=== PATIENT | male | born 1940 | race Caucasian/White ===

== ENCOUNTER 2016-10-10 09:13 | Inpatient (IN) | payer MEDICARE, OTHER ==
[~2016-10-10] VITALS: Ht 180.3 cm; Wt 60.0 kg
[~2016-10-10 09:13] MED LIST: ADV25050 INH; ALBU18HF IH; BIMA2.5D BOTH EYES; CHOL20003 PO; CRES10 PO; DIAZ-90 PO; DIGO250T16 PO; DILT120C79 PO; DORZ10DR6 BOTH EYES; TIOT18CA IH; WARF10TA PO; WARF5TAB72 PO
[2016-10-10] MEDS ORDERED: METHYLPREDNISOLONE 125 MG INJ IV STA (09:25)
[2016-10-10] MEDS ORDERED: IPRATROPIUM (NEB) 0.5 MG/2.5 ML AMP INH STA (09:25)
[2016-10-10] MEDS ORDERED: ALBUTEROL 0.5% (NEB) 2.5 MG/0.5 ML AMP INH STA ×2 (09:25→14:10)
--- NOTE | 2016-10-10 09:27 | ERA ---
ER Documentation Chief Complaint Date/Time DATE: 10/10/16 TIME: 09:27 Chief Complaint sob with fever HPI 76-year-old male with history of metastatic prostate CA to evolve, chronic hypoxia respiratory failure, COPD, aspiration pneumonia, atrial fibrillation and dyslipidemia ambulatory to the ED with his son complaining of a three-day history of increasing shortness of breath with cough productive of yellowish sputum and requiring supplemental oxygen which he he has at home and uses only when needed. Fevers up to 100.0. Denies other URI symptoms rhinorrhea or sore throat. No chest pain or palpitations. Yesterday he had a long biopsy of his hip which went well and he denies any pain, swelling or bleeding. No abdominal pain, nausea or vomiting. No leg pain or swelling. No headache, neck pain, visual changes, focal weakness or numbness. No ill contacts or recent travel. ROS All systems reviewed and are negative except as per history of present illness. Medications Home Meds Reported Medications Sennosides* (Senna Lax*) 8.6 Mg Tablet, 1 TAB PO QHS, TAB 10/10/16 Docusate Sodium (Col-Rite) 100 Mg Capsule, 100 MG PO DAILY, CAP 10/10/16 Apixaban* (Eliquis*) 5 Mg Tablet, 5 MG PO BID, TAB 10/10/16 Diltiazem Hcl* (Diltiazem XT) 240 Mg Capsule.er, 240 MG PO DAILY, #30 CAP 10/10/16 Amiodarone Hcl* (Amiodarone Hcl*) 200 Mg Tablet, 200 MG PO DAILY, #30 TAB 10/10/16 Atorvastatin Calcium* (Atorvastatin Calcium*) 20 Mg Tablet, 20 MG PO QHS, #30 TAB 10/10/16 Bimatoprost* (Lumigan*) 2.5 Ml Drops, 1 DROP BOTH EYES HS 12/19/13 Dorzolamide/Timolol* (Dorzolamide/Timolol*) 10 Ml Drops, 1 DROP BOTH EYES BID, EA 12/19/13 Tiotropium [place]* (Spiriva*) 18 Mcg Cap.w.dev, 1 INH IH DAILY, EA 12/19/13 Salmeterol Xinaf/Fluticasone* (Advair*) 1 Inh Inha, 2 PUFF INH BID, INH 12/19/13 Digoxin* (Digox*) 250 Mcg Tablet, 250 MCG PO DAILY 12/19/13 Discontinued Reported Medications Warfarin Sodium* (Coumadin*) 10 Mg Tablet, 10 MG PO SATURDAY, TAB 12/19/13 Albuterol Sulfate* (Ventolin HFA*) 18 Gm Hfa.aer.ad, 2 PUFF IH Q4H Y for WHEEZING AND RESP DISTRESS, EA 12/19/13 Rosuvastatin Calcium* (Crestor*) 10 Mg Tablet, 10 MG PO HS, TAB 12/19/13 Cholecalciferol (Vitamin D3) (VITAMIN D-3) 2,000 Unit Capsule, 2000 UNIT PO DAILY 12/19/13 Diazepam* (Valium*) 5 Mg Tablet, 5 MG PO Y for ANXIETY, TAB 12/19/13 Warfarin Sodium* (Coumadin*) 5 Mg Tablet, 5 MG PO ,,SAT,,SAT,SAT, TAB 12/19/13 Diltiazem Hcl (Diltiazem Er) 120 Mg Capsule.sa, 120 MG PO DAILY 12/19/13 Allergies Allergies: Coded Allergies: No Known Allergy (Unverified , 10/10/16) PMhx/Soc Reviewed in chart. As per HPI. History of Surgery: Yes (prostate surgery) Anesthesia Reaction: No Hx Neurological Disorder: No Hx Respiratory Disorders: Yes (COPD,PULMONARY DEBILITY) Hx Cardiac Disorders: Yes (ARTHEROSCLEROTIC HEART DISEASE, Afib) Hx Psychiatric Problems: No Hx Alcohol Use: No Hx Substance Use: No Hx Tobacco Use: No Smoking Status: Former smoker (40 pack year smoking history quit approximately 10 years ago) FmHx Mother: Hypertension, father: Stroke. No family history of coronary artery disease or cancer. Physical Exam Vitals Vital Signs Date Time Temp Pulse Resp B/P Pulse Ox O2 Delivery O2 Flow Rate FiO2 10/10/16 12:49 89 20 118/64 96 Nasal Cannula 2.0 10/10/16 09:57 3.0 10/10/16 09:57 87 18 97 Nasal Cannula 3.0 10/10/16 09:28 Nasal Cannula 4 10/10/16 09:25 Nasal Cannula 4.0 10/10/16 09:24 99.4 94 32 153/94 94 Physical Exam Const: Alert, chronically ill-appearing in moderate respiratory distress Head: Atraumatic Eyes: Normal Conjunctiva ENT: Normal External Ears, Nose and Mouth. Neck: Full range of motion no JVD. Nontender. Resp: Breath sounds markedly diminished bilaterally with expiratory wheezing and prolonged expiratory phase. Cardio: Regular rate and rhythm, no murmurs. 2/6 systolic murmur. Abd: Soft, non tender, non distended. Normal bowel sounds Skin: No petechiae or rashes Back: No midline or flank tenderness Ext: No cyanosis, or edema. No calf swelling or tenderness. Pulses 4+ in all extremities. Neur: Awake and alert. No focal deficit observed. Psych: Normal Mood and Affect Result Diagram: 10/10/16 0930 10/11/16 0749 Results 24 hrs Laboratory Tests Test 10/10/16 09:30 White Blood Count 11.710^3/ul Red Blood Count 4.9410^6/ul Hemoglobin 14.9g/dl Hematocrit 44.5% Mean Corpuscular Volume 90.1fl Mean Corpuscular Hemoglobin 30.2pg Mean Corpuscular Hemoglobin Concent 33.5g/dl Red Cell Distribution Width 13.4% Platelet Count 13046^3/UL Mean Platelet Volume 10.0fl Neutrophils % 78.5% Lymphocytes % 10.9% Monocytes % 10.0% Eosinophils % 0.1% Basophils % 0.2% Nucleated Red Blood Cells % 0.0/100WBC Neutrophils # 9.210^3/ul Lymphocytes # 1.310^3/ul Monocytes # 1.210^3/ul Eosinophils # 0.010^3/ul Basophils # 0.010^3/ul Nucleated Red Blood Cells # 0.010^3/ul Prothrombin Time 14.3Sec Prothrombin Time Ratio 1.1 INR International Normalized Ratio 1.11 Activated Partial Thromboplast Time 39.2Sec Sodium Level 138mmol/L Potassium Level 3.6mmol/L Chloride Level 98mmol/L Carbon Dioxide Level 25mmol/L Anion Gap 19 Blood Urea Nitrogen 15mg/dl Creatinine 0.96mg/dl Glucose Level 117mg/dl Calcium Level 8.6mg/dl Total Bilirubin 0.5mg/dl Direct Bilirubin 0.00mg/dl Indirect Bilirubin 0.5mg/dl Aspartate Amino Transf (AST/SGOT) 21IU/L Alanine Aminotransferase (ALT/SGPT) 22IU/L Alkaline Phosphatase 109IU/L Troponin I 0.021ng/ml Total Protein 7.5g/dl Albumin 4.3g/dl Globulin 3.20g/dl Albumin/Globulin Ratio 1.34 Digoxin Level 1.5ng/ml Current Medications Medications (Trade) Dose Ordered Sig/Pily Route PRN Reason Start Time Stop Time Status Last Admin Dose Admin Albuterol (Proventil 0.5% (Neb)) 15 mg ONCE STAT INH 10/10/16 09:25 10/10/16 09:27 DC 10/10/16 09:54 Ipratropium [place] (Atrovent 0.02% (Neb)) 1 mg ONCE STAT INH 10/10/16 09:25 10/10/16 09:27 DC 10/10/16 09:55 Methylprednisolone Sodium Succinate (Solu-Medrol) 125 mg ONCE STAT IV 10/10/16 09:25 10/10/16 09:27 DC 10/10/16 09:37 Albuterol (Proventil 0.5% (Neb)) 15 mg ONCE STAT INH 10/10/16 14:10 10/10/16 14:11 DC 10/10/16 14:34 EKG: TIME: 09:32. Sinus rhythm. Ventricular rate 93. Normal WA and QRS. No acute ST elevation although there are moderate diffuse depressions. No ectopy. EP Interpretation: Abnormal EKG. IMAGING: PROCEDURE: XR Chest. CLINICAL INDICATION: Shortness of breath. TECHNIQUE: Single frontal view of the chest was obtained. COMPARISON: 06/02/2016 FINDINGS: Cardiac silhouette appears normal. There is calcification and unfolding of the thoracic aorta. Pulmonary vasculature appears normal. There is mild pulmonary hyperinflation. There is some linear subsegmental atelectasis in both lower lung blanchard. Minimal streaky infiltrate remains in the right upper lobe.. Costophrenic angles are well defined and the osseous structures appear intact. IMPRESSION: 1. Continued pulmonary hyperinflation with bibasilar subsegmental atelectasis. 2. Minimal streaky right upper lobe infiltrate remains. 3. Aortic atherosclerosis. RPTAT: AACC Physician Sen Date Time Electronically viewed and signed by Roque Fierro Physician on 10/10/2016 10: 28 JH/ Procedures/MDM DOCUMENTS REVIEWED: ED nurse, prior ED, prior records including history and physical, progress notes and discharge summary of an admission 06/04 through 10/2015 REEXAMINATION/REEVALUATION: Time: 13:45. Increasing breath sounds. O2 saturation 93% on 2 L by nasal cannula. Feels better but still extremely dyspneic with exertion and hypoxic on room air. MEDICAL DECISION MAKIN-year-old male with history of metastatic prostate CA to evolve, chronic hypoxia respiratory failure, COPD, aspiration pneumonia, atrial fibrillation and dyslipidemia ambulatory to the ED with his son complaining of a three-day history of increasing shortness of breath with cough productive of yellowish sputum and requiring supplemental oxygen which he he has at home and uses only when needed. Presentation consistent with COPD exacerbation and bronchitis. No radiographic evidence of pneumonia or pneumothorax. Chest x-ray unchanged from 05/2016. Improved with nebulized beta agonists and steroids but still hypoxic with severe exertional dyspnea. Levaquin given for bronchitis. Pulmonary embolism is unlikely as the patient is already anticoagulated on Eliquis due atrial fibrillation which is controlled. Patient be admitted to [facility] for respiratory care, further evaluation and management.. Counseled patient and family regarding diagnosis, diagnostic results and plan for admission. CALLS/CONSULTS: Time 14:00, Dr. Gracia, Recommends admission to med/surg. PATIENT CARE TRANSITIONED: Time: 14:10, Dr. Gracia. CRITICAL CARE TIME: Due to the high probability of sudden clinically significant respiratory deterioration, this patient with respiratory distress due to an acute on chronic hypoxic respiratory failure required multiple, frequent reevaluations of vital signs and response to therapy. Improved and no current indication for intubation or noninvasive mechanical ventilation. Additional critical care time was spent in interpretation of relevant clinical data, obtaining supplemental history from family, review of medical records and consultation with the admitting physician, Dr Gracia. TOTAL CRITICAL CARE TIME: 35 minutes not including other separately reportable procedures. Departure Diagnosis: Primary Impression: Acute and chronic respiratory failure with hypoxia Additional Impressions: Metastatic malignant neoplasm to prostate History of atrial fibrillation COPD with acute exacerbation Acute dyspnea Condition: Serious PRIYA ENRIQUEZ MD Oct 10, 2016 09:27
[2016-10-10 09:47] LABS: ADD SCAN DIFF NO
[2016-10-10 09:51] LABS: BASOPHILS % 0.2 % (0.0-2.0); EOSINOPHILS % 0.1 % (0.0-7.0); HEMATOCRIT 44.5 % (42.0-52.0); HEMOGLOBIN 14.9 g/dl (14.0-18.0); LYMPHOCYTES # 1.3 10^3/ul (0.8-2.9); LYMPHOCYTES % 10.9 % (15.0-51.0); MEAN CORPUSCULAR HEMOGLOBIN 30.2 pg (29.0-33.0); MEAN CORPUSCULAR HGB CONC 33.5 g/dl (32.0-37.0); MEAN CORPUSCULAR VOLUME 90.1 fl (82.0-101.0); MONOCYTE # 1.2 10^3/ul (0.3-0.9); NEUTROPHIL # 9.2 10^3/ul (1.6-7.5); NEUTROPHILS % 78.5 % (39.0-77.0); PLATELET COUNT 199 10^3/UL (140-415); RED BLOOD COUNT 4.94 10^6/ul (4.70-6.10); RED CELL DISTRIBUTION WIDTH 13.4 % (11.5-14.5); WHITE BLOOD COUNT 11.7 10^3/ul (4.8-10.8)
[2016-10-10 10:03] LABS: ALBUMIN 4.3 g/dl (3.3-4.9)
[2016-10-10 10:04] LABS: POTASSIUM 3.6 mmol/L (3.5-5.1)
[2016-10-10 10:06] LABS: BILIRUBIN,INDIRECT 0.5 mg/dl (0-1.1); BILIRUBIN,TOTAL 0.5 mg/dl (0.2-1.3); CREATININE 0.96 mg/dl (0.61-1.24)
[2016-10-10 10:07] LABS: ALBUMIN/GLOBULIN RATIO 1.34; CALCIUM 8.6 mg/dl (8.4-10.2); TOTAL PROTEIN 7.5 g/dl (6.1-8.1)
[2016-10-10 10:18] LABS: TROPONIN-I 0.021 ng/ml (0.00-0.12)
--- NOTE | 2016-10-10 10:28 | RADRPT ---
PROCEDURE: XR Chest. CLINICAL INDICATION: Shortness of breath. TECHNIQUE: Single frontal view of the chest was obtained. COMPARISON: 06/02/2016 FINDINGS: Cardiac silhouette appears normal. There is calcification and unfolding of the thoracic aorta. Pul monary vasculature appears normal. There is mild pulmonary hyperinflation. There is some linear belcher bsegmental atelectasis in both lower lung blanchard. Minimal streaky infiltrate remains in the right u pper lobe.. Costophrenic angles are well defined and the osseous structures appear intact. IMPRESSION: 1. Continued pulmonary hyperinflation with bibasilar subsegmental atelectasis. 2. Minimal streaky right upper lobe infiltrate remains. 3. Aortic atherosclerosis. RPTAT: AACC Physician Sen Date Time Electronically viewed and signed by Physician Sen on 10/10/2016 10:28 /
[2016-10-10 11:53] LABS: INR 1.11; PROTIME 14.3 Sec (12.2-14.2); PT RATIO 1.1
[2016-10-10 11:54] LABS: PARTIAL THROMBOPLASTIN TIME 39.2 Sec (25.0-35.0)
[2016-10-10] MEDS ORDERED: ATOR20TA38 PO (12:05)
[2016-10-10] MEDS ORDERED: AMIO200T2 PO (12:06)
[2016-10-10] MEDS ORDERED: DILT240C98 PO (12:06)
[2016-10-10] MEDS ORDERED: APIX5TAB PO (12:07)
[2016-10-10] MEDS ORDERED: DOCU100C59 PO (12:07)
[2016-10-10] MEDS ORDERED: SENN-53 PO (12:08)
[2016-10-10] MEDS ORDERED: ACETAMINOPHEN 325 MG TAB PO PRN ×2 (14:30→15:30)
[2016-10-10] MEDS ORDERED: ONDANSETRON 4 MG INJ IV PRN ×2 (14:30→15:30)
[2016-10-10] MEDS ORDERED: LEVOFLOXACIN 500MG/D5W (PMX) 100 ML IVPB ONE (14:30)
--- NOTE | 2016-10-10 14:53 | HP ---
Date/Time of Note Date/Time of Note DATE: 10/10/16 TIME: 14:49 Assessment/Plan VTE Prophylaxis VTE Prophylaxis Intervention: LMWH Assessment/Plan Assessment/Plan 1. Acute on chronic hypoxemic respiratory failure 2. Chronic obstructive pulmonary disease exacerbation 3. Acute bronchitis versus Pneumonia 4. Paroxysmal atrial fibrillation. 5. Dyslipidemia. . 6. Aortic valve disease 7. History of prostate cancer, remote prostatectomy in 1991. 8. Glaucoma, stable. 9. History of Vitamin D deficiency. 10. Remote tobacco abuse PLAN: * admit * ACS r/o * bronchodilator / abx / supplemental o2/ steroids * suppotive care + home meds PROPHYLAXIS: eliquis / ppi HPI/ROS Admit Date/Time Admit Date/Time 10/10/16 Hx of Present Illness PRESENTING COMPLAINT: cough / SOB HISTORY OF PRESENTING COMPLAINT: 76-year-old male with history of metastatic prostate CA remotely , chronic hypoxia respiratory failure, COPD, aspiration pneumonia, atrial fibrillation and dyslipidemia ambulatory to the ED with his son complaining of a three-day history of increasing shortness of breath with cough productive of yellowish sputum and requiring supplemental oxygen which he he has at home and uses only when needed. Fevers up to 100.0. Denies other URI symptoms rhinorrhea or sore throat. No chest pain or palpitations. Yesterday he had a long biopsy of his hip which went well and he denies any pain, swelling or bleeding. No abdominal pain, nausea or vomiting. No leg pain or swelling. No headache, neck pain, visual changes, focal weakness or numbness. No ill contacts or recent travel. ROS 12 point review if systems was done and pertinent findings are as noted. PMH/Family/Social Past Medical History metastatic prostate CA chronic hypoxia respiratory failure COPD aspiration pneumonia atrial fibrillation dyslipidemia Vit D deficiency Glaucoma Past Surgical History * Hip bx yesterday * Prostate Sx Social History Smoking Status: Former smoker (40 pack year smoking history quit approximately 10 years ago) Exam/Review of Systems Vital Signs Vitals Vital Signs Date Time Temp Pulse Resp B/P Pulse Ox O2 Delivery O2 Flow Rate FiO2 10/10/16 14:37 82 18 97 Nasal Cannula 3.0 10/10/16 12:49 118/64 10/10/16 09:24 99.4 Exam Exam GENERAL: Patient is alert, oriented / cachectic / ill looking. HEENT: Oropharynx is clear. There is no carotid bruit, no masses. Patient's pupils are equal, round and reactive to light bilaterally. Extraocular motions are intact. There is no scleral icterus. There is no facial asymmetry. NECK: Supple. LUNGS: Breath sounds markedly diminished bilaterally with expiratory wheezing and prolonged expiratory phase. HEART: S1, S2. No murmur, gallops or rubs. Regular rate and rhythm. ABDOMEN: Soft, nontender. Normoactive bowel sounds. There are no stigmata of chronic liver disease. BACK: no costovertebral angle tenderness. GENITOURINARY: Deferred. EXTREMITIES: No edema. There is no cyanosis, clubbing. There are 2+ pulses bilaterally distally. NEUROLOGIC: The patient has no lateralizing signs. Cranial nerves II-XII are intact. Labs Result Diagram: 10/10/16 0930 10/10/16 0930 Medications Medications Current Medications Levofloxacin/ Dextrose (Levaquin 500mg/ D5W 100 ml (Pmx)) 100 ml @ 100 mls/hr ONCE ONCE IVPB Last administered on 10/10/16t 14:25; Admin Dose 100 MLS/HR; Start 10/10/16 at 14:30; Stop 10/10/16 at 15:29 Procedures Procedures Laboratory Tests Test 10/10/16 09:30 White Blood Count 11.710^3/ul Red Blood Count 4.9410^6/ul Hemoglobin 14.9g/dl Hematocrit 44.5% Mean Corpuscular Volume 90.1fl Mean Corpuscular Hemoglobin 30.2pg Mean Corpuscular Hemoglobin Concent 33.5g/dl Red Cell Distribution Width 13.4% Platelet Count 89021^3/UL Mean Platelet Volume 10.0fl Neutrophils % 78.5% Lymphocytes % 10.9% Monocytes % 10.0% Eosinophils % 0.1% Basophils % 0.2% Nucleated Red Blood Cells % 0.0/100WBC Neutrophils # 9.210^3/ul Lymphocytes # 1.310^3/ul Monocytes # 1.210^3/ul Eosinophils # 0.010^3/ul Basophils # 0.010^3/ul Nucleated Red Blood Cells # 0.010^3/ul Prothrombin Time 14.3Sec Prothrombin Time Ratio 1.1 INR International Normalized Ratio 1.11 Activated Partial Thromboplast Time 39.2Sec Sodium Level 138mmol/L Potassium Level 3.6mmol/L Chloride Level 98mmol/L Carbon Dioxide Level 25mmol/L Anion Gap 19 Blood Urea Nitrogen 15mg/dl Creatinine 0.96mg/dl Glucose Level 117mg/dl Calcium Level 8.6mg/dl Total Bilirubin 0.5mg/dl Direct Bilirubin 0.00mg/dl Indirect Bilirubin 0.5mg/dl Aspartate Amino Transf (AST/SGOT) 21IU/L Alanine Aminotransferase (ALT/SGPT) 22IU/L Alkaline Phosphatase 109IU/L Troponin I 0.021ng/ml Total Protein 7.5g/dl Albumin 4.3g/dl Globulin 3.20g/dl Albumin/Globulin Ratio 1.34 Digoxin Level 1.5ng/ml PROCEDURE: XR Chest. CLINICAL INDICATION: Shortness of breath. TECHNIQUE: Single frontal view of the chest was obtained. COMPARISON: 06/02/2016 FINDINGS: Cardiac silhouette appears normal. There is calcification and unfolding of the thoracic aorta. Pulmonary vasculature appears normal. There is mild pulmonary hyperinflation. There is some linear subsegmental atelectasis in both lower lung blanchard. Minimal streaky infiltrate remains in the right upper lobe.. Costophrenic angles are well defined and the osseous structures appear intact. IMPRESSION: 1. Continued pulmonary hyperinflation with bibasilar subsegmental atelectasis. 2. Minimal streaky right upper lobe infiltrate remains. 3. Aortic atherosclerosis. RPTAT: AACC Physician Sen Date Time Electronically viewed and signed by Roque Fierro Physician on 10/10/2016 10: 28 JH/ CC: PRIYA ENRIQUEZ MD I reviewed EKG Rate: Rhythm: sinus Note: No ST elevation or depressions noted concerning for acute ischemic event. AMY RICE Oct 10, 2016 14:53
[2016-10-10] MEDS: LEVOFLOXACIN 500MG/D5W (PMX) 100 ML IVPB SCH (15:10)
[2016-10-10] MEDS ORDERED: ALBUTEROL/IPRATROPIUM (NEB) 3 ML AMP HHN PRN (15:30)
[2016-10-10 16:56] VITALS: BP 129/63; RESP 24
[2016-10-10 17:37] VITALS: Ht 180.3 cm; Wt 60.0 kg
--- NOTE | 2016-10-10 18:10 | RADRPT ---
Echocardiogram Report Patient Name: KEV DIXON Gender: Male Date: 1940 Study Date: 10-Oct-2016 Road Manager: [facility] Location: [facility] Ref. Physician: AMY RICE Quality: Technically Difficult Study Procedures: Transthoracic echocardiogram with complete 2D, M-Mode, and doppler examination. Indications: NSTEMI. 2D/M Mode Doppler Measurement Value Normal Ranges Measurement Value Normal Ranges LVIDd 2D 4.6 3.5 - 5.6 cm AV Peak Isaias 1.2 m/sec LVIDs 2D 3.2 2.1 - 4.1 cm AV Peak PG 5.6 mmHg LVPWd 2D 1.0 0.6 - 1.1 cm LVOT Peak Isaias 1.0 m/sec IVSd 2D 1.0 0.6 - 1.1 cm LVOT Peak PG 3.7 mmHg AoR Diam 2D 3.3 2.0 - 3.7 cm MV E Peak Isaias 0.5 m/sec EDV 2D 99.2 cm3 MV A Peak Isaias 0.6 m/sec ESV 2D 32.8 cm3 MV E/A 0.7 MV Decel Time 155 msec MV Decel Leake 3 MV E/A 0.7 TR Peak Isaias 3.0 m/sec TR Peak PG 36.2 mmHg Findings Left Ventricle: Hyperdynamic left ventricular systolic function. Normal left ventricular cavity size. Normal left ventricular wall thickness. Ejection fraction is visually estimated at >65 %. Abnormal Diastolic Function. Right Ventricle: Normal right ventricular size. Normal right ventricular systolic function. Left Atrium: The left atrium is normal in size. Right Atrium: The right atrium is normal in size. Mitral Valve: Mild mitral leaflet calcification. Trace mitral regurgitation. Aortic Valve: Normal appearance of the aortic valve. Tricuspid Valve: Tricuspid valve not well visualized. Estimated peak PA systolic pressure 44 mmHg. There is mild tricuspid regurgitation. Pulmonic Valve: Pulmonic valve not well visualized. There is trace pulmonic regurgitation. Pericardium: Normal pericardium with no significant pericardial effusion. There is an anterior echo free space consistent with epicardial fat pad. Aorta: Normal aortic root. IVC: Dilated IVC with respiratory collapse consistent with elevated right atrial pressure. Conclusions 1.Hyperdynamic left ventricular systolic function. Normal left ventricular cavity size. Normal left ventricular wall thickness. Ejection fraction is visually estimated at >65 %. Abnormal Diastolic Function. 2.Normal right ventricular size. Normal right ventricular systolic function. 3.Mild mitral leaflet calcification. Trace mitral regurgitation. 4.Tricuspid valve not well visualized. Estimated peak PA systolic pressure 44 mmHg. There is mild tricuspid regurgitation. 5.Pulmonic valve not well visualized. There is trace pulmonic regurgitation. Electronically Signed By: Brian Hotl 10-Oct-2016 18:09:53 -0700 Patient Name: KEV DIXON Study Date: 10-Oct-2016 [id number]
[2016-10-10 18:17] LABS: CREATINE KINASE 264 IU/L (23-200)
[2016-10-10 18:29] LABS: CK-MB 1.48 ng/ml (0.0-2.4)
[2016-10-10 18:30] LABS: TROPONIN-I < 0.012 ng/ml (0.00-0.12)
[2016-10-10] MEDS: ALBUTEROL/IPRATROPIUM (NEB) 3 ML AMP HHN SCH (20:16)
[2016-10-10 20:23] VITALS: BP 117/59; RESP 22
[2016-10-10] MEDS: METHYLPREDNISOLONE 125 MG INJ IV SCH (20:32)
[2016-10-10] MEDS: SENNA TAB PO SCH (20:32)
[2016-10-10] MEDS: ATORVASTATIN 20 MG TAB PO SCH (20:32)
[2016-10-10] MEDS: APIXABAN 5 MG TABLET PO SCH (20:32)
[2016-10-10] MEDS: DORZOLAMIDE/TIMOLOL 10 ML OPH BOTH EYES SCH ×2 (21:00→21:29)
[2016-10-10] MEDS ORDERED: BIMATOPROST 0.01% 2.5 ML BTL BOTH EYES SCH (21:00)
[2016-10-10] MEDS: LATANOPROST 0.005% 2.5 ML OPH BOTH EYES SCH (21:29)
[2016-10-10] MEDS: SALMETEROL/FLUTICASONE 250/50 INHA INH SCH (21:29)
[2016-10-10 21:31] LABS: CREATINE KINASE 203 IU/L (23-200)
[2016-10-10 21:49] LABS: CK-MB 1.64 ng/ml (0.0-2.4); TROPONIN-I < 0.012 ng/ml (0.00-0.12)
[2016-10-11] MEDS: ALBUTEROL/IPRATROPIUM (NEB) 3 ML AMP HHN SCH ×6 (01:11→22:49)
[2016-10-11 07:32] VITALS: BP 101/57; RESP 20
[2016-10-11] MEDS: DORZOLAMIDE/TIMOLOL 10 ML OPH BOTH EYES SCH ×2 (08:46→20:25)
[2016-10-11] MEDS: ASPIRIN (EC) 81 MG TAB PO SCH (08:47)
[2016-10-11] MEDS: METHYLPREDNISOLONE 125 MG INJ IV SCH ×2 (08:47→20:26)
[2016-10-11] MEDS: APIXABAN 5 MG TABLET PO SCH ×2 (08:47→20:29)
[2016-10-11] MEDS: DOCUSATE SODIUM 100 MG CAP PO SCH (08:47)
[2016-10-11 08:48] LABS: ANION GAP 12 (8-16); BLOOD UREA NITROGEN 21 mg/dl (7-20); CALCIUM 8.7 mg/dl (8.4-10.2); CARBON DIOXIDE 27 mmol/L (21-31); CHLORIDE 104 mmol/L (97-110); CHOL/HDL RATIO 2.1 RATIO; CHOLESTEROL 113 mg/dl (100-200); CREATININE 0.84 mg/dl (0.61-1.24); GLUCOSE 140 mg/dl (70-220); HDL CHOLESTEROL 52 mg/dl (31-75); POTASSIUM 3.7 mmol/L (3.5-5.1); SODIUM 139 mmol/L (135-144); TRIGLYCERIDES 58 mg/dl (0-149)
[2016-10-11] MEDS: TIOTROPIUM 18 MCG CAPSULE INHA DEV INH SCH (08:48)
[2016-10-11] MEDS: SALMETEROL/FLUTICASONE 250/50 INHA INH SCH ×2 (08:48→20:24)
[2016-10-11] MEDS: DILTIAZEM (CD) 240 MG CAP PO SCH (08:51)
[2016-10-11] MEDS: DIGOXIN 0.25 MG TAB PO SCH (08:52)
[2016-10-11] MEDS: AMIODARONE 200 MG TAB PO SCH (08:52)
[2016-10-11 09:18] LABS: THYROID STIMULATING HORMONE < 0.015 MIU/L (0.465-4.680)
--- NOTE | 2016-10-11 11:26 | PN ---
Date/Time of Note Date/Time of Note DATE: 10/11/16 TIME: 11:24 Assessment/Plan VTE Prophylaxis VTE Prophylaxis Intervention: other (Eliquis ) Lines/Catheters IV [facility]from [facility] [place] Assessment/Plan Assessment/Plan 1. Acute on chronic hypoxemic respiratory failure 2. Chronic obstructive pulmonary disease exacerbation 3. Acute bronchitis versus Pneumonia 4. Paroxysmal atrial fibrillation. 5. Dyslipidemia. . 6. Aortic valve disease 7. History of prostate cancer, remote prostatectomy in 1991. 8. Glaucoma, stable. 9. History of Vitamin D deficiency. 10. Remote tobacco abuse PLAN: IV levaquin for acute bronchitis IV solumedrol for acute COPD exacebration BP stable measure Oxygen saturation off oxygen, PT evaluation and treatment PROPHYLAXIS: eliquis / ppi Subjective 24 Hr Interval Summary Free Text/Dictation still c/o SOB,Cough Exam/Review of Systems Vital Signs Vitals Vital Signs Date Time Temp Pulse Resp B/P Pulse Ox O2 Delivery O2 Flow Rate FiO2 10/11/16 08:45 85 18 95 Nasal Cannula 4.0 10/11/16 07:32 97.5 101/57 Intake and Output 10/10/16 10/10/16 10/11/16 15:00 23:00 07:00 Intake Total 100 ml Balance 100 ml Exam GENERAL: alert, awake LUNGS: Breath sounds markedly diminished bilaterally with expiratory wheezing and prolonged expiratory phase. HEART: S1, S2. No murmur, gallops or rubs. Regular rate and rhythm. ABDOMEN: Soft, nontender. Normoactive bowel sounds. There are no stigmata of chronic liver disease. EXTREMITIES: No edema. There is no cyanosis, clubbing. There are 2+ pulses bilaterally distally. NEUROLOGIC: The patient has no lateralizing signs. Cranial nerves II-XII are intact. Results Result Diagram: 10/10/16 0930 10/11/16 0749 Results 24 hrs Laboratory Tests Test 10/10/16 17:40 10/10/16 20:55 10/11/16 07:49 Magnesium Level 2.1 Creatine Kinase 264 H 203 H Creatine Kinase Index 0.6 0.8 Creatinine Kinase MB (Mass) 1.48 1.64 Troponin I < 0.012 < 0.012 Sodium Level 139 Potassium Level 3.7 Chloride Level 104 Carbon Dioxide Level 27 Anion Gap 12 # Blood Urea Nitrogen 21 H Creatinine 0.84 Glucose Level 140 Hemoglobin A1c 5.6 Calcium Level 8.7 Triglycerides Level 58 Cholesterol Level 113 LDL Cholesterol, Calculated 49 HDL Cholesterol 52 Cholesterol/HDL Ratio 2.1 Thyroid Stimulating Hormone (TSH) < 0.015 L Medications Medications Current Medications Amiodarone HCl (Cordarone) 200 mg DAILY PO Last administered on 10/11/16 08:52 ; Admin Dose 200 MG; Start 10/11/16 at 09:00 Apixaban (Eliquis) 5 mg BID PO Last administered on 10/11/16 08:47; Admin Dose 5 MG; Start 10/10/16 at 21:00 Atorvastatin Calcium (Lipitor) 20 mg QHS PO Last administered on 10/10/16 20:32 ; Admin Dose 20 MG; Start 10/10/16 at 21:00 Digoxin (Digoxin) 0.25 mg DAILY PO Last administered on 10/11/16 08:52; Admin Dose 0.25 MG; Start 10/11/16 at 09:00 Diltiazem HCl (Cardizem Cd) 240 mg DAILY PO Last administered on 10/11/16 08:51 ; Admin Dose 240 MG; Start 10/11/16 at 09:00 Docusate Sodium (Colace) 100 mg DAILY PO Last administered on 10/11/16 08:47; Admin Dose 100 MG; Start 10/11/16 at 09:00 Dorzolamide/ Timolol (Cosopt) 1 drop BID BOTH EYES Last administered on 08:46; Admin Dose 1 DROP; Start 10/10/16 at 21:00 Salmeterol Xinafoate/ Fluticasone (Advair 250/50 Diskus) 1 inh BID INH Last administered on 10/11/16 08:48; Admin Dose 1 INH; Start 10/10/16 at 21:00 Senna (Senokot) 1 tab QHS PO Last administered on 10/10/16 20:32; Admin Dose 1 TAB; Start 10/10/16 at 21:00 Tiotropium [place] (Spiriva) 1 inh DAILY INH Last administered on 10/11/16 08: 48; Admin Dose 1 INH; Start 10/11/16 at 09:00 Aspirin (Halfprin) 81 mg DAILY PO Last administered on 10/11/16 08:47; Admin Dose 81 MG; Start 10/11/16 at 09:00 Methylprednisolone Sodium Succinate (Solu-Medrol) 60 mg Q12 IV Last administered on 10/11/16 08:47; Admin Dose 60 MG; Start 10/10/16 at 21:00 Ondansetron HCl (Zofran Inj) 4 mg Q6H PRN IV NAUSEA AND/OR VOMITING; Start 10/10 at 15:30 Acetaminophen 650 mg 650 mg Q6H PRN PO PAIN AND OR ELEVATED TEMP; Start at 15:30 Levofloxacin/ Dextrose (Levaquin 500mg/ D5W 100 ml (Pmx)) 100 ml @ 100 mls/hr Q24H IVPB ; Start 10/10/16 at 15:30 Latanoprost (Xalatan) 1 drop QHS BOTH EYES Last administered on 10/10/16 21:29 ; Admin Dose 1 DROP; Start 10/10/16 at 21:06 KAYA RICKETTS MD Oct 11, 2016 11:26
[2016-10-11] MEDS: LEVOFLOXACIN 500MG/D5W (PMX) 100 ML IVPB SCH (15:06)
[2016-10-11 19:17] VITALS: BP 110/61; RESP 20
[2016-10-11] MEDS: SENNA TAB PO SCH (20:24)
[2016-10-11] MEDS: ATORVASTATIN 20 MG TAB PO SCH (20:24)
[2016-10-11] MEDS: LATANOPROST 0.005% 2.5 ML OPH BOTH EYES SCH (20:25)
[2016-10-12] MEDS: ALBUTEROL/IPRATROPIUM (NEB) 3 ML AMP HHN SCH ×5 (01:44→15:57)
[2016-10-12 07:42] VITALS: BP 114/59; RESP 16
[2016-10-12 07:50] LABS: CALCIUM 8.7 mg/dl (8.4-10.2); CREATININE 0.9 mg/dl (0.61-1.24); POTASSIUM 4.3 mmol/L (3.5-5.1)
[2016-10-12] MEDS: DOCUSATE SODIUM 100 MG CAP PO SCH (09:09)
[2016-10-12] MEDS: DILTIAZEM (CD) 240 MG CAP PO SCH (09:10)
[2016-10-12] MEDS: ASPIRIN (EC) 81 MG TAB PO SCH (09:10)
[2016-10-12] MEDS: DIGOXIN 0.25 MG TAB PO SCH (09:10)
[2016-10-12] MEDS: APIXABAN 5 MG TABLET PO SCH ×2 (09:10→20:32)
[2016-10-12] MEDS: METHYLPREDNISOLONE 125 MG INJ IV SCH (09:10)
[2016-10-12] MEDS: TIOTROPIUM 18 MCG CAPSULE INHA DEV INH SCH (09:10)
[2016-10-12] MEDS: AMIODARONE 200 MG TAB PO SCH (09:11)
[2016-10-12] MEDS: DORZOLAMIDE/TIMOLOL 10 ML OPH BOTH EYES SCH ×2 (09:12→20:31)
[2016-10-12] MEDS: SALMETEROL/FLUTICASONE 250/50 INHA INH SCH ×2 (09:12→20:32)
--- NOTE | 2016-10-12 12:41 | PN ---
Date/Time of Note Date/Time of Note DATE: 10/12/16 TIME: 12:39 Assessment/Plan VTE Prophylaxis VTE Prophylaxis Intervention: other (Eliquis ) Lines/Catheters IV C[facility]ter Type (from [facility] Saline Lock Assessment/Plan Assessment/Plan 1. Acute on chronic hypoxemic respiratory failure 2. Chronic obstructive pulmonary disease exacerbation 3. Acute bronchitis versus Pneumonia 4. Paroxysmal atrial fibrillation. 5. Dyslipidemia. . 6. Aortic valve disease 7. History of prostate cancer, remote prostatectomy in 1991. 8. Glaucoma, stable. 9. History of Vitamin D deficiency. 10. Remote tobacco abuse PLAN: IV levaquin for acute bronchitis IV solumedrol for acute COPD exacebration- decrease dose to 40mg IV BID BP stable measure Oxygen saturation off oxygen, PT evaluation and treatment PROPHYLAXIS: eliquis / ppi Subjective 24 Hr Interval Summary Free Text/Dictation still wheezing on IV solumedrol, c/o chest pain Exam/Review of Systems Vital Signs Vitals Vital Signs Date Time Temp Pulse Resp B/P Pulse Ox O2 Delivery O2 Flow Rate FiO2 10/12/16 09:53 68 20 97 Nasal Cannula 3.0 10/12/16 07:42 98.7 114/59 Intake and Output 10/11/16 10/11/16 10/12/16 15:00 23:00 07:00 Intake Total 940 ml 240 ml Output Total 300 ml Balance -300 ml 940 ml 240 ml Exam GENERAL: alert, awake LUNGS: Breath sounds markedly diminished bilaterally with expiratory wheezing and prolonged expiratory phase. HEART: S1, S2. No murmur, gallops or rubs. Regular rate and rhythm. ABDOMEN: Soft, nontender. Normoactive bowel sounds. There are no stigmata of chronic liver disease. EXTREMITIES: No edema. There is no cyanosis, clubbing. There are 2+ pulses bilaterally distally. NEUROLOGIC: The patient has no lateralizing signs. Cranial nerves II-XII are intact. Results Result Diagram: 10/10/16 0930 10/12/16 0657 Results 24 hrs Laboratory Tests Test 10/12/16 06:57 Sodium Level 137 Potassium Level 4.3 Chloride Level 103 Carbon Dioxide Level 29 Anion Gap 9 Blood Urea Nitrogen 30 H Creatinine 0.90 Glucose Level 121 Calcium Level 8.7 Medications Medications Current Medications Amiodarone HCl (Cordarone) 200 mg DAILY PO Last administered on 10/12/16t 09:11 ; Admin Dose 200 MG; Start 10/11/16 at 09:00 Apixaban (Eliquis) 5 mg BID PO Last administered on 10/12/16 09:10; Admin Dose 5 MG; Start 10/10/16 at 21:00 Atorvastatin Calcium (Lipitor) 20 mg QHS PO Last administered on 10/11/16 20:24 ; Admin Dose 20 MG; Start 10/10/16 at 21:00 Digoxin (Digoxin) 0.25 mg DAILY PO Last administered on 10/12/16 09:10; Admin Dose 0.25 MG; Start 10/11/16 at 09:00 Diltiazem HCl (Cardizem Cd) 240 mg DAILY PO Last administered on 10/12/16 09:10 ; Admin Dose 240 MG; Start 10/11/16 at 09:00 Docusate Sodium (Colace) 100 mg DAILY PO Last administered on 10/12/16 09:09; Admin Dose 100 MG; Start 10/11/16 at 09:00 Dorzolamide/ Timolol (Cosopt) 1 drop BID BOTH EYES Last administered on 09:12; Admin Dose 1 DROP; Start 10/10/16 at 21:00 Salmeterol Xinafoate/ Fluticasone (Advair 250/50 Diskus) 1 inh BID INH Last administered on 10/12/16 09:12; Admin Dose 1 INH; Start 10/10/16 at 21:00 Senna (Senokot) 1 tab QHS PO Last administered on 10/11/16 20:24; Admin Dose 1 TAB; Start 10/10/16 at 21:00 Tiotropium [place] (Spiriva) 1 inh DAILY INH Last administered on 10/12/16 09: 10; Admin Dose 1 INH; Start 10/11/16 at 09:00 Aspirin (Halfprin) 81 mg DAILY PO Last administered on 10/12/16 09:10; Admin Dose 81 MG; Start 10/11/16 at 09:00 Ondansetron HCl (Zofran Inj) 4 mg Q6H PRN IV NAUSEA AND/OR VOMITING; Start 10/10 at 15:30 Acetaminophen 650 mg 650 mg Q6H PRN PO PAIN AND OR ELEVATED TEMP; Start at 15:30 Levofloxacin/ Dextrose (Levaquin 500mg/ D5W 100 ml (Pmx)) 100 ml @ 100 mls/hr Q24H IVPB Last administered on 10/11/16 15:06; Admin Dose 100 MLS/HR; Start 10/10/16 at 15:30 Latanoprost (Xalatan) 1 drop QHS BOTH EYES Last administered on 10/11/16 20:25 ; Admin Dose 1 DROP; Start 10/10/16 at 21:06 Methylprednisolone Sodium Succinate (Solu-Medrol) 40 mg Q12H IV ; Start 10/12/16 at 21:00 KAYA RICKETTS MD Oct 12, 2016 12:41
[2016-10-12] MEDS: LEVOFLOXACIN 500MG/D5W (PMX) 100 ML IVPB SCH (15:36)
[2016-10-12 20:09] VITALS: BP 112/62; PULSE 64; RESP 18
[2016-10-12] MEDS: LATANOPROST 0.005% 2.5 ML OPH BOTH EYES SCH (20:30)
[2016-10-12] MEDS: ATORVASTATIN 20 MG TAB PO SCH (20:32)
[2016-10-12] MEDS: METHYLPREDNISOLONE 40 MG INJ IV SCH (20:32)
[2016-10-12] MEDS: SENNA TAB PO SCH (20:32)
[2016-10-13 08:11] VITALS: BP 125/93; RESP 20
[2016-10-13] MEDS: DILTIAZEM (CD) 240 MG CAP PO SCH (08:16)
[2016-10-13] MEDS: APIXABAN 5 MG TABLET PO SCH (08:17)
[2016-10-13] MEDS: ASPIRIN (EC) 81 MG TAB PO SCH (08:17)
[2016-10-13] MEDS: DIGOXIN 0.25 MG TAB PO SCH (08:17)
[2016-10-13] MEDS: METHYLPREDNISOLONE 40 MG INJ IV SCH (08:17)
[2016-10-13] MEDS: SALMETEROL/FLUTICASONE 250/50 INHA INH SCH (08:18)
[2016-10-13] MEDS: AMIODARONE 200 MG TAB PO SCH (08:18)
[2016-10-13] MEDS: DOCUSATE SODIUM 100 MG CAP PO SCH (08:18)
[2016-10-13] MEDS: DORZOLAMIDE/TIMOLOL 10 ML OPH BOTH EYES SCH (08:23)
[2016-10-13] MEDS: TIOTROPIUM 18 MCG CAPSULE INHA DEV INH SCH (08:26)
--- NOTE | 2016-10-13 09:18 | CONS ---
Date/Time of Note Date/Time of Note DATE: 10/13/16 TIME: 09:16 Consult Date/Type/Reason Admit Date/Time Oct 10, 2016 at 14:12 Initial Consult Date Type of Consultation: internal medicine Subjective Patient continues to improve breathing has improved today States he is close to his baseline Objective Vital Signs Date Time Temp Pulse Resp B/P Pulse Ox O2 Delivery O2 Flow Rate FiO2 10/13/16 08:11 98.2 64 20 125/93 95 10/13/16 06:12 3.0 10/13/16 00:00 Nasal Cannula Intake and Output 10/12/16 10/12/16 10/13/16 15:00 23:00 07:00 Intake Total 1300 ml Balance 1300 ml Exam GENERAL: Well-nourished well-developed gentleman comfortable at rest no acute distress VITAL SIGNS: per chart NECK: Supple. No JVD or lymphadenopathy. CARDIAC EXAM: S1, S2. No added sounds or murmurs. CHEST: clear bilaterally, No added sounds, rales or wheezes ABDOMEN: Soft, nontender. No guarding or rebound. EXTREMITIES: No cyanosis, clubbing or edema. NEUROLOGIC: Generalized weakness. No focal deficits. Results/Medications Result Diagram: 10/10/16 0930 10/12/16 0657 Medications Current Medications Amiodarone HCl (Cordarone) 200 mg DAILY PO Last administered on 10/13/16 08:18 ; Admin Dose 200 MG; Start 10/11/16 at 09:00 Apixaban (Eliquis) 5 mg BID PO Last administered on 10/13/16 08:17; Admin Dose 5 MG; Start 10/10/16 at 21:00 Atorvastatin Calcium (Lipitor) 20 mg QHS PO Last administered on 10/12/16 20:32 ; Admin Dose 20 MG; Start 10/10/16 at 21:00 Digoxin (Digoxin) 0.25 mg DAILY PO Last administered on 10/13/16 08:17; Admin Dose 0.25 MG; Start 10/11/16 at 09:00 Diltiazem HCl (Cardizem Cd) 240 mg DAILY PO Last administered on 10/13/16 08:16 ; Admin Dose 240 MG; Start 10/11/16 at 09:00 Docusate Sodium (Colace) 100 mg DAILY PO Last administered on 10/13/16 08:18; Admin Dose 100 MG; Start 10/11/16 at 09:00 Dorzolamide/ Timolol (Cosopt) 1 drop BID BOTH EYES Last administered on 08:23; Admin Dose 1 DROP; Start 10/10/16 at 21:00 Salmeterol Xinafoate/ Fluticasone (Advair 250/50 Diskus) 1 inh BID INH Last administered on 10/13/16 08:18; Admin Dose 1 INH; Start 10/10/16 at 21:00 Senna (Senokot) 1 tab QHS PO Last administered on 10/12/16 20:32; Admin Dose 1 TAB; Start 10/10/16 at 21:00 Tiotropium [place] (Spiriva) 1 inh DAILY INH Last administered on 10/13/16 08: 26; Admin Dose 1 INH; Start 10/11/16 at 09:00 Aspirin (Halfprin) 81 mg DAILY PO Last administered on 10/13/16 08:17; Admin Dose 81 MG; Start 10/11/16 at 09:00 Ondansetron HCl (Zofran Inj) 4 mg Q6H PRN IV NAUSEA AND/OR VOMITING; Start 10/10 at 15:30 Acetaminophen 650 mg 650 mg Q6H PRN PO PAIN AND OR ELEVATED TEMP; Start at 15:30 Levofloxacin/ Dextrose (Levaquin 500mg/ D5W 100 ml (Pmx)) 100 ml @ 100 mls/hr Q24H IVPB Last administered on 10/12/16 15:36; Admin Dose 100 MLS/HR; Start 10/10/16 at 15:30 Latanoprost (Xalatan) 1 drop QHS BOTH EYES Last administered on 10/12/16 20:30 ; Admin Dose 1 DROP; Start 10/10/16 at 21:06 Methylprednisolone Sodium Succinate (Solu-Medrol) 40 mg Q12H IV Last administered on 10/13/16 08:17; Admin Dose 40 MG; Start 10/12/16 at 21:00 Assessment/Plan Chief Complaint/Hosp Course Assessment. 1. Acute on chronic hypoxemic respiratory failure 2. Chronic obstructive pulmonary disease exacerbation 3. Acute bronchitis versus Pneumonia 4. Paroxysmal atrial fibrillation. 5. Dyslipidemia. . 6. Aortic valve disease 7. History of prostate cancer, remote prostatectomy in 1991. 8. Glaucoma, stable. PLAN: 1. Switch to by mouth steroids 2. By mouth antibiotics 3. Discharge today 4. Follow-up with me as an outpatient, he has an appointment scheduled Problems: AN[facility] WOMACK MD, [facility] Oct 13, 2016 09:18
--- NOTE | 2016-10-13 09:20 | PDOCDIS ---
Discharge Instructions DIAGNOSIS Discharge Diagnosis: COPD exacerbation CONDITION Patient Condition: Good HOME CARE INSTRUCTIONS: Diet Instructions: RegularSpecial Diet: low fat diet ACTIVITY: Activity Restrictions: No Restrictions FOLLOW UP/APPOINTMENTS Appointments Follow-up with Dr. Womack as scheduled Follow-up with primary care physician ANITA WOMACK MD, [facility] Oct 13, 2016 09:20
--- NOTE | 2016-10-13 10:04 | DS ---
DATE OF ADMISSION: 10/10/2016 DATE OF DISCHARGE: 10/13/2016 DISCHARGE DIAGNOSES: 1. Chronic obstructive pulmonary disease exacerbation. 2. History of chronic atrial fibrillation. 3. History of essential hypertension. HOSPITAL COURSE: A 76-year-old gentleman well known to me from the office, came in with a several-d ay history of increasing shortness of breath, orthopnea, PND and fever. Started on Levaquin and brenna roids, clinically improved with improving respiratory status and leukocytosis. Clinically, the surinder ent is stable this morning and he has an appointment scheduled for me to be seen in the office in 2 weeks' time. The patient to be discharged home on Levaquin x5 days, Medrol pack x1. Continue tiotr opium and Advair inhaler. Follow up with me as scheduled. Dictated By: ANITA MICHAELS/HOLLAND Conf#: [id number] DID#: [id number]
== END 2016-10-13 13:25 | disposition home or self-care (01) | DRG 189 ==
LOC: E/R 09:13 → MS2 14:12
PROVIDERS: ADMIT Family Medicine; ATTEND Family Medicine
PROC: 3E0F73Z Introduction of Anti-inflammatory into Respiratory Tract, Via Natural or Artificial Opening (ICD-10-PCS; principal; 2016-10-10)
DX: J96.21 Acute and chronic respiratory failure with hypoxia (principal); Z99.81 Dependence on supplemental oxygen; J44.0 Chronic obstructive pulmonary disease with (acute) lower respiratory infection; I48.0 Paroxysmal atrial fibrillation; J44.1 Chronic obstructive pulmonary disease with (acute) exacerbation; J20.9 Acute bronchitis, unspecified; I10 Essential (primary) hypertension; H40.9 Unspecified glaucoma; E78.5 Hyperlipidemia, unspecified; Z87.891 Personal history of nicotine dependence; Z85.46 Personal history of malignant neoplasm of prostate
CPT/HCPCS: 36415; 71010; 80048; 80053; 80061; 80162; 82550; 82553; 83036; 83735; 84443; 84484; 85025; 85610; 85730; 93005; 93306; 94640; 94644; 94645; 96365; 96366; 96375; 96376; J1956; J2920; J2930

== ENCOUNTER 2016-10-20 08:33 | Inpatient (IN) | payer MEDICARE, OTHER ==
[~2016-10-20] VITALS: Ht 177.8 cm; Wt 62.7 kg
[~2016-10-20 08:33] MED LIST changes: -ALBU18HF IH; +AMIO200T2 PO; +APIX5TAB PO; +ATOR20TA38 PO; -CHOL20003 PO; -CRES10 PO; -DIAZ-90 PO; -DILT120C79 PO; +DILT240C98 PO; +DOCU100C59 PO; +SENN-53 PO; -WARF10TA PO; -WARF5TAB72 PO
[2016-10-20] MEDS ORDERED: ALBUTEROL 0.5% (NEB) 2.5 MG/0.5 ML AMP INH STA (08:48)
[2016-10-20] MEDS ORDERED: ONDANSETRON 4 MG INJ IV STA (08:48)
[2016-10-20] MEDS ORDERED: SOD CHLORIDE 0.9% 1,000 ML IV STA (08:48)
[2016-10-20] MEDS ORDERED: IPRATROPIUM (NEB) 0.5 MG/2.5 ML AMP INH STA (08:48)
[2016-10-20] MEDS ORDERED: METHYLPREDNISOLONE 40 MG INJ IV STA (08:48)
[2016-10-20] MEDS ORDERED: MAGNESIUM SULFATE 2 GM/50 ML 50 ML IVPB STA (08:48)
[2016-10-20] MEDS ORDERED: IPRATROPIUM (NEB) 0.5 MG/2.5 ML AMP ONE (08:55)
[2016-10-20] MEDS ORDERED: ALBUTEROL 0.5% (NEB) 2.5 MG/0.5 ML AMP ONE (08:55)
[2016-10-20 09:06] VITALS: TEMP 98.3
[2016-10-20 09:17] LABS: ADD SCAN DIFF NO
[2016-10-20 09:18] LABS: ABNORMAL IP MESSAGE 1; HEMATOCRIT 47.7 % (42.0-52.0); HEMOGLOBIN 15.8 g/dl (14.0-18.0); MEAN CORPUSCULAR HEMOGLOBIN 29.5 pg (29.0-33.0); MEAN CORPUSCULAR HGB CONC 33.1 g/dl (32.0-37.0); MEAN CORPUSCULAR VOLUME 89.2 fl (82.0-101.0); MEAN PLATELET VOLUME 9.6 fl (7.4-10.4); PLATELET COUNT 338 10^3/UL (140-415); RED BLOOD COUNT 5.35 10^6/ul (4.70-6.10); RED CELL DISTRIBUTION WIDTH 13.8 % (11.5-14.5)
[2016-10-20 09:32] LABS: ALANINE AMINOTRANSFERASE 22 IU/L (13-69); ALBUMIN 3.6 g/dl (3.3-4.9); ALBUMIN/GLOBULIN RATIO 1.12; ALKALINE PHOSPHATASE 79 IU/L (42-121); ANION GAP 11 (8-16); ASPARTATE AMINO TRANSFERASE 13 IU/L (15-46); BILIRUBIN,INDIRECT 0.8 mg/dl (0-1.1); BILIRUBIN,TOTAL 0.8 mg/dl (0.2-1.3); BLOOD UREA NITROGEN 23 mg/dl (7-20); CALCIUM 8.4 mg/dl (8.4-10.2); CARBON DIOXIDE 29 mmol/L (21-31); CHLORIDE 99 mmol/L (97-110); CREATININE 1.05 mg/dl (0.61-1.24); GLUCOSE 117 mg/dl (70-220); POTASSIUM 4.1 mmol/L (3.5-5.1); SODIUM 135 mmol/L (135-144); TOTAL PROTEIN 6.8 g/dl (6.1-8.1)
--- NOTE | 2016-10-20 09:39 | RADRPT ---
PROCEDURE: XR Chest. CLINICAL INDICATION: Pneumonia TECHNIQUE: Single frontal chest x-ray. COMPARISON: 10/10/2016 FINDINGS: There is increased focal infiltrates seen in the right upper lobe. Remainder of the lungs are clear . . Hyperinflation of the lungs is present. Calcific atherosclerosis of the aorta is present.. The cardiomediastinal silhouette is unremarkable. The osseous structures are intact. IMPRESSION: Increased right upper lobe infiltrate or pneumonitis. Hyperinflation of lungs consistent with COPD.. RPTAT: EE .Stewart Canales MD, Date Time Electronically viewed and signed by .Stewart Canales MD, on 10/20/2016 09:38 .L/
[2016-10-20 09:44] LABS: TROPONIN-I < 0.012 ng/ml (0.00-0.12)
[2016-10-20 10:16] LABS: LYMPHOCYTES # 0.9 10^3/ul (0.8-2.9); MONOCYTE # 3.4 10^3/ul (0.3-0.9); NEUTROPHIL # 26.4 10^3/ul (1.6-7.5)
[2016-10-20] MEDS ORDERED: ACETAMINOPHEN 325 MG TAB PO PRN (10:30)
[2016-10-20] MEDS ORDERED: IMIPENEM-CILAST 500MG IV (PMX) 100 ML IVPB ONE (10:30)
[2016-10-20] MEDS ORDERED: NACL 0.9% 3 ML SYG IV SCH (10:30)
[2016-10-20] MEDS ORDERED: MAGNESIUM HYDROXIDE 30ML CUP PO PRN (10:30)
[2016-10-20] MEDS ORDERED: HYDROCODONE/APAP (5/325) TAB PO PRN ×2 (10:30)
[2016-10-20] MEDS ORDERED: ONDANSETRON 4 MG INJ IV PRN (10:30)
[2016-10-20] MEDS ORDERED: BISACODYL 10 MG SUPP PR PRN (10:30)
[2016-10-20] MEDS ORDERED: DOCUSATE SODIUM 100 MG CAP PO PRN (10:30)
[2016-10-20] MEDS ORDERED: ACETAMINOPHEN 650 MG SUPP PR PRN (10:30)
[2016-10-20] MEDS ORDERED: morphine 2 MG INJ IV PRN (10:30)
[2016-10-20] MEDS ORDERED: VANCOMYCIN 1 GM (PMX) 250 ML IVPB SCH (10:30)
--- NOTE | 2016-10-20 10:37 | ERA ---
ER Documentation Chief Complaint Date/Time DATE: 10/20/16 TIME: 10:27 Chief Complaint SOB,COUGH,HX OF COPD HPI 76-year-old man with a history of chronic obstructive pulmonary disease presents with increased shortness of breath and recent cough. He was recently managed as an inpatient for COPD and discharged with a prescription for levofloxacin, which his states he used as prescribed, but despite using antibiotics he developed increasing cough over the last few days. He has had low-grade fevers at home as well, no chest pain, no calf or leg swelling, no vomiting or diarrhea. No complaints of abdominal pain. ROS All systems reviewed and are negative except as per history of present illness. Medications Home Meds Reported Medications Sennosides* (Senna Lax*) 8.6 Mg Tablet, 1 TAB PO QHS, TAB 10/10/16 Docusate Sodium (Col-Rite) 100 Mg Capsule, 100 MG PO DAILY, CAP 10/10/16 Apixaban* (Eliquis*) 5 Mg Tablet, 5 MG PO BID, TAB 10/10/16 Diltiazem Hcl* (Diltiazem XT) 240 Mg Capsule.er, 240 MG PO DAILY, #30 CAP 10/10/16 Amiodarone Hcl* (Amiodarone Hcl*) 200 Mg Tablet, 200 MG PO DAILY, #30 TAB 10/10/16 Atorvastatin Calcium* (Atorvastatin Calcium*) 20 Mg Tablet, 20 MG PO QHS, #30 TAB 10/10/16 Bimatoprost* (Lumigan*) 2.5 Ml Drops, 1 DROP BOTH EYES HS 12/19/13 Dorzolamide/Timolol* (Dorzolamide/Timolol*) 10 Ml Drops, 1 DROP BOTH EYES BID, EA 12/19/13 Tiotropium [place]* (Spiriva*) 18 Mcg Cap.w.dev, 1 INH IH DAILY, EA 12/19/13 Salmeterol Xinaf/Fluticasone* (Advair*) 1 Inh Inha, 2 PUFF INH BID, INH 12/19/13 Digoxin* (Digox*) 250 Mcg Tablet, 250 MCG PO DAILY 12/19/13 Allergies Allergies: Coded Allergies: No Known Allergy (Unverified , 10/20/16) PMhx/Soc COPD, hypertension, atrial fibrillation, prostate cancer, recent echocardiogram revealing a left ventricular ejection fraction of 65%. History of Surgery: Yes (prostate surgery) Anesthesia Reaction: No Hx Neurological Disorder: No Hx Respiratory Disorders: Yes (COPD, PULMONARY DEBILITY) Hx Cardiac Disorders: Yes (ARTGEROSCLEROTIC HEART DSE, AFIB) Hx Psychiatric Problems: No Hx Miscellaneous Medical Probl: No Hx Alcohol Use: Yes (occasionally) Hx Substance Use: No Hx Tobacco Use: Yes (former smoker) Smoking Status: Former smoker FmHx Family History: No diabetes Physical Exam Vitals Vital Signs Date Time Temp Pulse Resp B/P Pulse Ox O2 Delivery O2 Flow Rate FiO2 10/20/16 12:30 80 18 103/65 95 Nasal Cannula 2.0 10/20/16 11:32 88 18 104/62 93 Nasal Cannula 2.0 10/20/16 09:06 98.3 110 20 142/89 93 Nasal Cannula 2.0 10/20/16 09:06 Nasal Cannula 2.0 10/20/16 09:00 107 20 96 Nasal Cannula 3.0 10/20/16 09:00 3.0 10/20/16 08:35 98.9 111 28 122/68 87 Physical Exam GENERAL: Well-developed, well-nourished, dehydrated, afebrile HEENT: Dry mucous membranes, pink conjunctiva, no cervical spine tenderness or step-off deformities, no goiter, no jaundice or icterus, extraocular movements intact without pain. NEURO: Alert and oriented 3, cranial nerves II through XII intact bilaterally, pupils equal round reactive to light, no focal deficits or facial asymmetry, sensation intact distally Strength 5/5 in upper and lower extremities bilaterally CARDIAC: Tachycardic and regular, no murmurs rubs or gallops LUNGS: Tachypnic, dyspnea, crackles on the right side with dense wheezes bilaterally ABDOMEN: Soft nontender, no guarding, no rigidity, no rebound, no psoas sign no obturator sign. Normoactive bowel sounds SKIN: Warm and dry to touch, no abrasions, contusions, or hematomas, no lacerations, no ecchymosis, no target lesions, and without ulcers EXTREMITIES: No clubbing cyanosis or edema, calves are bilaterally symmetrical, no Homans sign, no popliteal cord sign. Distal pulses equal and bilateral PSYCH: Normal affect without agitation or irritability Result Diagram: 4/15/17 0900 4/15/17 0900 Results 24 hrs Laboratory Tests Test 10/20/16 09:00 White Blood Count 30.710^3/ul Red Blood Count 5.3510^6/ul Hemoglobin 15.8g/dl Hematocrit 47.7% Mean Corpuscular Volume 89.2fl Mean Corpuscular Hemoglobin 29.5pg Mean Corpuscular Hemoglobin Concent 33.1g/dl Red Cell Distribution Width 13.8% Platelet Count 87938^3/UL Mean Platelet Volume 9.6fl Neutrophils % 86.0% Lymphocytes % 3.0% Monocytes % 11.0% Neutrophils # 26.410^3/ul Lymphocytes # 0.910^3/ul Monocytes # 3.410^3/ul Sodium Level 135mmol/L Potassium Level 4.1mmol/L Chloride Level 99mmol/L Carbon Dioxide Level 29mmol/L Anion Gap 11 Blood Urea Nitrogen 23mg/dl Creatinine 1.05mg/dl Glucose Level 117mg/dl Calcium Level 8.4mg/dl Total Bilirubin 0.8mg/dl Direct Bilirubin 0.00mg/dl Indirect Bilirubin 0.8mg/dl Aspartate Amino Transf (AST/SGOT) 13IU/L Alanine Aminotransferase (ALT/SGPT) 22IU/L Alkaline Phosphatase 79IU/L Troponin I < 0.012ng/ml Total Protein 6.8g/dl Albumin 3.6g/dl Globulin 3.20g/dl Albumin/Globulin Ratio 1.12 Lipase 59U/L Current Medications Medications (Trade) Dose Ordered Sig/Pily Route PRN Reason Start Time Stop Time Status Last Admin Dose Admin Sodium Chloride (NS) 1,000 ml @ 1,000 mls/hr Q1H STAT IV 10/20/16 08:48 10/20/16 09:47 DC 10/20/16 09:07 Ondansetron HCl (Zofran Inj) 4 mg ONCE STAT IV 10/20/16 08:48 10/20/16 09:01 DC 10/20/16 09:07 Albuterol (Proventil 0.5% (Neb)) 10 mg ONCE STAT INH 10/20/16 08:48 10/20/16 09:01 DC 10/20/16 08:48 Ipratropium [place] (Atrovent 0.02% (Neb)) 1 mg ONCE STAT INH 10/20/16 08:48 10/20/16 09:01 DC 10/20/16 08:48 Methylprednisolone Sodium Succinate 40 mg 40 mg ONCE STAT IV 10/20/16 08:48 10/20/16 09:01 DC 10/20/16 09:07 Magnesium Sulfate 50 ml @ 25 mls/hr ONCE STAT IVPB 10/20/16 08:48 10/20/16 10:47 DC 10/20/16 09:07 Imipenem/ Cilastatin Sodium 100 ml @ 100 mls/hr ONCE ONCE IVPB 10/20/16 10:30 10/20/16 11:29 DC 10/20/16 10:40 Vancomycin HCl (Vancocin) 250 ml @ 125 mls/hr ONCE IVPB 10/20/16 10:30 10/20/16 12:29 DC 10/20/16 10:09 Amiodarone HCl (Cordarone) 200 mg DAILY PO 10/21/16 09:00 Apixaban (Eliquis) 5 mg BID PO 10/20/16 21:00 Atorvastatin Calcium (Lipitor) 20 mg QHS PO 10/20/16 21:00 Latanoprost (Xalatan) 1 drop HS BOTH EYES 10/20/16 21:00 Digoxin (Digoxin) 0.25 mg DAILY PO 10/21/16 13:00 Diltiazem HCl (Cardizem Cd) 240 mg DAILY PO 10/21/16 09:00 Docusate Sodium (Colace) 100 mg DAILY PO 10/21/16 09:00 Dorzolamide/ Timolol (Cosopt) 1 drop BID BOTH EYES 10/20/16 21:00 Senna (Senokot) 1 tab QHS PO 10/20/16 21:00 Tiotropium [place] (Spiriva) 1 inh DAILY INH 10/21/16 09:00 Salmeterol Xinafoate/ Fluticasone (Advair 500/50 Diskus) 1 inh BID INH 10/20/16 21:00 Levalbuterol (Xopenex Neb) 0.63 mg Q4 PRN HHN dyspnea 10/20/16 10:30 Methylprednisolone Sodium Succinate (Solu-Medrol) 60 mg TID IV 10/20/16 13:00 10/20/16 13:15 IV Flush (NS 3 ml) 3 ml PER PROTOCOL IV 10/20/16 10:30 Ondansetron HCl (Zofran Inj) 4 mg Q6H PRN IV NAUSEA AND/OR VOMITING 10/20/16 10:30 Acetaminophen (Tylenol Tab) 650 mg Q6H PRN PO PAIN LEVEL 1-3 OR FEVER 10/20/16 10:30 Acetaminophen (Tylenol Supp) 650 mg Q6H PRN [place] PAIN LEVEL 1-3 OR FEVER 10/20/16 10:30 Acetaminophen/ Hydrocodone Bitart ([place] (5/325)) 1 tab Q6H PRN PO MODERATE PAIN LEVEL 4-6 10/20/16 10:30 Acetaminophen/ Hydrocodone Bitart ([place] (5/325)) 2 tab Q6H PRN PO SEVERE PAIN LEVEL 7-10 10/20/16 10:30 Morphine Sulfate (morphine) 2 mg Q4H PRN IV SEVERE PAIN LEVEL 7-10 10/20/16 10:30 Docusate Sodium (Colace) 100 mg Q12H PRN PO CONSTIPATION 10/20/16 10:30 Magnesium Hydroxide (Milk Of Mag) 30 ml DAILY PRN PO CONSTIPATION 10/20/16 10:30 Bisacodyl (Dulcolax Supp) 10 mg DAILY PRN [place] CONSTIPATION 10/20/16 10:30 Pantoprazole (Protonix Tab) 40 mg DAILY@06 PO 10/21/16 06:00 Procedures/[facility] IV line was established patient was placed on gambling monitor rhythm strip revealed a sinus tachycardia at 110 bpm with upright P and T waves. Patient was afebrile. Patient was dehydrated and I administered 2 L normal saline intravenously as well as albuterol 10 mg via nebulizer, ipratropium 1 mg via nebulizer, methylprednisolone 125 mg IV, and magnesium 2 g IV. EKG was performed, read by me there is a sinus tachycardia at 104 bpm, normal axis, narrow QRS complex, with diffuse "hockey puck" changes to the ST segment consistent with digoxin use. No concerning ST elevations or depressions noted. One view chest x-ray performed, read by me there is a right upper lobe infiltrate, normal mediastinum, no pneumothorax, no end of the diaphragm. I reviewed the patient's previous respiratory cultures and he has multiple resistances including cephalosporins and fluoroquinolones. I treated him here with imipenem 500 mg IV and vancomycin 1 g IV. Critical Care: Time: 40 minutes, this was time separate from other procedures. Treatments/Evaluations: Close monitoring and treatment of unstable vital signs, cardiorespiratory, and neurologic status, while maintaining tight balance of fluid, respiratory, and cardiac interventions. CBC reveals a leukocytosis of 31, electrolytes reveal an increased BUN/ creatinine ratio concerning for dehydration otherwise unremarkable, liver function tests are normal, troponin was negative. Patient will be admitted to telemetry setting for continued medical management Departure Diagnosis: Primary Impression: Pneumonia Qualified Code: J18.1 - Pneumonia of right upper lobe due to infectious organism Additional Impressions: COPD (chronic obstructive pulmonary disease) Qualified Code: J44.1 - Chronic obstructive pulmonary disease with acute exacerbation Dehydration Condition: HARVEY Pulido MD Oct 20, 2016 10:37
--- NOTE | 2016-10-20 10:52 | CONS ---
Date/Time of Note Date/Time of Note DATE: 10/20/16 TIME: 10:48 Assessment/Plan Assessment/Plan Additional Assessment/Plan Assessment recommendations; 1. Patient admitted for right upper lobe pneumonia. 2. Mild COPD exacerbation. 3. History of cardiac arrhythmia. 4. MDR E. coli isolated in sputum sensitive to imipenem. Continue current treatment. Patient is on appropriate antibiotic regimen. Obtain follow-up chest x-ray in 48 hours. Consultation Date/Type/Reason Admit Date/Time Date of Consultation: Oct 20, 2016 Type of Consultation: Pulmonary Reason for Consultation Pulmonary consultation is requested for evaluation of pneumonia and COPD exacerbation. History presenting; patient is a 76-year-old male who was discharged recently from the hospital for COPD exacerbation according to the patient's the patient after he got home did not recover completely with complaints of coughing shortness of breath and sputum production. For this symptom the patient came into the ER this morning upon evaluation a chest x-ray was done which is showing a right upper lobe infiltrate with significant leukocytosis. Denies any chest pain angina wheezing. Does complain of dyspnea on exertion. Denies nausea vomiting. Past medical history; 1. Patient with history of severe COPD 2. Cardiac arrhythmia. Medications; were reviewed. Allergies; are none. A 30; patient quit smoking 30 years ago. Family history; patient is has a supportive family. No show any illnesses in the family. 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 Review of systems; denies any headache, visual changes. Any seizures. Denies any hearing loss. Any sinus symptoms. Any chest pain, angina wheezing. Denies any hemoptysis. Complains of scant sputum production. Denies abdominal pain, nausea vomiting. Denies any weight loss. Complains of orthopnea. Denies any edema. Denies any urinary symptoms. Denies any melena or hematochezia. General exam; elderly male, awake alert currently in no distress. Social History Smoking Status: Former smoker Exam/Review of Systems Vital Signs Vitals Vital Signs Date Time Temp Pulse Resp B/P Pulse Ox O2 Delivery O2 Flow Rate FiO2 10/20/16 09:06 98.3 110 20 142/89 93 Nasal Cannula 2.0 Exam HEENT exam; supple neck, no JVD. No lymphadenopathy. Midline trachea. No thyromegaly. Pharynx is clear. Patient is edentulous and wears dentures. Pupils are midsize reactive to light bilaterally. Chest exam is; diminished but clear vessel bilaterally. S1-S2 audible, no murmurs. Regular rhythm. Abdomen examination; soft, no organomegaly. Bowel sounds audible. Extremity exam is; no peripheral edema. Pulses 1+ bilaterally. COUNTER SUPERVISOR exam; cranial nerves are intact. No focal motor deficit. Results Result Diagram: 10/20/16 0900 10/20/16 0900 Results 24 hrs Laboratory Tests Test 10/20/16 09:00 White Blood Count 30.7 #H Red Blood Count 5.35 Hemoglobin 15.8 Hematocrit 47.7 Mean Corpuscular Volume 89.2 Mean Corpuscular Hemoglobin 29.5 Mean Corpuscular Hemoglobin Concent 33.1 Red Cell Distribution Width 13.8 Platelet Count 338 # Mean Platelet Volume 9.6 Neutrophils % 86.0 H Lymphocytes % 3.0 L Monocytes % 11.0 Neutrophils # 26.4 H Lymphocytes # 0.9 Monocytes # 3.4 H Sodium Level 135 Potassium Level 4.1 Chloride Level 99 Carbon Dioxide Level 29 Anion Gap 11 Blood Urea Nitrogen 23 H Creatinine 1.05 Glucose Level 117 Calcium Level 8.4 Total Bilirubin 0.8 Direct Bilirubin 0.00 Indirect Bilirubin 0.8 Aspartate Amino Transf (AST/SGOT) 13 L Alanine Aminotransferase (ALT/SGPT) 22 Alkaline Phosphatase 79 Troponin I < 0.012 Total Protein 6.8 Albumin 3.6 Globulin 3.20 Albumin/Globulin Ratio 1.12 Lipase 59 Medications Medications Current Medications Imipenem/ Cilastatin Sodium 100 ml @ 100 mls/hr ONCE ONCE IVPB Last administered on 10/20/16 10:40; Admin Dose 100 MLS/HR; Start 10/20/16 at 10:30 ; Stop 10/20/16 at 11:29 Vancomycin HCl (Vancocin) 250 ml @ 125 mls/hr ONCE IVPB Last administered on 10:09; Admin Dose 125 MLS/HR; Start 10/20/16 at 10:30; Stop 10/20/16 at 12:29 Amiodarone HCl (Cordarone) 200 mg DAILY PO ; Start 10/21/16 at 09:00; Status UNV Apixaban (Eliquis) 5 mg BID PO ; Start 10/20/16 at 21:00; Status UNV Atorvastatin Calcium (Lipitor) 20 mg QHS PO ; Start 10/20/16 at 21:00; Status UNV Bimatoprost ([place] 0.01% Oph) 1 drop HS BOTH EYES ; Start 10/20/16 at 21:00; Status UNV Digoxin (Digoxin) 0.25 mg DAILY PO ; Start 10/21/16 at 09:00; Status UNV Diltiazem HCl (Cardizem Cd) 240 mg DAILY PO ; Start 10/21/16 at 09:00; Status UNV Docusate Sodium (Colace) 100 mg DAILY PO ; Start 10/21/16 at 09:00; Status UNV Dorzolamide/ Timolol (Cosopt) 1 drop BID BOTH EYES ; Start 10/20/16 at 21:00; Status UNV Senna (Senokot) 1 tab QHS PO ; Start 10/20/16 at 21:00; Status UNV Tiotropium [place] (Spiriva) 1 inh DAILY INH ; Start 10/21/16 at 09:00; Status UNV Salmeterol Xinafoate/ Fluticasone (Advair 500/50 Diskus) 1 inh BID INH ; Start 10/20/16 at 21:00; Status UNV Levalbuterol (Xopenex Neb) 0.63 mg Q4 PRN HHN dyspnea; Start 10/20/16 at 10:30 ; Status UNV Methylprednisolone Sodium Succinate (Solu-Medrol) 60 mg TID IV ; Start 10/20/16 at 13:00; Status UNV Ondansetron HCl (Zofran Inj) 4 mg Q6H PRN IV NAUSEA AND/OR VOMITING; Start at 10:30; Status UNV Acetaminophen (Tylenol Tab) 650 mg Q6H PRN PO PAIN LEVEL 1-3 OR FEVER; Start at 10:30; Status UNV Acetaminophen (Tylenol Supp) 650 mg Q6H PRN ID PAIN LEVEL 1-3 OR FEVER; Start 10/20/16 at 10:30; Status UNV Acetaminophen/ Hydrocodone Bitart ([place] (5/325)) 1 tab Q6H PRN PO MODERATE PAIN LEVEL 4-6; Start 10/20/16 at 10:30; Status UNV Acetaminophen/ Hydrocodone Bitart ([place] (5/325)) 2 tab Q6H PRN PO SEVERE PAIN LEVEL 7-10; Start 10/20/16 at 10:30; Status UNV Morphine Sulfate (morphine) 2 mg Q4H PRN IV SEVERE PAIN LEVEL 7-10; Start 10/20 at 10:30; Status UNV Docusate Sodium (Colace) 100 mg Q12H PRN PO CONSTIPATION; Start 10/20/16 at 10: 30; Status UNV Magnesium Hydroxide (Milk Of Mag) 30 ml DAILY PRN PO CONSTIPATION; Start at 10:30; Status UNV Bisacodyl (Dulcolax Supp) 10 mg DAILY PRN ID CONSTIPATION; Start 10/20/16 at 10 :30; Status UNV Pantoprazole (Protonix Tab) 40 mg DAILY@06 PO ; Start 10/21/16 at 06:00; Status UNV JUAN POSADA Oct 20, 2016 10:52
--- NOTE | 2016-10-20 11:55 | CONS ---
DATE OF ADMISSION: 10/20/2016 DATE OF CONSULTATION: 10/20/2016 TYPE OF CONSULTATION: Infectious Disease. REASON FOR CONSULTATION: Antibiotic management. HISTORY OF PRESENT ILLNESS: Rob Cochran he is a 76-year-old [place] male who is admi tted for right upper lobe pneumonia. The patient was recently discharged from the hospital for COPD exacerbation. He did not recover completely with complaints of cough and shortness of breath and s putum production. The patient came to the emergency room this morning 10/20/2016 with evaluation of a chest x-ray, which showed right upper lobe infiltrate and also had significant leukocytosis. He has no chest pain. On admission, his white count was 30,700, H and H of 15.8 and 47.7, platelet cou nt 338,000. BUN and creatinine 23/1.05, glucose of 117. PAST MEDICAL HISTORY: Operations as outlined. FAMILY HISTORY: Noncontributory. SOCIAL HISTORY: He is a former smoker, he quit smoking 30 years ago. He is . He does not s moke, drink or abuse drugs. 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 ALLERGIES: NONE TO PENICILLIN, SULFA OR FOODS. . MEDICATIONS: Per chart. REVIEW OF SYSTEMS: Noncontributory. PHYSICAL EXAMINATION: GENERAL: The patient is an elderly-appearing male who is alert, responsive, in no acute distress. VITAL SIGNS: Stable. He is afebrile. SKIN: Without generalized rash. HEENT: Within normal limits. NECK: Supple. LYMPH NODES: None palpable. CHEST: Decreased breath sounds at the bases. HEART: Without murmur or gallop. ABDOMEN: Soft, nontender, without organosplenomegaly or masses. EXTREMITIES: Without cyanosis, clubbing, or edema. RECTAL AND GENITAL: Deferred. NEUROLOGIC: No focal neurological abnormalities. IMPRESSION AND PLAN: The patient was started on vancomycin and imipenem. Since he has been recentl y in the hospital, recently discharged, he has healthcare-associated pneumonia. Cultures are pendin g. He has blood cultures and probable sputum cultures. I will dictate my findings to the [facility] and to Dr. Benavides the ballet professor. Dictated By: NEL BREAUX MD, JD/HOLLAND Conf#: [id number] DID#: [id number]
[2016-10-20] MEDS: METHYLPREDNISOLONE 125 MG INJ IV SCH ×2 (13:15→20:23)
[2016-10-20 15:01] VITALS: Ht 177.8 cm; Wt 62.7 kg
[2016-10-20 15:17] VITALS: PULSE 69
[2016-10-20 15:19] VITALS: BP 106/65; PULSE 75; RESP 18
[2016-10-20 16:03] VITALS: PULSE 60
--- NOTE | 2016-10-20 17:03 | HP ---
Date/Time of Note Date/Time of Note DATE: 10/20/16 TIME: 16:57 Assessment/Plan VTE Prophylaxis VTE Prophylaxis Intervention: SCD's Lines/Catheters IV C[facility]ter Type (from [facility] Saline Lock Assessment/Plan Chief Complaint/Hosp Course Impression and plan 1. Acute on chronic respiratory failure secondary to pneumonia. 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 Continue on antibiotic therapy per ID consult. President Celebrity Acquistion following. Continue on Solu-Medrol and bronchodilators. Titrate down as tolerated. 2. Likely COPD with exacerbation. Continue bronchodilator therapy and Solu- Medrol. Titrate down O2 as tolerated. Follow-up with district leader recommendations 3. History of atrial fibrillation. Rate controlled at this time. Continue on amiodarone and Eliquis. 4. History of aortic valve disease. On Eliquis 5. History of prostate cancer. Patient does have history of prostatectomy in 1991. Patient to follow-up with his oncologist as outpatient. Will get inpatient oncologist pending clinical course 6. Leukocytosis. Bacterial etiology versus steroid. Antipyretics for fever. Continue on antibiotic therapy Admission process 40 minutes Discussed plan of care with Dr. Yun Problems: HPI/ROS Admit Date/Time Admit Date/Time Hx of Present Illness This is a 76-year-old male with history of metastatic prostate cancer, chronic hypoxia and respiratory failure, COPD, aspiration pneumonia, MDR E. coli in sputum, who was recently discharged from [facility] on October due to COPD exacerbation and respiratory failure who again is back to [facility] due to similar issues. According to the patient he was discharged home but his respiratory status never really improved. He did report worsening dyspnea on exertion and the day prior to admission his breathing had gotten so bad that even despite the use of oxygen his oxygen saturation did not improve. He was brought to [facility] due to the aformentiond issues. On further examination he did have chest x-ray done that did show him to have increased right upper lobe infiltrate/ pneumonitis. There is also seen hyperinflation of the lungs consistent with COPD. He was noted with a white count of 30 however after taking history he was also reportedly taking steroid medication at home. He remained afebrile. Basic metabolic panel unremarkable. Patient was given bronchodilator therapy as well as Solu-Medrol for which he did have good response to. He denies any other further chest pain . He did report low-grade fevers the day prior to admission. He reports having productive cough. We will evaluate him for the aformentiond issues. ROS 12 point review of systems obtained and entirely negative except that mentioned in history of present illness PMH/Family/Social Past Medical History metastatic prostate cancer, chronic hypoxia and respiratory failure, COPD, aspiration pneumonia, MDR E. coli in sputum Social History Alcohol Use: none Smoking Status: Former smoker Drug Use: none Exam/Review of Systems Vital Signs Vitals Vital Signs Date Time Temp Pulse Resp B/P Pulse Ox O2 Delivery O2 Flow Rate FiO2 10/20/16 16:03 60 10/20/16 15:31 2.0 10/20/16 15:19 97.8 18 106/65 95 Nasal Cannula Exam Constitutional: alert, oriented Psych: nl mood/affect Head: atraumatic, normocephalic Eyes: nl conjunctiva Neck: non-tender, supple, No jvd Respiratory: congested cough, diminished breath sounds, wheezing Cardiovascular: regular rate and rhythm Gastrointestinal: non-tender, soft Extremities: normal pulses Neurological: CIRCUS LABORER II-XII intact, nl mental status Skin: nl turgor, No rash or lesions Labs Result Diagram: 10/20/16 0900 10/20/16 0900 Medications Medications Current Medications Amiodarone HCl (Cordarone) 200 mg DAILY PO ; Start 10/21/16 at 09:00 Apixaban (Eliquis) 5 mg BID PO ; Start 10/20/16 at 21:00 Atorvastatin Calcium (Lipitor) 20 mg QHS PO ; Start 10/20/16 at 21:00 Latanoprost (Xalatan) 1 drop HS BOTH EYES ; Start 10/20/16 at 21:00 Digoxin (Digoxin) 0.25 mg DAILY PO ; Start 10/21/16 at 13:00 Diltiazem HCl (Cardizem Cd) 240 mg DAILY PO ; Start 10/21/16 at 09:00 Docusate Sodium (Colace) 100 mg DAILY PO ; Start 10/21/16 at 09:00 Dorzolamide/ Timolol (Cosopt) 1 drop BID BOTH EYES ; Start 10/20/16 at 21:00 Senna (Senokot) 1 tab QHS PO ; Start 10/20/16 at 21:00 Tiotropium [place] (Spiriva) 1 inh DAILY INH ; Start 10/21/16 at 09:00 Salmeterol Xinafoate/ Fluticasone (Advair 500/50 Diskus) 1 inh BID INH ; Start 10/20/16 at 21:00 Levalbuterol (Xopenex Neb) 0.63 mg Q4 PRN HHN dyspnea; Start 10/20/16 at 10:30 Methylprednisolone Sodium Succinate (Solu-Medrol) 60 mg TID IV Last administered on 10/20/16t 13:15; Admin Dose 60 MG; Start 10/20/16 at 13:00 Ondansetron HCl (Zofran Inj) 4 mg Q6H PRN IV NAUSEA AND/OR VOMITING; Start at 10:30 Acetaminophen (Tylenol Tab) 650 mg Q6H PRN PO PAIN LEVEL 1-3 OR FEVER; Start at 10:30 Acetaminophen (Tylenol Supp) 650 mg Q6H PRN OR PAIN LEVEL 1-3 OR FEVER; Start 10/20/16 at 10:30 Acetaminophen/ Hydrocodone Bitart ([place] (5/325)) 1 tab Q6H PRN PO MODERATE PAIN LEVEL 4-6; Start 10/20/16 at 10:30 Acetaminophen/ Hydrocodone Bitart ([place] (5/325)) 2 tab Q6H PRN PO SEVERE PAIN LEVEL 7-10; Start 10/20/16 at 10:30 Morphine Sulfate (morphine) 2 mg Q4H PRN IV SEVERE PAIN LEVEL 7-10; Start 10/20 at 10:30 Docusate Sodium (Colace) 100 mg Q12H PRN PO CONSTIPATION; Start 10/20/16 at 10: 30 Magnesium Hydroxide (Milk Of Mag) 30 ml DAILY PRN PO CONSTIPATION; Start at 10:30 Bisacodyl (Dulcolax Supp) 10 mg DAILY PRN OR CONSTIPATION; Start 10/20/16 at 10 :30 Pantoprazole (Protonix Tab) 40 mg DAILY@06 PO ; Start 10/21/16 at 06:00 INDERJIT MCNULTY Oct 20, 2016 17:03
[2016-10-20 20:00] VITALS: BP 103/50; PULSE 58; RESP 22
[2016-10-20] MEDS: LEVALBUTEROL (NEB) 0.63 MG/3 ML AMP HHN PRN (20:04)
[2016-10-20] MEDS: APIXABAN 5 MG TABLET PO SCH (20:23)
[2016-10-20] MEDS: SENNA TAB PO SCH (20:23)
[2016-10-20] MEDS: ATORVASTATIN 20 MG TAB PO SCH (20:23)
[2016-10-20 20:36] VITALS: PULSE 57
[2016-10-20] MEDS: SALMETEROL/FLUTICASONE 500/50 INHA INH SCH (21:00)
[2016-10-20] MEDS: LATANOPROST 0.005% 2.5 ML OPH BOTH EYES SCH (22:09)
[2016-10-20] MEDS: DORZOLAMIDE/TIMOLOL 10 ML OPH BOTH EYES SCH (22:10)
[2016-10-21] VITALS (13 sets, daily range): BP systolic 95–120; BP diastolic 42–68; PULSE 48–64; RESP 18–20
[2016-10-21] MEDS: PANTOPRAZOLE (EC) 40 MG TAB PO SCH (05:36)
[2016-10-21 06:46] LABS: ALANINE AMINOTRANSFERASE 22 IU/L (13-69); ALBUMIN 2.5 g/dl (3.3-4.9); ALBUMIN/GLOBULIN RATIO 1.04; ALKALINE PHOSPHATASE 63 IU/L (42-121); ANION GAP 9 (8-16); ASPARTATE AMINO TRANSFERASE 14 IU/L (15-46); BILIRUBIN,INDIRECT 0.2 mg/dl (0-1.1); BILIRUBIN,TOTAL 0.2 mg/dl (0.2-1.3); BLOOD UREA NITROGEN 28 mg/dl (7-20); CALCIUM 8.2 mg/dl (8.4-10.2); CARBON DIOXIDE 27 mmol/L (21-31); CHLORIDE 106 mmol/L (97-110); CHOL/HDL RATIO 2.4 RATIO; CHOLESTEROL 101 mg/dl (100-200); CREATININE 0.77 mg/dl (0.61-1.24); GLUCOSE 137 mg/dl (70-220); HDL CHOLESTEROL 41 mg/dl (31-75); MAGNESIUM 2.4 mg/dl (1.7-2.5); PHOSPHORUS 3.6 mg/dl (2.5-4.9); SODIUM 137 mmol/L (135-144); TOTAL PROTEIN 4.9 g/dl (6.1-8.1); TRIGLYCERIDES 58 mg/dl (0-149)
[2016-10-21 07:02] LABS: T3 UPTAKE 54.8 % (23.5-40.5)
[2016-10-21 07:08] LABS: ADD SCAN DIFF NO
[2016-10-21 07:17] LABS: THYROID STIMULATING HORMONE < 0.015 MIU/L (0.465-4.680)
[2016-10-21] MEDS: DILTIAZEM (CD) 240 MG CAP PO SCH (08:10)
[2016-10-21] MEDS: AMIODARONE 200 MG TAB PO SCH (08:10)
[2016-10-21] MEDS: DOCUSATE SODIUM 100 MG CAP PO SCH (08:31)
[2016-10-21] MEDS: TIOTROPIUM 18 MCG CAPSULE INHA DEV INH SCH ×2 (08:31→09:33)
[2016-10-21] MEDS: SALMETEROL/FLUTICASONE 500/50 INHA INH SCH ×2 (08:31→20:29)
[2016-10-21] MEDS: APIXABAN 5 MG TABLET PO SCH ×2 (08:32→20:30)
[2016-10-21] MEDS: METHYLPREDNISOLONE 125 MG INJ IV SCH ×3 (08:36→20:29)
[2016-10-21] MEDS: DORZOLAMIDE/TIMOLOL 10 ML OPH BOTH EYES SCH ×2 (09:21→20:28)
[2016-10-21 09:57] LABS: ABNORMAL IP MESSAGE 1; BASOPHILS % 0.1 % (0.0-2.0); HEMATOCRIT 41.7 % (42.0-52.0); HEMOGLOBIN 13.5 g/dl (14.0-18.0); LYMPHOCYTES # 0.5 10^3/ul (0.8-2.9); LYMPHOCYTES % 2.3 % (15.0-51.0); MEAN CORPUSCULAR HEMOGLOBIN 29.3 pg (29.0-33.0); MEAN CORPUSCULAR HGB CONC 32.4 g/dl (32.0-37.0); MEAN CORPUSCULAR VOLUME 90.7 fl (82.0-101.0); MEAN PLATELET VOLUME 10.5 fl (7.4-10.4); MONOCYTE # 0.7 10^3/ul (0.3-0.9); MONOCYTES % 3.5 % (0.0-11.0); NEUTROPHIL # 18.4 10^3/ul (1.6-7.5); NEUTROPHILS % 93.1 % (39.0-77.0); PLATELET COUNT 242 10^3/UL (140-415); RED CELL DISTRIBUTION WIDTH 14.2 % (11.5-14.5); WHITE BLOOD COUNT 19.8 10^3/ul (4.8-10.8)
--- NOTE | 2016-10-21 12:29 | PN ---
Date/Time of Note Date/Time of Note DATE: 10/21/16 TIME: 12:26 Assessment/Plan VTE Prophylaxis VTE Prophylaxis Intervention: other (eliquis) Lines/Catheters [facility] Saline Lock Assessment/Plan Chief Complaint/Hosp Course Impression and plan 1. Acute on chronic respiratory failure secondary to pneumonia. 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 Continue on antibiotic therapy per ID consult. Antisubmarine Weapons Officer following. Continue on Solu-Medrol and bronchodilators. Titrate down as tolerated. appears to be improving 2. Likely COPD with exacerbation. Continue bronchodilator therapy and Solu- Medrol. taper steroid as tolerated 3. History of atrial fibrillation. bradycardic. will get fuel system maintenance worker to follow. check digoxin level. d/c digoxin 4. History of aortic valve disease. On Eliquis 5. History of prostate cancer. Patient does have history of prostatectomy in 1991. Patient to follow-up with his oncologist as outpatient. Will get inpatient oncologist pending clinical course 6. Leukocytosis. Bacterial etiology versus steroid. Antipyretics for fever. Continue on antibiotic therapy DISPO/PLAN: fuel system maintenance worker to follow for afib and bradycardia. keep telemetry monitoring. d/c digoxin and check digoxin level. Discussed plan of care with Dr. Yun Problems: Subjective 24 Hr Interval Summary Free Text/Dictation reported to be bradycardic with HR 30s to 40s. no dizziness. asymptomatic Exam/Review of Systems Vital Signs Vitals Vital Signs Date Time Temp Pulse Resp B/P Pulse Ox O2 Delivery O2 Flow Rate FiO2 10/21/16 12:18 48 10/21/16 07:41 Nasal Cannula 2.0 10/21/16 07:12 98.0 20 95/56 96 Intake and Output 10/20/16 10/20/16 10/21/16 14:59 22:59 06:59 Intake Total 670 ml 120 ml Output Total 300 ml Balance 670 ml -180 ml Exam Constitutional: alert, oriented Head: normocephalic Eyes: nl conjunctiva Neck: non-tender, supple, No jvd Respiratory: diminished breath sounds Cardiovascular: other (afib, bradycardic) Gastrointestinal: soft Extremities: normal pulses Results Result Diagram: 10/21/16 0510 10/21/16 0510 Results 24 hrs Laboratory Tests Test 10/21/16 00:45 10/21/16 05:10 Troponin I 0.013 0.015 White Blood Count 19.8 #H Red Blood Count 4.60 L Hemoglobin 13.5 L Hematocrit 41.7 L Mean Corpuscular Volume 90.7 Mean Corpuscular Hemoglobin 29.3 Mean Corpuscular Hemoglobin Concent 32.4 Red Cell Distribution Width 14.2 Platelet Count 242 # Mean Platelet Volume 10.5 H Neutrophils % 93.1 H Lymphocytes % 2.3 L Monocytes % 3.5 Eosinophils % 0.0 Basophils % 0.1 Nucleated Red Blood Cells % 0.0 Neutrophils # 18.4 H Lymphocytes # 0.5 L Monocytes # 0.7 Eosinophils # 0.0 Basophils # 0.0 Nucleated Red Blood Cells # 0.0 Sodium Level 137 Potassium Level 5.0 Chloride Level 106 Carbon Dioxide Level 27 Anion Gap 9 Blood Urea Nitrogen 28 H Creatinine 0.77 Glucose Level 137 Hemoglobin A1c 5.9 Calcium Level 8.2 L Phosphorus Level 3.6 Magnesium Level 2.4 Total Bilirubin 0.2 Direct Bilirubin 0.00 Indirect Bilirubin 0.2 Aspartate Amino Transf (AST/SGOT) 14 L Alanine Aminotransferase (ALT/SGPT) 22 Alkaline Phosphatase 63 Total Protein 4.9 #L Albumin 2.5 #L Globulin 2.40 Albumin/Globulin Ratio 1.04 Triglycerides Level 58 Cholesterol Level 101 LDL Cholesterol, Calculated 48 HDL Cholesterol 41 Cholesterol/HDL Ratio 2.4 Thyroid Stimulating Hormone (TSH) < 0.015 L Free Thyroxine Index 5.81 H Thyroxine (T4) 10.6 Triiodothyronine (T3) Uptake 54.8 H Digoxin Level 1.1 Medications Medications Current Medications Amiodarone HCl (Cordarone) 200 mg DAILY PO ; Start 10/21/16 at 09:00 Apixaban (Eliquis) 5 mg BID PO Last administered on 10/21/16 08:32; Admin Dose 5 MG; Start 10/20/16 at 21:00 Atorvastatin Calcium (Lipitor) 20 mg QHS PO Last administered on 10/20/16 20: 23; Admin Dose 20 MG; Start 10/20/16 at 21:00 Latanoprost (Xalatan) 1 drop HS BOTH EYES Last administered on 10/20/16 22:09 ; Admin Dose 1 DROP; Start 10/20/16 at 21:00 Digoxin (Digoxin) 0.25 mg DAILY PO ; Start 10/21/16 at 13:00 Diltiazem HCl (Cardizem Cd) 240 mg DAILY PO ; Start 10/21/16 at 09:00 Docusate Sodium (Colace) 100 mg DAILY PO Last administered on 10/21/16 08:31; Admin Dose 100 MG; Start 10/21/16 at 09:00 Dorzolamide/ Timolol (Cosopt) 1 drop BID BOTH EYES Last administered on 09:21; Admin Dose 1 DROP; Start 10/20/16 at 21:00 Senna (Senokot) 1 tab QHS PO Last administered on 10/20/16 20:23; Admin Dose 1 TAB; Start 10/20/16 at 21:00 Tiotropium [place] (Spiriva) 1 inh DAILY INH Last administered on 10/21/16 09: 33; Admin Dose 1 INH; Start 10/21/16 at 09:00 Salmeterol Xinafoate/ Fluticasone (Advair 500/50 Diskus) 1 inh BID INH ; Start 10/20/16 at 21:00 Levalbuterol (Xopenex Neb) 0.63 mg Q4 PRN HHN dyspnea Last administered on 10/20 20:04; Admin Dose 0.63 MG; Start 10/20/16 at 10:30 Methylprednisolone Sodium Succinate (Solu-Medrol) 60 mg TID IV Last administered on 10/21/16 08:36; Admin Dose 60 MG; Start 10/20/16 at 13:00 Ondansetron HCl (Zofran Inj) 4 mg Q6H PRN IV NAUSEA AND/OR VOMITING; Start at 10:30 Acetaminophen (Tylenol Tab) 650 mg Q6H PRN PO PAIN LEVEL 1-3 OR FEVER; Start at 10:30 Acetaminophen (Tylenol Supp) 650 mg Q6H PRN ID PAIN LEVEL 1-3 OR FEVER; Start 10/20/16 at 10:30 Acetaminophen/ Hydrocodone Bitart ([place] (5/325)) 1 tab Q6H PRN PO MODERATE PAIN LEVEL 4-6; Start 10/20/16 at 10:30 Acetaminophen/ Hydrocodone Bitart ([place] (5/325)) 2 tab Q6H PRN PO SEVERE PAIN LEVEL 7-10; Start 10/20/16 at 10:30 Morphine Sulfate (morphine) 2 mg Q4H PRN IV SEVERE PAIN LEVEL 7-10; Start 10/20 at 10:30 Docusate Sodium (Colace) 100 mg Q12H PRN PO CONSTIPATION; Start 10/20/16 at 10: 30 Magnesium Hydroxide (Milk Of Mag) 30 ml DAILY PRN PO CONSTIPATION; Start at 10:30 Bisacodyl (Dulcolax Supp) 10 mg DAILY PRN ID CONSTIPATION; Start 10/20/16 at 10 :30 Pantoprazole (Protonix Tab) 40 mg DAILY@06 PO Last administered on 10/21/16t 05 :36; Admin Dose 40 MG; Start 10/21/16 at 06:00 INDERJIT MCNULTY Oct 21, 2016 12:29
[2016-10-21] MEDS ORDERED: DIGOXIN 0.25 MG TAB PO SCH (13:00)
[2016-10-21] MEDS ORDERED: VANCOMYCIN IV PER PHARMACY XX SCH (14:00)
[2016-10-21] MEDS: MEROPENEM 500 MG/100 ML (PMX) 100 ML IVPB SCH ×2 (15:28→20:30)
[2016-10-21] MEDS ORDERED: VANCOMYCIN 1.25 GM in SOD CHLORIDE 0.9% 250 ML IVPB SCH (16:00)
--- NOTE | 2016-10-21 18:36 | RADRPT ---
Vent Rate: 60 bpm RR Interval: 0 msec CA Interval: 0 msec QRS Duration: 110 msec QT Interval: 408 msec QTC Interval: 408 msec P-R-T [place]: 0 - 98 - 65 degrees Atrial fibrillation Rightward axis Nonspecific T wave abnormality , probably digitalis effect Abnormal ECG Electronically Signed By: Mj Wilks [id number]
--- NOTE | 2016-10-21 20:22 | PN ---
DATE: 10/21/2016 SUBJECTIVE: No acute changes. The patient is lying comfortably in bed, afebrile. LABORATORY DATA: WBC today 19.8, platelets 242, neutrophils 93.1, no bands. BUN 28, creatinine 0.7 7. MICROBIOLOGY: Cultures have been negative. ANTIMICROBIALS: The patient is on: 1. Vancomycin. 2. Merrem. PHYSICAL EXAMINATION: GENERAL: This is a fragile, elderly man in no distress. HEENT: Head atraumatic, normocephalic. Sclerae anicteric. Buccal mucosa dry. NECK: Supple. Trachea midline. CHEST: Rise symmetrical. Breath sounds diminished to bases. EXTREMITIES: Without cyanosis. ASSESSMENT: 1. Right upper lobe pneumonia with chronic obstructive pulmonary disease exacerbation. 2. History of atrial fibrillation and prostate cancer. 3. Leukocytosis, likely secondary to right upper lobe pneumonia with chronic obstructive pulmonary disease exacerbation, also steroid induced. PLAN: The patient remains stable. We will continue him on current antimicrobials. Follow chest x- ray and recommendations of consultants. Dictated By: SHELLEY MAR COACH DRIVER for NEL FU/HOLLAND Conf#: [id number] DID#: [id number] CC: LYNN HANLEY;*EndCC*
[2016-10-21] MEDS: LATANOPROST 0.005% 2.5 ML OPH BOTH EYES SCH (20:28)
[2016-10-21] MEDS: ATORVASTATIN 20 MG TAB PO SCH (20:29)
[2016-10-21] MEDS: SENNA TAB PO SCH (20:29)
[2016-10-22] VITALS (12 sets, daily range): BP systolic 99–120; BP diastolic 61–68; PULSE 53–123; RESP 16–20
[2016-10-22] MEDS ORDERED: VANCOMYCIN 750 MG in SOD CHLORIDE 0.9% 150 ML IVPB SCH (05:00)
[2016-10-22] MEDS: MEROPENEM 500 MG/100 ML (PMX) 100 ML IVPB SCH ×3 (05:35→21:28)
[2016-10-22] MEDS: PANTOPRAZOLE (EC) 40 MG TAB PO SCH (05:35)
[2016-10-22 07:55] LABS: ADD SCAN DIFF NO
[2016-10-22 07:58] LABS: ABNORMAL IP MESSAGE 1; HEMATOCRIT 41.1 % (42.0-52.0); HEMOGLOBIN 13.1 g/dl (14.0-18.0); MEAN CORPUSCULAR HEMOGLOBIN 29.3 pg (29.0-33.0); MEAN CORPUSCULAR HGB CONC 31.9 g/dl (32.0-37.0); MEAN CORPUSCULAR VOLUME 91.9 fl (82.0-101.0); MEAN PLATELET VOLUME 10.1 fl (7.4-10.4); PLATELET COUNT 244 10^3/UL (140-415); RED BLOOD COUNT 4.47 10^6/ul (4.70-6.10); RED CELL DISTRIBUTION WIDTH 14.3 % (11.5-14.5); WHITE BLOOD COUNT 20.4 10^3/ul (4.8-10.8)
[2016-10-22] MEDS: DOCUSATE SODIUM 100 MG CAP PO SCH (08:11)
[2016-10-22] MEDS: APIXABAN 5 MG TABLET PO SCH ×2 (08:11→20:02)
[2016-10-22] MEDS: DORZOLAMIDE/TIMOLOL 10 ML OPH BOTH EYES SCH ×2 (08:12→20:01)
[2016-10-22] MEDS: SALMETEROL/FLUTICASONE 500/50 INHA INH SCH ×2 (08:12→20:03)
[2016-10-22] MEDS: METHYLPREDNISOLONE 125 MG INJ IV SCH ×3 (08:12→20:02)
[2016-10-22] MEDS: DILTIAZEM (CD) 240 MG CAP PO SCH (08:12)
[2016-10-22] MEDS: TIOTROPIUM 18 MCG CAPSULE INHA DEV INH SCH (08:12)
[2016-10-22] MEDS: AMIODARONE 200 MG TAB PO SCH (08:13)
[2016-10-22 08:16] LABS: CALCIUM 8.3 mg/dl (8.4-10.2); CREATININE 0.81 mg/dl (0.61-1.24); POTASSIUM 4.1 mmol/L (3.5-5.1)
--- NOTE | 2016-10-22 09:32 | CONS ---
Date/Time of Note Date/Time of Note DATE: 10/22/16 TIME: 09:26 Assessment/Plan Assessment/Plan Chief Complaint/Hosp Course Afib with slow VR: HR generally 50-60s and asymptomatic. These rates have been stable despite no rate control meds. Amiodarone is not very useful for him as he is still in afib and he already has lung pathology. Digoxin levels were slightly elevated but this can he held anyway. Diltiazem should be enough for now as monotherapy with holding parameters. PNA COPD exacerbation -d/c amiodarone -d/c digoxin -decrease diltiazem to 120mg daily with holding parameters -continue Eliquis -management of COPD exacerbation/PNA per primary/ID/pulmonary teams Problems: Consultation Date/Type/Reason Admit Date/Time Date of Consultation: Oct 22, 2016 Type of Consultation: Cardiology Reason for Consultation Afib with slow VR Referring Provider: INDERJIT MCNULTY of Present Illness 76 yo M with a h/o chronic afib on Eliquis, COPD, who presented with respiratory complaints and was found to have PNA and possible COPD exacerbation. He was also noted to have episode of afib with slow response to the 40-50s without symptoms for which cardiology was consulted. The pt denies symptoms including dizziness, syncope. No chest pain. SOB is improving. He is not sure what meds he takes. per HPI Psychological: nl mood/affect Past Medical History per HPI Social History Alcohol Use: none Smoking Status: Former smoker Drug Use: none Exam/Review of Systems Vital Signs Vitals Vital Signs Date Time Temp Pulse Resp B/P Pulse Ox O2 Delivery O2 Flow Rate FiO2 10/22/16 08:24 55 10/22/16 07:12 98.3 20 119/67 95 10/22/16 04:37 3.0 10/21/16 20:30 Nasal Cannula Intake and Output 10/21/16 10/21/16 10/22/16 15:00 23:00 07:00 Intake Total 2170 ml 370 ml Output Total 1200 ml 400 ml Balance 970 ml -30 ml Exam Constitutional: alert, oriented Psych: no complaints Head: atraumatic, normocephalic Neck: No jvd Respiratory: clear to auscultation, No crackles/rales Cardiovascular: No regular rate and rhythm (IRIR) Gastrointestinal: non-tender, soft Extremities: normal pulses Neurological: nl mental status Results Result Diagram: 10/22/16 0730 10/22/16 0730 Results 24 hrs Laboratory Tests Test 10/22/16 07:30 White Blood Count 20.4 H Red Blood Count 4.47 L Hemoglobin 13.1 L Hematocrit 41.1 L Mean Corpuscular Volume 91.9 Mean Corpuscular Hemoglobin 29.3 Mean Corpuscular Hemoglobin Concent 31.9 L Red Cell Distribution Width 14.3 Platelet Count 244 Mean Platelet Volume 10.1 Sodium Level 140 Potassium Level 4.1 Chloride Level 107 Carbon Dioxide Level 29 Anion Gap 8 Blood Urea Nitrogen 30 H Creatinine 0.81 Glucose Level 128 Calcium Level 8.3 L Medications Medications Current Medications Apixaban (Eliquis) 5 mg BID PO Last administered on 10/22/16 08:11; Admin Dose 5 MG; Start 10/20/16 at 21:00 Atorvastatin Calcium (Lipitor) 20 mg QHS PO Last administered on 10/21/16 20: 29; Admin Dose 20 MG; Start 10/20/16 at 21:00 Latanoprost (Xalatan) 1 drop HS BOTH EYES Last administered on 10/21/16 20:28 ; Admin Dose 1 DROP; Start 10/20/16 at 21:00 Diltiazem HCl (Cardizem Cd) 240 mg DAILY PO ; Start 10/21/16 at 09:00 Docusate Sodium (Colace) 100 mg DAILY PO Last administered on 10/22/16 08:11; Admin Dose 100 MG; Start 10/21/16 at 09:00 Dorzolamide/ Timolol (Cosopt) 1 drop BID BOTH EYES Last administered on 08:12; Admin Dose 1 DROP; Start 10/20/16 at 21:00 Senna (Senokot) 1 tab QHS PO Last administered on 10/21/16 20:29; Admin Dose 1 TAB; Start 10/20/16 at 21:00 Tiotropium [place] (Spiriva) 1 inh DAILY INH Last administered on 10/22/16 08: 12; Admin Dose 1 INH; Start 10/21/16 at 09:00 Salmeterol Xinafoate/ Fluticasone (Advair 500/50 Diskus) 1 inh BID INH Last administered on 4/17/17at 08:12; Admin Dose 1 INH; Start 10/20/16 at 21:00 Levalbuterol (Xopenex Neb) 0.63 mg Q4 PRN HHN dyspnea Last administered on 10/20 20:04; Admin Dose 0.63 MG; Start 10/20/16 at 10:30 Methylprednisolone Sodium Succinate (Solu-Medrol) 60 mg TID IV Last administered on 10/22/16 08:12; Admin Dose 60 MG; Start 10/20/16 at 13:00 Ondansetron HCl (Zofran Inj) 4 mg Q6H PRN IV NAUSEA AND/OR VOMITING; Start at 10:30 Acetaminophen (Tylenol Tab) 650 mg Q6H PRN PO PAIN LEVEL 1-3 OR FEVER; Start at 10:30 Acetaminophen (Tylenol Supp) 650 mg Q6H PRN [place] PAIN LEVEL 1-3 OR FEVER; Start 10/20/16 at 10:30 Acetaminophen/ Hydrocodone Bitart ([place] (5/325)) 1 tab Q6H PRN PO MODERATE PAIN LEVEL 4-6; Start 10/20/16 at 10:30 Acetaminophen/ Hydrocodone Bitart ([place] (5/325)) 2 tab Q6H PRN PO SEVERE PAIN LEVEL 7-10; Start 10/20/16 at 10:30 Morphine Sulfate (morphine) 2 mg Q4H PRN IV SEVERE PAIN LEVEL 7-10; Start 10/20 at 10:30 Docusate Sodium (Colace) 100 mg Q12H PRN PO CONSTIPATION; Start 10/20/16 at 10: 30 Magnesium Hydroxide (Milk Of Mag) 30 ml DAILY PRN PO CONSTIPATION; Start at 10:30 Bisacodyl (Dulcolax Supp) 10 mg DAILY PRN [place] CONSTIPATION; Start 10/20/16 at 10 :30 Pantoprazole 40 mg 40 mg DAILY@06 PO Last administered on 10/22/16 05:35; Admin Dose 40 MG; Start 10/21/16 at 06:00 Meropenem 100 ml @ 200 mls/hr Q8 IVPB Last administered on 10/22/16 05:35; Admin Dose 200 MLS/HR; Start 10/21/16 at 14:00 Vancomycin HCl/ Sodium Chloride (Vancocin/NS) 150 ml @ 75 mls/hr Q12H IVPB Last administered on 10/22/16t 04:02; Admin Dose 75 MLS/HR; Start 10/22/16 at 05 :00 LARRY GRANT Oct 22, 2016 09:32
[2016-10-22 10:08] LABS: LYMPHOCYTES # 0.8 10^3/ul (0.8-2.9); NEUTROPHIL # 19.2 10^3/ul (1.6-7.5); PLATELET ESTIMATE PLT APPEAR ADEQUATE
--- NOTE | 2016-10-22 11:45 | PN ---
Date/Time of Note Date/Time of Note DATE: 10/22/16 TIME: 11:42 Assessment/Plan VTE Prophylaxis VTE Prophylaxis Intervention: other (eliquis) Lines/Catheters IV Catheter Type (from [facility]): [place] Assessment/Plan Chief Complaint/Hosp Course Impression and plan 1. Acute on chronic respiratory failure secondary to pneumonia. 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 Continue on antibiotic therapy per ID consult. Computer Repair Technician following. Continue on Solu-Medrol and bronchodilators. Titrate down as tolerated. appears to be improving . Follow up on cxr 2. Likely COPD with exacerbation. Continue bronchodilator therapy and Solu- Medrol. Less wheezing noted today 3. History of atrial fibrillation. Digoxin and amiodarone discontinued. Continue on diltiazem. Taxi Driver Supervisor following 4. History of aortic valve disease. On Eliquis 5. History of prostate cancer. Patient does have history of prostatectomy in 1991. Patient to follow-up with his oncologist as outpatient. Will get inpatient oncologist pending clinical course 6. Leukocytosis. Bacterial etiology versus steroid. Antipyretics for fever. Continue on antibiotic therapy. Improving at present DISPO/PLAN: Check follow-up cxr Await clinical improvement of respiratory status. Monitor in telemetry. Digoxin and amiodarone was discontinued Discussed plan of care with Dr. Gonzalez Problems: Subjective 24 Hr Interval Summary Free Text/Dictation Reports better breathing today. Still reports having some cough and difficult to clear. Reports cough productive Exam/Review of Systems Vital Signs Vitals Vital Signs Date Time Temp Pulse Resp B/P Pulse Ox O2 Delivery O2 Flow Rate FiO2 10/22/16 11:32 98.3 55 20 99/67 95 10/22/16 07:45 Nasal Cannula 2.0 Intake and Output 10/21/16 10/21/16 10/22/16 14:59 22:59 06:59 Intake Total 2170 ml 370 ml Output Total 1200 ml 400 ml Balance 970 ml -30 ml Exam Constitutional: alert, oriented Psych: no complaints Head: normocephalic Eyes: nl conjunctiva Neck: non-tender, supple Respiratory: congested cough Cardiovascular: other (atrial fibrillation, bradycardic to regular rate) Gastrointestinal: non-tender, soft Musculoskeletal: nl extremities to inspection Extremities: normal pulses Neurological: DATABASE ADMIN II-XII intact, nl mental status, nl speech Skin: nl turgor, No rash or lesions Results Result Diagram: 10/22/16 0730 10/22/16 0730 Results 24 hrs Laboratory Tests Test 10/22/16 07:30 White Blood Count 20.4 H Red Blood Count 4.47 L Hemoglobin 13.1 L Hematocrit 41.1 L Mean Corpuscular Volume 91.9 Mean Corpuscular Hemoglobin 29.3 Mean Corpuscular Hemoglobin Concent 31.9 L Red Cell Distribution Width 14.3 Platelet Count 244 Mean Platelet Volume 10.1 Neutrophils % 94.0 H Band Neutrophils % 2.0 Lymphocytes % 4.0 L Neutrophils # 19.2 H Lymphocytes # 0.8 Platelet Estimate PLT APPEAR ADEQUATE Sodium Level 140 Potassium Level 4.1 Chloride Level 107 Carbon Dioxide Level 29 Anion Gap 8 Blood Urea Nitrogen 30 H Creatinine 0.81 Glucose Level 128 Calcium Level 8.3 L Medications Medications Current Medications Apixaban (Eliquis) 5 mg BID PO Last administered on 10/22/16 08:11; Admin Dose 5 MG; Start 10/20/16 at 21:00 Atorvastatin Calcium (Lipitor) 20 mg QHS PO Last administered on 10/21/16 20: 29; Admin Dose 20 MG; Start 10/20/16 at 21:00 Latanoprost (Xalatan) 1 drop HS BOTH EYES Last administered on 10/21/16 20:28 ; Admin Dose 1 DROP; Start 10/20/16 at 21:00 Docusate Sodium (Colace) 100 mg DAILY PO Last administered on 10/22/16 08:11; Admin Dose 100 MG; Start 10/21/16 at 09:00 Dorzolamide/ Timolol (Cosopt) 1 drop BID BOTH EYES Last administered on 08:12; Admin Dose 1 DROP; Start 10/20/16 at 21:00 Senna (Senokot) 1 tab QHS PO Last administered on 10/21/16 20:29; Admin Dose 1 TAB; Start 10/20/16 at 21:00 Tiotropium [place] (Spiriva) 1 inh DAILY INH Last administered on 10/22/16 08: 12; Admin Dose 1 INH; Start 10/21/16 at 09:00 Salmeterol Xinafoate/ Fluticasone (Advair 500/50 Diskus) 1 inh BID INH Last administered on 10/22/16 08:12; Admin Dose 1 INH; Start 10/20/16 at 21:00 Levalbuterol (Xopenex Neb) 0.63 mg Q4 PRN HHN dyspnea Last administered on 10/20 20:04; Admin Dose 0.63 MG; Start 10/20/16 at 10:30 Methylprednisolone Sodium Succinate (Solu-Medrol) 60 mg TID IV Last administered on 10/22/16 08:12; Admin Dose 60 MG; Start 10/20/16 at 13:00 Ondansetron HCl (Zofran Inj) 4 mg Q6H PRN IV NAUSEA AND/OR VOMITING; Start at 10:30 Acetaminophen (Tylenol Tab) 650 mg Q6H PRN PO PAIN LEVEL 1-3 OR FEVER; Start at 10:30 Acetaminophen (Tylenol Supp) 650 mg Q6H PRN [place] PAIN LEVEL 1-3 OR FEVER; Start 10/20/16 at 10:30 Acetaminophen/ Hydrocodone Bitart ([place] (5/325)) 1 tab Q6H PRN PO MODERATE PAIN LEVEL 4-6; Start 10/20/16 at 10:30 Acetaminophen/ Hydrocodone Bitart ([place] (5/325)) 2 tab Q6H PRN PO SEVERE PAIN LEVEL 7-10; Start 10/20/16 at 10:30 Morphine Sulfate (morphine) 2 mg Q4H PRN IV SEVERE PAIN LEVEL 7-10; Start 10/20 at 10:30 Docusate Sodium (Colace) 100 mg Q12H PRN PO CONSTIPATION; Start 10/20/16 at 10: 30 Magnesium Hydroxide (Milk Of Mag) 30 ml DAILY PRN PO CONSTIPATION; Start at 10:30 Bisacodyl (Dulcolax Supp) 10 mg DAILY PRN [place] CONSTIPATION; Start 10/20/16 at 10 :30 Pantoprazole 40 mg 40 mg DAILY@06 PO Last administered on 10/22/16 05:35; Admin Dose 40 MG; Start 10/21/16 at 06:00 Meropenem 100 ml @ 200 mls/hr Q8 IVPB Last administered on 10/22/16 05:35; Admin Dose 200 MLS/HR; Start 10/21/16 at 14:00 Vancomycin HCl/ Sodium Chloride (Vancocin/NS) 150 ml @ 75 mls/hr Q12H IVPB Last administered on 10/22/16t 04:02; Admin Dose 75 MLS/HR; Start 10/22/16 at 05 :00 Diltiazem HCl (Cardizem Cd) 120 mg DAILY PO ; Start 10/23/16 at 09:00 Miscellaneous Information (*Rx Drug Level Order Reminder*) 1 ONCE ONCE XX ; Start 10/23/16 at 04:00; Stop 10/23/16 at 04:01 INDERJIT MCNULTY Oct 22, 2016 11:45 INDERJIT MCNULTY Oct 22, 2016 11:45
[2016-10-22] MEDS: GUAIFENESIN LA 600 MG TABSR PO SCH ×2 (13:18→20:02)
--- NOTE | 2016-10-22 14:58 | RADRPT ---
PROCEDURE: XR Chest. CLINICAL INDICATION: Shortness of breath. TECHNIQUE: Single frontal view. COMPARISON: 15:17. FINDINGS: There is patchy pneumonia in the right upper lobe, unchanged. The lungs are hyperinflated. The nigel gs are otherwise clear. The heart size is normal. There is no pleural effusion. There is no pneumothorax. IMPRESSION: 1. Hyperinflated lungs. 2. Right upper lobe pneumonia, unchanged. 3. Otherwise unremarkable chest radiograph. RPTAT: QQ .Justino Fonseca MD, MD Date Time Electronically viewed and signed by .Justino Fonseca MD, MD on 10/22/2016 14:58 .R/
[2016-10-22 16:00] LABS: WHITE BLOOD COUNT 30.7 10^3/ul (4.8-10.8)
--- NOTE | 2016-10-22 16:50 | PN ---
DATE: 10/22/2016 SUBJECTIVE: Patient is alert, feels good. No shortness of breath. No fevers. VITAL SIGNS: Stable. LABORATORY: WBC 20.4, platelets 244, neutrophils 94, bands 2, lymphs 4, BUN 30, creatinine 0.81. MICROBIOLOGY: Sputum culture remains negative. ANTIMICROBIALS: The patient is on: 1. Vancomycin. 2. Meropenem. PHYSICAL EXAMINATION: GENERAL: Well-developed elderly man who is alert, in no distress. HEENT: Head atraumatic, normocephalic. Sclerae anicteric. Buccal mucosa dry. NECK: Supple, trachea midline. CHEST: Rise symmetrical. Breath sounds clear. HEART: S1, S2. ABDOMEN: Soft. Bowel tones present. EXTREMITIES: Without cyanosis. ASSESSMENT: 1. Systemic inflammatory response syndrome. 2. Chronic obstructive pulmonary disease exacerbation with right upper lobe pneumonia. 3. Atrial fibrillation. 4. History of prostate carcinoma. 5. Leukocytosis. The patient remains on steroids. PLAN: The patient remains stable. We are going to change vancomycin to doxycycline. Continue sola penem for now, await for MRSA swab, follow recommendations of consultants. Anticipate discharge on oral antibiotics when ready. Dictated By: SHELLEY MAR LEAD PROCESS ENGINEER for [employer]EL [employer]LL[employer] Conf#: [id number] DID#: [id number]
[2016-10-22] MEDS: LATANOPROST 0.005% 2.5 ML OPH BOTH EYES SCH (20:02)
[2016-10-22] MEDS: ATORVASTATIN 20 MG TAB PO SCH (20:02)
[2016-10-22] MEDS: SENNA TAB PO SCH (20:02)
[2016-10-22] MEDS: DOXYCYCLINE 100 MG TAB PO SCH (20:04)
[2016-10-23] VITALS (11 sets, daily range): BP systolic 100–138; BP diastolic 60–95; PULSE 48–60; RESP 17–18
[2016-10-23] MEDS: MEROPENEM 500 MG/100 ML (PMX) 100 ML IVPB SCH ×2 (05:34→14:20)
[2016-10-23] MEDS: PANTOPRAZOLE (EC) 40 MG TAB PO SCH (05:34)
[2016-10-23] MEDS: DILTIAZEM (CD) 240 MG CAP PO SCH (08:39)
[2016-10-23] MEDS: TIOTROPIUM 18 MCG CAPSULE INHA DEV INH SCH (08:41)
[2016-10-23] MEDS: SALMETEROL/FLUTICASONE 500/50 INHA INH SCH ×2 (08:41→20:14)
[2016-10-23] MEDS: METHYLPREDNISOLONE 125 MG INJ IV SCH (08:42)
[2016-10-23] MEDS: DORZOLAMIDE/TIMOLOL 10 ML OPH BOTH EYES SCH ×2 (08:42→20:15)
[2016-10-23] MEDS: GUAIFENESIN LA 600 MG TABSR PO SCH ×2 (08:42→20:14)
[2016-10-23] MEDS: DOXYCYCLINE 100 MG TAB PO SCH ×2 (08:42→20:14)
[2016-10-23] MEDS: DOCUSATE SODIUM 100 MG CAP PO SCH (08:42)
[2016-10-23] MEDS: APIXABAN 5 MG TABLET PO SCH ×2 (08:42→20:14)
[2016-10-23 08:57] LABS: ADD SCAN DIFF NO
[2016-10-23 09:00] LABS: ABNORMAL IP MESSAGE 1; HEMATOCRIT 43.4 % (42.0-52.0); HEMOGLOBIN 13.6 g/dl (14.0-18.0); MEAN CORPUSCULAR HEMOGLOBIN 28.8 pg (29.0-33.0); MEAN CORPUSCULAR HGB CONC 31.3 g/dl (32.0-37.0); MEAN CORPUSCULAR VOLUME 91.9 fl (82.0-101.0); MEAN PLATELET VOLUME 9.9 fl (7.4-10.4); PLATELET COUNT 251 10^3/UL (140-415); RED BLOOD COUNT 4.72 10^6/ul (4.70-6.10); RED CELL DISTRIBUTION WIDTH 14.2 % (11.5-14.5); WHITE BLOOD COUNT 17.5 10^3/ul (4.8-10.8)
[2016-10-23 09:24] LABS: CALCIUM 8.1 mg/dl (8.4-10.2); CREATININE 0.85 mg/dl (0.61-1.24); POTASSIUM 4.2 mmol/L (3.5-5.1)
--- NOTE | 2016-10-23 09:39 | CONS ---
Date/Time of Note Date/Time of Note DATE: 10/23/16 TIME: 09:38 Assessment/Plan Assessment/Plan Chief Complaint/Hosp Course Afib with slow VR: HR generally 50-60s and asymptomatic. These rates have been stable despite no rate control meds. Amiodarone is not very useful for him as he is still in afib and he already has lung pathology. Digoxin levels were slightly elevated but this will be held anyway. Diltiazem should be enough for now as monotherapy with holding parameters. PNA COPD exacerbation -diltiazem to 120mg daily with holding parameters (possibly used as needed at home for HR >60) -continue Eliquis -management of COPD exacerbation/PNA per primary/ID/pulmonary teams Problems: Consultation Date/Type/Reason Admit Date/Time Oct 20, 2016 at 10:24 Initial Consult Date 10/22/16 Type of Consultation: Cardiology Referring Provider: INDERJIT MCNULTY 24 HR Interval Summary Free Text/Dictation No o/n events. HR still 50s. No complaints Exam/Review of Systems Vital Signs Vitals Vital Signs Date Time Temp Pulse Resp B/P Pulse Ox O2 Delivery O2 Flow Rate FiO2 10/23/16 08:10 54 10/23/16 07:26 Nasal Cannula 2.0 10/23/16 07:17 97.8 18 106/61 97 Intake and Output 10/22/16 10/22/16 10/23/16 15:00 23:00 07:00 Intake Total 1400 ml 200 ml Output Total 1000 ml 350 ml Balance 400 ml -150 ml Exam Constitutional: alert, oriented Psych: no complaints Head: atraumatic, normocephalic Neck: No jvd Respiratory: clear to auscultation, No crackles/rales Cardiovascular: No edema, No regular rate and rhythm (bradycardic, irregular ) Gastrointestinal: non-tender, soft Results Result Diagram: 10/23/16 0835 10/23/16 0835 Results 24 hrs Laboratory Tests Test 10/23/16 08:35 White Blood Count 17.5 H Red Blood Count 4.72 Hemoglobin 13.6 L Hematocrit 43.4 Mean Corpuscular Volume 91.9 Mean Corpuscular Hemoglobin 28.8 L Mean Corpuscular Hemoglobin Concent 31.3 L Red Cell Distribution Width 14.2 Platelet Count 251 Mean Platelet Volume 9.9 Sodium Level 140 Potassium Level 4.2 Chloride Level 106 Carbon Dioxide Level 30 Anion Gap 8 Blood Urea Nitrogen 31 H Creatinine 0.85 Glucose Level 121 Calcium Level 8.1 L Medications Medications Current Medications Apixaban (Eliquis) 5 mg BID PO Last administered on 10/23/16 08:42; Admin Dose 5 MG; Start 10/20/16 at 21:00 Atorvastatin Calcium (Lipitor) 20 mg QHS PO Last administered on 10/22/16 20: 02; Admin Dose 20 MG; Start 10/20/16 at 21:00 Latanoprost (Xalatan) 1 drop HS BOTH EYES Last administered on 10/22/16 20:02 ; Admin Dose 1 DROP; Start 10/20/16 at 21:00 Docusate Sodium (Colace) 100 mg DAILY PO Last administered on 10/23/16 08:42; Admin Dose 100 MG; Start 10/21/16 at 09:00 Dorzolamide/ Timolol (Cosopt) 1 drop BID BOTH EYES Last administered on 08:42; Admin Dose 1 DROP; Start 10/20/16 at 21:00 Senna (Senokot) 1 tab QHS PO Last administered on 10/22/16 20:02; Admin Dose 1 TAB; Start 10/20/16 at 21:00 Tiotropium [place] (Spiriva) 1 inh DAILY INH Last administered on 10/23/16 08: 41; Admin Dose 1 INH; Start 10/21/16 at 09:00 Salmeterol Xinafoate/ Fluticasone (Advair 500/50 Diskus) 1 inh BID INH Last administered on 10/23/16 08:41; Admin Dose 1 INH; Start 10/20/16 at 21:00 Levalbuterol (Xopenex Neb) 0.63 mg Q4 PRN HHN dyspnea Last administered on 10/20 20:04; Admin Dose 0.63 MG; Start 10/20/16 at 10:30 Methylprednisolone Sodium Succinate (Solu-Medrol) 60 mg TID IV Last administered on 10/23/16 08:42; Admin Dose 60 MG; Start 10/20/16 at 13:00 Ondansetron HCl (Zofran Inj) 4 mg Q6H PRN IV NAUSEA AND/OR VOMITING; Start at 10:30 Acetaminophen (Tylenol Tab) 650 mg Q6H PRN PO PAIN LEVEL 1-3 OR FEVER; Start at 10:30 Acetaminophen (Tylenol Supp) 650 mg Q6H PRN [place] PAIN LEVEL 1-3 OR FEVER; Start 10/20/16 at 10:30 Acetaminophen/ Hydrocodone Bitart ([place] (5/325)) 1 tab Q6H PRN PO MODERATE PAIN LEVEL 4-6; Start 10/20/16 at 10:30 Acetaminophen/ Hydrocodone Bitart ([place] (5/325)) 2 tab Q6H PRN PO SEVERE PAIN LEVEL 7-10; Start 10/20/16 at 10:30 Morphine Sulfate (morphine) 2 mg Q4H PRN IV SEVERE PAIN LEVEL 7-10; Start 10/20 at 10:30 Docusate Sodium (Colace) 100 mg Q12H PRN PO CONSTIPATION; Start 10/20/16 at 10: 30 Magnesium Hydroxide (Milk Of Mag) 30 ml DAILY PRN PO CONSTIPATION; Start at 10:30 Bisacodyl (Dulcolax Supp) 10 mg DAILY PRN [place] CONSTIPATION; Start 10/20/16 at 10 :30 Pantoprazole 40 mg 40 mg DAILY@06 PO Last administered on 10/23/16 05:34; Admin Dose 40 MG; Start 10/21/16 at 06:00 Meropenem (Merrem 500 Mg/ 100 ml (Pmx)) 100 ml @ 200 mls/hr Q8 IVPB Last administered on 10/23/16 05:34; Admin Dose 200 MLS/HR; Start 10/21/16 at 14:00 Diltiazem HCl (Cardizem Cd) 120 mg DAILY PO ; Start 10/23/16 at 09:00 Guaifenesin (Mucinex) 600 mg BID PO Last administered on 10/23/16 08:42; Admin Dose 600 MG; Start 10/22/16 at 12:00 Doxycycline Hyclate (Vibramycin) 100 mg BID PO Last administered on 10/23/16 08:42; Admin Dose 100 MG; Start 10/22/16 at 21:00 LARRY GRANT Oct 23, 2016 09:39
[2016-10-23 10:33] LABS: LYMPHOCYTES # 0.4 10^3/ul (0.8-2.9); MONOCYTE # 0.9 10^3/ul (0.3-0.9); NEUTROPHIL # 16.3 10^3/ul (1.6-7.5)
--- NOTE | 2016-10-23 12:23 | PN ---
Date/Time of Note Date/Time of Note DATE: 10/23/16 TIME: 12:16 Assessment/Plan VTE Prophylaxis VTE Prophylaxis Intervention: other (eliquis) Lines/Catheters IV [facility] Type (from [facility] Peripheral IV Assessment/Plan Chief Complaint/Hosp Course Impression and plan 1. Acute on chronic respiratory failure secondary to pneumonia. 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 Continue on antibiotic therapy per ID consult. Shirt Creaser following. Continue on Solu-Medrol and bronchodilators. Titrate down as tolerated. appears to be improving . recent chest radiograph unchanged 2. Likely COPD with exacerbation. Continue bronchodilator therapy and Solu- Medrol. improving start steroid taper 3. History of atrial fibrillation. Digoxin and amiodarone discontinued. Continue on diltiazem. Recreation Coordinator following 4. History of aortic valve disease. On Eliquis 5. History of prostate cancer. Patient does have history of prostatectomy in 1991. Patient to follow-up with his oncologist as outpatient. Will get inpatient oncologist pending clinical course 6. Leukocytosis. Bacterial etiology versus steroid. Antipyretics for fever. Continue on antibiotic therapy. Improving at present DISPO/PLAN: Chest x-ray unchanged. Still reports inability to expectorate with productive cough. CPT added. Discharge when medically stable and cleared by consultants Discussed plan of care with Dr. Gonzalez Problems: Subjective 24 Hr Interval Summary Free Text/Dictation Patient reports better breathing at this time. Still has productive cough but reports unable to expectorate Exam/Review of Systems Vital Signs Vitals Vital Signs Date Time Temp Pulse Resp B/P Pulse Ox O2 Delivery O2 Flow Rate FiO2 10/23/16 12:10 53 10/23/16 11:43 97.9 18 100/60 97 10/23/16 07:26 Nasal Cannula 2.0 Intake and Output 10/22/16 10/22/16 10/23/16 14:59 22:59 06:59 Intake Total 1400 ml 200 ml Output Total 1000 ml 350 ml Balance 400 ml -150 ml Exam Constitutional: alert, oriented Psych: nl mood/affect Head: normocephalic Neck: non-tender, supple, No jvd Respiratory: congested cough, other (coarse lung sounds bilaterally) Cardiovascular: regular rate and rhythm Gastrointestinal: non-tender, soft Neurological: PAN SHOVER II-XII intact, nl mental status, nl speech Results Result Diagram: 10/23/16 0835 10/23/16 0835 Results 24 hrs Laboratory Tests Test 10/23/16 08:35 White Blood Count 17.5 H Red Blood Count 4.72 Hemoglobin 13.6 L Hematocrit 43.4 Mean Corpuscular Volume 91.9 Mean Corpuscular Hemoglobin 28.8 L Mean Corpuscular Hemoglobin Concent 31.3 L Red Cell Distribution Width 14.2 Platelet Count 251 Mean Platelet Volume 9.9 Neutrophils % 93.0 H Lymphocytes % 2.0 L Monocytes % 5.0 Neutrophils # 16.3 H Lymphocytes # 0.4 L Monocytes # 0.9 Sodium Level 140 Potassium Level 4.2 Chloride Level 106 Carbon Dioxide Level 30 Anion Gap 8 Blood Urea Nitrogen 31 H Creatinine 0.85 Glucose Level 121 Calcium Level 8.1 L Medications Medications Current Medications Apixaban (Eliquis) 5 mg BID PO Last administered on 10/23/16 08:42; Admin Dose 5 MG; Start 10/20/16 at 21:00 Atorvastatin Calcium (Lipitor) 20 mg QHS PO Last administered on 10/22/16 20: 02; Admin Dose 20 MG; Start 10/20/16 at 21:00 Latanoprost (Xalatan) 1 drop HS BOTH EYES Last administered on 10/22/16 20:02 ; Admin Dose 1 DROP; Start 10/20/16 at 21:00 Docusate Sodium (Colace) 100 mg DAILY PO Last administered on 10/23/16 08:42; Admin Dose 100 MG; Start 10/21/16 at 09:00 Dorzolamide/ Timolol (Cosopt) 1 drop BID BOTH EYES Last administered on 08:42; Admin Dose 1 DROP; Start 10/20/16 at 21:00 Senna (Senokot) 1 tab QHS PO Last administered on 10/22/16 20:02; Admin Dose 1 TAB; Start 10/20/16 at 21:00 Tiotropium [place] (Spiriva) 1 inh DAILY INH Last administered on 10/23/16 08: 41; Admin Dose 1 INH; Start 10/21/16 at 09:00 Salmeterol Xinafoate/ Fluticasone (Advair 500/50 Diskus) 1 inh BID INH Last administered on 10/23/16 08:41; Admin Dose 1 INH; Start 10/20/16 at 21:00 Levalbuterol (Xopenex Neb) 0.63 mg Q4 PRN HHN dyspnea Last administered on 10/20 20:04; Admin Dose 0.63 MG; Start 10/20/16 at 10:30 Methylprednisolone Sodium Succinate (Solu-Medrol) 60 mg TID IV Last administered on 10/23/16 08:42; Admin Dose 60 MG; Start 10/20/16 at 13:00 Ondansetron HCl (Zofran Inj) 4 mg Q6H PRN IV NAUSEA AND/OR VOMITING; Start at 10:30 Acetaminophen (Tylenol Tab) 650 mg Q6H PRN PO PAIN LEVEL 1-3 OR FEVER; Start at 10:30 Acetaminophen (Tylenol Supp) 650 mg Q6H PRN [place] PAIN LEVEL 1-3 OR FEVER; Start 10/20/16 at 10:30 Acetaminophen/ Hydrocodone Bitart ([place] (5/325)) 1 tab Q6H PRN PO MODERATE PAIN LEVEL 4-6; Start 10/20/16 at 10:30 Acetaminophen/ Hydrocodone Bitart ([place] (5/325)) 2 tab Q6H PRN PO SEVERE PAIN LEVEL 7-10; Start 10/20/16 at 10:30 Morphine Sulfate (morphine) 2 mg Q4H PRN IV SEVERE PAIN LEVEL 7-10; Start 10/20 at 10:30 Docusate Sodium (Colace) 100 mg Q12H PRN PO CONSTIPATION; Start 10/20/16 at 10: 30 Magnesium Hydroxide (Milk Of Mag) 30 ml DAILY PRN PO CONSTIPATION; Start at 10:30 Bisacodyl (Dulcolax Supp) 10 mg DAILY PRN [place] CONSTIPATION; Start 10/20/16 at 10 :30 Pantoprazole 40 mg 40 mg DAILY@06 PO Last administered on 10/23/16 05:34; Admin Dose 40 MG; Start 10/21/16 at 06:00 Meropenem (Merrem 500 Mg/ 100 ml (Pmx)) 100 ml @ 200 mls/hr Q8 IVPB Last administered on 10/23/16 05:34; Admin Dose 200 MLS/HR; Start 10/21/16 at 14:00 Diltiazem HCl (Cardizem Cd) 120 mg DAILY PO ; Start 10/23/16 at 09:00 Guaifenesin (Mucinex) 600 mg BID PO Last administered on 10/23/16 08:42; Admin Dose 600 MG; Start 10/22/16 at 12:00 Doxycycline Hyclate (Vibramycin) 100 mg BID PO Last administered on 10/23/16 08:42; Admin Dose 100 MG; Start 10/22/16 at 21:00 INDERJIT MCNULTY Oct 23, 2016 12:23
[2016-10-23] MEDS: CEFTRIAXONE 1 GM/50 ML (PMX) 50 ML IVPB SCH (18:20)
--- NOTE | 2016-10-23 18:22 | PN ---
DATE: 10/23/2016 SUBJECTIVE: The patient is alert, feels better, looks comfortable, still with significant cough, bu t overall improving. LABORATORY DATA: WBC 17.5, neutrophils 93. BUN 31, creatinine 0.85. MICROBIOLOGY: Cultures have been negative. ANTIMICROBIALS: The patient is on: 1. Doxycycline. 2. Status post vancomycin and imipenem. 3. Meropenem. PHYSICAL EXAMINATION: GENERAL: Well-developed elderly man who is alert, in no distress. HEENT: Head atraumatic, normocephalic. Sclerae anicteric. Buccal mucosa pink. NECK: Supple. CHEST: Rise symmetrical. Breath sounds clear to auscultation with scattered crackles in the upper lobes. HEART: S1, S2. ABDOMEN: Soft, bowel sounds present. EXTREMITIES: Without cyanosis. ASSESSMENT: 1. Acute hypoxemic respiratory failure, improving. 2. Right upper lobe pneumonia. 3. Chronic obstructive pulmonary disease exacerbation. 4. Atrial fibrillation. 5. History of prostate cancer. PLAN: The patient is improving. Continue present care, steroids. Change meropenem to Rocephin. A nticipate discharge on oral antibiotics when stable. Dictated By: SHELLEY MAR ENTRY LEVEL SOFTWARE DEVELOPER for [employer] Conf#: [id number] DID#: [id number]
[2016-10-23] MEDS: ATORVASTATIN 20 MG TAB PO SCH (20:14)
[2016-10-23] MEDS: SENNA TAB PO SCH (20:14)
[2016-10-23] MEDS: METHYLPREDNISOLONE 40 MG INJ IV SCH (20:14)
[2016-10-23] MEDS: LATANOPROST 0.005% 2.5 ML OPH BOTH EYES SCH (20:15)
[2016-10-24] VITALS (11 sets, daily range): BP systolic 108–133; BP diastolic 65–76; PULSE 49–72; RESP 16–20
[2016-10-24] MEDS: PANTOPRAZOLE (EC) 40 MG TAB PO SCH (05:12)
[2016-10-24] MEDS: METHYLPREDNISOLONE 40 MG INJ IV SCH ×2 (08:49→20:34)
[2016-10-24] MEDS: GUAIFENESIN LA 600 MG TABSR PO SCH ×2 (08:54→20:34)
[2016-10-24] MEDS: TIOTROPIUM 18 MCG CAPSULE INHA DEV INH SCH (08:54)
[2016-10-24] MEDS: SALMETEROL/FLUTICASONE 500/50 INHA INH SCH ×2 (08:54→20:33)
[2016-10-24] MEDS: DOCUSATE SODIUM 100 MG CAP PO SCH (08:54)
[2016-10-24] MEDS: APIXABAN 5 MG TABLET PO SCH ×2 (08:54→20:34)
[2016-10-24] MEDS: DOXYCYCLINE 100 MG TAB PO SCH ×2 (08:54→20:34)
[2016-10-24] MEDS: DILTIAZEM (CD) 240 MG CAP PO SCH (08:55)
[2016-10-24] MEDS: DORZOLAMIDE/TIMOLOL 10 ML OPH BOTH EYES SCH ×2 (08:56→20:33)
[2016-10-24 09:31] LABS: ADD SCAN DIFF NO
[2016-10-24 09:34] LABS: BASOPHILS % 0.1 % (0.0-2.0); HEMATOCRIT 41.2 % (42.0-52.0); HEMOGLOBIN 13.3 g/dl (14.0-18.0); LYMPHOCYTES # 0.7 10^3/ul (0.8-2.9); LYMPHOCYTES % 4.5 % (15.0-51.0); MEAN CORPUSCULAR HEMOGLOBIN 29.5 pg (29.0-33.0); MEAN CORPUSCULAR HGB CONC 32.3 g/dl (32.0-37.0); MEAN CORPUSCULAR VOLUME 91.4 fl (82.0-101.0); MEAN PLATELET VOLUME 9.7 fl (7.4-10.4); MONOCYTE # 0.9 10^3/ul (0.3-0.9); MONOCYTES % 5.7 % (0.0-11.0); NEUTROPHIL # 14.6 10^3/ul (1.6-7.5); NEUTROPHILS % 88.8 % (39.0-77.0); PLATELET COUNT 235 10^3/UL (140-415); RED BLOOD COUNT 4.51 10^6/ul (4.70-6.10); RED CELL DISTRIBUTION WIDTH 13.8 % (11.5-14.5); WHITE BLOOD COUNT 16.5 10^3/ul (4.8-10.8)
[2016-10-24 09:47] LABS: CREATININE 0.89 mg/dl (0.61-1.24); POTASSIUM 4.5 mmol/L (3.5-5.1)
--- NOTE | 2016-10-24 12:32 | CONS ---
Date/Time of Note Date/Time of Note DATE: 10/24/16 TIME: 12:31 Assessment/Plan Assessment/Plan Additional Assessment/Plan Assessment recommendations; 1. Patient admitted for right upper lobe pneumonia with clinical improvement. 2. Underlying COPD. 3. History of cardiac arrhythmia. Continue current treatment. Obtain follow-up chest x-ray tomorrow morning. Consultation Date/Type/Reason Admit Date/Time Oct 20, 2016 at 10:24 Initial Consult Date 10/22/16 Type of Consultation: Pulmonary Referring Provider: INDERJIT MCNULTY 24 HR Interval Summary Free Text/Dictation Patient is doing well. Denies any shortness of breath, chest pain, coughing wheezing. Able to eat well denies any difficulty swallowing. General exam; elderly male, awake alert currently in no distress, eating lunch at bedside. Exam/Review of Systems Vital Signs Vitals Vital Signs Date Time Temp Pulse Resp B/P Pulse Ox O2 Delivery O2 Flow Rate FiO2 10/24/16 12:01 68 10/24/16 08:00 Nasal Cannula 2.0 10/24/16 03:51 97.6 16 130/73 97 Intake and Output 10/23/16 10/23/16 10/24/16 15:00 23:00 07:00 Intake Total 870 ml 120 ml Output Total 450 ml Balance 870 ml -330 ml Exam HEENT exam; supple neck, no JVD. No lymphadenopathy. Midline trachea. Pharynx is clear. No neck masses. Pupils are small bilaterally. Chest exam is; diminished but clear vessel bilaterally. No additional. S1-S2 audible, no murmurs. Regular rhythm. Abdomen exam is; soft, nontender. No organomegaly. Bowel sounds audible. Extremity exam; no peripheral edema. SALES LEAD examination; no focal deficit. Results Result Diagram: 10/24/1690410/24/16904 Results 24 hrs Laboratory Tests Test 10/24/16 09:05 White Blood Count 16.5 H Red Blood Count 4.51 L Hemoglobin 13.3 L Hematocrit 41.2 L Mean Corpuscular Volume 91.4 Mean Corpuscular Hemoglobin 29.5 Mean Corpuscular Hemoglobin Concent 32.3 Red Cell Distribution Width 13.8 Platelet Count 235 Mean Platelet Volume 9.7 Neutrophils % 88.8 H Lymphocytes % 4.5 L Monocytes % 5.7 Eosinophils % 0.0 Basophils % 0.1 Nucleated Red Blood Cells % 0.0 Neutrophils # 14.6 H Lymphocytes # 0.7 L Monocytes # 0.9 Eosinophils # 0.0 Basophils # 0.0 Nucleated Red Blood Cells # 0.0 Sodium Level 138 Potassium Level 4.5 Chloride Level 104 Carbon Dioxide Level 33 H Anion Gap 6 L Blood Urea Nitrogen 31 H Creatinine 0.89 Glucose Level 93 Calcium Level 8.0 L Medications Medications Current Medications Apixaban (Eliquis) 5 mg BID PO Last administered on 10/24/16 08:54; Admin Dose 5 MG; Start 10/20/16 at 21:00 Atorvastatin Calcium (Lipitor) 20 mg QHS PO Last administered on 10/23/16 20: 14; Admin Dose 20 MG; Start 10/20/16 at 21:00 Latanoprost (Xalatan) 1 drop HS BOTH EYES Last administered on 10/23/16 20:15 ; Admin Dose 1 DROP; Start 10/20/16 at 21:00 Docusate Sodium (Colace) 100 mg DAILY PO Last administered on 10/24/16 08:54; Admin Dose 100 MG; Start 10/21/16 at 09:00 Dorzolamide/ Timolol (Cosopt) 1 drop BID BOTH EYES Last administered on 08:56; Admin Dose 1 DROP; Start 10/20/16 at 21:00 Senna (Senokot) 1 tab QHS PO Last administered on 10/23/16 20:14; Admin Dose 1 TAB; Start 10/20/16 at 21:00 Tiotropium [place] (Spiriva) 1 inh DAILY INH Last administered on 10/24/16 08: 54; Admin Dose 1 INH; Start 10/21/16 at 09:00 Salmeterol Xinafoate/ Fluticasone (Advair 500/50 Diskus) 1 inh BID INH Last administered on 10/24/16 08:54; Admin Dose 1 INH; Start 10/20/16 at 21:00 Levalbuterol (Xopenex Neb) 0.63 mg Q4 PRN HHN dyspnea Last administered on 10/20 20:04; Admin Dose 0.63 MG; Start 10/20/16 at 10:30 Ondansetron HCl (Zofran Inj) 4 mg Q6H PRN IV NAUSEA AND/OR VOMITING; Start at 10:30 Acetaminophen (Tylenol Tab) 650 mg Q6H PRN PO PAIN LEVEL 1-3 OR FEVER; Start at 10:30 Acetaminophen (Tylenol Supp) 650 mg Q6H PRN [place] PAIN LEVEL 1-3 OR FEVER; Start 10/20/16 at 10:30 Acetaminophen/ Hydrocodone Bitart ([place] (5/325)) 1 tab Q6H PRN PO MODERATE PAIN LEVEL 4-6; Start 10/20/16 at 10:30 Acetaminophen/ Hydrocodone Bitart ([place] (5/325)) 2 tab Q6H PRN PO SEVERE PAIN LEVEL 7-10; Start 10/20/16 at 10:30 Morphine Sulfate (morphine) 2 mg Q4H PRN IV SEVERE PAIN LEVEL 7-10; Start 10/20 at 10:30 Docusate Sodium (Colace) 100 mg Q12H PRN PO CONSTIPATION; Start 10/20/16 at 10: 30 Magnesium Hydroxide (Milk Of Mag) 30 ml DAILY PRN PO CONSTIPATION; Start at 10:30 Bisacodyl (Dulcolax Supp) 10 mg DAILY PRN [place] CONSTIPATION; Start 10/20/16 at 10 :30 Pantoprazole (Protonix Tab) 40 mg DAILY@06 PO Last administered on 10/24/16 05 :12; Admin Dose 40 MG; Start 10/21/16 at 06:00 Diltiazem HCl (Cardizem Cd) 120 mg DAILY PO ; Start 10/23/16 at 09:00 Guaifenesin (Mucinex) 600 mg BID PO Last administered on 10/24/16 08:54; Admin Dose 600 MG; Start 10/22/16 at 12:00 Doxycycline Hyclate (Vibramycin) 100 mg BID PO Last administered on 10/24/16 08:54; Admin Dose 100 MG; Start 10/22/16 at 21:00 Methylprednisolone Sodium Succinate 40 mg 40 mg Q12 IV Last administered on 08:49; Admin Dose 40 MG; Start 10/23/16 at 21:00 Ceftriaxone Sodium (Rocephin) 50 ml @ 100 mls/hr Q24H IVPB Last administered on 10/23/16 18:20; Admin Dose 100 MLS/HR; Start 10/23/16 at 18:00 JUAN POSADA Oct 24, 2016 12:32
[2016-10-24] MEDS: LEVALBUTEROL (NEB) 0.63 MG/3 ML AMP HHN PRN ×2 (14:35→18:07)
--- NOTE | 2016-10-24 15:48 | PN ---
Date/Time of Note Date/Time of Note DATE: 10/24/16 TIME: 15:42 Assessment/Plan VTE Prophylaxis VTE Prophylaxis Intervention: other (Eliquis) Lines/Catheters IV C[facility] Type [facility]from [facility] Peripheral IV Assessment/Plan Assessment/Plan 1. Acute on chronic respiratory failure secondary to pneumonia. 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 Continue on antibiotic therapy per ID consult. Reo Asset Manager following. Continue on Solu-Medrol and bronchodilators. Titrate down as tolerated. appears to be improving . recent chest radiograph unchanged 2. Likely COPD with exacerbation. Continue bronchodilator therapy and Solu- Medrol. improving start steroid taper 3. History of atrial fibrillation. Digoxin and amiodarone discontinued. Continue on diltiazem. Educational Consultant following 4. History of aortic valve disease. On Eliquis 5. History of prostate cancer. Patient does have history of prostatectomy in 1991. Patient to follow-up with his oncologist as outpatient. Will get inpatient oncologist pending clinical course 6. Leukocytosis. Bacterial etiology versus steroid. Antipyretics for fever. Continue on antibiotic therapy. Improving at present DISPO/PLAN: Chest x-ray unchanged. Still reports inability to expectorate with productive cough. CPT added. Discharge when medically stable and cleared by consultants Subjective 24 Hr Interval Summary Free Text/Dictation c/o some shortness of breath Exam/Review of Systems Vital Signs Vitals Vital Signs Date Time Temp Pulse Resp B/P Pulse Ox O2 Delivery O2 Flow Rate FiO2 10/24/16 14:35 96 3.0 10/24/16 14:35 70 20 Nasal Cannula 10/24/16 03:51 97.6 130/73 Intake and Output 10/23/16 10/23/16 10/24/16 15:00 23:00 07:00 Intake Total 870 ml 120 ml Output Total 450 ml Balance 870 ml -330 ml Exam Constitutional: other (sleepy, but arousable) Head: atraumatic, normocephalic Eyes: PERRL Respiratory: diminished breath sounds, wheezing Cardiovascular: nl pulses, regular rate and rhythm Gastrointestinal: non-tender, soft Extremities: normal pulses Results Result Diagram: 10/24/16 0905 10/24/16 0905 Results 24 hrs Laboratory Tests Test 10/24/16 09:05 White Blood Count 16.5 H Red Blood Count 4.51 L Hemoglobin 13.3 L Hematocrit 41.2 L Mean Corpuscular Volume 91.4 Mean Corpuscular Hemoglobin 29.5 Mean Corpuscular Hemoglobin Concent 32.3 Red Cell Distribution Width 13.8 Platelet Count 235 Mean Platelet Volume 9.7 Neutrophils % 88.8 H Lymphocytes % 4.5 L Monocytes % 5.7 Eosinophils % 0.0 Basophils % 0.1 Nucleated Red Blood Cells % 0.0 Neutrophils # 14.6 H Lymphocytes # 0.7 L Monocytes # 0.9 Eosinophils # 0.0 Basophils # 0.0 Nucleated Red Blood Cells # 0.0 Sodium Level 138 Potassium Level 4.5 Chloride Level 104 Carbon Dioxide Level 33 H Anion Gap 6 L Blood Urea Nitrogen 31 H Creatinine 0.89 Glucose Level 93 Calcium Level 8.0 L Medications Medications Current Medications Apixaban (Eliquis) 5 mg BID PO Last administered on 10/24/16 08:54; Admin Dose 5 MG; Start 10/20/16 at 21:00 Atorvastatin Calcium (Lipitor) 20 mg QHS PO Last administered on 10/23/16 20: 14; Admin Dose 20 MG; Start 10/20/16 at 21:00 Latanoprost (Xalatan) 1 drop HS BOTH EYES Last administered on 10/23/16 20:15 ; Admin Dose 1 DROP; Start 10/20/16 at 21:00 Docusate Sodium (Colace) 100 mg DAILY PO Last administered on 10/24/16 08:54; Admin Dose 100 MG; Start 10/21/16 at 09:00 Dorzolamide/ Timolol (Cosopt) 1 drop BID BOTH EYES Last administered on 08:56; Admin Dose 1 DROP; Start 10/20/16 at 21:00 Senna (Senokot) 1 tab QHS PO Last administered on 10/23/16 20:14; Admin Dose 1 TAB; Start 10/20/16 at 21:00 Tiotropium [place] (Spiriva) 1 inh DAILY INH Last administered on 10/24/16 08: 54; Admin Dose 1 INH; Start 10/21/16 at 09:00 Salmeterol Xinafoate/ Fluticasone (Advair 500/50 Diskus) 1 inh BID INH Last administered on 10/24/16 08:54; Admin Dose 1 INH; Start 10/20/16 at 21:00 Levalbuterol (Xopenex Neb) 0.63 mg Q4 PRN HHN dyspnea Last administered on 10/24 14:35; Admin Dose 0.63 MG; Start 10/20/16 at 10:30 Ondansetron HCl (Zofran Inj) 4 mg Q6H PRN IV NAUSEA AND/OR VOMITING; Start at 10:30 Acetaminophen (Tylenol Tab) 650 mg Q6H PRN PO PAIN LEVEL 1-3 OR FEVER; Start at 10:30 Acetaminophen (Tylenol Supp) 650 mg Q6H PRN [place] PAIN LEVEL 1-3 OR FEVER; Start 10/20/16 at 10:30 Acetaminophen/ Hydrocodone Bitart ([place] (5/325)) 1 tab Q6H PRN PO MODERATE PAIN LEVEL 4-6; Start 10/20/16 at 10:30 Acetaminophen/ Hydrocodone Bitart ([place] (5/325)) 2 tab Q6H PRN PO SEVERE PAIN LEVEL 7-10; Start 10/20/16 at 10:30 Morphine Sulfate (morphine) 2 mg Q4H PRN IV SEVERE PAIN LEVEL 7-10; Start 10/20 at 10:30 Docusate Sodium (Colace) 100 mg Q12H PRN PO CONSTIPATION; Start 10/20/16 at 10: 30 Magnesium Hydroxide (Milk Of Mag) 30 ml DAILY PRN PO CONSTIPATION; Start at 10:30 Bisacodyl (Dulcolax Supp) 10 mg DAILY PRN [place] CONSTIPATION; Start 10/20/16 at 10 :30 Pantoprazole (Protonix Tab) 40 mg DAILY@06 PO Last administered on 10/24/16 05 :12; Admin Dose 40 MG; Start 10/21/16 at 06:00 Diltiazem HCl (Cardizem Cd) 120 mg DAILY PO ; Start 10/23/16 at 09:00 Guaifenesin (Mucinex) 600 mg BID PO Last administered on 10/24/16 08:54; Admin Dose 600 MG; Start 10/22/16 at 12:00 Doxycycline Hyclate (Vibramycin) 100 mg BID PO Last administered on 10/24/16 08:54; Admin Dose 100 MG; Start 10/22/16 at 21:00 Methylprednisolone Sodium Succinate 40 mg 40 mg Q12 IV Last administered on 08:49; Admin Dose 40 MG; Start 10/23/16 at 21:00 Ceftriaxone Sodium (Rocephin) 50 ml @ 100 mls/hr Q24H IVPB Last administered on 10/23/16 18:20; Admin Dose 100 MLS/HR; Start 10/23/16 at 18:00 DONITA CRUZ MD Oct 24, 2016 15:48
--- NOTE | 2016-10-24 17:11 | CONS ---
Date/Time of Note Date/Time of Note DATE: 10/24/16 TIME: 17:09 Assessment/Plan Assessment/Plan Chief Complaint/Hosp Course SUBJECTIVE: The patient is alert, feels better, looks comfortable MICROBIOLOGY: Sputum cx + nocardia. ANTIMICROBIALS: Rocephin PHYSICAL EXAMINATION: GENERAL: Well-developed elderly man who is alert, in no distress. HEENT: Head atraumatic, normocephalic. Sclerae anicteric. Buccal mucosa pink. NECK: Supple. CHEST: Rise symmetrical. Breath sounds clear to auscultation. HEART: S1, S2. ABDOMEN: Soft, bowel sounds present. EXTREMITIES: Without cyanosis. ASSESSMENT: 1. Acute hypoxemic respiratory failure, improving. 2. Right upper lobe pneumonia. 3. Chronic obstructive pulmonary disease exacerbation. 4. Atrial fibrillation. 5. History of prostate cancer. PLAN: The patient is improving. Continue present care. Anticipate discharge on oral Augmentin when stable. DW staff Problems: Consultation Date/Type/Reason Admit Date/Time Oct 20, 2016 at 10:24 Initial Consult Date 10/22/16 Type of Consultation: id Referring Provider: INDERJIT MCNULTY Exam/Review of Systems Vital Signs Vitals Vital Signs Date Time Temp Pulse Resp B/P Pulse Ox O2 Delivery O2 Flow Rate FiO2 10/24/16 16:04 56 10/24/16 14:35 96 3.0 10/24/16 14:35 20 Nasal Cannula 10/24/16 12:00 99.4 108/65 Intake and Output 10/23/16 10/23/16 10/24/16 15:00 23:00 07:00 Intake Total 870 ml 120 ml Output Total 450 ml Balance 870 ml -330 ml Results Result Diagram: 10/24/1690410/24/16904 Results 24 hrs Laboratory Tests Test 10/24/16 09:05 White Blood Count 16.5 H Red Blood Count 4.51 L Hemoglobin 13.3 L Hematocrit 41.2 L Mean Corpuscular Volume 91.4 Mean Corpuscular Hemoglobin 29.5 Mean Corpuscular Hemoglobin Concent 32.3 Red Cell Distribution Width 13.8 Platelet Count 235 Mean Platelet Volume 9.7 Neutrophils % 88.8 H Lymphocytes % 4.5 L Monocytes % 5.7 Eosinophils % 0.0 Basophils % 0.1 Nucleated Red Blood Cells % 0.0 Neutrophils # 14.6 H Lymphocytes # 0.7 L Monocytes # 0.9 Eosinophils # 0.0 Basophils # 0.0 Nucleated Red Blood Cells # 0.0 Sodium Level 138 Potassium Level 4.5 Chloride Level 104 Carbon Dioxide Level 33 H Anion Gap 6 L Blood Urea Nitrogen 31 H Creatinine 0.89 Glucose Level 93 Calcium Level 8.0 L Medications Medications Current Medications Apixaban (Eliquis) 5 mg BID PO Last administered on 10/24/16 08:54; Admin Dose 5 MG; Start 10/20/16 at 21:00 Atorvastatin Calcium (Lipitor) 20 mg QHS PO Last administered on 10/23/16 20: 14; Admin Dose 20 MG; Start 10/20/16 at 21:00 Latanoprost (Xalatan) 1 drop HS BOTH EYES Last administered on 10/23/16 20:15 ; Admin Dose 1 DROP; Start 10/20/16 at 21:00 Docusate Sodium (Colace) 100 mg DAILY PO Last administered on 10/24/16 08:54; Admin Dose 100 MG; Start 10/21/16 at 09:00 Dorzolamide/ Timolol (Cosopt) 1 drop BID BOTH EYES Last administered on 08:56; Admin Dose 1 DROP; Start 10/20/16 at 21:00 Senna (Senokot) 1 tab QHS PO Last administered on 10/23/16 20:14; Admin Dose 1 TAB; Start 10/20/16 at 21:00 Tiotropium [place] (Spiriva) 1 inh DAILY INH Last administered on 10/24/16 08: 54; Admin Dose 1 INH; Start 10/21/16 at 09:00 Salmeterol Xinafoate/ Fluticasone (Advair 500/50 Diskus) 1 inh BID INH Last administered on 10/24/16 08:54; Admin Dose 1 INH; Start 10/20/16 at 21:00 Levalbuterol (Xopenex Neb) 0.63 mg Q4 PRN HHN dyspnea Last administered on 10/24 14:35; Admin Dose 0.63 MG; Start 10/20/16 at 10:30 Ondansetron HCl (Zofran Inj) 4 mg Q6H PRN IV NAUSEA AND/OR VOMITING; Start at 10:30 Acetaminophen (Tylenol Tab) 650 mg Q6H PRN PO PAIN LEVEL 1-3 OR FEVER; Start at 10:30 Acetaminophen (Tylenol Supp) 650 mg Q6H PRN [place] PAIN LEVEL 1-3 OR FEVER; Start 10/20/16 at 10:30 Acetaminophen/ Hydrocodone Bitart ([place] (5/325)) 1 tab Q6H PRN PO MODERATE PAIN LEVEL 4-6; Start 10/20/16 at 10:30 Acetaminophen/ Hydrocodone Bitart ([place] (5/325)) 2 tab Q6H PRN PO SEVERE PAIN LEVEL 7-10; Start 10/20/16 at 10:30 Morphine Sulfate (morphine) 2 mg Q4H PRN IV SEVERE PAIN LEVEL 7-10; Start 10/20 at 10:30 Docusate Sodium (Colace) 100 mg Q12H PRN PO CONSTIPATION; Start 10/20/16 at 10: 30 Magnesium Hydroxide (Milk Of Mag) 30 ml DAILY PRN PO CONSTIPATION; Start at 10:30 Bisacodyl (Dulcolax Supp) 10 mg DAILY PRN [place] CONSTIPATION; Start 10/20/16 at 10 :30 Pantoprazole (Protonix Tab) 40 mg DAILY@06 PO Last administered on 10/24/16 05 :12; Admin Dose 40 MG; Start 10/21/16 at 06:00 Diltiazem HCl (Cardizem Cd) 120 mg DAILY PO ; Start 10/23/16 at 09:00 Guaifenesin (Mucinex) 600 mg BID PO Last administered on 10/24/16 08:54; Admin Dose 600 MG; Start 10/22/16 at 12:00 Doxycycline Hyclate (Vibramycin) 100 mg BID PO Last administered on 10/24/16 08:54; Admin Dose 100 MG; Start 10/22/16 at 21:00 Methylprednisolone Sodium Succinate 40 mg 40 mg Q12 IV Last administered on 08:49; Admin Dose 40 MG; Start 10/23/16 at 21:00 Ceftriaxone Sodium (Rocephin) 50 ml @ 100 mls/hr Q24H IVPB Last administered on 10/23/16 18:20; Admin Dose 100 MLS/HR; Start 10/23/16 at 18:00 SHELLEY MAR NP Oct 24, 2016 17:11
[2016-10-24] MEDS: CEFTRIAXONE 1 GM/50 ML (PMX) 50 ML IVPB SCH (17:38)
[2016-10-24] MEDS: LATANOPROST 0.005% 2.5 ML OPH BOTH EYES SCH (20:33)
[2016-10-24] MEDS: SENNA TAB PO SCH (20:34)
[2016-10-24] MEDS: ATORVASTATIN 20 MG TAB PO SCH (20:34)
[2016-10-25] VITALS (10 sets, daily range): BP systolic 113–152; BP diastolic 59–82; PULSE 53–63; RESP 16–19
[2016-10-25] MEDS: PANTOPRAZOLE (EC) 40 MG TAB PO SCH (06:07)
[2016-10-25] MEDS: TIOTROPIUM 18 MCG CAPSULE INHA DEV INH SCH (08:56)
[2016-10-25] MEDS: SALMETEROL/FLUTICASONE 500/50 INHA INH SCH ×2 (08:56→20:51)
[2016-10-25] MEDS: APIXABAN 5 MG TABLET PO SCH ×2 (08:57→20:49)
[2016-10-25] MEDS: DORZOLAMIDE/TIMOLOL 10 ML OPH BOTH EYES SCH ×2 (08:57→20:51)
[2016-10-25] MEDS: DOXYCYCLINE 100 MG TAB PO SCH ×2 (08:57→20:50)
[2016-10-25] MEDS: METHYLPREDNISOLONE 40 MG INJ IV SCH ×2 (08:57→20:50)
[2016-10-25] MEDS: GUAIFENESIN LA 600 MG TABSR PO SCH ×2 (08:57→21:42)
[2016-10-25] MEDS: DOCUSATE SODIUM 100 MG CAP PO SCH (08:57)
--- NOTE | 2016-10-25 08:59 | CONS ---
Date/Time of Note Date/Time of Note DATE: 10/25/16 TIME: 08:58 Assessment/Plan Assessment/Plan Chief Complaint/Hosp Course Afib with slow VR: HR generally 50-60s and asymptomatic. These rates have been stable despite no rate control meds. Amiodarone is not very useful for him as he is still in afib and he already has lung pathology. Digoxin levels were slightly elevated but this will be held anyway. Diltiazem should be enough for now as monotherapy with holding parameters. PNA COPD exacerbation -ok for d/c from my perspective -diltiazem 120mg daily with holding parameters (possibly used as needed at home for HR >60) -continue Eliquis -management of COPD exacerbation/PNA per primary/ID/pulmonary teams -will follow as needed Problems: Consultation Date/Type/Reason Admit Date/Time Oct 20, 2016 at 10:24 Initial Consult Date 10/22/16 Type of Consultation: Cardiology Referring Provider: INDERJIT MCNULTY 24 HR Interval Summary Free Text/Dictation No o/n events. HR 50s Exam/Review of Systems Vital Signs Vitals Vital Signs Date Time Temp Pulse Resp B/P Pulse Ox O2 Delivery O2 Flow Rate FiO2 10/25/16 08:08 55 10/25/16 07:07 97.6 19 132/77 95 10/25/16 02:07 2.0 10/24/16 21:29 Nasal Cannula Intake and Output 10/24/16 10/24/16 10/25/16 15:00 23:00 07:00 Intake Total 850 ml 360 ml Balance 850 ml 360 ml Exam Constitutional: alert, oriented Psych: no complaints Head: atraumatic, normocephalic Neck: No jvd Respiratory: clear to auscultation Cardiovascular: No edema, No regular rate and rhythm Gastrointestinal: non-tender, soft Results Result Diagram: 10/24/1690410/24/16904 Results 24 hrs Laboratory Tests Test 10/24/16 09:05 White Blood Count 16.5 H Red Blood Count 4.51 L Hemoglobin 13.3 L Hematocrit 41.2 L Mean Corpuscular Volume 91.4 Mean Corpuscular Hemoglobin 29.5 Mean Corpuscular Hemoglobin Concent 32.3 Red Cell Distribution Width 13.8 Platelet Count 235 Mean Platelet Volume 9.7 Neutrophils % 88.8 H Lymphocytes % 4.5 L Monocytes % 5.7 Eosinophils % 0.0 Basophils % 0.1 Nucleated Red Blood Cells % 0.0 Neutrophils # 14.6 H Lymphocytes # 0.7 L Monocytes # 0.9 Eosinophils # 0.0 Basophils # 0.0 Nucleated Red Blood Cells # 0.0 Sodium Level 138 Potassium Level 4.5 Chloride Level 104 Carbon Dioxide Level 33 H Anion Gap 6 L Blood Urea Nitrogen 31 H Creatinine 0.89 Glucose Level 93 Calcium Level 8.0 L Medications Medications Current Medications Apixaban (Eliquis) 5 mg BID PO Last administered on 10/24/16 20:34; Admin Dose 5 MG; Start 10/20/16 at 21:00 Atorvastatin Calcium (Lipitor) 20 mg QHS PO Last administered on 10/24/16 20: 34; Admin Dose 20 MG; Start 10/20/16 at 21:00 Latanoprost (Xalatan) 1 drop HS BOTH EYES Last administered on 10/24/16 20:33 ; Admin Dose 1 DROP; Start 10/20/16 at 21:00 Docusate Sodium (Colace) 100 mg DAILY PO Last administered on 10/24/16 08:54; Admin Dose 100 MG; Start 10/21/16 at 09:00 Dorzolamide/ Timolol (Cosopt) 1 drop BID BOTH EYES Last administered on 20:33; Admin Dose 1 DROP; Start 10/20/16 at 21:00 Senna (Senokot) 1 tab QHS PO Last administered on 10/24/16 20:34; Admin Dose 1 TAB; Start 10/20/16 at 21:00 Tiotropium [place] (Spiriva) 1 inh DAILY INH Last administered on 10/24/16 08: 54; Admin Dose 1 INH; Start 10/21/16 at 09:00 Salmeterol Xinafoate/ Fluticasone (Advair 500/50 Diskus) 1 inh BID INH Last administered on 10/24/16 20:33; Admin Dose 1 INH; Start 10/20/16 at 21:00 Levalbuterol (Xopenex Neb) 0.63 mg Q4 PRN HHN dyspnea Last administered on 10/24 18:07; Admin Dose 0.63 MG; Start 10/20/16 at 10:30 Ondansetron HCl (Zofran Inj) 4 mg Q6H PRN IV NAUSEA AND/OR VOMITING; Start at 10:30 Acetaminophen (Tylenol Tab) 650 mg Q6H PRN PO PAIN LEVEL 1-3 OR FEVER; Start at 10:30 Acetaminophen (Tylenol Supp) 650 mg Q6H PRN [place] PAIN LEVEL 1-3 OR FEVER; Start 10/20/16 at 10:30 Acetaminophen/ Hydrocodone Bitart ([place] (5/325)) 1 tab Q6H PRN PO MODERATE PAIN LEVEL 4-6; Start 10/20/16 at 10:30 Acetaminophen/ Hydrocodone Bitart ([place] (5/325)) 2 tab Q6H PRN PO SEVERE PAIN LEVEL 7-10; Start 10/20/16 at 10:30 Morphine Sulfate (morphine) 2 mg Q4H PRN IV SEVERE PAIN LEVEL 7-10; Start 10/20 at 10:30 Docusate Sodium (Colace) 100 mg Q12H PRN PO CONSTIPATION; Start 10/20/16 at 10: 30 Magnesium Hydroxide (Milk Of Mag) 30 ml DAILY PRN PO CONSTIPATION; Start at 10:30 Bisacodyl (Dulcolax Supp) 10 mg DAILY PRN [place] CONSTIPATION; Start 10/20/16 at 10 :30 Pantoprazole (Protonix Tab) 40 mg DAILY@06 PO Last administered on 10/25/16 06 :07; Admin Dose 40 MG; Start 10/21/16 at 06:00 Diltiazem HCl (Cardizem Cd) 120 mg DAILY PO ; Start 10/23/16 at 09:00 Guaifenesin (Mucinex) 600 mg BID PO Last administered on 10/24/16 20:34; Admin Dose 600 MG; Start 10/22/16 at 12:00 Doxycycline Hyclate (Vibramycin) 100 mg BID PO Last administered on 10/24/16 20:34; Admin Dose 100 MG; Start 10/22/16 at 21:00 Methylprednisolone Sodium Succinate 40 mg 40 mg Q12 IV Last administered on 20:34; Admin Dose 40 MG; Start 10/23/16 at 21:00 Ceftriaxone Sodium (Rocephin) 50 ml @ 100 mls/hr Q24H IVPB Last administered on 4/19/17at 17:38; Admin Dose 100 MLS/HR; Start 10/23/16 at 18:00 LARRY GRANT Oct 25, 2016 08:59
[2016-10-25] MEDS: DILTIAZEM (CD) 240 MG CAP PO SCH (09:01)
--- NOTE | 2016-10-25 09:14 | RADRPT ---
PROCEDURE: XR Chest. CLINICAL INDICATION: pneumonia TECHNIQUE: Single frontal view of the chest was obtained. COMPARISON: Chest x-ray from 10/22/2016 FINDINGS: The heart and mediastinum are within normal limits. The aortic arch is calcified. The lungs are again noted to be hyperexpanded. There is a vertical scarring versus atelectasis at th e right lung base. There are stable patchy opacities in the right greater than left upper lobes which are suspicious fo r a multifocal pneumonia. There is a stable tiny left pleural effusion. IMPRESSION: Stable patchy opacities in the right greater than left upper lobes are suspicious for a multifocal p neumonia. Stable tiny left pleural effusion. Hyperexpanded lungs with discoid scarring versus atelectasis at the right lung base. RPTAT: EE Physician Anders Date Time Electronically viewed and signed by Physician Anders on 10/25/2016 09:13 /
[2016-10-25 09:53] LABS: ADD SCAN DIFF NO
[2016-10-25 09:58] LABS: ABNORMAL IP MESSAGE 1; BASOPHILS % 0.1 % (0.0-2.0); HEMATOCRIT 42.7 % (42.0-52.0); HEMOGLOBIN 13.7 g/dl (14.0-18.0); LYMPHOCYTES # 0.5 10^3/ul (0.8-2.9); LYMPHOCYTES % 3.2 % (15.0-51.0); MEAN CORPUSCULAR HEMOGLOBIN 29.4 pg (29.0-33.0); MEAN CORPUSCULAR HGB CONC 32.1 g/dl (32.0-37.0); MEAN CORPUSCULAR VOLUME 91.6 fl (82.0-101.0); MEAN PLATELET VOLUME 9.9 fl (7.4-10.4); MONOCYTE # 0.6 10^3/ul (0.3-0.9); MONOCYTES % 3.8 % (0.0-11.0); NEUTROPHIL # 14.7 10^3/ul (1.6-7.5); NEUTROPHILS % 92.1 % (39.0-77.0); PLATELET COUNT 229 10^3/UL (140-415); RED BLOOD COUNT 4.66 10^6/ul (4.70-6.10); RED CELL DISTRIBUTION WIDTH 13.7 % (11.5-14.5); WHITE BLOOD COUNT 15.9 10^3/ul (4.8-10.8)
[2016-10-25 10:20] LABS: POTASSIUM 3.9 mmol/L (3.5-5.1)
[2016-10-25 10:22] LABS: CREATININE 0.89 mg/dl (0.61-1.24)
[2016-10-25 10:23] LABS: CALCIUM 7.9 mg/dl (8.4-10.2)
--- NOTE | 2016-10-25 11:52 | CONS ---
Date/Time of Note Date/Time of Note DATE: 10/25/16 TIME: 11:51 Assessment/Plan Assessment/Plan Additional Assessment/Plan Chest x-ray was reviewed from today which is showing improved right upper lobe infiltrate. Assessment recommendations; 1. Patient admitted for right upper lobe pneumonia with significant clinical and radiological improvement. 2. Chronic exacerbation. 3. 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 Continue current treatment. Patient can be discharged home in 24 hours. Consultation Date/Type/Reason Admit Date/Time Oct 20, 2016 at 10:24 Initial Consult Date 10/22/16 Type of Consultation: Pulmonary Referring Provider: INDERJIT MCNULTY 24 HR Interval Summary Free Text/Dictation Patient condition stable. Complains of very scant chest congestion. Scant cough. Denies any chest pain, shortness of breath. Patient's O2 saturation is 96% on room air with ventilation. General exam; elderly male, awake alert currently in no distress. Exam/Review of Systems Vital Signs Vitals Vital Signs Date Time Temp Pulse Resp B/P Pulse Ox O2 Delivery O2 Flow Rate FiO2 10/25/16 08:08 55 10/25/16 08:00 Nasal Cannula 2.0 10/25/16 07:07 97.6 19 132/77 95 Intake and Output 10/24/16 10/24/16 10/25/16 15:00 23:00 07:00 Intake Total 850 ml 360 ml Balance 850 ml 360 ml Exam HEENT exam is; supple neck, no JVD. No lymphadenopathy. Midline trachea. No thyromegaly. Pharynx is clear. Patient is edentulous and wears dentures. Pupils are small bilaterally. Extraocular movements are intact. No neck masses. Chest exam is; diminished but clear breath sound bilaterally. S1-S2 audible, irregular rhythm. No murmurs. Abdomen exam is; soft, nondistended. No organomegaly. Bowel sounds audible. Extremity exam; no peripheral edema. ASSISTANT TRACK AND FIELD COACH exam is; no focal deficit. Results Result Diagram: 10/25/1618 10/25/16 0918 Results 24 hrs Laboratory Tests Test 10/25/16 09:18 White Blood Count 15.9 H Red Blood Count 4.66 L Hemoglobin 13.7 L Hematocrit 42.7 Mean Corpuscular Volume 91.6 Mean Corpuscular Hemoglobin 29.4 Mean Corpuscular Hemoglobin Concent 32.1 Red Cell Distribution Width 13.7 Platelet Count 229 Mean Platelet Volume 9.9 Neutrophils % 92.1 H Lymphocytes % 3.2 L Monocytes % 3.8 Eosinophils % 0.0 Basophils % 0.1 Nucleated Red Blood Cells % 0.0 Neutrophils # 14.7 H Lymphocytes # 0.5 L Monocytes # 0.6 Eosinophils # 0.0 Basophils # 0.0 Nucleated Red Blood Cells # 0.0 Sodium Level 140 Potassium Level 3.9 Chloride Level 101 Carbon Dioxide Level 31 Anion Gap 12 Blood Urea Nitrogen 28 H Creatinine 0.89 Glucose Level 132 Calcium Level 7.9 L Medications Medications Current Medications Apixaban (Eliquis) 5 mg BID PO Last administered on 10/25/16 08:57; Admin Dose 5 MG; Start 10/20/16 at 21:00 Atorvastatin Calcium (Lipitor) 20 mg QHS PO Last administered on 10/24/16 20: 34; Admin Dose 20 MG; Start 10/20/16 at 21:00 Latanoprost (Xalatan) 1 drop HS BOTH EYES Last administered on 10/24/16 20:33 ; Admin Dose 1 DROP; Start 10/20/16 at 21:00 Docusate Sodium (Colace) 100 mg DAILY PO Last administered on 10/25/16 08:57; Admin Dose 100 MG; Start 10/21/16 at 09:00 Dorzolamide/ Timolol (Cosopt) 1 drop BID BOTH EYES Last administered on 08:57; Admin Dose 1 DROP; Start 10/20/16 at 21:00 Senna (Senokot) 1 tab QHS PO Last administered on 10/24/16 20:34; Admin Dose 1 TAB; Start 10/20/16 at 21:00 Tiotropium [place] (Spiriva) 1 inh DAILY INH Last administered on 10/25/16 08: 56; Admin Dose 1 INH; Start 10/21/16 at 09:00 Salmeterol Xinafoate/ Fluticasone (Advair 500/50 Diskus) 1 inh BID INH Last administered on 10/25/16 08:56; Admin Dose 1 INH; Start 10/20/16 at 21:00 Levalbuterol (Xopenex Neb) 0.63 mg Q4 PRN HHN dyspnea Last administered on 10/24 18:07; Admin Dose 0.63 MG; Start 10/20/16 at 10:30 Ondansetron HCl (Zofran Inj) 4 mg Q6H PRN IV NAUSEA AND/OR VOMITING; Start at 10:30 Acetaminophen (Tylenol Tab) 650 mg Q6H PRN PO PAIN LEVEL 1-3 OR FEVER; Start at 10:30 Acetaminophen (Tylenol Supp) 650 mg Q6H PRN [place] PAIN LEVEL 1-3 OR FEVER; Start 10/20/16 at 10:30 Acetaminophen/ Hydrocodone Bitart ([place] (5/325)) 1 tab Q6H PRN PO MODERATE PAIN LEVEL 4-6; Start 10/20/16 at 10:30 Acetaminophen/ Hydrocodone Bitart ([place] (5/325)) 2 tab Q6H PRN PO SEVERE PAIN LEVEL 7-10; Start 10/20/16 at 10:30 Morphine Sulfate (morphine) 2 mg Q4H PRN IV SEVERE PAIN LEVEL 7-10; Start 10/20 at 10:30 Docusate Sodium (Colace) 100 mg Q12H PRN PO CONSTIPATION; Start 10/20/16 at 10: 30 Magnesium Hydroxide (Milk Of Mag) 30 ml DAILY PRN PO CONSTIPATION; Start at 10:30 Bisacodyl (Dulcolax Supp) 10 mg DAILY PRN [place] CONSTIPATION; Start 10/20/16 at 10 :30 Pantoprazole (Protonix Tab) 40 mg DAILY@06 PO Last administered on 10/25/16 06 :07; Admin Dose 40 MG; Start 10/21/16 at 06:00 Diltiazem HCl (Cardizem Cd) 120 mg DAILY PO Last administered on 10/25/16 09: 01; Admin Dose 120 MG; Start 10/23/16 at 09:00 Guaifenesin (Mucinex) 600 mg BID PO Last administered on 10/25/16 08:57; Admin Dose 600 MG; Start 10/22/16 at 12:00 Doxycycline Hyclate (Vibramycin) 100 mg BID PO Last administered on 10/25/16 08:57; Admin Dose 100 MG; Start 10/22/16 at 21:00 Methylprednisolone Sodium Succinate 40 mg 40 mg Q12 IV Last administered on 08:57; Admin Dose 40 MG; Start 10/23/16 at 21:00 Ceftriaxone Sodium (Rocephin) 50 ml @ 100 mls/hr Q24H IVPB Last administered on 10/24/16t 17:38; Admin Dose 100 MLS/HR; Start 10/23/16 at 18:00 JUAN POSADA Oct 25, 2016 11:52
--- NOTE | 2016-10-25 12:49 | PN ---
Date/Time of Note Date/Time of Note DATE: 10/25/16 TIME: 12:47 Assessment/Plan VTE Prophylaxis VTE Prophylaxis Intervention: other (Eliquis) Lines/Catheters IV [facility]ter Type [facility]from [facility] Urinary Cath still in place: No Assessment/Plan Assessment/Plan 1. Acute on chronic respiratory failure secondary to pneumonia. 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 Sputum from yesterday with Nocardia. Will repeat Respiratory culture. If true infection , pt needs continuous churn buttermaker abx. mgmt per ID - Continue on antibiotic therapy per ID consult. - Pad Making Machine Operator following. Continue on Solu-Medrol and bronchodilators. 2. Likely COPD with exacerbation. Continue bronchodilator therapy and Solu- Medrol. improving start steroid taper 3. History of atrial fibrillation. Digoxin and amiodarone discontinued. Continue on diltiazem. Ship Rigger following 4. History of aortic valve disease. On Eliquis 5. History of prostate cancer. Patient does have history of prostatectomy in 1991. Patient to follow-up with his oncologist as outpatient. Will get inpatient oncologist pending clinical course 6. Leukocytosis. Bacterial etiology versus steroid. Antipyretics for fever. Continue on antibiotic therapy. Improving at present DISPO/PLAN: Chest x-ray unchanged. Still reports inability to expectorate with productive cough. CPT added. Discharge when medically stable and cleared by consultants Exam/Review of Systems Vital Signs Vitals Vital Signs Date Time Temp Pulse Resp B/P Pulse Ox O2 Delivery O2 Flow Rate FiO2 10/25/16 12:06 97.6 60 131/82 94 10/25/16 08:00 Nasal Cannula 2.0 10/25/16 07:07 19 Intake and Output 10/24/16 10/24/16 10/25/16 15:00 23:00 07:00 Intake Total 850 ml 360 ml Balance 850 ml 360 ml Exam Constitutional: sitting up on bed eating. No acute distress, able to speak in full sentence Head: atraumatic, normocephalic Eyes: PERRL Respiratory: diminished breath sounds, minimal scattered wheezing Cardiovascular: nl pulses, regular rate and rhythm Gastrointestinal: non-tender, soft Extremities: normal pulses Results Result Diagram: 10/25/1618 10/25/16 0918 Results 24 hrs Laboratory Tests Test 10/25/16 09:18 White Blood Count 15.9 H Red Blood Count 4.66 L Hemoglobin 13.7 L Hematocrit 42.7 Mean Corpuscular Volume 91.6 Mean Corpuscular Hemoglobin 29.4 Mean Corpuscular Hemoglobin Concent 32.1 Red Cell Distribution Width 13.7 Platelet Count 229 Mean Platelet Volume 9.9 Neutrophils % 92.1 H Lymphocytes % 3.2 L Monocytes % 3.8 Eosinophils % 0.0 Basophils % 0.1 Nucleated Red Blood Cells % 0.0 Neutrophils # 14.7 H Lymphocytes # 0.5 L Monocytes # 0.6 Eosinophils # 0.0 Basophils # 0.0 Nucleated Red Blood Cells # 0.0 Sodium Level 140 Potassium Level 3.9 Chloride Level 101 Carbon Dioxide Level 31 Anion Gap 12 Blood Urea Nitrogen 28 H Creatinine 0.89 Glucose Level 132 Calcium Level 7.9 L Medications Medications Current Medications Apixaban (Eliquis) 5 mg BID PO Last administered on 10/25/16 08:57; Admin Dose 5 MG; Start 10/20/16 at 21:00 Atorvastatin Calcium (Lipitor) 20 mg QHS PO Last administered on 10/24/16 20: 34; Admin Dose 20 MG; Start 10/20/16 at 21:00 Latanoprost (Xalatan) 1 drop HS BOTH EYES Last administered on 10/24/16 20:33 ; Admin Dose 1 DROP; Start 10/20/16 at 21:00 Docusate Sodium (Colace) 100 mg DAILY PO Last administered on 10/25/16 08:57; Admin Dose 100 MG; Start 10/21/16 at 09:00 Dorzolamide/ Timolol (Cosopt) 1 drop BID BOTH EYES Last administered on 08:57; Admin Dose 1 DROP; Start 10/20/16 at 21:00 Senna (Senokot) 1 tab QHS PO Last administered on 10/24/16 20:34; Admin Dose 1 TAB; Start 10/20/16 at 21:00 Tiotropium [place] (Spiriva) 1 inh DAILY INH Last administered on 10/25/16 08: 56; Admin Dose 1 INH; Start 10/21/16 at 09:00 Salmeterol Xinafoate/ Fluticasone (Advair 500/50 Diskus) 1 inh BID INH Last administered on 10/25/16 08:56; Admin Dose 1 INH; Start 10/20/16 at 21:00 Levalbuterol (Xopenex Neb) 0.63 mg Q4 PRN HHN dyspnea Last administered on 10/24 18:07; Admin Dose 0.63 MG; Start 10/20/16 at 10:30 Ondansetron HCl (Zofran Inj) 4 mg Q6H PRN IV NAUSEA AND/OR VOMITING; Start at 10:30 Acetaminophen (Tylenol Tab) 650 mg Q6H PRN PO PAIN LEVEL 1-3 OR FEVER; Start at 10:30 Acetaminophen (Tylenol Supp) 650 mg Q6H PRN [place] PAIN LEVEL 1-3 OR FEVER; Start 10/20/16 at 10:30 Acetaminophen/ Hydrocodone Bitart ([place] (5/325)) 1 tab Q6H PRN PO MODERATE PAIN LEVEL 4-6; Start 10/20/16 at 10:30 Acetaminophen/ Hydrocodone Bitart ([place] (5/325)) 2 tab Q6H PRN PO SEVERE PAIN LEVEL 7-10; Start 10/20/16 at 10:30 Morphine Sulfate (morphine) 2 mg Q4H PRN IV SEVERE PAIN LEVEL 7-10; Start 10/20 at 10:30 Docusate Sodium (Colace) 100 mg Q12H PRN PO CONSTIPATION; Start 10/20/16 at 10: 30 Magnesium Hydroxide (Milk Of Mag) 30 ml DAILY PRN PO CONSTIPATION; Start at 10:30 Bisacodyl (Dulcolax Supp) 10 mg DAILY PRN [place] CONSTIPATION; Start 10/20/16 at 10 :30 Pantoprazole (Protonix Tab) 40 mg DAILY@06 PO Last administered on 10/25/16 06 :07; Admin Dose 40 MG; Start 10/21/16 at 06:00 Diltiazem HCl (Cardizem Cd) 120 mg DAILY PO Last administered on 10/25/16 09: 01; Admin Dose 120 MG; Start 10/23/16 at 09:00 Guaifenesin (Mucinex) 600 mg BID PO Last administered on 10/25/16 08:57; Admin Dose 600 MG; Start 10/22/16 at 12:00 Doxycycline Hyclate (Vibramycin) 100 mg BID PO Last administered on 10/25/16 08:57; Admin Dose 100 MG; Start 10/22/16 at 21:00 Methylprednisolone Sodium Succinate 40 mg 40 mg Q12 IV Last administered on 08:57; Admin Dose 40 MG; Start 10/23/16 at 21:00 Ceftriaxone Sodium (Rocephin) 50 ml @ 100 mls/hr Q24H IVPB Last administered on 10/24/16 17:38; Admin Dose 100 MLS/HR; Start 10/23/16 at 18:00 DONITA CRUZ MD Oct 25, 2016 12:49
--- NOTE | 2016-10-25 15:29 | CONS ---
Date/Time of Note Date/Time of Note DATE: 10/25/16 TIME: 15:28 Assessment/Plan Assessment/Plan Chief Complaint/Hosp Course SUBJECTIVE: The patient is alert, feels ok, looks comfortable MICROBIOLOGY: Sputum cx + nocardia. ANTIMICROBIALS: Rocephin PHYSICAL EXAMINATION: GENERAL: Well-developed elderly man who is alert, in no distress. HEENT: Head atraumatic, normocephalic. Sclerae anicteric. Buccal mucosa pink. NECK: Supple. CHEST: Rise symmetrical. Breath sounds clear to auscultation. HEART: S1, S2. ABDOMEN: Soft, bowel sounds present. EXTREMITIES: Without cyanosis. ASSESSMENT: 1. Acute hypoxemic respiratory failure, improving. 2. Right upper lobe pneumonia. 3. Chronic obstructive pulmonary disease exacerbation. 4. Atrial fibrillation. 5. History of prostate cancer. PLAN: Continues to improve. Continue present care, abx. Anticipate discharge on oral Augmentin when stable. DW staff Problems: Consultation Date/Type/Reason Admit Date/Time Oct 20, 2016 at 10:24 Initial Consult Date 10/22/16 Type of Consultation: ID Referring Provider: INDERJIT MCNULTY Exam/Review of Systems Vital Signs Vitals Vital Signs Date Time Temp Pulse Resp B/P Pulse Ox O2 Delivery O2 Flow Rate FiO2 10/25/16 12:06 97.6 60 131/82 94 10/25/16 08:00 Nasal Cannula 2.0 10/25/16 07:07 19 Intake and Output 10/24/16 10/24/16 10/25/16 15:00 23:00 07:00 Intake Total 850 ml 360 ml Balance 850 ml 360 ml Results Result Diagram: 10/25/1618 10/25/16 0918 Results 24 hrs Laboratory Tests Test 10/25/16 09:18 White Blood Count 15.9 H Red Blood Count 4.66 L Hemoglobin 13.7 L Hematocrit 42.7 Mean Corpuscular Volume 91.6 Mean Corpuscular Hemoglobin 29.4 Mean Corpuscular Hemoglobin Concent 32.1 Red Cell Distribution Width 13.7 Platelet Count 229 Mean Platelet Volume 9.9 Neutrophils % 92.1 H Lymphocytes % 3.2 L Monocytes % 3.8 Eosinophils % 0.0 Basophils % 0.1 Nucleated Red Blood Cells % 0.0 Neutrophils # 14.7 H Lymphocytes # 0.5 L Monocytes # 0.6 Eosinophils # 0.0 Basophils # 0.0 Nucleated Red Blood Cells # 0.0 Sodium Level 140 Potassium Level 3.9 Chloride Level 101 Carbon Dioxide Level 31 Anion Gap 12 Blood Urea Nitrogen 28 H Creatinine 0.89 Glucose Level 132 Calcium Level 7.9 L Medications Medications Current Medications Apixaban (Eliquis) 5 mg BID PO Last administered on 10/25/16 08:57; Admin Dose 5 MG; Start 10/20/16 at 21:00 Atorvastatin Calcium (Lipitor) 20 mg QHS PO Last administered on 10/24/16 20: 34; Admin Dose 20 MG; Start 10/20/16 at 21:00 Latanoprost (Xalatan) 1 drop HS BOTH EYES Last administered on 10/24/16 20:33 ; Admin Dose 1 DROP; Start 10/20/16 at 21:00 Docusate Sodium (Colace) 100 mg DAILY PO Last administered on 10/25/16 08:57; Admin Dose 100 MG; Start 10/21/16 at 09:00 Dorzolamide/ Timolol (Cosopt) 1 drop BID BOTH EYES Last administered on 08:57; Admin Dose 1 DROP; Start 10/20/16 at 21:00 Senna (Senokot) 1 tab QHS PO Last administered on 10/24/16 20:34; Admin Dose 1 TAB; Start 10/20/16 at 21:00 Tiotropium [place] (Spiriva) 1 inh DAILY INH Last administered on 10/25/16 08: 56; Admin Dose 1 INH; Start 10/21/16 at 09:00 Salmeterol Xinafoate/ Fluticasone (Advair 500/50 Diskus) 1 inh BID INH Last administered on 10/25/16 08:56; Admin Dose 1 INH; Start 10/20/16 at 21:00 Levalbuterol (Xopenex Neb) 0.63 mg Q4 PRN HHN dyspnea Last administered on 10/24 18:07; Admin Dose 0.63 MG; Start 10/20/16 at 10:30 Ondansetron HCl (Zofran Inj) 4 mg Q6H PRN IV NAUSEA AND/OR VOMITING; Start at 10:30 Acetaminophen (Tylenol Tab) 650 mg Q6H PRN PO PAIN LEVEL 1-3 OR FEVER; Start at 10:30 Acetaminophen (Tylenol Supp) 650 mg Q6H PRN [place] PAIN LEVEL 1-3 OR FEVER; Start 10/20/16 at 10:30 Acetaminophen/ Hydrocodone Bitart ([place] (5/325)) 1 tab Q6H PRN PO MODERATE PAIN LEVEL 4-6; Start 10/20/16 at 10:30 Acetaminophen/ Hydrocodone Bitart ([place] (5/325)) 2 tab Q6H PRN PO SEVERE PAIN LEVEL 7-10; Start 10/20/16 at 10:30 Morphine Sulfate (morphine) 2 mg Q4H PRN IV SEVERE PAIN LEVEL 7-10; Start 10/20 at 10:30 Docusate Sodium (Colace) 100 mg Q12H PRN PO CONSTIPATION; Start 10/20/16 at 10: 30 Magnesium Hydroxide (Milk Of Mag) 30 ml DAILY PRN PO CONSTIPATION; Start at 10:30 Bisacodyl (Dulcolax Supp) 10 mg DAILY PRN [place] CONSTIPATION; Start 10/20/16 at 10 :30 Pantoprazole (Protonix Tab) 40 mg DAILY@06 PO Last administered on 10/25/16 06 :07; Admin Dose 40 MG; Start 10/21/16 at 06:00 Diltiazem HCl (Cardizem Cd) 120 mg DAILY PO Last administered on 10/25/16 09: 01; Admin Dose 120 MG; Start 10/23/16 at 09:00 Guaifenesin (Mucinex) 600 mg BID PO Last administered on 10/25/16 08:57; Admin Dose 600 MG; Start 10/22/16 at 12:00 Doxycycline Hyclate (Vibramycin) 100 mg BID PO Last administered on 10/25/16 08:57; Admin Dose 100 MG; Start 10/22/16 at 21:00 Methylprednisolone Sodium Succinate 40 mg 40 mg Q12 IV Last administered on 08:57; Admin Dose 40 MG; Start 10/23/16 at 21:00 Ceftriaxone Sodium (Rocephin) 50 ml @ 100 mls/hr Q24H IVPB Last administered on 10/24/16 17:38; Admin Dose 100 MLS/HR; Start 10/23/16 at 18:00 SHELLEY MAR RHEUMATOLOGY SPECIALIST Oct 25, 2016 15:29
[2016-10-25] MEDS: CEFTRIAXONE 1 GM/50 ML (PMX) 50 ML IVPB SCH (18:08)
[2016-10-25] MEDS: SENNA TAB PO SCH (20:50)
[2016-10-25] MEDS: ATORVASTATIN 20 MG TAB PO SCH (20:50)
[2016-10-25] MEDS: LATANOPROST 0.005% 2.5 ML OPH BOTH EYES SCH (20:51)
[2016-10-25] MEDS: LEVALBUTEROL (NEB) 0.63 MG/3 ML AMP HHN PRN (21:06)
--- NOTE | 2016-10-25 22:50 | RADRPT ---
PROCEDURE: CT chest without contrast CLINICAL INDICATION: Pneumonia TECHNIQUE: CT scan of the chest with contrast was performed without intravenous contrast. Coronal and sagittal images were reformatted. The CTDIvol = 7.05 mGy and DLP = 313.73 mGycm. COMPARISON: Chest x-ray 10/25/2016. Chest CT 05/18/2016 FINDINGS: Lungs, airway and pleura: The trachea is normal in caliber and midline with some secretions along t he anterior left lateral wall. Some secretions in the dependent portion of the right main bronchus are noted with mild bilateral basilar dominant peribronchial thickening similar to the previous CT. Large bullous emphysematous changes with upper lobe predominance are again noted. New areas of nod ular infiltrate in the posterior segment of the right upper lobe along the major fissure and lateral in a subpleural location are present but decreased compared to the previous examination. The super ior basal segment right lower lobe nodular infiltrate seen previously has resolved. Areas of subtle nodular infiltrate are seen within the lateral and posterior aspect of the superior segment left lo wer lobe which were not present on the prior CT. Areas of linear scarring within the right lower lo be are present. There is no evidence of mass lesion. A nodular area of infiltrate within the lateral aspect of the superior lingula segment is new compared to the prior CT. The pleural spaces are clear, without effusions. Mediastinum, papi and cardiovascular: The heart is normal in size. There is no evidence for perica rdial effusion. A capacious of the ascending thoracic aorta is again noted the maximum dimension 3. 8 cm and unchanged, moderate atherosclerotic calcification of the aorta is again identified. Promin ence of the mediastinal lymph nodes is unchanged the largest precarinal and measuring 11 mm in short axis. Small hypodensities within the right thyroid lobe are again visualized consistent with stabl e thyroid nodules. The esophagus is normal in caliber. Osseous structures and musculoskeletal findings: Mild demineralization and multilevel thoracic spon dylosis is moderate without fracture, lytic or blastic lesion. The ribs and sternum are grossly nor mal. No chest wall abnormalities of significance are present, benign bilateral gynecomastia is agai n seen. The axillary regions are unremarkable. Visualized upper abdomen: Incidental bilateral renal cysts are seen. The adrenal glands are normal bilaterally. RPTAT:HJJR IMPRESSION: 1. Nodular infiltrates involving the lungs bilaterally are less extensive than in the prior CT of 07/18/2015 with new subtle areas in the superior segment left lower lobe. A follow-up evaluation in 6 months is suggested. 2. Severe centrilobular emphysema is again noted with interval resolution of right pleural effusion and compressive atelectasis of the right lower lobe. 3. Reactive type precarinal mediastinal lymph node prominence is unchanged. 4. Ectasia of the ascending aortic segment is stable compared to previous study, moderate atheroscl erotic calcification of the aorta is again noted. 5. Stable hypodensities of the thyroid gland. Only if deemed clinically warranted should follow-up thyroid ultrasound can be considered. Physician Annabella Date Time Electronically viewed and signed by Physician Annabella on 10/25/2016 22:50 /
[2016-10-26] MEDS: PANTOPRAZOLE (EC) 40 MG TAB PO SCH (06:05)
[2016-10-26 06:06] LABS: ADD SCAN DIFF NO
[2016-10-26 07:01] LABS: ALBUMIN 2.2 g/dl (3.3-4.9); POTASSIUM 4.2 mmol/L (3.5-5.1)
[2016-10-26 07:03] LABS: CREATININE 0.9 mg/dl (0.61-1.24)
[2016-10-26 07:04] LABS: ALBUMIN/GLOBULIN RATIO 0.95; BILIRUBIN,INDIRECT 0.2 mg/dl (0-1.1); BILIRUBIN,TOTAL 0.2 mg/dl (0.2-1.3); CALCIUM 7.8 mg/dl (8.4-10.2); TOTAL PROTEIN 4.5 g/dl (6.1-8.1)
[2016-10-26 08:04] VITALS: BP 165/81; RESP 18
[2016-10-26] MEDS: SALMETEROL/FLUTICASONE 500/50 INHA INH SCH (09:15)
[2016-10-26] MEDS: TIOTROPIUM 18 MCG CAPSULE INHA DEV INH SCH (09:15)
[2016-10-26] MEDS: DORZOLAMIDE/TIMOLOL 10 ML OPH BOTH EYES SCH (09:15)
[2016-10-26] MEDS: DOXYCYCLINE 100 MG TAB PO SCH (09:15)
[2016-10-26] MEDS: METHYLPREDNISOLONE 40 MG INJ IV SCH (09:15)
[2016-10-26] MEDS: GUAIFENESIN LA 600 MG TABSR PO SCH (09:16)
[2016-10-26] MEDS: APIXABAN 5 MG TABLET PO SCH (09:16)
[2016-10-26] MEDS: DOCUSATE SODIUM 100 MG CAP PO SCH (09:16)
[2016-10-26] MEDS: LEVALBUTEROL (NEB) 0.63 MG/3 ML AMP HHN PRN ×2 (09:58→12:29)
[2016-10-26] MEDS ORDERED: DILTIAZEM (CD) 120 MG CAP PO SCH (10:00)
--- NOTE | 2016-10-26 12:35 | CONS ---
Date/Time of Note Date/Time of Note DATE: 10/26/16 TIME: 12:33 Consult Date/Type/Reason Admit Date/Time Oct 20, 2016 at 10:24 Initial Consult Date 10/22/16 Type of Consultation: pulmonary Ordering Provider: INDERJIT MCNULTY Subjective Patient stable this morning breathing continues to improve Sitting up in bed in no respiratory distress Objective Vital Signs Date Time Temp Pulse Resp B/P Pulse Ox O2 Delivery O2 Flow Rate FiO2 10/26/16 09:58 78 16 94 Nasal Cannula 2.0 10/26/16 08:04 97.6 165/81 Intake and Output 10/25/16 10/25/16 10/26/16 15:00 23:00 07:00 Intake Total 1510 ml 400 ml Balance 1510 ml 400 ml Exam GENERAL: Elderly [place] gentleman comfortable at rest no acute distress VITAL SIGNS: per chart NECK: Supple. No JVD or lymphadenopathy. CARDIAC EXAM: S1, S2. No added sounds or murmurs. CHEST: clear bilaterally, No added sounds, rales or wheezes ABDOMEN: Soft, nontender. No guarding or rebound. EXTREMITIES: No cyanosis, clubbing or edema. NEUROLOGIC: Generalized weakness. No focal deficits. Results/Medications Result Diagram: 10/25/16 0918 10/26/[address] chest IMPRESSION: 1. Nodular infiltrates involving the lungs bilaterally are less extensive than in the prior CT of 05/18/2016 with new subtle areas in the superior segment left lower lobe. A follow-up evaluation in 6 months is suggested. 2. Severe centrilobular emphysema is again noted with interval resolution of right pleural effusion and compressive atelectasis of the right lower lobe. 3. Reactive type precarinal mediastinal lymph node prominence is unchanged. 4. Ectasia of the ascending aortic segment is stable compared to previous study , moderate atherosclerotic calcification of the aorta is again noted. 5. Stable hypodensities of the thyroid gland. Only if deemed clinically warranted should follow-up thyroid ultrasound can be considered. Laboratory Tests Test 10/26/16 04:55 Sodium Level 138 Potassium Level 4.2 Chloride Level 101 Carbon Dioxide Level 31 Anion Gap 10 Blood Urea Nitrogen 28 H Creatinine 0.90 Glucose Level 101 Calcium Level 7.8 L Total Bilirubin 0.2 Direct Bilirubin 0.00 Indirect Bilirubin 0.2 Aspartate Amino Transf (AST/SGOT) 12 L Alanine Aminotransferase (ALT/SGPT) 32 Alkaline Phosphatase 47 Total Protein 4.5 L Albumin 2.2 L Globulin 2.30 Albumin/Globulin Ratio 0.95 Medications Current Medications Apixaban (Eliquis) 5 mg BID PO Last administered on 10/26/16 09:16; Admin Dose 5 MG; Start 10/20/16 at 21:00 Atorvastatin Calcium (Lipitor) 20 mg QHS PO Last administered on 10/25/16 20: 50; Admin Dose 20 MG; Start 10/20/16 at 21:00 Latanoprost (Xalatan) 1 drop HS BOTH EYES Last administered on 10/25/16 20:51 ; Admin Dose 1 DROP; Start 10/20/16 at 21:00 Docusate Sodium (Colace) 100 mg DAILY PO Last administered on 10/26/16 09:16; Admin Dose 100 MG; Start 10/21/16 at 09:00 Dorzolamide/ Timolol (Cosopt) 1 drop BID BOTH EYES Last administered on 09:15; Admin Dose 1 DROP; Start 10/20/16 at 21:00 Senna (Senokot) 1 tab QHS PO Last administered on 10/25/16 20:50; Admin Dose 1 TAB; Start 10/20/16 at 21:00 Tiotropium [place] (Spiriva) 1 inh DAILY INH Last administered on 10/26/16 09: 15; Admin Dose 1 INH; Start 10/21/16 at 09:00 Salmeterol Xinafoate/ Fluticasone (Advair 500/50 Diskus) 1 inh BID INH Last administered on 10/26/16 09:15; Admin Dose 1 INH; Start 10/20/16 at 21:00 Levalbuterol (Xopenex Neb) 0.63 mg Q4 PRN HHN dyspnea Last administered on 10/26 12:29; Admin Dose 0.63 MG; Start 10/20/16 at 10:30 Ondansetron HCl (Zofran Inj) 4 mg Q6H PRN IV NAUSEA AND/OR VOMITING; Start at 10:30 Acetaminophen (Tylenol Tab) 650 mg Q6H PRN PO PAIN LEVEL 1-3 OR FEVER; Start at 10:30 Acetaminophen (Tylenol Supp) 650 mg Q6H PRN [place] PAIN LEVEL 1-3 OR FEVER; Start 10/20/16 at 10:30 Acetaminophen/ Hydrocodone Bitart ([place] (5/325)) 1 tab Q6H PRN PO MODERATE PAIN LEVEL 4-6; Start 10/20/16 at 10:30 Acetaminophen/ Hydrocodone Bitart ([place] (5/325)) 2 tab Q6H PRN PO SEVERE PAIN LEVEL 7-10; Start 10/20/16 at 10:30 Morphine Sulfate (morphine) 2 mg Q4H PRN IV SEVERE PAIN LEVEL 7-10; Start 10/20 at 10:30 Docusate Sodium (Colace) 100 mg Q12H PRN PO CONSTIPATION; Start 10/20/16 at 10: 30 Magnesium Hydroxide (Milk Of Mag) 30 ml DAILY PRN PO CONSTIPATION; Start at 10:30 Bisacodyl (Dulcolax Supp) 10 mg DAILY PRN [place] CONSTIPATION; Start 10/20/16 at 10 :30 Pantoprazole (Protonix Tab) 40 mg DAILY@06 PO Last administered on 10/26/16 06 :05; Admin Dose 40 MG; Start 10/21/16 at 06:00 Guaifenesin (Mucinex) 600 mg BID PO Last administered on 10/26/16 09:16; Admin Dose 600 MG; Start 10/22/16 at 12:00 Doxycycline Hyclate (Vibramycin) 100 mg BID PO Last administered on 10/26/16 09:15; Admin Dose 100 MG; Start 10/22/16 at 21:00 Methylprednisolone Sodium Succinate 40 mg 40 mg Q12 IV Last administered on 09:15; Admin Dose 40 MG; Start 10/23/16 at 21:00 Ceftriaxone Sodium (Rocephin) 50 ml @ 100 mls/hr Q24H IVPB Last administered on 10/25/16 18:08; Admin Dose 100 MLS/HR; Start 10/23/16 at 18:00 Diltiazem HCl (Cardizem Cd) 120 mg DAILY PO Last administered on 10/26/16 10: 35; Admin Dose 120 MG; Start 10/26/16 at 10:00 Assessment/Plan Chief Complaint/Hosp Course Assessment 1. Resolved clinically quite pneumonia 2. Severe Underlying emphysema 3. Chronic hypoxemic respiratory failure Plan 1. Discharge home with steroids 2. Discharge on by mouth antibiotics 3. Patient has appointment with me next week. Case discussed with patient's over the phone Problems: ANITA WOMACK MD, [facility] Oct 26, 2016 12:35
[2016-10-26 13:04] LABS: ABNORMAL IP MESSAGE 1; BASOPHILS % 0.1 % (0.0-2.0); HEMATOCRIT 40.3 % (42.0-52.0); HEMOGLOBIN 12.7 g/dl (14.0-18.0); LYMPHOCYTES # 0.5 10^3/ul (0.8-2.9); LYMPHOCYTES % 3.5 % (15.0-51.0); MEAN CORPUSCULAR HEMOGLOBIN 29.1 pg (29.0-33.0); MEAN CORPUSCULAR HGB CONC 31.5 g/dl (32.0-37.0); MEAN CORPUSCULAR VOLUME 92.2 fl (82.0-101.0); MEAN PLATELET VOLUME 10.4 fl (7.4-10.4); MONOCYTE # 0.4 10^3/ul (0.3-0.9); MONOCYTES % 2.6 % (0.0-11.0); NEUTROPHIL # 13.8 10^3/ul (1.6-7.5); PLATELET COUNT 224 10^3/UL (140-415); RED BLOOD COUNT 4.37 10^6/ul (4.70-6.10); RED CELL DISTRIBUTION WIDTH 13.7 % (11.5-14.5); WHITE BLOOD COUNT 14.8 10^3/ul (4.8-10.8)
[2016-10-26] MEDS ORDERED: GUAI600T14 PO (13:22)
[2016-10-26] MEDS ORDERED: PRED10TA PO (13:22)
--- NOTE | 2016-10-26 13:24 | PDOCDIS ---
Discharge Instructions DIAGNOSIS Discharge Diagnosis: Pneumonia COPD CONDITION Patient Condition: Stable HOME CARE INSTRUCTIONS: Diet Instructions: Low Fat /Cholesterol ACTIVITY: Activity Restrictions: Slowly Increase Activity Rest between Activity FOLLOW UP/APPOINTMENTS Appointments Name, Degree: Gareth Castellano MD Specialty: Critical Care Medicine Comments : Office Address: [address] [place] [address] Office Office Fax: AMY RICE Oct 26, 2016 13:24
[2016-10-26] MEDS ORDERED: AMOX1TAB10 PO (13:27)
[2016-10-26] MEDS ORDERED: LACT1CAP57 PO (13:27)
--- NOTE | 2016-10-26 15:37 | CONS ---
Date/Time of Note Date/Time of Note DATE: 10/26/16 TIME: 15:36 Assessment/Plan Assessment/Plan Chief Complaint/Hosp Course SUBJECTIVE: The patient is alert, looks comfortable MICROBIOLOGY: Sputum cx + nocardia. ANTIMICROBIALS: Rocephin PHYSICAL EXAMINATION: GENERAL: Well-developed elderly man who is alert, in no distress. HEENT: Head atraumatic, normocephalic. Sclerae anicteric. Buccal mucosa pink. NECK: Supple. CHEST: Rise symmetrical. Breath sounds clear to auscultation. HEART: S1, S2. ABDOMEN: Soft, bowel sounds present. EXTREMITIES: Without cyanosis. ASSESSMENT: 1. Acute hypoxemic respiratory failure, improving. 2. Right upper lobe pneumonia. 3. Chronic obstructive pulmonary disease exacerbation. 4. Atrial fibrillation. 5. History of prostate cancer. PLAN: Stable, ok dc on oral Augmentin for 7 days. DW staff Problems: Consultation Date/Type/Reason Admit Date/Time Oct 20, 2016 at 10:24 Initial Consult Date 10/22/16 Type of Consultation: ID Referring Provider: INDERJIT MCNULTY Exam/Review of Systems Vital Signs Vitals Vital Signs Date Time Temp Pulse Resp B/P Pulse Ox O2 Delivery O2 Flow Rate FiO2 10/26/16 12:29 76 18 95 Nasal Cannula 2.0 10/26/16 08:04 97.6 165/81 Intake and Output 10/25/16 10/25/16 10/26/16 15:00 23:00 07:00 Intake Total 1510 ml 400 ml Balance 1510 ml 400 ml Results Result Diagram: 10/26/16 0455 10/26/16 0455 Results 24 hrs Laboratory Tests Test 10/26/16 04:55 White Blood Count 14.8 H Red Blood Count 4.37 L Hemoglobin 12.7 L Hematocrit 40.3 L Mean Corpuscular Volume 92.2 Mean Corpuscular Hemoglobin 29.1 Mean Corpuscular Hemoglobin Concent 31.5 L Red Cell Distribution Width 13.7 Platelet Count 224 Mean Platelet Volume 10.4 Neutrophils % 93.0 H Lymphocytes % 3.5 L Monocytes % 2.6 Eosinophils % 0.0 Basophils % 0.1 Nucleated Red Blood Cells % 0.0 Neutrophils # 13.8 H Lymphocytes # 0.5 L Monocytes # 0.4 Eosinophils # 0.0 Basophils # 0.0 Nucleated Red Blood Cells # 0.0 Sodium Level 138 Potassium Level 4.2 Chloride Level 101 Carbon Dioxide Level 31 Anion Gap 10 Blood Urea Nitrogen 28 H Creatinine 0.90 Glucose Level 101 Calcium Level 7.8 L Total Bilirubin 0.2 Direct Bilirubin 0.00 Indirect Bilirubin 0.2 Aspartate Amino Transf (AST/SGOT) 12 L Alanine Aminotransferase (ALT/SGPT) 32 Alkaline Phosphatase 47 Total Protein 4.5 L Albumin 2.2 L Globulin 2.30 Albumin/Globulin Ratio 0.95 Medications Medications Current Medications Apixaban (Eliquis) 5 mg BID PO Last administered on 10/26/16 09:16; Admin Dose 5 MG; Start 10/20/16 at 21:00 Atorvastatin Calcium (Lipitor) 20 mg QHS PO Last administered on 10/25/16 20: 50; Admin Dose 20 MG; Start 10/20/16 at 21:00 Latanoprost (Xalatan) 1 drop HS BOTH EYES Last administered on 10/25/16 20:51 ; Admin Dose 1 DROP; Start 10/20/16 at 21:00 Docusate Sodium (Colace) 100 mg DAILY PO Last administered on 10/26/16 09:16; Admin Dose 100 MG; Start 10/21/16 at 09:00 Dorzolamide/ Timolol (Cosopt) 1 drop BID BOTH EYES Last administered on 09:15; Admin Dose 1 DROP; Start 10/20/16 at 21:00 Senna (Senokot) 1 tab QHS PO Last administered on 10/25/16 20:50; Admin Dose 1 TAB; Start 10/20/16 at 21:00 Tiotropium [place] (Spiriva) 1 inh DAILY INH Last administered on 10/26/16 09: 15; Admin Dose 1 INH; Start 10/21/16 at 09:00 Salmeterol Xinafoate/ Fluticasone (Advair 500/50 Diskus) 1 inh BID INH Last administered on 10/26/16 09:15; Admin Dose 1 INH; Start 10/20/16 at 21:00 Levalbuterol (Xopenex Neb) 0.63 mg Q4 PRN HHN dyspnea Last administered on 10/26 12:29; Admin Dose 0.63 MG; Start 10/20/16 at 10:30 Ondansetron HCl (Zofran Inj) 4 mg Q6H PRN IV NAUSEA AND/OR VOMITING; Start at 10:30 Acetaminophen (Tylenol Tab) 650 mg Q6H PRN PO PAIN LEVEL 1-3 OR FEVER; Start at 10:30 Acetaminophen (Tylenol Supp) 650 mg Q6H PRN [place] PAIN LEVEL 1-3 OR FEVER; Start 10/20/16 at 10:30 Acetaminophen/ Hydrocodone Bitart ([place] (5/325)) 1 tab Q6H PRN PO MODERATE PAIN LEVEL 4-6; Start 10/20/16 at 10:30 Acetaminophen/ Hydrocodone Bitart ([place] (5/325)) 2 tab Q6H PRN PO SEVERE PAIN LEVEL 7-10; Start 10/20/16 at 10:30 Morphine Sulfate (morphine) 2 mg Q4H PRN IV SEVERE PAIN LEVEL 7-10; Start 10/20 at 10:30 Docusate Sodium (Colace) 100 mg Q12H PRN PO CONSTIPATION; Start 10/20/16 at 10: 30 Magnesium Hydroxide (Milk Of Mag) 30 ml DAILY PRN PO CONSTIPATION; Start at 10:30 Bisacodyl (Dulcolax Supp) 10 mg DAILY PRN [place] CONSTIPATION; Start 10/20/16 at 10 :30 Pantoprazole (Protonix Tab) 40 mg DAILY@06 PO Last administered on 10/26/16 06 :05; Admin Dose 40 MG; Start 10/21/16 at 06:00 Guaifenesin (Mucinex) 600 mg BID PO Last administered on 10/26/16 09:16; Admin Dose 600 MG; Start 10/22/16 at 12:00 Doxycycline Hyclate (Vibramycin) 100 mg BID PO Last administered on 10/26/16 09:15; Admin Dose 100 MG; Start 10/22/16 at 21:00 Methylprednisolone Sodium Succinate 40 mg 40 mg Q12 IV Last administered on 09:15; Admin Dose 40 MG; Start 10/23/16 at 21:00 Ceftriaxone Sodium (Rocephin) 50 ml @ 100 mls/hr Q24H IVPB Last administered on 10/25/16 18:08; Admin Dose 100 MLS/HR; Start 10/23/16 at 18:00 Diltiazem HCl (Cardizem Cd) 120 mg DAILY PO Last administered on 10/26/16t 10: 35; Admin Dose 120 MG; Start 10/26/16 at 10:00 SHELLEY MAR NP Oct 26, 2016 15:37
[2016-10-26] MEDS: CEFTRIAXONE 1 GM/50 ML (PMX) 50 ML IVPB SCH (17:05)
--- NOTE | 2016-10-27 05:50 | DS ---
DATE OF ADMISSION: 10/20/2016 DATE OF DISCHARGE: 10/26/2016 FINAL DIAGNOSES: 1. Acute on chronic respiratory failure secondary to pneumonia, now resolved. 2. History of multi-drug resistant E. coli, but now new culture showing Nocardia causing pneumonia on sputum cultures. 3. Chronic obstructive pulmonary disease with exacerbation, improved. 4. History of chronic atrial fibrillation with slow ventricular rate, stable. 5. History of aortic valve disease on Eliquis. 6. History of prostate cancer with history of prostatectomy in 1991 for continued outpatient follow up. CONSULTS ON THE CASE: 1. Armond Benavides MD and Gareth Castellano MD for pulmonary. 2 . Mekhi Butler MD for cardiology. 3. Dr. Chai Francisco for infectious disease. INTERVENTIONS: Main interventions Include a CT scan of the chest that was done on 10/25/2016 that s hows the following: ____trace involvement of the lungs bilaterally, less extensive than the prior CT back in May of 2016 with ____ in the superior segment of the left lower lobe. Followup evalua tion is recommended in 6 months. Severe centrilobular emphysema with interval resolution of right pl eural effusion and compressive atelectasis of the right lower lobe. Reactive mediastinal lymph node s and stable hypodensities of the thyroid gland, only is deemed clinically warranted should followu p thyroid ultrasound be considered. The patient also had multiple chest x-rays that were concerning for multifocal pneumonia. HOSPITALIZATION COURSE: Full details are available in the chart for review. In summary, this pleas ant 76-year-old male had come in shortness of breath and dyspnea on exertion. He was admitted and w orked up with the final diagnoses as above. He was seen by pulmonary, also by cardiology as well as infectious disease. ____ bronchodilator therapy, he had a severely elevated white count ____, but this improved significantly in house. He has done very well and at this time has been cleared for discharge from all consultants' standpoi nt. He is to follow up as an outpatient with his hotel and dining room cashier who was following him in house, Dr. Camille Castellano as well as his element setter, Dr. Butler . He is also recommended to follow up wit h his primary care physician within 1 to 2 weeks to ensure continued resolution of symptoms. DISCHARGE MEDICATIONS: 1. Augmentin 875 one tablet b.i.d. for 10 days. 2. Mucinex 600 b.i.d. p.r.n. 3. Culturelle 1 capsule b.i.d. for 14 days. 4. Prednisone taper from [address] to 10 mg over 6 days. 5. Amiodarone 200 mg daily. 6. Eliquis 5 mg b.i.d. 7. Simvastatin 20 at bedtime. 8. Lumigan drops both eyes at bedtime. 9. Digoxin 250 mcg daily. 10. Cardizem 240 daily. 11. Colace 100 p.o. daily. 12. Timolol 1 drop b.i.d. 13. Advair 2 puffs inhalation b.i.d. 14. Senna-Lax 1 tab at bedtime. 15. Tiotropium 1 inhalation daily. ACTIVITIES: As tolerated. FOLLOWUP: As above. Discharge time has been more than 45 minutes. Dictated By: AMY RICE MD, BA/HOLLAND Conf#: [id number] DID#: [id number]
== END 2016-10-26 17:55 | disposition home or self-care (01) | DRG 193 ==
LOC: E/R 08:33 → TEL 10:24 → MS2 10-25 15:30
PROVIDERS: ADMIT Hospitalist; ATTEND Hospitalist
DX: J18.9 Pneumonia, unspecified organism (principal); J96.00 Acute respiratory failure, unspecified whether with hypoxia or hypercapnia; J44.1 Chronic obstructive pulmonary disease with (acute) exacerbation; D72.829 Elevated white blood cell count, unspecified; B96.20 Unspecified Escherichia coli [E. coli] as the cause of diseases classified elsewhere; Z16.24 Resistance to multiple antibiotics; Z85.46 Personal history of malignant neoplasm of prostate; Z79.02 Long term (current) use of antithrombotics/antiplatelets; I48.91 Unspecified atrial fibrillation
CPT/HCPCS: 36415; 71010; 71250; 80048; 80053; 80061; 80162; 83036; 83690; 83735; 84100; 84436; 84443; 84479; 84484; 85025; 87040; 87070; 87081; 93005; 94640; 94644; 94667; 94668; 96374; 96375; 96376; J0696; J0743; J2185; J2405; J2920; J2930; J3370; J3475; J7030; J7050

== ENCOUNTER 2016-12-05 13:48 | Emergency (ER) | payer MEDICARE, OTHER ==
[~2016-12-05] VITALS: Ht 180.3 cm; Wt 61.0 kg
[~2016-12-05 13:48] MED LIST changes: +AMOX1TAB10 PO; +GUAI600T14 PO; +LACT1CAP57 PO; +PRED10TA PO
[2016-12-05 13:52] VITALS: Ht 180.3 cm; Wt 61.0 kg
--- NOTE | 2016-12-05 15:49 | ERA ---
ER Documentation Chief Complaint Date/Time DATE: 12/05/16 TIME: 15:49 Chief Complaint FEVER , SOB , BACK PAIN X 1 DAY HPI 76-year-old male history of COPD, respiratory failure, atrial fibrillation, prostate cancer on bicalutamide, aspiration pneumonia and MDR E. coli and sputum ambulatory to the ED complaining of increasing shortness of breath since this morning. He has a chronic, mild nonproductive cough. Also complaining of sharp, moderate, nonradiating right posterior thoracic pain similar to the symptoms for which he was admitted in October and diagnosed with pneumonia. Denies chest pain or palpitation. Nausea but no abdominal pain, vomiting, diarrhea or constipation. No hematemesis or hematochezia. Denies leg pain or swelling. URI symptoms, rhinorrhea or sore throat. No headache, visual changes , focal weakness or numbness. Low-grade temperature of 38C this morning but no chills or night sweats. Yesterday he received Zometa and Lupron injections. ROS All systems reviewed and are negative except as per history of present illness. Medications Home Meds Active Scripts Amoxicillin/Potassium Clav (Amox-Clav 875-125 mg Tablet) 875-125 mg Tab, 1 TAB PO BID, #20 TAB Prov:DWAYNEAMY. 10/26/16 Lactobacillus Rhamnosus* (Culturelle*) 1 Each Cap.sprink, 1 CAP PO BID for 14 Days, CAP Prov:DWAYNEAMY Rae. 10/26/16 Prednisone* (Prednisone*) 10 Mg Tab, 10 MG PO DAILY, #21 TAB take 6 pills tomorrow take 5 pills on the next day take 4 pills on the next day take 3 pills on the next day take 2 pills on the next day take 1 pill on the next day then stop Prov:DWAYNEAMY. 10/26/16 Guaifenesin (Guaifenesin) 600 Mg Tablet.sa, 600 MG PO BID, #30 TAB Prov:AMY RICE. 10/26/16 Reported Medications Sennosides* (Senna Lax*) 8.6 Mg Tablet, 1 TAB PO QHS, TAB 10/10/16 Docusate Sodium (Col-Rite) 100 Mg Capsule, 100 MG PO DAILY, CAP 10/10/16 Apixaban* (Eliquis*) 5 Mg Tablet, 5 MG PO BID, TAB 10/10/16 Diltiazem Hcl* (Diltiazem XT) 240 Mg Capsule.er, 240 MG PO DAILY, #30 CAP 10/10/16 Amiodarone Hcl* (Amiodarone Hcl*) 200 Mg Tablet, 200 MG PO DAILY, #30 TAB 10/10/16 Atorvastatin Calcium* (Atorvastatin Calcium*) 20 Mg Tablet, 20 MG PO QHS, #30 TAB 10/10/16 Bimatoprost* (Lumigan*) 2.5 Ml Drops, 1 DROP BOTH EYES HS 12/19/13 Dorzolamide/Timolol* (Dorzolamide/Timolol*) 10 Ml Drops, 1 DROP BOTH EYES BID, EA 12/19/13 Tiotropium [place]* (Spiriva*) 18 Mcg Cap.w.dev, 1 INH IH DAILY, EA 12/19/13 Salmeterol Xinaf/Fluticasone* (Advair*) 1 Inh Inha, 2 PUFF INH BID, INH 12/19/13 Digoxin* (Digox*) 250 Mcg Tablet, 250 MCG PO DAILY 12/19/13 Allergies Allergies: Coded Allergies: No Known Allergy (Unverified , 10/20/16) PMhx/Soc Reviewed in chart. As per HPI History of Surgery: Yes (PROSTATE SURGERY) Anesthesia Reaction: No Hx Neurological Disorder: No Hx Respiratory Disorders: Yes (COPD) Hx Cardiac Disorders: Yes (HTN) Hx Psychiatric Problems: No Hx Miscellaneous Medical Probl: Yes (Prostate CA on Chemo) Hx Alcohol Use: Yes (OCCASIONALLY) Hx Substance Use: No Hx Tobacco Use: Yes (42-[id number]-wgay smoking history reports quitting 11 years ago but still smokes occasionally) Smoking Status: Former smoker FmHx No stroke or cancer Physical Exam Vitals Vital Signs Date Time Temp Pulse Resp B/P Pulse Ox O2 Delivery O2 Flow Rate FiO2 12/05/16 16:13 2.0 12/05/16 16:13 89 20 97 Nasal Cannula 2.0 12/05/16 16:00 Nasal Cannula 2 12/05/16 15:45 98.3 86 19 134/73 98 Room Air 2.0 Nasal Cannula 12/05/16 13:52 99.2 90 20 116/56 96 Physical Exam Const: Alert, moderate respiratory distress, elderly, chronically ill- appearing Head: Atraumatic Eyes: Normal Conjunctiva ENT: Normal External Ears, Nose and Mouth. Neck: Full range of motion. No JVD Resp: Breath sounds are diminished bilaterally with mild crackles and rhonchi at the bases. Cardio: Regular rate and rhythm, no murmurs Abd: Soft, non tender, non distended. Normal bowel sounds. Nondistended. No rebound or guarding Skin: No petechiae or rashes Back: No midline or flank tenderness Ext: No cyanosis, or edema. No calf swelling or tenderness. Neur: Awake and alert. Cranial nerves II through XII are grossly intact. No focal deficit observed. Psych: Normal Mood and Affect. Patient does not appear anxious or depressed. Result Diagram: 12/05/16 1558 12/05/16 1558 Results 24 hrs Laboratory Tests Test 12/05/16 15:58 White Blood Count 12.210^3/ul Red Blood Count 4.1910^6/ul Hemoglobin 12.5g/dl Hematocrit 38.8% Mean Corpuscular Volume 92.6fl Mean Corpuscular Hemoglobin 29.8pg Mean Corpuscular Hemoglobin Concent 32.2g/dl Red Cell Distribution Width 16.2% Platelet Count 21369^3/UL Mean Platelet Volume 9.0fl Neutrophils % 91.0% Lymphocytes % 4.3% Monocytes % 3.0% Eosinophils % 0.5% Basophils % 0.2% Nucleated Red Blood Cells % 0.0/100WBC Neutrophils # 11.110^3/ul Lymphocytes # 0.510^3/ul Monocytes # 0.410^3/ul Eosinophils # 0.110^3/ul Basophils # 0.010^3/ul Nucleated Red Blood Cells # 0.010^3/ul Prothrombin Time 15.6Sec Prothrombin Time Ratio 1.2 INR International Normalized Ratio 1.23 Activated Partial Thromboplast Time 31.1Sec Sodium Level 138mmol/L Potassium Level 4.2mmol/L Chloride Level 107mmol/L Carbon Dioxide Level 27mmol/L Anion Gap 8 Blood Urea Nitrogen 13mg/dl Creatinine 0.88mg/dl Glucose Level 120mg/dl Calcium Level 8.3mg/dl Total Bilirubin 0.6mg/dl Direct Bilirubin 0.00mg/dl Indirect Bilirubin 0.6mg/dl Aspartate Amino Transf (AST/SGOT) 17IU/L Alanine Aminotransferase (ALT/SGPT) 27IU/L Alkaline Phosphatase 107IU/L Troponin I < 0.012ng/ml Total Protein 7.1g/dl Albumin 4.2g/dl Globulin 2.90g/dl Albumin/Globulin Ratio 1.44 Digoxin Level 1.8ng/ml Current Medications Medications (Trade) Dose Ordered Sig/Pily Route PRN Reason Start Time Stop Time Status Last Admin Dose Admin Albuterol (Proventil 0.5% (Neb)) 15 mg ONCE STAT INH 12/05/16 15:50 12/05/16 15:53 DC Ipratropium [place] (Atrovent 0.02% (Neb)) 1 mg ONCE STAT INH 12/05/16 15:50 12/05/16 15:53 DC Methylprednisolone Sodium Succinate (Solu-Medrol) 125 mg ONCE STAT IV 12/05/16 15:50 12/05/16 15:53 DC 12/05/16 16:05 RHYTHM STRIP INTERPRETATION: Time: []. Indication: []. EKG: TIME: 16:02 EP Interpretation: Sinus rhythm. Ventricular rate 84. No ectopy. Nonspecific ST and T-wave changes. No acute ST segment elevation or depression. Abnormal EKG. IMAGING: PROCEDURE: XR Chest 1 View. CLINICAL INDICATION: Shortness of breath. TECHNIQUE: AP view of the chest was obtained. COMPARISON: October 25, 2016 FINDINGS: The heart size is within normal limits. Calcified atherosclerosis is noted in the aorta. The lungs are hyperexpanded. Diffuse mild interstitial prominence is seen in both lungs. Scattered scarring is noted in both lungs. No consolidations are identified. No pneumothorax is seen. Osseous structures are intact. IMPRESSION: Calcified atherosclerosis in the aorta. Hyperexpanded lungs with chronic mild interstitial prominence in both lungs. Findings could reflect COPD. Scattered scarring in both lungs. RPTAT: AA .Tello Masters MD, MD Date Time Electronically viewed and signed by .Tello Masters MD, on 12/05/2016 16:29 Procedures/MDM DOCUMENTS REVIEWED: ED nurse, prior ED, prior records ED COURSE: Saline lock was established. Nebulized albuterol 15 mg/Atrovent 1 mg. Solu-Medrol 125 mg IV REEXAMINATION/REEVALUATION: Time: 17:25. Doing well. No wheezing. No shortness of breath. Afebrile MED[employer] DECISION MAKIN-year-old male history of COPD, respiratory failure , atrial fibrillation, prostate cancer on bicalutamide, aspiration pneumonia and MDR E. coli and sputum ambulatory to the ED complaining of increasing shortness of breath since this morning. Patient presents with acute exacerbation of chronic COPD. No radiographic evidence of pneumonia or pneumothorax. Pulmonary embolism is unlikely as the patient is already on oral anticoagulation. History of atrial fibrillation but in sinus rhythm without ectopy. No chest pain, ischemic EKG changes or other signs of acute coronary syndrome. No fever or criteria for systemic inflammatory response syndrome or sepsis. Symptoms resolved with inhaled beta agonists and intravenous corticosteroids. Stable for discharge precautionary instructions and outpatient follow-up as counseled. Counseled patient and family regarding diagnosis, diagnostic results and plan for discharge. Critical Care Time: 35 minutes Treatments/Evaluations: Close monitoring and treatment of unstable vital signs and cardiorespiratory status, while maintaining tight balance of fluid, respiratory, and cardiac interventions. This time includes discussing the case with the patient and the patient's family. This time does not include all procedures stated elsewhere in this record. This time also includes reviewing old records, labs and radiological studies. This time includes examining and re- examining the patient. Departure Diagnosis: Primary Impression: Acute dyspnea Additional Impressions: Acute exacerbation of chronic obstructive pulmonary disease (COPD) Prostate cancer Condition: Stable PRIYA ENRIQUEZ MD December 05, 2016 15:49
[2016-12-05] MEDS ORDERED: IPRATROPIUM (NEB) 0.5 MG/2.5 ML AMP INH STA (15:50)
[2016-12-05] MEDS ORDERED: METHYLPREDNISOLONE 125 MG INJ IV STA (15:50)
[2016-12-05] MEDS ORDERED: ALBUTEROL 0.5% (NEB) 2.5 MG/0.5 ML AMP INH STA (15:50)
[2016-12-05 16:03] LABS: ADD SCAN DIFF NO
[2016-12-05 16:06] LABS: ABNORMAL IP MESSAGE 1; BASOPHILS % 0.2 % (0.0-2.0); EOSINOPHILS # 0.1 10^3/ul (0.0-0.5); EOSINOPHILS % 0.5 % (0.0-7.0); HEMATOCRIT 38.8 % (42.0-52.0); HEMOGLOBIN 12.5 g/dl (14.0-18.0); LYMPHOCYTES # 0.5 10^3/ul (0.8-2.9); LYMPHOCYTES % 4.3 % (15.0-51.0); MEAN CORPUSCULAR HEMOGLOBIN 29.8 pg (29.0-33.0); MEAN CORPUSCULAR HGB CONC 32.2 g/dl (32.0-37.0); MEAN CORPUSCULAR VOLUME 92.6 fl (82.0-101.0); MONOCYTE # 0.4 10^3/ul (0.3-0.9); NEUTROPHIL # 11.1 10^3/ul (1.6-7.5); PLATELET COUNT 298 10^3/UL (140-415); RED BLOOD COUNT 4.19 10^6/ul (4.70-6.10); RED CELL DISTRIBUTION WIDTH 16.2 % (11.5-14.5); WHITE BLOOD COUNT 12.2 10^3/ul (4.8-10.8)
[2016-12-05 16:22] LABS: INR 1.23; PROTIME 15.6 Sec (12.2-14.2); PT RATIO 1.2
[2016-12-05 16:23] LABS: PARTIAL THROMBOPLASTIN TIME 31.1 Sec (25.0-35.0)
[2016-12-05 16:24] LABS: ALANINE AMINOTRANSFERASE 27 IU/L (13-69); ALBUMIN 4.2 g/dl (3.3-4.9); ALBUMIN/GLOBULIN RATIO 1.44; ALKALINE PHOSPHATASE 107 IU/L (42-121); ANION GAP 8 (8-16); ASPARTATE AMINO TRANSFERASE 17 IU/L (15-46); BILIRUBIN,INDIRECT 0.6 mg/dl (0-1.1); BILIRUBIN,TOTAL 0.6 mg/dl (0.2-1.3); BLOOD UREA NITROGEN 13 mg/dl (7-20); CALCIUM 8.3 mg/dl (8.4-10.2); CARBON DIOXIDE 27 mmol/L (21-31); CHLORIDE 107 mmol/L (97-110); CREATININE 0.88 mg/dl (0.61-1.24); GLUCOSE 120 mg/dl (70-220); POTASSIUM 4.2 mmol/L (3.5-5.1); SODIUM 138 mmol/L (135-144); TOTAL PROTEIN 7.1 g/dl (6.1-8.1)
--- NOTE | 2016-12-05 16:30 | RADRPT ---
PROCEDURE: XR Chest 1 View. CLINICAL INDICATION: Shortness of breath. TECHNIQUE: AP view of the chest was obtained. COMPARISON: October 25, 2016 FINDINGS: The heart size is within normal limits. Calcified atherosclerosis is noted in the aorta. The lungs are hyperexpanded. Diffuse mild interstitial prominence is seen in both lungs. Scattered scarring is noted in both lungs. No consolidations are identified. No pneumothorax is seen. Osseous structu res are intact. IMPRESSION: Calcified atherosclerosis in the aorta. Hyperexpanded lungs with chronic mild interstitial prominence in both lungs. Findings could reflect COPD. Scattered scarring in both lungs. RPTAT: AA .Tello Masters MD, Date Time Electronically viewed and signed by .Tello Masters MD, MD on 12/05/2016 16:29 .P/
[2016-12-05 16:38] LABS: TROPONIN-I < 0.012 ng/ml (0.00-0.12)
[2016-12-05 17:38] VITALS: BP 122/70; PULSE 112; RESP 24; TEMP 98.7
[2016-12-05] MEDS ORDERED: PRED20TA PO (17:43)
== END 2016-12-05 17:54 | disposition home or self-care (01) ==
LOC: E/R 13:48
DX: R06.00 Dyspnea, unspecified (principal); J44.1 Chronic obstructive pulmonary disease with (acute) exacerbation; C61 Malignant neoplasm of prostate; I10 Essential (primary) hypertension; Z87.891 Personal history of nicotine dependence
CPT/HCPCS: 36415; 71010; 80053; 80162; 84484; 85025; 85610; 85730; 93005; 94644; 96374; 99291; J2930

== ENCOUNTER 2017-04-01 02:58 | Inpatient (IN) | payer MEDICARE, OTHER ==
[~2017-04-01] VITALS: Ht 177.8 cm; Wt 61.2 kg
[2017-04-01] VITALS (10 sets, daily range): BP systolic 114–126; BP diastolic 56–69; PULSE 66–96; RESP 20; TEMP 99.7; Ht 177.8 cm; Wt 61.2 kg
[~2017-04-01 02:58] MED LIST changes: +PRED20TA PO
[2017-04-01] MEDS ORDERED: ALBUTEROL 0.083% (NEB) 2.5 MG/3 ML AMP HHN STA (03:41)
[2017-04-01] MEDS ORDERED: IPRATROPIUM (NEB) 0.5 MG/2.5 ML AMP HHN ONE (04:00)
[2017-04-01 04:16] LABS: ABNORMAL IP MESSAGE 1; BASOPHILS % 0.2 % (0.0-2.0); EOSINOPHILS # 0.1 10^3/ul (0.0-0.5); EOSINOPHILS % 0.3 % (0.0-7.0); HEMATOCRIT 40.7 % (42.0-52.0); HEMOGLOBIN 13.5 g/dl (14.0-18.0); LYMPHOCYTES # 1.3 10^3/ul (0.8-2.9); LYMPHOCYTES % 7.2 % (15.0-51.0); MEAN CORPUSCULAR HEMOGLOBIN 29.7 pg (29.0-33.0); MEAN CORPUSCULAR HGB CONC 33.2 g/dl (32.0-37.0); MEAN CORPUSCULAR VOLUME 89.6 fl (82.0-101.0); MEAN PLATELET VOLUME 9.5 fl (7.4-10.4); MONOCYTE # 1.5 10^3/ul (0.3-0.9); MONOCYTES % 8.3 % (0.0-11.0); NEUTROPHIL # 15.5 10^3/ul (1.6-7.5); NEUTROPHILS % 83.5 % (39.0-77.0); PLATELET COUNT 301 10^3/UL (140-415); POSITIVE DIFF @See below; RED BLOOD COUNT 4.54 10^6/ul (4.70-6.10); RED CELL DISTRIBUTION WIDTH 14.1 % (11.5-14.5); WHITE BLOOD COUNT 18.5 10^3/ul (4.8-10.8)
[2017-04-01 04:32] LABS: CALCIUM 8.7 mg/dl (8.4-10.2); CREATININE 1.14 mg/dl (0.61-1.24); POTASSIUM 4.1 mmol/L (3.5-5.1)
--- NOTE | 2017-04-01 05:25 | RADRPT ---
PROCEDURE: CHEST CLINICAL INDICATION: 77-year-old male with shortness of breath. TECHNIQUE: AP semi-erect views of the chest was obtained portably on two radiographs. The images were reviewed on a PACS workstation. COMPARISON: Chest x-ray December 05, 2016. FINDINGS: The cardiomediastinal silhouette is within normal limits. The thoracic aorta is mildly calcified. Hy perinflation and chronic lung changes are again noted. There is no evidence for focal consolidation . There is no evidence for congestive heart failure. There is no evidence for pneumothorax. The oss eous structures are intact. IMPRESSION: 1. Calcified thoracic aorta. 2. Chronic lung changes. .Isidoro Lechuga MD, Date Time Electronically viewed and signed by .Isidoro Lechuga MD, MD on 04/01/2017 05:25 .Kyra/
[2017-04-01] MEDS ORDERED: ALBUTEROL 0.083% (NEB) 2.5 MG/3 ML AMP NEB STA (05:34)
[2017-04-01] MEDS ORDERED: METHYLPREDNISOLONE 125 MG INJ IV STA (05:34)
--- NOTE | 2017-04-01 05:36 | ERD ---
ER Documentation Chief Complaint Date/Time DATE: 04/01/17 TIME: 05:35 Chief Complaint fever/sob since yesterday. hx of copd/prostate ca. on 02 2lpm HPI This is a 77-year-old male returns with yesterday. Yesterday noted is feeling warm and is not short of breath. Cough is mildly productive. No chest pain. No nausea no vomiting no chills. No other current complaints. ROS All systems reviewed and are negative except as per history of present illness. Medications Home Meds Active Scripts Prednisone* (Prednisone*) 20 Mg Tab, 20 MG PO DAILY for 4 Days, TAB Prov:PRIYA ENRIQUEZ MD 12/05/16 Amoxicillin/Potassium Clav (Amox-Clav 875-125 mg Tablet) 875-125 mg Tab, 1 TAB PO BID, #20 TAB Prov:AMY RICE. 10/26/16 Lactobacillus Rhamnosus* (Culturelle*) 1 Each Cap.sprink, 1 CAP PO BID for 14 Days, CAP Prov:AMY RICE. 10/26/16 Prednisone* (Prednisone*) 10 Mg Tab, 10 MG PO DAILY, #21 TAB take 6 pills tomorrow take 5 pills on the next day take 4 pills on the next day take 3 pills on the next day take 2 pills on the next day take 1 pill on the next day then stop Prov:AMY RICE. 10/26/16 Guaifenesin (Guaifenesin) 600 Mg Tablet.sa, 600 MG PO BID, #30 TAB Prov:AMY RICE. 10/26/16 Reported Medications Sennosides* (Senna Lax*) 8.6 Mg Tablet, 1 TAB PO QHS, TAB 10/10/16 Docusate Sodium (Col-Rite) 100 Mg Capsule, 100 MG PO DAILY, CAP 10/10/16 Apixaban* (Eliquis*) 5 Mg Tablet, 5 MG PO BID, TAB 10/10/16 Diltiazem Hcl* (Diltiazem XT) 240 Mg Capsule.er, 240 MG PO DAILY, #30 CAP 10/10/16 Amiodarone Hcl* (Amiodarone Hcl*) 200 Mg Tablet, 200 MG PO DAILY, #30 TAB 10/10/16 Atorvastatin Calcium* (Atorvastatin Calcium*) 20 Mg Tablet, 20 MG PO QHS, #30 TAB 10/10/16 Bimatoprost* (Lumigan*) 2.5 Ml Drops, 1 DROP BOTH EYES HS 12/19/13 Dorzolamide/Timolol* (Dorzolamide/Timolol*) 10 Ml Drops, 1 DROP BOTH EYES BID, EA 12/19/13 Tiotropium [place]* (Spiriva*) 18 Mcg Cap.w.dev, 1 INH IH DAILY, EA 12/19/13 Salmeterol Xinaf/Fluticasone* (Advair*) 1 Inh Inha, 2 PUFF INH BID, INH 12/19/13 Digoxin* (Digox*) 250 Mcg Tablet, 250 MCG PO DAILY 12/19/13 Allergies Allergies: Coded Allergies: No Known Allergy (Unverified , 10/20/16) PMhx/Soc History of Surgery: Yes (PROSTATE SURGERY) Anesthesia Reaction: No Hx Neurological Disorder: No Hx Respiratory Disorders: Yes (COPD) Hx Cardiac Disorders: Yes (HTN) Hx Psychiatric Problems: No Hx Miscellaneous Medical Probl: Yes (Prostate CA) Hx Alcohol Use: Yes (OCCASIONALLY) Hx Substance Use: No Hx Tobacco Use: Yes (quit) Smoking Status: Former smoker Physical Exam Vitals Vital Signs Date Time Temp Pulse Resp B/P Pulse Ox O2 Delivery O2 Flow Rate FiO2 04/01/17 05:32 99.7 89 20 126/80 95 Room Air 04/01/17 03:53 82 18 95 21 04/01/17 03:03 99.7 89 24 141/66 93 Physical Exam Const: [] Head: Atraumatic Eyes: Normal Conjunctiva ENT: Normal External Ears, Nose and Mouth. Neck: Full range of motion..~ No meningismus. Resp: Clear to auscultation bilaterally Cardio: Regular rate and rhythm, no murmurs Abd: Soft, non tender, non distended. Normal bowel sounds Skin: No petechiae or rashes Back: No midline or flank tenderness Ext: No cyanosis, or edema Neur: Awake and alert Psych: Normal Mood and Affect Result Diagram: 04/01/17 0400 04/01/17 0400 Results 24 hrs Laboratory Tests Test 04/01/17 04:00 White Blood Count 18.510^3/ul Red Blood Count 4.5410^6/ul Hemoglobin 13.5g/dl Hematocrit 40.7% Mean Corpuscular Volume 89.6fl Mean Corpuscular Hemoglobin 29.7pg Mean Corpuscular Hemoglobin Concent 33.2g/dl Red Cell Distribution Width 14.1% Platelet Count 89016^3/UL Mean Platelet Volume 9.5fl Neutrophils % 83.5% Lymphocytes % 7.2% Monocytes % 8.3% Eosinophils % 0.3% Basophils % 0.2% Nucleated Red Blood Cells % 0.0/100WBC Neutrophils # 15.510^3/ul Lymphocytes # 1.310^3/ul Monocytes # 1.510^3/ul Eosinophils # 0.110^3/ul Basophils # 0.010^3/ul Nucleated Red Blood Cells # 0.010^3/ul Sodium Level 141mmol/L Potassium Level 4.1mmol/L Chloride Level 107mmol/L Carbon Dioxide Level 25mmol/L Anion Gap 13 Blood Urea Nitrogen 17mg/dl Creatinine 1.14mg/dl Glucose Level 116mg/dl Lactic Acid Level 1.5mmol/L Calcium Level 8.7mg/dl Current Medications Medications (Trade) Dose Ordered Sig/Pily Route PRN Reason Start Time Stop Time Status Last Admin Dose Admin Albuterol (Proventil 0.083% (Neb)) 5 mg ONCE STAT [facility] 04/01/17 03:41 04/01/17 03:50 DC 04/01/17 03:53 Ipratropium [place] (Atrovent 0.02% (Neb)) 0.5 mg ONCE ONCE [facility] 04/01/17 04:00 04/01/17 04:01 DC 04/01/17 03:53 Procedures/MDM EKG: Rate/Rhythm: [Normal Sinus Rhythm] QRS, ST, T-waves: [No changes consistent w/ acute ischemia] Impression: [No evidence of ischemia or arrhythmia] Chest X-ray 1V Interpreted by me: Soft Tissue: No acute abnormalities Bones: No acute abnormalities Mediastinum/Cardiac Silhouette/Lungs: [No acute abnormalities] Good decision-making: Very pleasant 77-year-old male who looks to have an acute exacerbation of COPD. Despite optimal therapy in the ER, patient will continue further breathing treatments. Patient will be admitted to hospitalist. Accepting Care Team: Current data and ongoing care discussed. Time: Time of admission Primary Provider: Hospitalist Consulting: [XOXOXO] Outstanding Data: none Departure Diagnosis: Primary Impression: Shortness of breath Condition: Serious DONITA HANNA Apr 01, 2017 05:36
[2017-04-01] MEDS ORDERED: IPRATROPIUM (NEB) 0.5 MG/2.5 ML AMP NEB STA (05:44)
[2017-04-01 06:16] LABS: AADO2 Arterial 57.2 mmHg (7.0-24.0); Allen Test ACCEPTAB; Arterial Base Excess -2.3 mmol/L (-3.0-3); Arterial COHb 0.1 % (0.0-3.0); Arterial Fraction of Oxyhgb 88.7 % (93.0-99.0); Arterial HCO3 21.3 mmol/L (22.0-26.0); Arterial MetHb 0.1 % (0.0-1.5); Arterial Total Hemglobin 13.2 g/dl (12.0-18.0); MODE ROOM AIR
[2017-04-01] MEDS ORDERED: ONDANSETRON 4 MG INJ IV PRN (07:00)
[2017-04-01] MEDS ORDERED: NACL 0.9% 3 ML SYG IV SCH (07:00)
[2017-04-01] MEDS ORDERED: DOCUSATE SODIUM 100 MG CAP PO PRN (07:00)
[2017-04-01] MEDS ORDERED: ACETAMINOPHEN 325 MG TAB PO PRN (07:00)
[2017-04-01] MEDS: LEVOFLOXACIN 750MG/D5W (PMX) 150 ML IVPB SCH (07:09)
[2017-04-01] MEDS ORDERED: BICA50TA4 PO (08:14)
[2017-04-01] MEDS: FAMOTIDINE 20 MG INJ IV SCH ×2 (09:24→21:13)
[2017-04-01] MEDS: ALBUTEROL/IPRATROPIUM (NEB) 3 ML AMP HHN SCH ×4 (09:50→20:00)
--- NOTE | 2017-04-01 11:04 | HP ---
Date/Time of Note Date/Time of Note DATE: 04/01/17 TIME: 11:04 Assessment/Plan VTE Prophylaxis VTE Prophylaxis Intervention: other (Eliquis) Lines/Catheters IV [facility] Saline Lock Urinary Cath still in place: No Assessment/Plan Chief Complaint/Hosp Course 77 yo [place] male with h/o COPD presenting with worsening SOB/cough and subjective fevers 1. Acute on chronic hypoxic respiratory failure likely 2/2 COPD exacerbation. -Start around the clock & PRN bronchodilators, IV steroids AND PRN cough suppressants. 2.Leukocytosis, likely possible pneumonia vs other pulmonary infectious process. Of note, CBC was drawn prior steroid injection. -CTA chest to f/u on previous CT findings (october 2016) of nodular infiltrates -Sputum & Blood culturesx2 and Levaquin prophylactically -Obtain Legionella antigen/antibody 3.Atrial fibrillation. Stable. -Resume Amiodarone/Digoxin and Eliquis. 4.Hypertension -resume home meds 5. Dyslipidemia. -Resume statin 6. History of metastatic prostate cancer with history of prostatectomy in 1991 -Continue home meds. 7.Glaucoma. Resume home meds. 8.Constipation -resume home meds 9. COPD with emphysema. -Continue medical management. DVT Prophylaxis: Eliquis PLAN: Patient will be started on diet. He will be addressed with Full Code . F/ u CTA chest. F/u with pulmonary recs. Rest of the management depend on clinical course,further studies and input from sap business intelligence consultant. Patient was seen in collaboration with . Problems: HPI/ROS Admit Date/Time Admit Date/Time Apr 01, 2017 at 05:36 Hx of Present Illness This is a 50 yo [place] male with a history of nicotine abuse , prostate cancer, presented to ER with complaints of worsening short of breath associated with non productive cough and subjective fever for the last few days. Patient denied night sweats, PND, hemoptysis,chest pain, palpitation, N/V/ abdominal discomfort or other constitutional symptoms. Initial labs with elevated WBC 18,500. Otherwise unremarkable. Vital signs within acceptable range. Patient was given one dose solumedrol 125 mg IV and bronchodilators in ER with improvement in his symptoms. Chest Xray without acute findings. Patient was admitted. ROS A 12 point ROS negative other than what is mentioned in the HPI. PMH/Family/Social Past Medical History see HPI Past Surgical History SEE HPI Social History Former smoker. No history of alcohol/illicit drug use. Smoking Status: Former smoker Exam/Review of Systems Vital Signs Vitals Vital Signs Date Time Temp Pulse Resp B/P Pulse Ox O2 Delivery O2 Flow Rate FiO2 04/01/17 09:53 2.0 04/01/17 09:52 89 16 94 Nasal Cannula 04/01/17 08:15 98.0 126/69 04/01/17 06:03 21 Exam Exam General:Elderly [place]ut male, not in any acute distress . HEENT: Normocephalic, Atraumatic, No laceration or hematoma; Eyes: PEERL, Conjunctiva clear, Anicteric sclera Neck: Supple without any lymphadenopathy, nontender, no JVD, no carotid bruits, trachea midline, no thyromegaly Cardiac: Irregular+ S1, S2 auscultated, no mumurs or gallop Pulmonary: Diminished right side. Normal respiratory effort. Chest clear to auscultation bilaterally, no adventitious breath sounds GI: Abdomen normal to inspection. Soft, non- distended, no masses, no rebound tenderness or guarding. Bowel sounds active on all four quadrants Genitourinary: Deferred Extremities: No cyanosis, clubbing, or edema. Pulses [2+] bilaterally. Full ROM on all four extremities. No focal weakness appreciated. Neurologic: Alert to person, place, time, and situation. Affect appropriate, intact sensation. Skin: Clean,dry, and intact. No ecchymosis, no rashes, or lesions Labs Result Diagram: 04/01/17 0400 04/01/17 0400 Medications Medications Current Medications Ondansetron HCl (Zofran Inj) 4 mg Q6H PRN IV NAUSEA AND/OR VOMITING; Start at 07:00 Acetaminophen (Tylenol Tab) 650 mg Q6H PRN PO PAIN LEVEL 1-3 OR FEVER; Start at 07:00 Docusate Sodium (Colace) 100 mg Q12H PRN PO CONSTIPATION; Start 04/01/17 at 07: 00 Bisacodyl (Dulcolax) 5 mg DAILY PRN PO CONSTIPATION; Start 04/01/17 at 07:00 Famotidine 20 mg 20 mg Q12 IV Last administered on 04/01/17t 09:24; Admin Dose 20 MG; Start 04/01/17 at 09:00 Levofloxacin/ Dextrose (Levaquin 750 Mg/ D5W 150 ml (Pmx)) 150 ml @ 100 mls/hr Q24H IVPB Last administered on 04/01/17 07:09; Admin Dose 100 MLS/HR; Start at 07:00 Influenza Virus Vaccine (Fluzone) 0.5 ml ONCE ONCE IM* ; Start 04/02/17 at 09:30 ; Stop 04/02/17 at 09:31 NGOC SILVESTRE NP Apr 01, 2017 11:04
--- NOTE | 2017-04-01 12:31 | CONS ---
Date/Time of Note Date/Time of Note DATE: 04/01/17 TIME: 12:28 Assessment/Plan Assessment/Plan Additional Assessment/Plan Chest x-ray was reviewed from today which is showing emphysematous changes without any acute infiltrates. Assessment and recommendations; 1. Patient admitted with acute exacerbation and acute bronchitis with chronic hypoxemia. Clinically improved since admission. Continue current treatment. Responding well to current treatment regimen. Consultation Date/Type/Reason Admit Date/Time Apr 01, 2017 at 05:36 Date of Consultation: Apr 01, 2017 Type of Consultation: Pulmonary Reason for Consultation Pulmonary consultation requested for evaluation of COPD exacerbation. History of presenting illness; patient is a pleasant 77-year-old male who was admitted to the hospital with complaints of being short of breath for the last few days with wheezing and cough. Patient however denies any fever or chills denies any chest pain. According to him he is already markedly improved since admission. Past medical history; COPD. Medications; reviewed. Allergies; none. Social history; quit smoking 12 years ago. Has a [id number] smoking history. No history of alcohol or drug abuse. Family history; patient is he has 3 children. No history of any illnesses in the family. 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 Review systems; denies any headache, visual changes. Sinus symptoms. Chest pain. Shortness of breath has improved. Denies any further coughing or wheezing. Denies any abdominal pain, nausea vomiting. Any weight loss. Any melena or hematochezia. Any edema or orthopnea. Denies any skin changes. General exam; elderly male, awake and alert. Currently in no distress. Social History Smoking Status: Former smoker Exam/Review of Systems Vital Signs Vitals Vital Signs Date Time Temp Pulse Resp B/P Pulse Ox O2 Delivery O2 Flow Rate FiO2 04/01/17 11:38 96 04/01/17 11:19 97.4 20 114/56 95 04/01/17 09:53 2.0 04/01/17 09:52 Nasal Cannula 04/01/17 06:03 21 Exam HEENT exam; supple neck, no JVD. No lymphadenopathy. Midline trachea. No thyromegaly. Pharynx is clear. Patient is edentulous and wears dentures. Has bilateral cataracts. Chest exam; diminished but clear breath sounds. S1-S2 audible, no murmurs. Regular rhythm. Abdomen exam; soft, no organomegaly. Bowel sounds audible. Nontender. Nondistended. Extremity exam; no edema. No clubbing. CLINICAL INFORMATICS STRATEGIST exam; no focal deficit. Results Result Diagram: 04/01/17 0400 04/01/17 0400 Results 24 hrs Laboratory Tests Test 04/01/17 04:00 04/01/17 05:34 04/01/17 05:39 04/01/17 07:28 White Blood Count 18.5 #H Red Blood Count 4.54 L Hemoglobin 13.5 L Hematocrit 40.7 L Mean Corpuscular Volume 89.6 Mean Corpuscular Hemoglobin 29.7 Mean Corpuscular Hemoglobin Concent 33.2 Red Cell Distribution Width 14.1 Platelet Count 301 Mean Platelet Volume 9.5 Neutrophils % 83.5 H Lymphocytes % 7.2 L Monocytes % 8.3 Eosinophils % 0.3 Basophils % 0.2 Nucleated Red Blood Cells % 0.0 Neutrophils # 15.5 H Lymphocytes # 1.3 Monocytes # 1.5 H Eosinophils # 0.1 Basophils # 0.0 Nucleated Red Blood Cells # 0.0 Sodium Level 141 Potassium Level 4.1 Chloride Level 107 Carbon Dioxide Level 25 Anion Gap 13 Blood Urea Nitrogen 17 Creatinine 1.14 Glucose Level 116 Lactic Acid Level 1.5 1.5 0.9 Calcium Level 8.7 Blood Gas Specimen Source Blood arterial Arterial Blood Date Drawn 04/01/2017 6:05:00 AM Arterial Blood pH (Temp corrected) 7.422 Arterial Blood pCO2 (Temp correct) 33.5 L Arterial Blood pO2 (Temp corrected) 52.4 *L Arterial Blood HCO3 21.3 L Arterial Blood Base Excess -2.3 Arterial Blood Oxygen Saturation 88.9 L Ross Test ACCEPTAB Arterial Blood Gas Puncture Site Right Radial Arterial Blood Carboxyhemoglobin 0.1 Arterial Blood Methemoglobin 0.1 Blood Gas A-a O2 Differential 57.2 H Oxyhemoglobin Percent 88.7 L Total Hemoglobin 13.2 Blood Gas Temperature 37.0 Blood Gas Actual Respiration Rate 20 Blood Gas Modality ROOM AIR FiO2 21.0 Blood Gas Critical Value Read Back DR CYNDI Timmons Blood Gas Notified Whom Blood Gas Notified Time 04/01/2017 6:16:00 AM Medications Medications Current Medications Ondansetron HCl (Zofran Inj) 4 mg Q6H PRN IV NAUSEA AND/OR VOMITING; Start at 07:00 Acetaminophen (Tylenol Tab) 650 mg Q6H PRN PO PAIN LEVEL 1-3 OR FEVER; Start at 07:00 Docusate Sodium (Colace) 100 mg Q12H PRN PO CONSTIPATION; Start 04/01/17 at 07: 00 Bisacodyl (Dulcolax) 5 mg DAILY PRN PO CONSTIPATION; Start 04/01/17 at 07:00 Famotidine 20 mg 20 mg Q12 IV Last administered on 04/01/17 09:24; Admin Dose 20 MG; Start 04/01/17 at 09:00 Levofloxacin/ Dextrose (Levaquin 750 Mg/ D5W 150 ml (Pmx)) 150 ml @ 100 mls/hr Q24H IVPB Last administered on 04/01/17 07:09; Admin Dose 100 MLS/HR; Start at 07:00 Influenza Virus Vaccine (Fluzone) 0.5 ml ONCE ONCE IM* ; Start 04/02/17 at 09:30 ; Stop 04/02/17 at 09:31 Methylprednisolone Sodium Succinate (Solu-Medrol) 40 mg Q8 IV ; Start 04/01/17 at 14:00 Apixaban (Eliquis) 5 mg BID PO ; Start 04/01/17 at 21:00; Status UNV Atorvastatin Calcium (Lipitor) 20 mg QHS PO ; Start 04/01/17 at 21:00; Status UNV Bicalutamide (Casodex) 50 mg DAILY PO ; Start 04/02/17 at 09:00; Status UNV Bimatoprost (Lumigan 0.01% Oph) 1 drop HS BOTH EYES ; Start 04/01/17 at 21:00; Status UNV Docusate Sodium (Colace) 100 mg DAILY PO ; Start 04/02/17 at 09:00; Status UNV Dorzolamide/ Timolol (Cosopt) 1 drop BID BOTH EYES ; Start 04/01/17 at 21:00; Status UNV Lactobacillus Acidophilus/ Rhamnosus (Culturelle) 1 cap BID PO ; Start 04/01/17 at 21:00; Status UNV Senna (Senokot) 1 tab QHS PO ; Start 04/01/17 at 21:00; Status UNV Tiotropium [place] (Spiriva) 1 inh DAILY INH ; Start 04/02/17 at 09:00; Status UNV Diltiazem HCl (Cardizem Cd) 240 mg DAILY PO ; Start 04/01/17 at 12:30; Status UNV Amiodarone HCl (Cordarone) 200 mg DAILY PO ; Start 04/01/17 at 12:30; Status UNV Digoxin (Digoxin) 0.25 mg DAILY PO ; Start 04/01/17 at 12:30; Status UNV JUAN POSADA Apr 01, 2017 12:31
[2017-04-01] MEDS: APIXABAN 5 MG TABLET PO SCH ×2 (13:05→21:09)
[2017-04-01] MEDS: DILTIAZEM (CD) 240 MG CAP PO SCH (13:06)
[2017-04-01] MEDS: AMIODARONE 200 MG TAB PO SCH (13:07)
[2017-04-01] MEDS: METHYLPREDNISOLONE 40 MG INJ IV SCH ×2 (13:27→21:13)
[2017-04-01] MEDS: DIGOXIN 0.25 MG TAB PO SCH (13:27)
[2017-04-01] MEDS: TIOTROPIUM 18 MCG CAPSULE INHA DEV INH SCH (15:28)
[2017-04-01] MEDS: DORZOLAMIDE/TIMOLOL 10 ML OPH BOTH EYES SCH ×2 (15:29→21:08)
[2017-04-01] MEDS ORDERED: IOHEXOL 100 ML ONE (16:45)
[2017-04-01] MEDS ORDERED: SOD CHLORIDE 0.9% 100 ML ONE (16:45)
--- NOTE | 2017-04-01 18:22 | RADRPT ---
PROCEDURE: CT Pulmonary Angiogram. CLINICAL INDICATION: Chest pain and shortness of breath. TECHNIQUE: CT pulmonary angiogram and a CT scan of the chest with contrast was performed. The pat ient was scanned following the uncomplicated intravenous administration of 100 cc of Omnipaque-350 i ntravenous contrast. 2-D coronal reformatted images were obtained from the axial source images. In addition, 3-D post processing was performed. Total exam DLP is 417.98 mGy-cm. CTDIvol is 42.25 mG y. One or more of the following dose reduction techniques were used: Automated exposure control, ad justment of the mA and/or kV according to patient size, use of iterative reconstruction technique. COMPARISON: Chest x-ray done earlier the same day. CT scan of the chest dated 10/25/2016. FINDINGS: The pulmonary arteries are normal with no filling defect or lack of enhancement to suggest pulmonary artery embolism. There is severe emphysematous change bilaterally with marked arterial deficiency in the lower lung z ones. The lungs are hyperinflated. There is a small region of peripheral consolidation or a peripher al nodule measuring 2.5 x 2.0 cm in the right upper lobe inferiorly and laterally, larger than seen previously. There is an irregular nodule or scarring in the superior segment of the left lower lobe measuring 0.6 x 1.2 cm. There is a region of scarring in the lingula measuring 2.0 x 1.2 cm. There i s scarring in the right lower lobe posteriorly inferiorly with associated mild bronchiectasis. There is no other abnormal pulmonary density. There is no pneumothorax. There is no mediastinal or hilar lymphadenopathy or mass. There is no pleural effusion. There is no pericardial effusion. The thoracic aorta is not dilated. There is calcification in the aorta consistent with atheroscleros is. Images through the upper abdomen demonstrate normal visualized portions of the liver, spleen, and ad renals. There are mild degenerative changes of the spine. There is no fracture or lytic lesion. IMPRESSION: 1. Normal CT pulmonary angiogram with no evidence of pulmonary artery embolism. 2. Severe emphysematous changes bilaterally. 3. Density in the right upper lobe inferiorly and laterally measuring 2.5 x 2.0 cm, larger than see n previously. This may be due to an infectious process. Follow-up CT scan advised. 4. Other bilateral pulmonary densities are similar to the prior study. 5. Atherosclerosis. 6. Mild degenerative changes of the spine. RPTAT: QQ .Justino Fonseca MD, Date Time Electronically viewed and signed by .Justino Fonseca MD, on 04/01/2017 18:22 .R/
[2017-04-01] MEDS ORDERED: BIMATOPROST 0.01% 2.5 ML BTL BOTH EYES SCH (21:00)
[2017-04-01] MEDS: LATANOPROST 0.005% 2.5 ML OPH BOTH EYES SCH (21:08)
[2017-04-01] MEDS: ATORVASTATIN 20 MG TAB PO SCH (21:09)
[2017-04-01] MEDS: SENNA TAB PO SCH (21:10)
[2017-04-01] MEDS: LACTOBACILLUS RHAMNOSUS CAP PO SCH (21:13)
[2017-04-02] VITALS (12 sets, daily range): BP systolic 107–127; BP diastolic 52–63; PULSE 60–71; RESP 20–22
[2017-04-02] MEDS: ALBUTEROL/IPRATROPIUM (NEB) 3 ML AMP HHN SCH ×6 (01:01→20:39)
[2017-04-02 06:19] LABS: HEMATOCRIT 37.4 % (42.0-52.0); HEMOGLOBIN 12.1 g/dl (14.0-18.0); LYMPHOCYTES # 0.7 10^3/ul (0.8-2.9); LYMPHOCYTES % 6.8 % (15.0-51.0); MEAN CORPUSCULAR HEMOGLOBIN 28.7 pg (29.0-33.0); MEAN CORPUSCULAR HGB CONC 32.4 g/dl (32.0-37.0); MEAN CORPUSCULAR VOLUME 88.8 fl (82.0-101.0); MEAN PLATELET VOLUME 9.6 fl (7.4-10.4); MONOCYTE # 0.4 10^3/ul (0.3-0.9); MONOCYTES % 4.4 % (0.0-11.0); NEUTROPHIL # 8.8 10^3/ul (1.6-7.5); NEUTROPHILS % 88.3 % (39.0-77.0); PLATELET COUNT 285 10^3/UL (140-415); RED BLOOD COUNT 4.21 10^6/ul (4.70-6.10); RED CELL DISTRIBUTION WIDTH 14.3 % (11.5-14.5); WHITE BLOOD COUNT 9.9 10^3/ul (4.8-10.8)
[2017-04-02] MEDS: LEVOFLOXACIN 750MG/D5W (PMX) 150 ML IVPB SCH (06:46)
[2017-04-02] MEDS: METHYLPREDNISOLONE 40 MG INJ IV SCH ×2 (06:46→21:24)
[2017-04-02 07:06] LABS: ALANINE AMINOTRANSFERASE 31 IU/L (13-69); ALBUMIN 3.6 g/dl (3.3-4.9); ALBUMIN/GLOBULIN RATIO 1.16; ALKALINE PHOSPHATASE 70 IU/L (42-121); ANION GAP 12 (8-16); ASPARTATE AMINO TRANSFERASE 17 IU/L (15-46); BILIRUBIN,INDIRECT 0.2 mg/dl (0-1.1); BILIRUBIN,TOTAL 0.2 mg/dl (0.2-1.3); BLOOD UREA NITROGEN 21 mg/dl (7-20); CALCIUM 8.5 mg/dl (8.4-10.2); CARBON DIOXIDE 25 mmol/L (21-31); CHLORIDE 109 mmol/L (97-110); CHOL/HDL RATIO 2.2 RATIO; CHOLESTEROL 132 mg/dl (100-200); CREATININE 0.96 mg/dl (0.61-1.24); GLUCOSE 122 mg/dl (70-220); HDL CHOLESTEROL 58 mg/dl (31-75); MAGNESIUM 2.1 mg/dl (1.7-2.5); POTASSIUM 4.2 mmol/L (3.5-5.1); SODIUM 142 mmol/L (135-144); TOTAL PROTEIN 6.7 g/dl (6.1-8.1); TRIGLYCERIDES 48 mg/dl (0-149)
[2017-04-02] MEDS: TIOTROPIUM 18 MCG CAPSULE INHA DEV INH SCH (08:58)
[2017-04-02] MEDS: AMIODARONE 200 MG TAB PO SCH (08:59)
[2017-04-02] MEDS: APIXABAN 5 MG TABLET PO SCH ×2 (08:59→21:25)
[2017-04-02] MEDS: LACTOBACILLUS RHAMNOSUS CAP PO SCH ×2 (08:59→21:25)
[2017-04-02] MEDS: DOCUSATE SODIUM 100 MG CAP PO SCH (08:59)
[2017-04-02] MEDS: DILTIAZEM (CD) 240 MG CAP PO SCH (08:59)
[2017-04-02 09:00] LABS: THYROID STIMULATING HORMONE < 0.015 MIU/L (0.465-4.680)
[2017-04-02] MEDS ORDERED: DIGOXIN 0.25 MG TAB PO SCH (09:00)
[2017-04-02] MEDS: DORZOLAMIDE/TIMOLOL 10 ML OPH BOTH EYES SCH ×2 (09:00→21:24)
[2017-04-02] MEDS ORDERED: DILTIAZEM (CD) 240 MG CAP PO SCH (09:00)
[2017-04-02] MEDS ORDERED: AMIODARONE 200 MG TAB PO SCH (09:00)
[2017-04-02] MEDS: FAMOTIDINE 20 MG INJ IV SCH (09:12)
[2017-04-02] MEDS ORDERED: INFLUENZA VIRUS VACCINE 0.5 ML (DISPENSING) IM* ONE (09:30)
[2017-04-02] MEDS: BICALUTAMIDE 50 MG TAB PO SCH (10:00)
--- NOTE | 2017-04-02 10:49 | CONS ---
Date/Time of Note Date/Time of Note DATE: 04/02/17 TIME: 10:42 Consult Date/Type/Reason Admit Date/Time Apr 01, 2017 at 05:36 Initial Consult Date 04/01/17 Type of Consultation: Pulmonary Subjective Feels better today, less shortness of breath. Decreased left pleuritic pain. Objective Vital Signs Date Time Temp Pulse Resp B/P Pulse Ox O2 Delivery O2 Flow Rate FiO2 04/02/17 09:08 68 20 95 Nasal Cannula 2.0 04/02/17 07:10 98.0 110/57 04/01/17 06:03 21 Intake and Output 04/01/17 04/01/17 04/02/17 15:00 23:00 07:00 Intake Total 1000 ml 1200 ml Output Total 850 ml Balance 1000 ml 350 ml Exam GENERAL: Gentleman comfortable at rest VITAL SIGNS: per chart NECK: Supple. No JVD or lymphadenopathy. CARDIAC EXAM: S1, S2. No added sounds or murmurs. CHEST: clear bilaterally, No added sounds, rales or wheezes ABDOMEN: Soft, nontender. No guarding or rebound. EXTREMITIES: No cyanosis, clubbing or edema. NEUROLOGIC: Generalized weakness. No focal deficits. Well-nourished well- developed Results/Medications Result Diagram: 04/02/17 0548 04/02/17 0550 Results 24 hrs Laboratory Tests Test 04/02/17 05:48 04/02/17 05:50 White Blood Count 9.9 # Red Blood Count 4.21 L Hemoglobin 12.1 L Hematocrit 37.4 L Mean Corpuscular Volume 88.8 Mean Corpuscular Hemoglobin 28.7 L Mean Corpuscular Hemoglobin Concent 32.4 Red Cell Distribution Width 14.3 Platelet Count 285 Mean Platelet Volume 9.6 Neutrophils % 88.3 H Lymphocytes % 6.8 L Monocytes % 4.4 Eosinophils % 0.0 Basophils % 0.0 Nucleated Red Blood Cells % 0.0 Neutrophils # 8.8 H Lymphocytes # 0.7 L Monocytes # 0.4 Eosinophils # 0.0 Basophils # 0.0 Nucleated Red Blood Cells # 0.0 Hemoglobin A1c 5.6 Sodium Level 142 Potassium Level 4.2 Chloride Level 109 Carbon Dioxide Level 25 Anion Gap 12 Blood Urea Nitrogen 21 H Creatinine 0.96 Glucose Level 122 Calcium Level 8.5 Magnesium Level 2.1 Total Bilirubin 0.2 Direct Bilirubin 0.00 Indirect Bilirubin 0.2 Aspartate Amino Transf (AST/SGOT) 17 Alanine Aminotransferase (ALT/SGPT) 31 Alkaline Phosphatase 70 Total Protein 6.7 Albumin 3.6 Globulin 3.10 Albumin/Globulin Ratio 1.16 Triglycerides Level 48 Cholesterol Level 132 LDL Cholesterol, Calculated 64 HDL Cholesterol 58 Cholesterol/HDL Ratio 2.2 Thyroid Stimulating Hormone (TSH) < 0.015 L Medications Current Medications Ondansetron HCl (Zofran Inj) 4 mg Q6H PRN IV NAUSEA AND/OR VOMITING; Start at 07:00 Acetaminophen (Tylenol Tab) 650 mg Q6H PRN PO PAIN LEVEL 1-3 OR FEVER; Start at 07:00 Docusate Sodium (Colace) 100 mg Q12H PRN PO CONSTIPATION; Start 04/01/17 at 07: 00 Bisacodyl (Dulcolax) 5 mg DAILY PRN PO CONSTIPATION; Start 04/01/17 at 07:00 Famotidine 20 mg 20 mg Q12 IV Last administered on 04/02/17 09:12; Admin Dose 20 MG; Start 04/01/17 at 09:00 Levofloxacin/ Dextrose (Levaquin 750 Mg/ D5W 150 ml (Pmx)) 150 ml @ 100 mls/hr Q24H IVPB Last administered on 04/02/17 06:46; Admin Dose 100 MLS/HR; Start at 07:00 Methylprednisolone Sodium Succinate (Solu-Medrol) 40 mg Q8 IV Last administered on 04/02/17 06:46; Admin Dose 40 MG; Start 04/01/17 at 14:00 Apixaban (Eliquis) 5 mg BID PO Last administered on 04/02/17 08:59; Admin Dose 5 MG; Start 04/01/17 at 12:27 Atorvastatin Calcium (Lipitor) 20 mg QHS PO Last administered on 04/01/17 21: 09; Admin Dose 20 MG; Start 04/01/17 at 21:00 Bicalutamide (Casodex) 50 mg DAILY PO Last administered on 04/02/17 10:00; Admin Dose 50 MG; Start 04/02/17 at 09:00 Docusate Sodium (Colace) 100 mg DAILY PO Last administered on 04/02/17 08:59; Admin Dose 100 MG; Start 04/02/17 at 09:00 Dorzolamide/ Timolol (Cosopt) 1 drop BID BOTH EYES Last administered on 09:00; Admin Dose 1 DROP; Start 04/01/17 at 14:00 Lactobacillus Acidophilus/ Rhamnosus (Culturelle) 1 cap BID PO Last administered on 04/02/17 08:59; Admin Dose 1 CAP; Start 04/01/17 at 21:00 Senna (Senokot) 1 tab QHS PO Last administered on 04/01/17 21:10; Admin Dose 1 TAB; Start 04/01/17 at 21:00 Tiotropium [place] (Spiriva) 1 inh DAILY INH Last administered on 04/02/17 08: 58; Admin Dose 1 INH; Start 04/01/17 at 14:00 Diltiazem HCl (Cardizem Cd) 240 mg DAILY PO Last administered on 04/02/17 08: 59; Admin Dose 240 MG; Start 04/01/17 at 12:30 Amiodarone HCl (Cordarone) 200 mg DAILY PO Last administered on 04/02/17 08:59 ; Admin Dose 200 MG; Start 04/01/17 at 12:30 Digoxin (Digoxin) 0.25 mg DAILY@13 PO Last administered on 04/01/17 13:27; Admin Dose 0.25 MG; Start 04/01/17 at 13:00 Latanoprost (Xalatan) 1 drop HS BOTH EYES Last administered on 04/01/17 21:08 ; Admin Dose 1 DROP; Start 04/01/17 at 21:00 Assessment/Plan Chief Complaint/Hosp Course Assessment: 1. Severe bullous emphysema with acute on chronic COPD exacerbation. 2. RLL pna. Plan 1. Continue abx and steroids. 2. Differential for PNA does include malignancy. f/u with me in office with repeat CT chest. If persistent infiltrate will need PET Problems: AN[facility] WOMACK MD, [facility] Apr 02, 2017 10:49
--- NOTE | 2017-04-02 11:53 | PN ---
Date/Time of Note Date/Time of Note DATE: 04/02/17 TIME: 11:46 Assessment/Plan VTE Prophylaxis VTE Prophylaxis Intervention: ambulation Lines/Catheters [facility] Saline Lock Assessment/Plan Chief Complaint/Hosp Course 77 yo [place] male with h/o COPD presenting with worsening SOB/cough and subjective fevers 1. Acute on chronic hypoxic respiratory failure likely 2/2 COPD exacerbation.Resolving. -Continue around the clock & PRN bronchodilators, tapering IV steroids AND PRN cough suppressants. 2.Possible RLL pneumonia. CTA Chest 04/01/2016- Density in the right upper lobe inferiorly and laterally measuring 2.5 x 2.0 cm, larger than seen previously. This may be due to an infectious process-Differential includes malignancies. -Continue Levaquin -F/u cultures, Legionella antigen/antibody -Follow-up CT scan advised in 3 months 3.Atrial fibrillation. Stable. -Continue Amiodarone/Digoxin and Eliquis. 4.Hypertension. sable. -Continue home meds 5. Dyslipidemia. -Continue statin 6. History of metastatic prostate cancer with history of prostatectomy in 1991 -Continue home meds. 7.Glaucoma. Continue home meds. 8.Constipation.Stable. -Continue home meds 9. COPD with emphysema. -Continue medical management. 10. Leukocytosis,likely 2/2pneumonia. resolved. Continue abx. DVT Prophylaxis: Eliquis PLAN: Overall patient feels better. Taper off steroids. Dc planning in AM on oral Levaquinx 7 more days with outpt pulmonary f/u and repeat CTA chest in 3 months. Patient was seen in collaboration with . Problems: Subjective 24 Hr Interval Summary Free Text/Dictation Patient with significant improvement in symtoms. Exam/Review of Systems Vital Signs Vitals Vital Signs Date Time Temp Pulse Resp B/P Pulse Ox O2 Delivery O2 Flow Rate FiO2 04/02/17 09:08 68 20 95 Nasal Cannula 2.0 04/02/17 07:10 98.0 110/57 04/01/17 06:03 21 Intake and Output 04/01/17 04/01/17 04/02/17 15:00 23:00 07:00 Intake Total 1000 ml 1200 ml Output Total 850 ml Balance 1000 ml 350 ml Exam General:Elderly [place] male, not in any acute distress . HEENT: Normocephalic, Atraumatic, No laceration or hematoma; Eyes: PEERL, Conjunctiva clear, Anicteric sclera Neck: Supple without any lymphadenopathy, nontender, no JVD, no carotid bruits, trachea midline, no thyromegaly Cardiac: Irregular+ S1, S2 auscultated, no mumurs or gallop Pulmonary: Diminished right side. Normal respiratory effort. Chest clear to auscultation bilaterally, no adventitious breath sounds GI: Abdomen normal to inspection. Soft, non- distended, no masses, no rebound tenderness or guarding. Bowel sounds active on all four quadrants Genitourinary: Deferred Extremities: No cyanosis, clubbing, or edema. Pulses [2+] bilaterally. Full ROM on all four extremities. No focal weakness appreciated. Neurologic: Alert to person, place, time, and situation. Affect appropriate, intact sensation. Skin: Clean,dry, and intact. No ecchymosis, no rashes, or lesions Results Result Diagram: 04/02/17 0548 04/02/17 0550 Results 24 hrs Laboratory Tests Test 04/02/17 05:48 04/02/17 05:50 White Blood Count 9.9 # Red Blood Count 4.21 L Hemoglobin 12.1 L Hematocrit 37.4 L Mean Corpuscular Volume 88.8 Mean Corpuscular Hemoglobin 28.7 L Mean Corpuscular Hemoglobin Concent 32.4 Red Cell Distribution Width 14.3 Platelet Count 285 Mean Platelet Volume 9.6 Neutrophils % 88.3 H Lymphocytes % 6.8 L Monocytes % 4.4 Eosinophils % 0.0 Basophils % 0.0 Nucleated Red Blood Cells % 0.0 Neutrophils # 8.8 H Lymphocytes # 0.7 L Monocytes # 0.4 Eosinophils # 0.0 Basophils # 0.0 Nucleated Red Blood Cells # 0.0 Hemoglobin A1c 5.6 Sodium Level 142 Potassium Level 4.2 Chloride Level 109 Carbon Dioxide Level 25 Anion Gap 12 Blood Urea Nitrogen 21 H Creatinine 0.96 Glucose Level 122 Calcium Level 8.5 Magnesium Level 2.1 Total Bilirubin 0.2 Direct Bilirubin 0.00 Indirect Bilirubin 0.2 Aspartate Amino Transf (AST/SGOT) 17 Alanine Aminotransferase (ALT/SGPT) 31 Alkaline Phosphatase 70 Total Protein 6.7 Albumin 3.6 Globulin 3.10 Albumin/Globulin Ratio 1.16 Triglycerides Level 48 Cholesterol Level 132 LDL Cholesterol, Calculated 64 HDL Cholesterol 58 Cholesterol/HDL Ratio 2.2 Thyroid Stimulating Hormone (TSH) < 0.015 L Medications Medications Current Medications Ondansetron HCl (Zofran Inj) 4 mg Q6H PRN IV NAUSEA AND/OR VOMITING; Start at 07:00 Acetaminophen (Tylenol Tab) 650 mg Q6H PRN PO PAIN LEVEL 1-3 OR FEVER; Start at 07:00 Docusate Sodium (Colace) 100 mg Q12H PRN PO CONSTIPATION; Start 04/01/17 at 07: 00 Bisacodyl (Dulcolax) 5 mg DAILY PRN PO CONSTIPATION; Start 04/01/17 at 07:00 Famotidine 20 mg 20 mg Q12 IV Last administered on 04/02/17 09:12; Admin Dose 20 MG; Start 04/01/17 at 09:00 Levofloxacin/ Dextrose (Levaquin 750 Mg/ D5W 150 ml (Pmx)) 150 ml @ 100 mls/hr Q24H IVPB Last administered on 04/02/17 06:46; Admin Dose 100 MLS/HR; Start at 07:00 Methylprednisolone Sodium Succinate (Solu-Medrol) 40 mg Q8 IV Last administered on 04/02/17 06:46; Admin Dose 40 MG; Start 04/01/17 at 14:00 Apixaban (Eliquis) 5 mg BID PO Last administered on 04/02/17 08:59; Admin Dose 5 MG; Start 04/01/17 at 12:27 Atorvastatin Calcium (Lipitor) 20 mg QHS PO Last administered on 04/01/17 21: 09; Admin Dose 20 MG; Start 04/01/17 at 21:00 Bicalutamide (Casodex) 50 mg DAILY PO Last administered on 04/02/17 10:00; Admin Dose 50 MG; Start 04/02/17 at 09:00 Docusate Sodium (Colace) 100 mg DAILY PO Last administered on 04/02/17 08:59; Admin Dose 100 MG; Start 04/02/17 at 09:00 Dorzolamide/ Timolol (Cosopt) 1 drop BID BOTH EYES Last administered on 09:00; Admin Dose 1 DROP; Start 04/01/17 at 14:00 Lactobacillus Acidophilus/ Rhamnosus (Culturelle) 1 cap BID PO Last administered on 04/02/17 08:59; Admin Dose 1 CAP; Start 04/01/17 at 21:00 Senna (Senokot) 1 tab QHS PO Last administered on 04/01/17 21:10; Admin Dose 1 TAB; Start 04/01/17 at 21:00 Tiotropium [place] (Spiriva) 1 inh DAILY INH Last administered on 04/02/17 08: 58; Admin Dose 1 INH; Start 04/01/17 at 14:00 Diltiazem HCl (Cardizem Cd) 240 mg DAILY PO Last administered on 04/02/17 08: 59; Admin Dose 240 MG; Start 04/01/17 at 12:30 Amiodarone HCl (Cordarone) 200 mg DAILY PO Last administered on 04/02/17 08:59 ; Admin Dose 200 MG; Start 04/01/17 at 12:30 Digoxin (Digoxin) 0.25 mg DAILY@13 PO Last administered on 04/01/17 13:27; Admin Dose 0.25 MG; Start 04/01/17 at 13:00 Latanoprost (Xalatan) 1 drop HS BOTH EYES Last administered on 04/01/17 21:08 ; Admin Dose 1 DROP; Start 04/01/17 at 21:00 NGOC SILVESTRE NP Apr 02, 2017 11:53
[2017-04-02 12:20] LABS: FREE T3 3.66 pg/ml (2.77-5.27)
[2017-04-02 12:34] LABS: TRIIODOTHYRONINE 1.06 ng/ml (0.97-1.69)
[2017-04-02] MEDS: DIGOXIN 0.25 MG TAB PO SCH (12:40)
[2017-04-02] MEDS: LATANOPROST 0.005% 2.5 ML OPH BOTH EYES SCH (21:24)
[2017-04-02] MEDS: FAMOTIDINE 20 MG TAB PO SCH (21:25)
[2017-04-02] MEDS: SENNA TAB PO SCH (21:25)
[2017-04-02] MEDS: ATORVASTATIN 20 MG TAB PO SCH (21:25)
[2017-04-03] VITALS (12 sets, daily range): BP systolic 118–137; BP diastolic 58–77; PULSE 58–63; RESP 16–20
[2017-04-03] MEDS: ALBUTEROL/IPRATROPIUM (NEB) 3 ML AMP HHN SCH ×6 (00:59→20:19)
[2017-04-03] MEDS: LEVOFLOXACIN 750MG/D5W (PMX) 150 ML IVPB SCH (06:05)
[2017-04-03 06:47] LABS: BASOPHILS % 0.1 % (0.0-2.0); HEMATOCRIT 37.1 % (42.0-52.0); HEMOGLOBIN 12.3 g/dl (14.0-18.0); LYMPHOCYTES # 0.7 10^3/ul (0.8-2.9); LYMPHOCYTES % 5.3 % (15.0-51.0); MEAN CORPUSCULAR HEMOGLOBIN 29.4 pg (29.0-33.0); MEAN CORPUSCULAR HGB CONC 33.2 g/dl (32.0-37.0); MEAN CORPUSCULAR VOLUME 88.8 fl (82.0-101.0); MONOCYTE # 0.5 10^3/ul (0.3-0.9); MONOCYTES % 3.8 % (0.0-11.0); NEUTROPHILS % 90.3 % (39.0-77.0); PLATELET COUNT 335 10^3/UL (140-415); RED BLOOD COUNT 4.18 10^6/ul (4.70-6.10); RED CELL DISTRIBUTION WIDTH 14.1 % (11.5-14.5); WHITE BLOOD COUNT 13.3 10^3/ul (4.8-10.8)
[2017-04-03 07:13] LABS: CALCIUM 8.7 mg/dl (8.4-10.2); CREATININE 0.99 mg/dl (0.61-1.24); POTASSIUM 3.9 mmol/L (3.5-5.1)
[2017-04-03] MEDS: TIOTROPIUM 18 MCG CAPSULE INHA DEV INH SCH (08:45)
[2017-04-03] MEDS: METHYLPREDNISOLONE 40 MG INJ IV SCH ×2 (08:45→20:06)
[2017-04-03] MEDS: DORZOLAMIDE/TIMOLOL 10 ML OPH BOTH EYES SCH ×2 (08:45→20:06)
[2017-04-03] MEDS: APIXABAN 5 MG TABLET PO SCH ×2 (08:46→20:07)
[2017-04-03] MEDS: DOCUSATE SODIUM 100 MG CAP PO SCH (08:46)
[2017-04-03] MEDS: DILTIAZEM (CD) 240 MG CAP PO SCH (08:46)
[2017-04-03] MEDS: FAMOTIDINE 20 MG TAB PO SCH ×2 (08:46→20:06)
[2017-04-03] MEDS: AMIODARONE 200 MG TAB PO SCH (08:46)
[2017-04-03] MEDS: LACTOBACILLUS RHAMNOSUS CAP PO SCH ×2 (08:46→20:10)
[2017-04-03] MEDS: BICALUTAMIDE 50 MG TAB PO SCH (08:53)
--- NOTE | 2017-04-03 08:58 | PN ---
Date/Time of Note Date/Time of Note DATE: 04/03/17 TIME: 08:53 Assessment/Plan VTE Prophylaxis VTE Prophylaxis Intervention: other Lines/Catheters IV [facility]ter Type (from [facility]): Saline Lock Assessment/Plan Chief Complaint/Hosp Course 77 yo [place] male with h/o COPD presenting with worsening SOB/cough and subjective fevers 1. Acute on chronic hypoxic respiratory failure likely 2/2 COPD exacerbation.Resolving. -Continue around the clock & PRN bronchodilators, tapering IV steroids AND PRN cough suppressants. 2.Possible RLL pneumonia. Clinically improved. CTA Chest 04/01/2016- Density in the right upper lobe inferiorly and laterally measuring 2.5 x 2.0 cm, larger than seen previously. This may be due to an infectious process-Differential includes malignancies. -Continue Levaquin -F/u cultures, Legionella antigen/antibody -Follow-up CT scan advised in 3 months 3.Atrial fibrillation. Stable. -Continue Amiodarone/Digoxin and Eliquis. 4. 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 -Obtain thyroid US 5.Hypertension. sable. -Continue home meds 6. Dyslipidemia. -Continue statin 7. History of metastatic prostate cancer with history of prostatectomy in 1991 -Continue home meds. 8.Glaucoma. Continue home meds. 9.Constipation.Stable. -Continue home meds 10. COPD with emphysema. -Continue medical management. 11. Leukocytosis,likely 2/2pneumonia. Today WBC uptrended likey steroid- induced.resolved. Continue abx. DVT Prophylaxis: Eliquis PLAN: Overall patient feels better. Taper off steroids down to oral prednisone. F/u with endo and cards recs and thereafter Dc planning on oral Levaquinx 7 more days with outpt pulmonary/endo f/u and repeat CTA chest in 3 months. Patient was seen in collaboration with . Problems: Subjective 24 Hr Interval Summary Free Text/Dictation No acute distress.Doing well. Normal work of breathing, No palpitation, diaphoresis,polyphagia. Exam/Review of Systems Vital Signs Vitals Vital Signs Date Time Temp Pulse Resp B/P Pulse Ox O2 Delivery O2 Flow Rate FiO2 04/03/17 08:09 59 04/03/17 07:50 97.9 18 123/74 97 04/03/17 05:36 Nasal Cannula 2.0 04/01/17 06:03 21 Intake and Output 04/02/17 04/02/17 04/03/17 15:00 23:00 07:00 Intake Total 1000 ml 650 ml Balance 1000 ml 650 ml Exam General:Elderly [place] male, not in any acute distress . HEENT: Normocephalic, Atraumatic, No laceration or hematoma; Eyes: PEERL, Conjunctiva clear, Anicteric sclera Neck: Supple without any lymphadenopathy, nontender, no JVD, no carotid bruits, trachea midline, no thyromegaly Cardiac: Irregular+ S1, S2 auscultated, no mumurs or gallop Pulmonary: Diminished right side. Normal respiratory effort. Chest clear to auscultation bilaterally, no adventitious breath sounds GI: Abdomen normal to inspection. Soft, non- distended, no masses, no rebound tenderness or guarding. Bowel sounds active on all four quadrants Genitourinary: Deferred Extremities: No cyanosis, clubbing, or edema. Pulses [2+] bilaterally. Full ROM on all four extremities. No focal weakness appreciated. Neurologic: Alert to person, place, time, and situation. Affect appropriate, intact sensation. Skin: Clean,dry, and intact. No ecchymosis, no rashes, or lesions Results Result Diagram: 04/03/17 0536 04/03/17 0536 Results 24 hrs Laboratory Tests Test 04/03/17 05:36 White Blood Count 13.3 #H Red Blood Count 4.18 L Hemoglobin 12.3 L Hematocrit 37.1 L Mean Corpuscular Volume 88.8 Mean Corpuscular Hemoglobin 29.4 Mean Corpuscular Hemoglobin Concent 33.2 Red Cell Distribution Width 14.1 Platelet Count 335 Mean Platelet Volume 10.0 Neutrophils % 90.3 H Lymphocytes % 5.3 L Monocytes % 3.8 Eosinophils % 0.0 Basophils % 0.1 Nucleated Red Blood Cells % 0.0 Neutrophils # 12.0 H Lymphocytes # 0.7 L Monocytes # 0.5 Eosinophils # 0.0 Basophils # 0.0 Nucleated Red Blood Cells # 0.0 Sodium Level 142 Potassium Level 3.9 Chloride Level 109 Carbon Dioxide Level 25 Anion Gap 12 Blood Urea Nitrogen 27 H Creatinine 0.99 Glucose Level 133 Calcium Level 8.7 Medications Medications Current Medications Ondansetron HCl (Zofran Inj) 4 mg Q6H PRN IV NAUSEA AND/OR VOMITING; Start at 07:00 Acetaminophen (Tylenol Tab) 650 mg Q6H PRN PO PAIN LEVEL 1-3 OR FEVER; Start at 07:00 Docusate Sodium (Colace) 100 mg Q12H PRN PO CONSTIPATION; Start 04/01/17 at 07: 00 Bisacodyl 5 mg 5 mg DAILY PRN PO CONSTIPATION; Start 04/01/17 at 07:00 Levofloxacin/ Dextrose (Levaquin 750 Mg/ D5W 150 ml (Pmx)) 150 ml @ 100 mls/hr Q24H IVPB Last administered on 04/03/17 06:05; Admin Dose 100 MLS/HR; Start at 07:00 Apixaban (Eliquis) 5 mg BID PO Last administered on 04/02/17 21:25; Admin Dose 5 MG; Start 04/01/17 at 12:27 Atorvastatin Calcium (Lipitor) 20 mg QHS PO Last administered on 04/02/17 21: 25; Admin Dose 20 MG; Start 04/01/17 at 21:00 Bicalutamide (Casodex) 50 mg DAILY PO Last administered on 04/02/17 10:00; Admin Dose 50 MG; Start 04/02/17 at 09:00 Docusate Sodium (Colace) 100 mg DAILY PO Last administered on 04/02/17 08:59; Admin Dose 100 MG; Start 04/02/17 at 09:00 Dorzolamide/ Timolol (Cosopt) 1 drop BID BOTH EYES Last administered on 21:24; Admin Dose 1 DROP; Start 04/01/17 at 14:00 Lactobacillus Acidophilus/ Rhamnosus (Culturelle) 1 cap BID PO Last administered on 04/02/17 21:25; Admin Dose 1 CAP; Start 04/01/17 at 21:00 Senna (Senokot) 1 tab QHS PO Last administered on 04/02/17 21:25; Admin Dose 1 TAB; Start 04/01/17 at 21:00 Tiotropium [place] (Spiriva) 1 inh DAILY INH Last administered on 04/02/17 08: 58; Admin Dose 1 INH; Start 04/01/17 at 14:00 Diltiazem HCl (Cardizem Cd) 240 mg DAILY PO Last administered on 04/02/17 08: 59; Admin Dose 240 MG; Start 04/01/17 at 12:30 Amiodarone HCl (Cordarone) 200 mg DAILY PO Last administered on 04/02/17 08:59 ; Admin Dose 200 MG; Start 04/01/17 at 12:30 Digoxin (Digoxin) 0.25 mg DAILY@13 PO Last administered on 04/02/17 12:40; Admin Dose 0.25 MG; Start 04/01/17 at 13:00 Latanoprost (Xalatan) 1 drop HS BOTH EYES Last administered on 04/02/17 21:24 ; Admin Dose 1 DROP; Start 04/01/17 at 21:00 Methylprednisolone Sodium Succinate (Solu-Medrol) 40 mg BID IV Last administered on 04/02/17 21:24; Admin Dose 40 MG; Start 04/02/17 at 21:00 Famotidine (Pepcid) 20 mg BID PO Last administered on 04/02/17 21:25; Admin Dose 20 MG; Start 04/02/17 at 21:00 NGOC SILVESTRE NP Apr 03, 2017 08:58
--- NOTE | 2017-04-03 11:21 | CONS ---
Date/Time of Note Date/Time of Note DATE: 04/03/17 TIME: 11:20 Consult Date/Type/Reason Admit Date/Time Apr 01, 2017 at 05:36 Initial Consult Date 04/01/17 Type of Consultation: Pulmonary Subjective Patient stable this morning. Wants to go home. Denies chest pain or shortness of breath. Objective Vital Signs Date Time Temp Pulse Resp B/P Pulse Ox O2 Delivery O2 Flow Rate FiO2 04/03/17 09:34 75 20 96 Nasal Cannula 2.0 04/03/17 07:50 97.9 123/74 04/01/17 06:03 21 Intake and Output 04/02/17 04/02/17 04/03/17 15:00 23:00 07:00 Intake Total 1000 ml 650 ml Balance 1000 ml 650 ml Exam GENERAL: Gentleman comfortable at rest VITAL SIGNS: per chart NECK: Supple. No JVD or lymphadenopathy. CARDIAC EXAM: S1, S2. No added sounds or murmurs. CHEST: clear bilaterally, No added sounds, rales or wheezes ABDOMEN: Soft, nontender. No guarding or rebound. EXTREMITIES: No cyanosis, clubbing or edema. NEUROLOGIC: Generalized weakness. No focal deficits. Well-nourished well- developed Results/Medications Result Diagram: 04/03/17 0536 04/03/17 0536 Results 24 hrs Laboratory Tests Test 04/03/17 05:36 White Blood Count 13.3 #H Red Blood Count 4.18 L Hemoglobin 12.3 L Hematocrit 37.1 L Mean Corpuscular Volume 88.8 Mean Corpuscular Hemoglobin 29.4 Mean Corpuscular Hemoglobin Concent 33.2 Red Cell Distribution Width 14.1 Platelet Count 335 Mean Platelet Volume 10.0 Neutrophils % 90.3 H Lymphocytes % 5.3 L Monocytes % 3.8 Eosinophils % 0.0 Basophils % 0.1 Nucleated Red Blood Cells % 0.0 Neutrophils # 12.0 H Lymphocytes # 0.7 L Monocytes # 0.5 Eosinophils # 0.0 Basophils # 0.0 Nucleated Red Blood Cells # 0.0 Sodium Level 142 Potassium Level 3.9 Chloride Level 109 Carbon Dioxide Level 25 Anion Gap 12 Blood Urea Nitrogen 27 H Creatinine 0.99 Glucose Level 133 Calcium Level 8.7 Medications Current Medications Ondansetron HCl (Zofran Inj) 4 mg Q6H PRN IV NAUSEA AND/OR VOMITING; Start at 07:00 Acetaminophen (Tylenol Tab) 650 mg Q6H PRN PO PAIN LEVEL 1-3 OR FEVER; Start at 07:00 Docusate Sodium (Colace) 100 mg Q12H PRN PO CONSTIPATION; Start 04/01/17 at 07: 00 Bisacodyl 5 mg 5 mg DAILY PRN PO CONSTIPATION; Start 04/01/17 at 07:00 Levofloxacin/ Dextrose (Levaquin 750 Mg/ D5W 150 ml (Pmx)) 150 ml @ 100 mls/hr Q24H IVPB Last administered on 04/03/17 06:05; Admin Dose 100 MLS/HR; Start at 07:00 Apixaban (Eliquis) 5 mg BID PO Last administered on 04/03/17 08:46; Admin Dose 5 MG; Start 04/01/17 at 12:27 Atorvastatin Cal[place] (Lipitor) 20 mg QHS PO Last administered on 04/02/17 21: 25; Admin Dose 20 MG; Start 04/01/17 at 21:00 Bicalutamide (Casodex) 50 mg DAILY PO Last administered on 04/03/17 08:53; Admin Dose 50 MG; Start 04/02/17 at 09:00 Docusate Sodium (Colace) 100 mg DAILY PO Last administered on 04/03/17 08:46; Admin Dose 100 MG; Start 04/02/17 at 09:00 Dorzolamide/ Timolol (Cosopt) 1 drop BID BOTH EYES Last administered on 08:45; Admin Dose 1 DROP; Start 04/01/17 at 14:00 Lactobacillus Acidophilus/ Rhamnosus (Culturelle) 1 cap BID PO Last administered on 04/03/17 08:46; Admin Dose 1 CAP; Start 04/01/17 at 21:00 Senna (Senokot) 1 tab QHS PO Last administered on 04/02/17 21:25; Admin Dose 1 TAB; Start 04/01/17 at 21:00 Tiotropium [place] (Spiriva) 1 inh DAILY INH Last administered on 04/03/17 08: 45; Admin Dose 1 INH; Start 04/01/17 at 14:00 Diltiazem HCl (Cardizem Cd) 240 mg DAILY PO Last administered on 04/03/17 08: 46; Admin Dose 240 MG; Start 04/01/17 at 12:30 Amiodarone HCl (Cordarone) 200 mg DAILY PO Last administered on 04/03/17 08:46 ; Admin Dose 200 MG; Start 04/01/17 at 12:30 Digoxin (Digoxin) 0.25 mg DAILY@13 PO Last administered on 04/02/17 12:40; Admin Dose 0.25 MG; Start 04/01/17 at 13:00 Latanoprost (Xalatan) 1 drop HS BOTH EYES Last administered on 04/02/17 21:24 ; Admin Dose 1 DROP; Start 04/01/17 at 21:00 Methylprednisolone Sodium Succinate (Solu-Medrol) 40 mg BID IV Last administered on 04/03/17 08:45; Admin Dose 40 MG; Start 04/02/17 at 21:00; Stop 04/03/17 at 21:01 Famotidine (Pepcid) 20 mg BID PO Last administered on 04/03/17 08:46; Admin Dose 20 MG; Start 04/02/17 at 21:00 Prednisone (Prednisone) 40 mg DAILY PO ; Start 04/04/17 at 09:00 Assessment/Plan Chief Complaint/Hosp Course Assessment: 1. Severe bullous emphysema with acute on chronic COPD exacerbation. 2. RLL pna. 3. Hyperthyroidism. Currently asymptomatic. Plan 1. Continue abx and steroids. 2. Differential for PNA does include malignancy. f/u with me in office with repeat CT chest. If persistent infiltrate will need PET 3. Endo recommendations. Anticipate discharge soon. Follow-up with me in 2 weeks. Problems: [facility] Apr 03, 2017 11:21
[2017-04-03] MEDS: DIGOXIN 0.25 MG TAB PO SCH (12:16)
[2017-04-03] MEDS: BISACODYL (EC) 5 MG TAB PO PRN (12:24)
--- NOTE | 2017-04-03 12:32 | CONS ---
Date/Time of Note Date/Time of Note DATE: 04/03/17 TIME: 12:28 Assessment/Plan Assessment/Plan Additional Assessment/Plan Paroxysmal atrial fibrillation, currently sinus rhythm COPD Pneumonia Hypertension Preserved ejection fraction Thyroid dysfunction -Patient has remained in sinus rhythm on review of telemetry. He is currently on Cardizem, digoxin and amiodarone. Given the thyroid dysfunction, I will DC amiodarone. Otherwise continue rate control medications. Continue anticoagulation if no complication. Maintain potassium above 4.0 and magnesium above 2.0. Consultation Date/Type/Reason Admit Date/Time Apr 01, 2017 at 05:36 Type of Consultation: cv Reason for Consultation Atrial fibrillation management Hx of Present Illness This is a 77-year-old male with past medical history of COPD, paroxysmal atrial fibrillation, hypertension who presented with cough and shortness of breath and possible pneumonia. Patient with known history of atrial ablation in the past and has been sent in sinus rhythm on amiodarone, Cardizem and digoxin. Laboratory studies demonstrated abnormal thyroid function and for this reason cardiology consultation was requested in regards to antiarrhythmic management. Patient is feeling better, shortness of breath is much better, cough is improved. He denies dizziness, lightheadedness, chest pain or palpitations. 12 point review of systems was performed with all pertinent positives and negatives mentioned above and all else is negative Past Medical History COPD Hypertension Paroxysmal atrial fibrillation Family History Significant Family History: no pertinent family hx Social History Smoking Status: Former smoker Other Social History Lives at home Exam/Review of Systems Vital Signs Vitals Vital Signs Date Time Temp Pulse Resp B/P Pulse Ox O2 Delivery O2 Flow Rate FiO2 04/03/17 12:17 63 04/03/17 11:32 97.6 18 137/69 97 04/03/17 09:34 Nasal Cannula 2.0 04/01/17 06:03 21 Intake and Output 04/02/17 04/02/17 04/03/17 15:00 23:00 07:00 Intake Total 1000 ml 650 ml Balance 1000 ml 650 ml Exam No apparent distress Constitutional: alert, oriented Head: normocephalic Respiratory: other (Coarse breath sounds bilaterally, no wheezing) Cardiovascular: other (S1-S2 heard), regular rate and rhythm Gastrointestinal: bowel sounds, non-tender, soft Extremities: other (No edema) Results Result Diagram: 04/03/17 0536 04/03/17 0536 Results 24 hrs Laboratory Tests Test 04/03/17 05:36 White Blood Count 13.3 #H Red Blood Count 4.18 L Hemoglobin 12.3 L Hematocrit 37.1 L Mean Corpuscular Volume 88.8 Mean Corpuscular Hemoglobin 29.4 Mean Corpuscular Hemoglobin Concent 33.2 Red Cell Distribution Width 14.1 Platelet Count 335 Mean Platelet Volume 10.0 Neutrophils % 90.3 H Lymphocytes % 5.3 L Monocytes % 3.8 Eosinophils % 0.0 Basophils % 0.1 Nucleated Red Blood Cells % 0.0 Neutrophils # 12.0 H Lymphocytes # 0.7 L Monocytes # 0.5 Eosinophils # 0.0 Basophils # 0.0 Nucleated Red Blood Cells # 0.0 Sodium Level 142 Potassium Level 3.9 Chloride Level 109 Carbon Dioxide Level 25 Anion Gap 12 Blood Urea Nitrogen 27 H Creatinine 0.99 Glucose Level 133 Calcium Level 8.7 Medications Medications Current Medications Ondansetron HCl (Zofran Inj) 4 mg Q6H PRN IV NAUSEA AND/OR VOMITING; Start at 07:00 Acetaminophen (Tylenol Tab) 650 mg Q6H PRN PO PAIN LEVEL 1-3 OR FEVER; Start at 07:00 Docusate Sodium (Colace) 100 mg Q12H PRN PO CONSTIPATION; Start 04/01/17 at 07: 00 Bisacodyl 5 mg 5 mg DAILY PRN PO CONSTIPATION Last administered on 04/03/17 12 :24; Admin Dose 5 MG; Start 04/01/17 at 07:00 Levofloxacin/ Dextrose (Levaquin 750 Mg/ D5W 150 ml (Pmx)) 150 ml @ 100 mls/hr Q24H IVPB Last administered on 04/03/17 06:05; Admin Dose 100 MLS/HR; Start at 07:00 Apixaban (Eliquis) 5 mg BID PO Last administered on 04/03/17 08:46; Admin Dose 5 MG; Start 04/01/17 at 12:27 Atorvastatin Calcium (Lipitor) 20 mg QHS PO Last administered on 04/02/17 21: 25; Admin Dose 20 MG; Start 04/01/17 at 21:00 Bicalutamide (Casodex) 50 mg DAILY PO Last administered on 04/03/17 08:53; Admin Dose 50 MG; Start 04/02/17 at 09:00 Docusate Sodium (Colace) 100 mg DAILY PO Last administered on 04/03/17 08:46; Admin Dose 100 MG; Start 04/02/17 at 09:00 Dorzolamide/ Timolol (Cosopt) 1 drop BID BOTH EYES Last administered on 08:45; Admin Dose 1 DROP; Start 04/01/17 at 14:00 Lactobacillus Acidophilus/ Rhamnosus (Culturelle) 1 cap BID PO Last administered on 04/03/17 08:46; Admin Dose 1 CAP; Start 04/01/17 at 21:00 Senna (Senokot) 1 tab QHS PO Last administered on 04/02/17 21:25; Admin Dose 1 TAB; Start 04/01/17 at 21:00 Tiotropium Hibbs (Spiriva) 1 inh DAILY INH Last administered on 04/03/17 08: 45; Admin Dose 1 INH; Start 04/01/17 at 14:00 Diltiazem HCl (Cardizem Cd) 240 mg DAILY PO Last administered on 04/03/17 08: 46; Admin Dose 240 MG; Start 04/01/17 at 12:30 Digoxin (Digoxin) 0.25 mg DAILY@13 PO Last administered on 04/03/17 12:16; Admin Dose 0.25 MG; Start 04/01/17 at 13:00 Latanoprost (Xalatan) 1 drop HS BOTH EYES Last administered on 04/02/17 21:24 ; Admin Dose 1 DROP; Start 04/01/17 at 21:00 Methylprednisolone Sodium Succinate (Solu-Medrol) 40 mg BID IV Last administered on 04/03/17 08:45; Admin Dose 40 MG; Start 04/02/17 at 21:00; Stop 04/03/17 at 21:01 Famotidine (Pepcid) 20 mg BID PO Last administered on 04/03/17 08:46; Admin Dose 20 MG; Start 04/02/17 at 21:00 Prednisone (Prednisone) 40 mg DAILY PO ; Start 04/04/17 at 09:00 Procedures Procedures No ECG in the chart. Telemetry reviewed with sinus rhythm in the 60s Sylvain Vazquez DO Apr 03, 2017 12:32
[2017-04-03] MEDS ORDERED: POTASSIUM CHLORIDE (SR) 10 MEQ TAB PO ONE (13:00)
--- NOTE | 2017-04-03 18:09 | CONS ---
Date/Time of Note Date/Time of Note DATE: 04/03/17 TIME: 18:03 Assessment/Plan Assessment/Plan Problems: (1) Hyperthyroidism Status: Chronic Comment: Only available blood tests I suspect this gentleman has been hyperthyroid for some time. The question is whether or not this is due to the amiodarone. That is a little bit harder to determine at the present moment. For now we can get him started on type thyroid drug therapy. We will go ahead and let the thyroid ultrasound be performed. 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 Review of the records indicates that as of last June he was on amiodarone for chronic atrial fibrillation. The most recent laboratory testing prior to this admission for thyroid that I can get my hands on his from October of this year. At that time he had a suppressed TSH and elevated free T4. He was not initiated treatment at that time. He comes back in and the question is raised about whether or not this is true hyperthyroidism, euthyroid sick, or a side effect of the amiodarone. Please note to the chronic amiodarone therapy doing thyroid uptake and scan would be useless as the iodine from the amiodarone would linger in his system for 8 months after the last dosing Constitutional: no complaints Eyes: no complaints ENT: no complaints Respiratory: shortness of breath Cardiovascular: no complaints Gastrointestinal: no complaints Genitourinary: no complaints Musculoskeletal: no complaints Past Medical History 1) bullous emphysema-COPD 2) chronic hypoxemic respiratory failure, 3) chronic atrial fibrillation, 4) elevated thyroid function tests, 5) antral hypertension , 6) hyperlipidemia, 7) prostate cancer, 8) abnormality in right upper lung on CT scan Medications; as per MAR Past Surgical History Past Surgical Hx: noncontributory Family History Significant Family History: no pertinent family hx Social History Alcohol Use: none Smoking Status: Former smoker Drug Use: none Exam/Review of Systems Vital Signs Vitals Vital Signs Date Time Temp Pulse Resp B/P Pulse Ox O2 Delivery O2 Flow Rate FiO2 04/03/17 16:47 97.8 59 16 133/67 96 04/03/17 16:25 Nasal Cannula 2.0 04/01/17 06:03 21 Intake and Output 04/02/17 04/02/17 04/03/17 15:00 23:00 07:00 Intake Total 1000 ml 650 ml Balance 1000 ml 650 ml Exam Extremely slender male in no joe distress who requests to be discharged home. He is modestly hard of hearing Constitutional: alert, oriented ENMT: mucosa pink and moist, nl external ears & nose, nl lips & teeth, nl nasal mucosa & septum Neck: non-tender, other (Thyroid nodules no thyroid tenderness no masses), supple Respiratory: diminished breath sounds, wheezing Cardiovascular: nl pulses, regular rate and rhythm Gastrointestinal: nl liver, spleen, non-tender, soft Results Result Diagram: 04/03/17 0536 04/03/17 0536 Results 24 hrs Laboratory Tests Test 04/03/17 05:36 White Blood Count 13.3 #H Red Blood Count 4.18 L Hemoglobin 12.3 L Hematocrit 37.1 L Mean Corpuscular Volume 88.8 Mean Corpuscular Hemoglobin 29.4 Mean Corpuscular Hemoglobin Concent 33.2 Red Cell Distribution Width 14.1 Platelet Count 335 Mean Platelet Volume 10.0 Neutrophils % 90.3 H Lymphocytes % 5.3 L Monocytes % 3.8 Eosinophils % 0.0 Basophils % 0.1 Nucleated Red Blood Cells % 0.0 Neutrophils # 12.0 H Lymphocytes # 0.7 L Monocytes # 0.5 Eosinophils # 0.0 Basophils # 0.0 Nucleated Red Blood Cells # 0.0 Sodium Level 142 Potassium Level 3.9 Chloride Level 109 Carbon Dioxide Level 25 Anion Gap 12 Blood Urea Nitrogen 27 H Creatinine 0.99 Glucose Level 133 Calcium Level 8.7 Medications Medications Current Medications Ondansetron HCl (Zofran Inj) 4 mg Q6H PRN IV NAUSEA AND/OR VOMITING; Start at 07:00 Acetaminophen (Tylenol Tab) 650 mg Q6H PRN PO PAIN LEVEL 1-3 OR FEVER; Start at 07:00 Docusate Sodium (Colace) 100 mg Q12H PRN PO CONSTIPATION; Start 04/01/17 at 07: 00 Bisacodyl 5 mg 5 mg DAILY PRN PO CONSTIPATION Last administered on 04/03/17 12 :24; Admin Dose 5 MG; Start 04/01/17 at 07:00 Levofloxacin/ Dextrose (Levaquin 750 Mg/ D5W 150 ml (Pmx)) 150 ml @ 100 mls/hr Q24H IVPB Last administered on 04/03/17 06:05; Admin Dose 100 MLS/HR; Start at 07:00 Apixaban (Eliquis) 5 mg BID PO Last administered on 04/03/17 08:46; Admin Dose 5 MG; Start 04/01/17 at 12:27 Atorvastatin Calcium (Lipitor) 20 mg QHS PO Last administered on 04/02/17 21: 25; Admin Dose 20 MG; Start 04/01/17 at 21:00 Bicalutamide (Casodex) 50 mg DAILY PO Last administered on 04/03/17 08:53; Admin Dose 50 MG; Start 04/02/17 at 09:00 Docusate Sodium (Colace) 100 mg DAILY PO Last administered on 04/03/17 08:46; Admin Dose 100 MG; Start 04/02/17 at 09:00 Dorzolamide/ Timolol (Cosopt) 1 drop BID BOTH EYES Last administered on 08:45; Admin Dose 1 DROP; Start 04/01/17 at 14:00 Lactobacillus Acidophilus/ Rhamnosus (Culturelle) 1 cap BID PO Last administered on 04/03/17 08:46; Admin Dose 1 CAP; Start 04/01/17 at 21:00 Senna (Senokot) 1 tab QHS PO Last administered on 04/02/17 21:25; Admin Dose 1 TAB; Start 04/01/17 at 21:00 Tiotropium Bunch (Spiriva) 1 inh DAILY INH Last administered on 04/03/17 08: 45; Admin Dose 1 INH; Start 04/01/17 at 14:00 Diltiazem HCl (Cardizem Cd) 240 mg DAILY PO Last administered on 04/03/17 08: 46; Admin Dose 240 MG; Start 04/01/17 at 12:30 Digoxin (Digoxin) 0.25 mg DAILY@13 PO Last administered on 04/03/17 12:16; Admin Dose 0.25 MG; Start 04/01/17 at 13:00 Latanoprost (Xalatan) 1 drop HS BOTH EYES Last administered on 04/02/17 21:24 ; Admin Dose 1 DROP; Start 04/01/17 at 21:00 Methylprednisolone Sodium Succinate (Solu-Medrol) 40 mg BID IV Last administered on 04/03/17 08:45; Admin Dose 40 MG; Start 04/02/17 at 21:00; Stop 04/03/17 at 21:01 Famotidine (Pepcid) 20 mg BID PO Last administered on 04/03/17 08:46; Admin Dose 20 MG; Start 04/02/17 at 21:00 Prednisone (Prednisone) 40 mg DAILY PO ; Start 04/04/17 at 09:00 LULI SANCHEZ MD Apr 03, 2017 18:09
[2017-04-03] MEDS: LATANOPROST 0.005% 2.5 ML OPH BOTH EYES SCH (20:06)
[2017-04-03] MEDS: ATORVASTATIN 20 MG TAB PO SCH (20:06)
[2017-04-03] MEDS: PROPYLTHIOURACIL 50 MG TAB PO SCH (20:07)
[2017-04-03] MEDS: SENNA TAB PO SCH (20:10)
--- NOTE | 2017-04-03 20:17 | RADRPT ---
PROCEDURE: US Thyroid. CLINICAL INDICATION: Abnormal thyroid function tests. TECHNIQUE: High-resolution sonography of the thyroid was performed in the axial and sagittal plane s. COMPARISON: None. FINDINGS: The right lobe measures 523 x 2.2 x 2.0 cm. The left lobe measures 5.0 x 2.0 x 1.5 cm. The isthmus measures 0.3 cm. There are multiple small cystic and solid nodules bilaterally, all averaging less than [address] There is no nodule with any suspicious characteristics. Thyroid echogenicity is normal. The thyroid is normal in size. IMPRESSION: 1. Multiple small benign nodules bilaterally. No further evaluation is required. TIRADS 1. 2. Otherwise normal thyroid ultrasound. RPTAT: QQ .Justino Fonseca MD, Date Time Electronically viewed and signed by .Justino Fonseca MD, on 04/03/2017 20:17 .R/
[2017-04-04] VITALS: PULSE 61
[2017-04-04 00:19] VITALS: BP 147/71; RESP 18
[2017-04-04] MEDS: ALBUTEROL/IPRATROPIUM (NEB) 3 ML AMP HHN SCH ×4 (00:20→12:01)
[2017-04-04 04:00] VITALS: BP 129/71; PULSE 60; RESP 18
[2017-04-04] MEDS: LEVOFLOXACIN 750MG/D5W (PMX) 150 ML IVPB SCH (06:07)
[2017-04-04 07:55] LABS: BASOPHILS % 0.1 % (0.0-2.0); HEMATOCRIT 37.9 % (42.0-52.0); HEMOGLOBIN 12.3 g/dl (14.0-18.0); LYMPHOCYTES # 0.6 10^3/ul (0.8-2.9); LYMPHOCYTES % 5.3 % (15.0-51.0); MEAN CORPUSCULAR HEMOGLOBIN 29.1 pg (29.0-33.0); MEAN CORPUSCULAR HGB CONC 32.5 g/dl (32.0-37.0); MEAN CORPUSCULAR VOLUME 89.8 fl (82.0-101.0); MEAN PLATELET VOLUME 9.8 fl (7.4-10.4); MONOCYTE # 0.6 10^3/ul (0.3-0.9); MONOCYTES % 5.1 % (0.0-11.0); NEUTROPHIL # 10.4 10^3/ul (1.6-7.5); PLATELET COUNT 334 10^3/UL (140-415); RED BLOOD COUNT 4.22 10^6/ul (4.70-6.10); RED CELL DISTRIBUTION WIDTH 14.1 % (11.5-14.5); WHITE BLOOD COUNT 11.7 10^3/ul (4.8-10.8)
[2017-04-04 08:00] VITALS: BP 140/69; PULSE 57; RESP 18
[2017-04-04 08:16] LABS: CALCIUM 8.3 mg/dl (8.4-10.2); CREATININE 0.95 mg/dl (0.61-1.24); POTASSIUM 3.8 mmol/L (3.5-5.1)
--- NOTE | 2017-04-04 08:46 | PN ---
Date/Time of Note Date/Time of Note DATE: 04/04/17 TIME: 08:40 Assessment/Plan VTE Prophylaxis VTE Prophylaxis Intervention: other (Eliquis) Lines/Catheters IV Catheter Type (from [facility]): Peripheral IV Assessment/Plan Chief Complaint/Hosp Course 77 yo [place] male with h/o COPD presenting with worsening SOB/cough and subjective fevers 1. Acute on chronic hypoxic respiratory failure likely 2/2 COPD exacerbation. Stable. -Continue around the clock & PRN bronchodilators, prednisone-tapering dose, AND PRN cough suppressants. 2.Possible RLL pneumonia. Clinically improved. CTA Chest 04/01/2016- Density in the right upper lobe inferiorly and laterally measuring 2.5 x 2.0 cm, larger than seen previously. This may be due to an infectious process-Differential includes malignancies. -Continue Levaquin -F/u Legionella antigen/antibody -Follow-up CT scan advised in 3 months 3.Atrial fibrillation. Stable. -Continue Digoxin and Eliquis. Amiodarone has been stopped 2/2 abnormal thyroid fxn. 4. Abnormal thyroid function with Hyperthyroid state, possible Amiodarone- induced thyrotoxicosis vs other thyroidal-illness- Thyroid US with multinodular thyroid. -Cards and endo eval appreciated- Amio has been dcd. -f/u with endo recs-has been started on propylthiouracil. 5.Hypertension. sable. -Continue home meds 6. Dyslipidemia. -Continue statin 7. History of metastatic prostate cancer with history of prostatectomy in 1991 -Continue home meds. 8.Glaucoma. Continue home meds. 9.Constipation.Stable. -Continue home meds 10. COPD with emphysema. -Continue medical management. 11. Leukocytosis,likely 2/2pneumonia and steroid-induced. stable. Continue abx. DVT Prophylaxis: Eliquis PLAN: Overall patient feels better. DC planning once cleared form endocrinology. Recommend oral Levaquinx 5 more days with outpt pulmonary/endo f /u and repeat CTA chest in 3 months. Patient was seen in collaboration with . Problems: Subjective 24 Hr Interval Summary Free Text/Dictation No acute distress. Exam/Review of Systems Vital Signs Vitals Vital Signs Date Time Temp Pulse Resp B/P Pulse Ox O2 Delivery O2 Flow Rate FiO2 04/04/17 08:06 64 20 94 Nasal Cannula 2.0 04/04/17 08:00 97.6 140/69 04/01/17 06:03 21 Intake and Output 04/03/17 04/03/17 04/04/17 15:00 23:00 07:00 Intake Total 1000 ml Balance 1000 ml Exam General:Elderly [place] male, not in any acute distress . HEENT: Normocephalic, Atraumatic, No laceration or hematoma; Eyes: PEERL, Conjunctiva clear, Anicteric sclera Neck: Supple without any lymphadenopathy, nontender, no JVD, no carotid bruits, trachea midline, no thyromegaly Cardiac: Irregular+ S1, S2 auscultated, no mumurs or gallop Pulmonary: Diminished right side. Normal respiratory effort. Chest clear to auscultation bilaterally, no adventitious breath sounds GI: Abdomen normal to inspection. Soft, non- distended, no masses, no rebound tenderness or guarding. Bowel sounds active on all four quadrants Genitourinary: Deferred Extremities: No cyanosis, clubbing, or edema. Pulses [2+] bilaterally. Full ROM on all four extremities. No focal weakness appreciated. Neurologic: Alert to person, place, time, and situation. Affect appropriate, intact sensation. Skin: Clean,dry, and intact. No ecchymosis, no rashes, or lesions Results Result Diagram: 04/04/17 0655 04/04/17 0655 Results 24 hrs Laboratory Tests Test 04/04/17 06:55 White Blood Count 11.7 H Red Blood Count 4.22 L Hemoglobin 12.3 L Hematocrit 37.9 L Mean Corpuscular Volume 89.8 Mean Corpuscular Hemoglobin 29.1 Mean Corpuscular Hemoglobin Concent 32.5 Red Cell Distribution Width 14.1 Platelet Count 334 Mean Platelet Volume 9.8 Neutrophils % 89.0 H Lymphocytes % 5.3 L Monocytes % 5.1 Eosinophils % 0.0 Basophils % 0.1 Nucleated Red Blood Cells % 0.0 Neutrophils # 10.4 H Lymphocytes # 0.6 L Monocytes # 0.6 Eosinophils # 0.0 Basophils # 0.0 Nucleated Red Blood Cells # 0.0 Sodium Level 140 Potassium Level 3.8 Chloride Level 105 Carbon Dioxide Level 27 Anion Gap 12 Blood Urea Nitrogen 23 H Creatinine 0.95 Glucose Level 114 Calcium Level 8.3 L Medications Medications Current Medications Ondansetron HCl (Zofran Inj) 4 mg Q6H PRN IV NAUSEA AND/OR VOMITING; Start at 07:00 Acetaminophen (Tylenol Tab) 650 mg Q6H PRN PO PAIN LEVEL 1-3 OR FEVER; Start at 07:00 Docusate Sodium (Colace) 100 mg Q12H PRN PO CONSTIPATION; Start 04/01/17 at 07: 00 Bisacodyl 5 mg 5 mg DAILY PRN PO CONSTIPATION Last administered on 04/03/17 12 :24; Admin Dose 5 MG; Start 04/01/17 at 07:00 Levofloxacin/ Dextrose (Levaquin 750 Mg/ D5W 150 ml (Pmx)) 150 ml @ 100 mls/hr Q24H IVPB Last administered on 04/04/17 06:07; Admin Dose 100 MLS/HR; Start at 07:00 Apixaban (Eliquis) 5 mg BID PO Last administered on 04/03/17 20:07; Admin Dose 5 MG; Start 04/01/17 at 12:27 Atorvastatin Calcium (Lipitor) 20 mg QHS PO Last administered on 04/03/17 20: 06; Admin Dose 20 MG; Start 04/01/17 at 21:00 Bicalutamide (Casodex) 50 mg DAILY PO Last administered on 04/03/17 08:53; Admin Dose 50 MG; Start 04/02/17 at 09:00 Docusate Sodium (Colace) 100 mg DAILY PO Last administered on 04/03/17 08:46; Admin Dose 100 MG; Start 04/02/17 at 09:00 Dorzolamide/ Timolol (Cosopt) 1 drop BID BOTH EYES Last administered on 20:06; Admin Dose 1 DROP; Start 04/01/17 at 14:00 Lactobacillus Acidophilus/ Rhamnosus (Culturelle) 1 cap BID PO Last administered on 04/03/17 20:10; Admin Dose 1 CAP; Start 04/01/17 at 21:00 Senna (Senokot) 1 tab QHS PO Last administered on 04/03/17 20:10; Admin Dose 1 TAB; Start 04/01/17 at 21:00 Tiotropium Telephone (Spiriva) 1 inh DAILY INH Last administered on 04/03/17 08: 45; Admin Dose 1 INH; Start 04/01/17 at 14:00 Diltiazem HCl (Cardizem Cd) 240 mg DAILY PO Last administered on 04/03/17 08: 46; Admin Dose 240 MG; Start 04/01/17 at 12:30 Digoxin (Digoxin) 0.25 mg DAILY@13 PO Last administered on 04/03/17 12:16; Admin Dose 0.25 MG; Start 04/01/17 at 13:00 Latanoprost (Xalatan) 1 drop HS BOTH EYES Last administered on 04/03/17 20:06 ; Admin Dose 1 DROP; Start 04/01/17 at 21:00 Famotidine (Pepcid) 20 mg BID PO Last administered on 04/03/17 20:06; Admin Dose 20 MG; Start 04/02/17 at 21:00 Prednisone (Prednisone) 40 mg DAILY PO ; Start 04/04/17 at 09:00 Propylthiouracil (Ptu) 200 mg TID PO Last administered on 04/03/17 20:07; Admin Dose 200 MG; Start 04/03/17 at 21:00 NGOC SILVESTRE NP Apr 04, 2017 08:46
[2017-04-04] MEDS: BICALUTAMIDE 50 MG TAB PO SCH ×2 (08:59→09:09)
[2017-04-04] MEDS: PROPYLTHIOURACIL 50 MG TAB PO SCH ×2 (08:59→12:43)
[2017-04-04] MEDS: APIXABAN 5 MG TABLET PO SCH (09:00)
[2017-04-04] MEDS: DILTIAZEM (CD) 240 MG CAP PO SCH (09:00)
[2017-04-04] MEDS: DORZOLAMIDE/TIMOLOL 10 ML OPH BOTH EYES SCH (09:00)
[2017-04-04] MEDS: TIOTROPIUM 18 MCG CAPSULE INHA DEV INH SCH (09:00)
[2017-04-04] MEDS: LACTOBACILLUS RHAMNOSUS CAP PO SCH (09:00)
[2017-04-04] MEDS ORDERED: predniSONE 20 MG TAB PO SCH (09:00)
[2017-04-04] MEDS: DOCUSATE SODIUM 100 MG CAP PO SCH (09:00)
[2017-04-04] MEDS: BISACODYL (EC) 5 MG TAB PO PRN (09:00)
[2017-04-04] MEDS: FAMOTIDINE 20 MG TAB PO SCH (09:00)
--- NOTE | 2017-04-04 11:02 | PDOCDIS ---
Discharge Instructions CONDITION Patient Condition: Stable HOME CARE INSTRUCTIONS: Diet Instructions: Low Fat /Cholesterol FOLLOW UP/APPOINTMENTS Follow-up Plan 1. Follow-up with in 4 weeks 2. Follow-up with Dr. Bautista in 2 weeks [id number] [address] [facility], [address] [place] [address] Office Office 3.Follow up with primary care physician in 1 week If you don't have one please let someone know, we can give you resources that may help you pick one. You may also call your insurance company to assign one to you. Review your medication list with your nurse before leaving and if you need new prescriptions please let your nurse know. I may have made changes to your home medications or given you new prescriptions, please let your primary doctor know as well. Stay compliant with your medications and report any side effects to your PCP or pharmacist. Return to the ER if you have any concerns and cannot reach your doctors or call your insurance company, they usually have a nurse that can help you. 4. Call 911 or go to the nearest emergency room if experiencing loss of consciousness, dizziness, chest pain, shortness of breath, vomiting/abdominal pain, speech difficulties, motor weakness or any unusual symptoms. NGOC SILVESTRE NP Apr 04, 2017 11:02
[2017-04-04] MEDS ORDERED: LEVO500T10 PO (11:06)
[2017-04-04] MEDS ORDERED: PRED20TA PO (11:06)
[2017-04-04] MEDS ORDERED: PROP50TA2 PO (11:06)
--- NOTE | 2017-04-04 11:30 | CONS ---
Date/Time of Note Date/Time of Note DATE: 04/04/17 TIME: 11:25 Consult Date/Type/Reason Admit Date/Time Apr 01, 2017 at 05:36 Initial Consult Date 04/01/17 Type of Consultation: Pulmonary Ordering Provider: Sylvain Vazquez DO Subjective Patient comfortable this morning. Denies shortness of breath or chest pain. Objective Vital Signs Date Time Temp Pulse Resp B/P Pulse Ox O2 Delivery O2 Flow Rate FiO2 04/04/17 08:06 64 20 94 Nasal Cannula 2.0 04/04/17 08:00 97.6 140/69 04/01/17 06:03 21 Intake and Output 04/03/17 04/03/17 04/04/17 15:00 23:00 07:00 Intake Total 1000 ml Balance 1000 ml Exam GENERAL: GENERAL: Once well-developed gentleman comfortable at rest VITAL SIGNS: per chart NECK: Supple. No JVD or lymphadenopathy. CARDIAC EXAM: S1, S2. No added sounds or murmurs. CHEST: clear bilaterally, No added sounds, rales or wheezes ABDOMEN: Soft, nontender. No guarding or rebound. EXTREMITIES: No cyanosis, clubbing or edema. NEUROLOGIC: Generalized weakness. No focal deficits. Results/Medications Result Diagram: 04/04/17 0655 04/04/17 0655 Results 24 hrs Laboratory Tests Test 04/04/17 06:55 White Blood Count 11.7 H Red Blood Count 4.22 L Hemoglobin 12.3 L Hematocrit 37.9 L Mean Corpuscular Volume 89.8 Mean Corpuscular Hemoglobin 29.1 Mean Corpuscular Hemoglobin Concent 32.5 Red Cell Distribution Width 14.1 Platelet Count 334 Mean Platelet Volume 9.8 Neutrophils % 89.0 H Lymphocytes % 5.3 L Monocytes % 5.1 Eosinophils % 0.0 Basophils % 0.1 Nucleated Red Blood Cells % 0.0 Neutrophils # 10.4 H Lymphocytes # 0.6 L Monocytes # 0.6 Eosinophils # 0.0 Basophils # 0.0 Nucleated Red Blood Cells # 0.0 Sodium Level 140 Potassium Level 3.8 Chloride Level 105 Carbon Dioxide Level 27 Anion Gap 12 Blood Urea Nitrogen 23 H Creatinine 0.95 Glucose Level 114 Calcium Level 8.3 L Medications Current Medications Ondansetron HCl (Zofran Inj) 4 mg Q6H PRN IV NAUSEA AND/OR VOMITING; Start at 07:00 Acetaminophen (Tylenol Tab) 650 mg Q6H PRN PO PAIN LEVEL 1-3 OR FEVER; Start at 07:00 Docusate Sodium (Colace) 100 mg Q12H PRN PO CONSTIPATION; Start 04/01/17 at 07: 00 Bisacodyl 5 mg 5 mg DAILY PRN PO CONSTIPATION Last administered on 04/04/17 09 :00; Admin Dose 5 MG; Start 04/01/17 at 07:00 Levofloxacin/ Dextrose (Levaquin 750 Mg/ D5W 150 ml (Pmx)) 150 ml @ 100 mls/hr Q24H IVPB Last administered on 04/04/17 06:07; Admin Dose 100 MLS/HR; Start at 07:00 Apixaban (Eliquis) 5 mg BID PO Last administered on 04/04/17 09:00; Admin Dose 5 MG; Start 04/01/17 at 12:27 Atorvastatin Calcium (Lipitor) 20 mg QHS PO Last administered on 04/03/17 20: 06; Admin Dose 20 MG; Start 04/01/17 at 21:00 Bicalutamide (Casodex) 50 mg DAILY PO Last administered on 04/04/17 09:09; Admin Dose 50 MG; Start 04/02/17 at 09:00 Docusate Sodium (Colace) 100 mg DAILY PO Last administered on 04/04/17 09:00; Admin Dose 100 MG; Start 04/02/17 at 09:00 Dorzolamide/ Timolol (Cosopt) 1 drop BID BOTH EYES Last administered on 09:00; Admin Dose 1 DROP; Start 04/01/17 at 14:00 Lactobacillus Acidophilus/ Rhamnosus (Culturelle) 1 cap BID PO Last administered on 04/04/17 09:00; Admin Dose 1 CAP; Start 04/01/17 at 21:00 Senna (Senokot) 1 tab QHS PO Last administered on 04/03/17 20:10; Admin Dose 1 TAB; Start 04/01/17 at 21:00 Tiotropium [place] (Spiriva) 1 inh DAILY INH Last administered on 04/04/17 09: 00; Admin Dose 1 INH; Start 04/01/17 at 14:00 Diltiazem HCl (Cardizem Cd) 240 mg DAILY PO Last administered on 04/04/17 09: 00; Admin Dose 240 MG; Start 04/01/17 at 12:30 Digoxin (Digoxin) 0.25 mg DAILY@13 PO Last administered on 04/03/17 12:16; Admin Dose 0.25 MG; Start 04/01/17 at 13:00 Latanoprost (Xalatan) 1 drop HS BOTH EYES Last administered on 04/03/17 20:06 ; Admin Dose 1 DROP; Start 04/01/17 at 21:00 Famotidine (Pepcid) 20 mg BID PO Last administered on 04/04/17 09:00; Admin Dose 20 MG; Start 04/02/17 at 21:00 Prednisone (Prednisone) 40 mg DAILY PO Last administered on 04/04/17 09:00; Admin Dose 40 MG; Start 04/04/17 at 09:00 Propylthiouracil (Ptu) 200 mg TID PO Last administered on 04/03/17 20:07; Admin Dose 200 MG; Start 04/03/17 at 21:00 Assessment/Plan Chief Complaint/Hosp Course Assessment: 1. Severe bullous emphysema with acute on chronic COPD exacerbation. 2. RLL pna. 3. Hyperthyroidism. Plan 1. Continue abx and steroids. 2. Differential for PNA does include malignancy. f/u with me in office with repeat CT chest. If persistent infiltrate will need PET 3. Endo recommendations. Anticipate discharge soon. Follow-up with me in 2 weeks. Problems: ANITA WOMACK MD, [facility] Apr 04, 2017 11:30
[2017-04-04 12:00] VITALS: PULSE 61
[2017-04-04 12:02] VITALS: BP 121/61; RESP 18
[2017-04-04] MEDS: DIGOXIN 0.25 MG TAB PO SCH (12:42)
--- NOTE | 2017-04-04 17:54 | CONS ---
Date/Time of Note Date/Time of Note DATE: 04/04/17 TIME: 17:52 Assessment/Plan Assessment/Plan Additional Assessment/Plan Paroxysmal atrial fibrillation, currently sinus rhythm COPD Pneumonia Hypertension Preserved ejection fraction Thyroid dysfunction -Patient has remained in sinus rhythm on review of telemetry. He is currently on Cardizem and digoxin Continue anticoagulation if no complication. Consultation Date/Type/Reason Admit Date/Time Apr 01, 2017 at 05:36 Initial Consult Date 04/03/17 Type of Consultation: cv Referring Provider: Sylvain Vazquez DO 24 HR Interval Summary Free Text/Dictation Denies shortness of breath, palpitations, feeling good Exam/Review of Systems Vital Signs Vitals Vital Signs Date Time Temp Pulse Resp B/P Pulse Ox O2 Delivery O2 Flow Rate FiO2 04/04/17 12:05 96 2.0 04/04/17 12:02 97.4 64 18 121/61 04/04/17 12:01 Nasal Cannula 04/01/17 06:03 21 Intake and Output 04/03/17 04/03/17 04/04/17 15:00 23:00 07:00 Intake Total 1000 ml Balance 1000 ml Exam No apparent distress Constitutional: alert, oriented Head: normocephalic Respiratory: other (Coarse breath sounds bilaterally, no wheezing) Cardiovascular: other (S1-S2 heard), regular rate and rhythm Gastrointestinal: bowel sounds, non-tender, soft Extremities: other (No edema) Results Result Diagram: 04/04/17 0655 04/04/17 0655 Results 24 hrs Laboratory Tests Test 04/04/17 06:55 White Blood Count 11.7 H Red Blood Count 4.22 L Hemoglobin 12.3 L Hematocrit 37.9 L Mean Corpuscular Volume 89.8 Mean Corpuscular Hemoglobin 29.1 Mean Corpuscular Hemoglobin Concent 32.5 Red Cell Distribution Width 14.1 Platelet Count 334 Mean Platelet Volume 9.8 Neutrophils % 89.0 H Lymphocytes % 5.3 L Monocytes % 5.1 Eosinophils % 0.0 Basophils % 0.1 Nucleated Red Blood Cells % 0.0 Neutrophils # 10.4 H Lymphocytes # 0.6 L Monocytes # 0.6 Eosinophils # 0.0 Basophils # 0.0 Nucleated Red Blood Cells # 0.0 Sodium Level 140 Potassium Level 3.8 Chloride Level 105 Carbon Dioxide Level 27 Anion Gap 12 Blood Urea Nitrogen 23 H Creatinine 0.95 Glucose Level 114 Calcium Level 8.3 L Sylvain Vazquez DO Apr 04, 2017 17:54
--- NOTE | 2017-04-05 08:53 | DS ---
Date/Time of Note Date/Time of Note DATE: 04/05/17 TIME: 08:49 Discharge Summary Admission/Discharge Info Admit Date/Time Apr 01, 2017 at 05:36 Discharge Date/Time Apr 04, 2017 at 14:55 Discharge Diagnosis 1. Acute on chronic hypoxic respiratory failure likely 2/2 COPD exacerbation. Stable. 2.Possible RLL pneumonia. Resolved 3.Atrial fibrillation. Stable. 4. 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 5.Hypertension. 6. Dyslipidemia. 7. History of metastatic prostate cancer with history of prostatectomy in 1991 8.Glaucoma. 9.Constipation.Stable. 10. COPD with emphysema. 11. Leukocytosis,likely 2/2pneumonia and steroid-induced. stable. Continue abx. Patient Condition: Stable Consults , pulmonary , cardiology ,endocrinology Procedures 04/01/2017. CT pulmonary angiogram. IMPRESSION: 1. Normal CT pulmonary angiogram with no evidence of pulmonary artery embolism. 2. Severe emphysematous changes bilaterally. 3. Density in the right upper lobe inferiorly and laterally measuring 2.5 x 2.0 cm, larger than seen previously. This may be due to an infectious process. Follow-up CT scan advised. 4. Other bilateral pulmonary densities are similar to the prior study. 5. Atherosclerosis. 6. Mild degenerative changes of the spine. 05/03/2017. Ultrasound thyroid. IMPRESSION: 1. Multiple small benign nodules bilaterally. No further evaluation is required. TIRADS 1. 2. Otherwise normal thyroid ultrasound. Hx of Present Illness This is a 50 yo [place] male with a history of nicotine abuse , prostate cancer, presented to ER with complaints of worsening short of breath associated with non productive cough and subjective fever for the last few days. Patient denied night sweats, PND, hemoptysis,chest pain, palpitation, N/V/ abdominal discomfort or other constitutional symptoms. Initial labs with elevated WBC 18,500. Otherwise unremarkable. Vital signs within acceptable range. Patient was given one dose solumedrol 125 mg IV and bronchodilators in ER with improvement in his symptoms. Chest Xray without acute findings. Patient was admitted. Hospital Course Patient was started on [id number] and PRN bronchodilators, IV steroids, antibiotics and cough suppressants. Cultures were sent. Patient was continued on home medications for underlying atrial fibrillation, hypertension, dyslipidemia, glaucoma and prostate cancer. CT chest showed density in the right upper lobe inferiorly and laterally measuring 2.5 x 2.0 cm, larger than seen previously. Patient was evaluated by pulmonary medicine and per recommendation, this is more likely secondary to underlying pneumonia however malignancy is also a differential. Recommendation was to repeat CT in 3 months with outpatient pulmonary follow-up. There was also recommendation for outpatient PET if infiltrates remain persistent. Patient's condition responded very well to Levaquin. Steroids taper off. He did not have any further shortness of breath or cough. Patient was continued on maintenance therapy for severe bullous emphysema with chronic COPD. During the course of hospitalization, patient was also noted with abnormal thyroid function with possible hyperthyroid state. Therefore, endocrinology consult was requested. As patient was also receiving amiodarone, a cardiology consult was requested to determine whether patient can be safely discontinued from amiodarone vs start patient on medications for hypothyroidism along with continuation of amiodarone. Per expert opinion, patient did not require any further amiodarone as he was found to be in sinus rhythm. Recommendation was to continue Cardizem , digoxin and anticoagulation following atrial fibrillation. However, as per endocrinology recommendation, patient was also started on propylthiouracil for hyperthyroidism. His ultrasound was showing multinodular thyroid. Patient remained asymptomatic. At this time, cultures came back negative. Urine Legionella antigen was negative. There was no further medical symptoms of pneumonia and patient is medically stable for discharge with outpatient endocrinology and pulmonary medicine. Disposition: Patient will be discharged home with outpatient follow-up. He was instructed to continue home medications and new prescriptions which was added. Patient and family verbalized discharge instructions. Proximally 60 minutes was spent in coordinating discharge on this patient. Patient was seen in collaboration with Dr. Douglas. Home Meds Active Scripts Levofloxacin* (Levofloxacin*) 500 Mg Tablet, 500 MG PO DAILY, #5 TAB Prov:NGOC SILVESTRE NP 04/04/17 Prednisone* (Prednisone*) 20 Mg Tab, 20 MG PO DAILY, #2 TAB Prednisone 20 mg p.o. daily 2 days dose schedule for 04/05/2017 and 04/06/2017. Then prednisone 10 mg p.o. daily 2 days dose scheduled for 04/07/2079 04/08/2017. Prov:NGOC SILVESTRE NP 04/04/17 Propylthiouracil* (Propylthiouracil*) 50 Mg Tablet, 200 MG PO TID, #30 TAB Prov:NGOC SILVESTRE V. [employer]ODUCE INSPECTOR 04/04/17 Lactobacillus Rhamnosus* (Culturelle*) 1 Each Cap.sprink, 1 CAP PO BID for 14 Days, CAP Prov:AMY RICE 10/26/16 Reported Medications Bicalutamide* (Bicalutamide*) 50 Mg Tablet, 50 MG PO DAILY, TAB 04/01/17 Sennosides* (Senna Lax*) 8.6 Mg Tablet, 1 TAB PO QHS, TAB 10/10/16 Docusate Sodium (Col-Rite) 100 Mg Capsule, 100 MG PO DAILY, CAP 10/10/16 Apixaban* (Eliquis*) 5 Mg Tablet, 5 MG PO BID, TAB 10/10/16 Diltiazem Hcl* (Diltiazem XT) 240 Mg Capsule.er, 240 MG PO DAILY, #30 CAP 10/10/16 Atorvastatin Calcium* (Atorvastatin Calcium*) 20 Mg Tablet, 20 MG PO QHS, #30 TAB 10/10/16 Bimatoprost* (Lumigan*) 2.5 Ml Drops, 1 DROP BOTH EYES HS 12/19/13 Dorzolamide/Timolol* (Dorzolamide/Timolol*) 10 Ml Drops, 1 DROP BOTH EYES BID, EA 12/19/13 Tiotropium [place]* (Spiriva*) 18 Mcg Cap.w.dev, 1 INH IH DAILY, EA 12/19/13 Salmeterol Xinaf/Fluticasone* (Advair*) 1 Inh Inha, 2 PUFF INH BID, INH 12/19/13 Digoxin* (Digox*) 250 Mcg Tablet, 250 MCG PO DAILY 12/19/13 Discontinued Reported Medications Amiodarone Hcl* (Amiodarone Hcl*) 200 Mg Tablet, 200 MG PO DAILY, #30 TAB 10/10/16 Follow-up Plan 1. Follow-up with in 4 weeks 2. Follow-up with Dr. Bautista in 2 weeks [id number] [facility], [address] [place] [address] Office Office 3.Follow up with primary care physician in 1 week If you don't have one please let someone know, we can give you resources that may help you pick one. You may also call your insurance company to assign one to you. Review your medication list with your nurse before leaving and if you need new prescriptions please let your nurse know. I may have made changes to your home medications or given you new prescriptions, please let your primary doctor know as well. Stay compliant with your medications and report any side effects to your PCP or pharmacist. Return to the ER if you have any concerns and cannot reach your doctors or call your insurance company, they usually have a nurse that can help you. 4. Call 911 or go to the nearest emergency room if experiencing loss of consciousness, dizziness, chest pain, shortness of breath, vomiting/abdominal pain, speech difficulties, motor weakness or any unusual symptoms. Primary Care Provider Not On Staff Doctor NGOC SILVESTRE NP Apr 05, 2017 08:53
== END 2017-04-04 14:55 | disposition home or self-care (01) | DRG 190 ==
LOC: E/R 02:58 → TEL 05:36
PROVIDERS: ADMIT Family Medicine; ATTEND Family Medicine
DX: J44.1 Chronic obstructive pulmonary disease with (acute) exacerbation (principal); J96.21 Acute and chronic respiratory failure with hypoxia; J18.9 Pneumonia, unspecified organism; I10 Essential (primary) hypertension; I48.91 Unspecified atrial fibrillation; E78.5 Hyperlipidemia, unspecified; Z85.46 Personal history of malignant neoplasm of prostate; H40.9 Unspecified glaucoma; K59.00 Constipation, unspecified; D72.829 Elevated white blood cell count, unspecified
CPT/HCPCS: 36415; 36600; 71010; 71275; 76536; 80048; 80053; 80061; 82803; 83036; 83605; 83735; 84439; 84443; 84480; 84481; 85025; 86713; 87040; 87449; 90686; 94640; 94664; 96365; 96375; J1956; J2920; J2930; J7512; Q9967

== ENCOUNTER 2017-04-05 17:13 | Inpatient (IN) | payer MEDICARE, OTHER ==
[~2017-04-05] VITALS: Ht 177.8 cm; Wt 62.5 kg
[~2017-04-05 17:13] MED LIST changes: -AMIO200T2 PO; -AMOX1TAB10 PO; +BICA50TA4 PO; -GUAI600T14 PO; +LEVO500T10 PO; -PRED10TA PO; +PROP50TA2 PO
[2017-04-05] MEDS ORDERED: ALBUTEROL 0.083% (NEB) 2.5 MG/3 ML AMP HHN STA (17:47)
[2017-04-05] MEDS ORDERED: ONDANSETRON 4 MG INJ IV PRN ×2 (18:00→20:00)
[2017-04-05] MEDS ORDERED: AZITHROMYCIN 500MG/NS (PMX) 250 ML IVPB ONE (18:00)
[2017-04-05] MEDS ORDERED: METHYLPREDNISOLONE 125 MG INJ IV ONE (18:00)
[2017-04-05] MEDS ORDERED: ACETAMINOPHEN 325 MG TAB PO PRN ×2 (18:00→20:00)
[2017-04-05 18:14] LABS: ABNORMAL IP MESSAGE 1; HEMATOCRIT 39.4 % (42.0-52.0); HEMOGLOBIN 13.4 g/dl (14.0-18.0); MEAN CORPUSCULAR HEMOGLOBIN 29.7 pg (29.0-33.0); MEAN CORPUSCULAR VOLUME 87.4 fl (82.0-101.0); PLATELET COUNT 335 10^3/UL (140-415); POSITIVE DIFF @See below; RED BLOOD COUNT 4.51 10^6/ul (4.70-6.10); RED CELL DISTRIBUTION WIDTH 13.8 % (11.5-14.5); WHITE BLOOD COUNT 20.4 10^3/ul (4.8-10.8)
[2017-04-05 18:47] LABS: ANION GAP 11 (8-16); BLOOD UREA NITROGEN 24 mg/dl (7-20); CARBON DIOXIDE 27 mmol/L (21-31); CHLORIDE 103 mmol/L (97-110); CREATININE 1.04 mg/dl (0.61-1.24); GLUCOSE 104 mg/dl (70-220); POTASSIUM 3.5 mmol/L (3.5-5.1); SODIUM 137 mmol/L (135-144)
[2017-04-05 18:52] LABS: MONOCYTES % (M) 5 % (0-11); PLATELET ESTIMATE NORMAL
--- NOTE | 2017-04-05 19:03 | RADRPT ---
PROCEDURE: Chest radiograph CLINICAL INDICATION: Shortness of breath. COMPARISON: CT from 04/01/2017. TECHNIQUE: Single frontal chest radiograph. FINDINGS: Marked centrilobular emphysema, more notable at the lung apices. Bullous emphysema at the lung bases. A rounded opacity along the right minor fissure is unchanged from 04/01/2017 when allowing for diffe rences in modality. No pleural effusion or new opacity. The cardiomediastinal silhouette is normal. No suspicious bone lesion. IMPRESSION: 1. Marked emphysema. 2. Peripheral opacity in the right midlung is unchanged from 04/01/2017 when allowing for differenc es in modality. 3. No new pneumonia or pleural effusion. RPTAT: [facility] Physician Roland Date Time Electronically viewed and signed by Physician Roland on 04/05/2017 19:03 /
[2017-04-05 19:06] LABS: TROPONIN-I < 0.012 ng/ml (0.00-0.12)
--- NOTE | 2017-04-05 19:56 | HP ---
Date/Time of Note Date/Time of Note DATE: 04/05/17 TIME: 19:44 Assessment/Plan VTE Prophylaxis VTE Prophylaxis Intervention: LMWH Assessment/Plan Chief Complaint/Hosp Course 1. Acute on chronic respiratory distress secondary to COPD exacerbation IV antibiotics, steroids, breathing treatments as needed and steroids Pulmonology consultation 2. 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 Paroxysmal A. fib-stable Patient should not be on further amiodarone secondary to thyrotoxicosis as well as potential for worsening pulmonary disease 4. Hypertension Continue home meds 5. Glaucoma Continue meds 6. Leukocytosis likely secondary to steroids Prophylaxis: Lovenox Problems: HPI/ROS Admit Date/Time Admit Date/Time April 05, 2017 Hx of Present Illness Patient is a 77-year-old male with a history of COPD, A. 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 Patient was recently discharged after hospitalization for COPD exacerbation. At home patient once again became short of breath and in the ER patient did desaturate and does require supplemental oxygen. Of note patient does use oxygen at home but this was reportedly insufficient according to . Patient has no other acute complaints this time, of note patient appeared to become nauseous when taking PTU and did not take it today. ROS Eyes: no complaints ENT: no complaints Respiratory: shortness of breath Cardiovascular: no complaints Gastrointestinal: no complaints Genitourinary: no complaints Musculoskeletal: no complaints Skin: no complaints Neurologic: no complaints Endocrine: no complaints Lymphatic: no complaints Psychological: nl mood/affect, no complaints Immunologic: no complaints PMH/Family/Social Past Medical History As per HPI Family History Significant Family History: no pertinent family hx Social History Alcohol Use: rarely Smoking Status: Current some day smoker Drug Use: none Exam/Review of Systems Vital Signs Vitals Vital Signs Date Time Temp Pulse Resp B/P Pulse Ox O2 Delivery O2 Flow Rate FiO2 04/05/17 18:07 Nasal Cannula 2 04/05/17 17:57 72 20 95 21 04/05/17 17:25 99.9 179/77 Exam Constitutional: alert, oriented Respiratory: clear to auscultation Cardiovascular: regular rate and rhythm Gastrointestinal: soft, No distended Musculoskeletal: nl extremities to inspection Labs Result Diagram: 04/05/17 1730 04/05/17 1730 AXEL WHARTON Apr 05, 2017 19:55
[2017-04-05] MEDS ORDERED: HYDROCODONE/APAP (5/325) TAB PO PRN (20:00)
[2017-04-05] MEDS ORDERED: NACL 0.9% 3 ML SYG IV SCH (20:00)
[2017-04-05] MEDS ORDERED: ZOLPIDEM 5 MG TAB PO PRN (20:00)
[2017-04-05] MEDS ORDERED: DOCUSATE SODIUM 100 MG CAP PO PRN (20:00)
[2017-04-05] MEDS ORDERED: ALBUTEROL/IPRATROPIUM (NEB) 3 ML AMP HHN PRN (20:00)
[2017-04-05] MEDS ORDERED: morphine 2 MG INJ IV PRN (20:00)
[2017-04-05 20:19] VITALS: PULSE 70; TEMP 99.9
[2017-04-05] MEDS: SALMETEROL/FLUTICASONE 250/50 INHA INH SCH ×2 (21:00→22:16)
[2017-04-05 21:16] VITALS: BP 121/57; RESP 18
[2017-04-05 21:17] VITALS: Ht 177.8 cm; Wt 62.5 kg
--- NOTE | 2017-04-05 21:26 | ERA ---
ER Documentation Chief Complaint Date/Time DATE: 04/05/17 TIME: 21:25 Chief Complaint Copmplains of SOB discharged yesterday but still weak HPI Patient is a 77-year-old male with COPD and hypertension who presents with shortness of breath. He was also recently diagnosed with bronchitis and pneumonia. He said the shortness of breath started yesterday after he was discharged. He had previously been admitted for a few days. The patient was discharged yesterday for COPD. He was supposed to be on antibiotics but did not take any today because he felt so bad. He was using some oxygen at home. Upon review of old medical records the patient has multiple visits to the ER. ROS All systems reviewed and are negative except as per history of present illness. Medications Home Meds Active Scripts Levofloxacin* (Levofloxacin*) 500 Mg Tablet, 500 MG PO DAILY, #5 TAB Prov:NGOC SILVESTRE NP 04/04/17 Prednisone* (Prednisone*) 20 Mg Tab, 20 MG PO DAILY, #2 TAB Prednisone 20 mg p.o. daily 2 days dose schedule for 04/05/2017 and 04/06/2017. Then prednisone 10 mg p.o. daily 2 days dose scheduled for 04/07/2079 04/08/2017. Prov:NGOC SILVESTRE NP 04/04/17 Propylthiouracil* (Propylthiouracil*) 50 Mg Tablet, 200 MG PO TID, #30 TAB Prov:NGOC SILVESTRE NP 04/04/17 Reported Medications Bicalutamide* (Bicalutamide*) 50 Mg Tablet, 50 MG PO DAILY, TAB 04/01/17 Sennosides* (Senna Lax*) 8.6 Mg Tablet, 1 TAB PO QHS, TAB 10/10/16 Docusate Sodium (Col-Rite) 100 Mg Capsule, 100 MG PO DAILY, CAP 10/10/16 Apixaban* (Eliquis*) 5 Mg Tablet, 5 MG PO BID, TAB 10/10/16 Diltiazem Hcl* (Diltiazem XT) 240 Mg Capsule.er, 240 MG PO DAILY, #30 CAP 10/10/16 Atorvastatin Calcium* (Atorvastatin Calcium*) 20 Mg Tablet, 20 MG PO QHS, #30 TAB 10/10/16 Bimatoprost* (Lumigan*) 2.5 Ml Drops, 1 DROP BOTH EYES HS 12/19/13 Dorzolamide/Timolol* (Dorzolamide/Timolol*) 10 Ml Drops, 1 DROP BOTH EYES BID, EA 12/19/13 Tiotropium [place]* (Spiriva*) 18 Mcg Cap.w.dev, 1 INH IH DAILY, EA 12/19/13 Salmeterol Xinaf/Fluticasone* (Advair*) 1 Inh Inha, 2 PUFF INH BID, INH 12/19/13 Digoxin* (Digox*) 250 Mcg Tablet, 250 MCG PO DAILY 12/19/13 Discontinued Reported Medications Amiodarone Hcl* (Amiodarone Hcl*) 200 Mg Tablet, 200 MG PO DAILY, #30 TAB 10/10/16 Discontinued Scripts Lactobacillus Rhamnosus* (Culturelle*) 1 Each Cap.sprink, 1 CAP PO BID for 14 Days, CAP Prov:AMY RICE M. 10/26/16 Allergies Allergies: Coded Allergies: No Known Allergy (Unverified , 10/20/16) PMhx/Soc History of Surgery: Yes (prostectomy) Anesthesia Reaction: No Hx Neurological Disorder: No Hx Respiratory Disorders: Yes (COPD) Hx Cardiac Disorders: Yes (HTN) Hx Psychiatric Problems: No Hx Miscellaneous Medical Probl: No Hx Alcohol Use: Yes (occasionally) Hx Substance Use: No Hx Tobacco Use: Yes Smoking Status: Former smoker FmHx Family History: No diabetes Physical Exam Vitals Vital Signs Date Time Temp Pulse Resp B/P Pulse Ox O2 Delivery O2 Flow Rate FiO2 04/05/17 17:25 99.9 80 20 179/77 87 Physical Exam Const: Moderate distress secondary to shortness of breath Head: Atraumatic Eyes: Normal Conjunctiva ENT: Normal External Ears, Nose and Mouth. Neck: Full range of motion..~ No meningismus. Resp: Tight lung sounds with decreased breath sounds bilaterally Cardio: Regular rate and rhythm, no murmurs Abd: Soft, non tender, non distended. Normal bowel sounds Skin: No petechiae or rashes Back: No midline or flank tenderness Ext: No cyanosis, or edema Neur: Awake and alert Psych: Normal Mood and Affect Result Diagram: 04/05/17 1730 04/05/17 1730 Results 24 hrs Laboratory Tests Test 04/05/17 17:30 White Blood Count 20.410^3/ul Red Blood Count 4.5110^6/ul Hemoglobin 13.4g/dl Hematocrit 39.4% Mean Corpuscular Volume 87.4fl Mean Corpuscular Hemoglobin 29.7pg Mean Corpuscular Hemoglobin Concent 34.0g/dl Red Cell Distribution Width 13.8% Platelet Count 03265^3/UL Mean Platelet Volume 9.0fl Neutrophils % % Segmented Neutrophils % (Manual) 87% Lymphocytes % % Lymphocytes % (Manual) 8% Monocytes % % Monocytes % (Manual) 5% Eosinophils % % Basophils % % Nucleated Red Blood Cells % 0.0/100WBC Neutrophils # 10^3/ul Absolute Lymphocytes (Manual) 1.610^3/ul Lymphocytes # 10^3/ul Monocytes # 10^3/ul Absolute Monocytes (Manual) 1.010^3/ul Eosinophils # 10^3/ul Basophils # 10^3/ul Nucleated Red Blood Cells # 10^3/ul Platelet Estimate NORMAL Sodium Level 137mmol/L Potassium Level 3.5mmol/L Chloride Level 103mmol/L Carbon Dioxide Level 27mmol/L Anion Gap 11 Blood Urea Nitrogen 24mg/dl Creatinine 1.04mg/dl Glucose Level 104mg/dl Lactic Acid Level 1.4mmol/L Calcium Level 8.0mg/dl Troponin I < 0.012ng/ml Digoxin Level 2.1ng/ml Current Medications Medications (Trade) Dose Ordered Sig/Pily Route PRN Reason Start Time Stop Time Status Last Admin Dose Admin Albuterol (Proventil 0.083% (Neb)) 5 mg ONCE STAT HHN 04/05/17 17:47 04/05/17 17:48 DC 04/05/17 17:56 Procedures/MDM EKG read by me: Rate/Rhythm: Regular rate and rhythm at a normal rate Intervals: Normal Impression: No evidence of ischemia or arrhythmia Chest x-ray shows COPD but no pneumonia per radiology. Patient is a 77-year-old male with COPD who presents with an acute COPD exacerbation with hypoxia. The patient was given albuterol, Solu-Medrol, and Zithromax. The patient will be admitted to the care of Dr. Douglas from the panel team to a medical surgical bed as he was recently admitted to [facility]. The patient has hypoxia. I doubt pneumonia, pneumothorax, or pulmonary embolism. Given the patient's age and comorbidities he has a poor prognosis. His white count is elevated but I believe this is most likely from demargination from steroid use and not true infection. I doubt sepsis. Critical Care: Time: 35 minutes excluding all billable procedures. Treatments/Evaluations: Close monitoring and treatment of unstable vital signs, cardiorespiratory, and neurologic status, while maintaining tight balance of fluid, respiratory, and cardiac interventions. Departure Diagnosis: Primary Impression: Hypoxia Additional Impressions: Shortness of breath COPD (chronic obstructive pulmonary disease) Qualified Code: J44.9 - Chronic obstructive pulmonary disease, unspecified COPD type Condition: Serious KIAH LOPES MD Apr 05, 2017 21:26
[2017-04-05] MEDS: CEFTRIAXONE 1 GM/50 ML (PMX) 50 ML IVPB SCH (21:52)
[2017-04-05] MEDS: APIXABAN 5 MG TABLET PO SCH (21:53)
[2017-04-05] MEDS: METHYLPREDNISOLONE 125 MG INJ IV SCH (21:53)
[2017-04-05] MEDS: ATORVASTATIN 20 MG TAB PO SCH (21:53)
[2017-04-05] MEDS: SENNA TAB PO SCH (21:53)
[2017-04-05] MEDS: LACTOBACILLUS RHAMNOSUS CAP PO SCH (21:53)
[2017-04-05] MEDS: LATANOPROST 0.005% 2.5 ML OPH BOTH EYES SCH ×2 (22:16→22:22)
[2017-04-05] MEDS: DORZOLAMIDE/TIMOLOL 10 ML OPH BOTH EYES SCH (22:16)
[2017-04-06] MEDS ORDERED: SOD CHLORIDE 0.9% 250 ML IV ONE (00:30)
[2017-04-06 02:46] VITALS: BP 112/57; RESP 16
[2017-04-06] MEDS: METHYLPREDNISOLONE 125 MG INJ IV SCH ×2 (06:05→14:13)
[2017-04-06 06:18] LABS: ABNORMAL IP MESSAGE 1; LYMPHOCYTES # 0.5 10^3/ul (0.8-2.9); LYMPHOCYTES % 3.7 % (15.0-51.0); MEAN CORPUSCULAR HEMOGLOBIN 28.6 pg (29.0-33.0); MEAN CORPUSCULAR HGB CONC 32.4 g/dl (32.0-37.0); MEAN CORPUSCULAR VOLUME 88.3 fl (82.0-101.0); MEAN PLATELET VOLUME 9.6 fl (7.4-10.4); MONOCYTE # 0.2 10^3/ul (0.3-0.9); MONOCYTES % 1.4 % (0.0-11.0); NEUTROPHIL # 13.7 10^3/ul (1.6-7.5); NEUTROPHILS % 94.4 % (39.0-77.0); PLATELET COUNT 278 10^3/UL (140-415); POSITIVE DIFF @See below; RED BLOOD COUNT 4.19 10^6/ul (4.70-6.10); RED CELL DISTRIBUTION WIDTH 14.1 % (11.5-14.5); WHITE BLOOD COUNT 14.5 10^3/ul (4.8-10.8)
[2017-04-06 06:39] LABS: CREATININE 0.93 mg/dl (0.61-1.24); MAGNESIUM 2.3 mg/dl (1.7-2.5)
[2017-04-06 08:00] VITALS: BP 119/68; RESP 19
[2017-04-06] MEDS ORDERED: ENOXAPARIN 30 MG/0.3 ML SYG SC SCH (09:00)
[2017-04-06] MEDS: BICALUTAMIDE 50 MG TAB PO SCH (09:21)
[2017-04-06] MEDS: SALMETEROL/FLUTICASONE 250/50 INHA INH SCH ×2 (09:29→21:42)
[2017-04-06] MEDS: DORZOLAMIDE/TIMOLOL 10 ML OPH BOTH EYES SCH ×2 (09:29→21:42)
[2017-04-06] MEDS: TIOTROPIUM 18 MCG CAPSULE INHA DEV INH SCH (09:30)
[2017-04-06] MEDS: DOCUSATE SODIUM 100 MG CAP PO SCH (09:30)
[2017-04-06] MEDS: DILTIAZEM (CD) 240 MG CAP PO SCH (09:31)
[2017-04-06] MEDS: APIXABAN 5 MG TABLET PO SCH ×2 (09:31→21:42)
[2017-04-06] MEDS: LACTOBACILLUS RHAMNOSUS CAP PO SCH ×2 (09:31→21:42)
--- NOTE | 2017-04-06 12:05 | PN ---
Date/Time of Note Date/Time of Note DATE: 04/06/17 TIME: 12:00 Assessment/Plan VTE Prophylaxis VTE Prophylaxis Intervention: SCD's Lines/Catheters IV [facility]from [facility] Urinary Cath still in place: No Assessment/Plan Chief Complaint/Hosp Course Assessment and plan 1. Acute on chronic respiratory distress secondary to COPD exacerbation. 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 Continue with steroid treatment as well as bronchodilators. Monitor for clinical improvement. 2. Suspected acute bronchitis. Continue on azithromycin for now. 3. 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 [place] to follow. Follow-up with recommendations. 4. History of proximal paroxysmal atrial ablation. Stable at present. Monitor off amiodarone for now. 5. Hypertension. Continue interventions and additionally 6. History of glaucoma. Patient to be resumed on home medications. Disposition plan: Monitor for improvement of respiratory status. Consultants evaluations pending. Will follow up. Continue inpatient monitoring. Discussed plan of care with Dr. Yun Problems: Subjective 24 Hr Interval Summary Free Text/Dictation Still some noted shortness of breath and dyspnea on exertion. Less wheezing noted today Exam/Review of Systems Vital Signs Vitals Vital Signs Date Time Temp Pulse Resp B/P Pulse Ox O2 Delivery O2 Flow Rate FiO2 04/06/17 09:40 2.0 04/06/17 09:18 72 20 97 Nasal Cannula 04/06/17 08:00 97.9 119/68 04/05/17 17:57 21 Intake and Output 04/05/17 04/05/17 04/06/17 15:00 23:00 07:00 Intake Total 50 ml 490 ml Output Total 400 ml Balance 50 ml 90 ml Exam Constitutional: alert Psych: nl mood/affect Head: normocephalic Respiratory: diminished breath sounds Cardiovascular: regular rate and rhythm Gastrointestinal: non-tender, soft Musculoskeletal: nl extremities to inspection Neurological: LOG COOKER II-XII intact, nl mental status, nl speech Results Result Diagram: 04/06/17 0549 04/06/17 0549 Results 24 hrs Laboratory Tests Test 04/05/17 17:30 04/05/17 21:05 04/05/17 23:08 04/06/17 05:49 White Blood Count 20.4 #H 14.5 #H Red Blood Count 4.51 L 4.19 L Hemoglobin 13.4 L 12.0 L Hematocrit 39.4 L 37.0 L Mean Corpuscular Volume 87.4 88.3 Mean Corpuscular Hemoglobin 29.7 28.6 L Mean Corpuscular Hemoglobin Concent 34.0 32.4 Red Cell Distribution Width 13.8 14.1 Platelet Count 335 278 Mean Platelet Volume 9.0 9.6 Neutrophils % 94.4 H Segmented Neutrophils % (Manual) 87 H Lymphocytes % 3.7 L Lymphocytes % (Manual) 8 L Monocytes % 1.4 Monocytes % (Manual) 5 Eosinophils % 0.0 Basophils % 0.0 Nucleated Red Blood Cells % 0.0 0.0 Neutrophils # 13.7 H Absolute Lymphocytes (Manual) 1.6 Lymphocytes # 0.5 L Monocytes # 0.2 L Absolute Monocytes (Manual) 1.0 H Eosinophils # 0.0 Basophils # 0.0 Nucleated Red Blood Cells # 0.0 Platelet Estimate NORMAL Sodium Level 137 140 Potassium Level 3.5 4.0 Chloride Level 103 106 Carbon Dioxide Level 27 29 Anion Gap 11 9 Blood Urea Nitrogen 24 H 20 Creatinine 1.04 0.93 Glucose Level 104 129 Lactic Acid Level 1.4 1.1 3.2 *H 1.5 Calcium Level 8.0 L 8.0 L Troponin I < 0.012 Digoxin Level 2.1 H Magnesium Level 2.3 Medications Medications Current Medications Ondansetron HCl (Zofran Inj) 4 mg Q6H PRN IV NAUSEA AND/OR VOMITING; Start at 20:00 Acetaminophen (Tylenol Tab) 650 mg Q6H PRN PO PAIN LEVEL 1-3 OR FEVER; Start at 20:00 Acetaminophen/ Hydrocodone Bitart ([place] (5/325)) 1 tab Q6H PRN PO MODERATE PAIN LEVEL 4-6; Start 04/05/17 at 20:00 Morphine Sulfate (morphine) 2 mg Q4H PRN IV SEVERE PAIN LEVEL 7-10; Start 04/05 at 20:00 Docusate Sodium (Colace) 100 mg Q12H PRN PO CONSTIPATION; Start 04/05/17 at 20: 00 Zolpidem Tartrate 5 mg 5 mg QHS PRN PO SLEEP; Start 04/05/17 at 20:00 Ceftriaxone Sodium 50 ml @ 100 mls/hr Q24H IVPB Last administered on t 21:52; Admin Dose 100 MLS/HR; Start 04/05/17 at 20:00 Azithromycin (Zithromax 500mg/ NS (Pmx)) 250 ml @ 250 mls/hr Q24H IVPB ; Start 04/06/17 at 18:00 Apixaban (Eliquis) 5 mg BID PO Last administered on 04/06/17 09:31; Admin Dose 5 MG; Start 04/05/17 at 21:00 Atorvastatin Calcium (Lipitor) 20 mg QHS PO Last administered on 04/05/17 21: 53; Admin Dose 20 MG; Start 04/05/17 at 21:00 Bicalutamide (Casodex) 50 mg DAILY PO Last administered on 04/06/17 09:21; Admin Dose 50 MG; Start 04/06/17 at 09:00 Latanoprost (Xalatan) 1 drop HS BOTH EYES ; Start 04/05/17 at 22:30 Digoxin (Digoxin) 0.125 mg DAILY@13 PO ; Start 04/06/17 at 13:00 Diltiazem HCl (Cardizem Cd) 240 mg DAILY PO Last administered on 04/06/17 09: 31; Admin Dose 240 MG; Start 04/06/17 at 09:00 Docusate Sodium (Colace) 100 mg DAILY PO Last administered on 04/06/17 09:30; Admin Dose 100 MG; Start 04/06/17 at 09:00 Dorzolamide/ Timolol (Cosopt) 1 drop BID BOTH EYES Last administered on 09:29; Admin Dose 1 DROP; Start 04/05/17 at 22:30 Lactobacillus Acidophilus/ Rhamnosus (Culturelle) 1 cap BID PO Last administered on 04/06/17 09:31; Admin Dose 1 CAP; Start 04/05/17 at 21:00 Salmeterol Xinafoate/ Fluticasone (Advair 250/50 Diskus) 1 inh BID INH Last administered on 04/06/17 09:29; Admin Dose 1 INH; Start 04/05/17 at 21:00 Senna (Senokot) 1 tab QHS PO Last administered on 04/05/17 21:53; Admin Dose 1 TAB; Start 04/05/17 at 21:00 Tiotropium [place] (Spiriva) 1 inh DAILY INH Last administered on 04/06/17 09: 30; Admin Dose 1 INH; Start 04/06/17 at 09:00 Methylprednisolone Sodium Succinate (Solu-Medrol) 60 mg Q8 IV Last administered on 04/06/17 06:05; Admin Dose 60 MG; Start 04/05/17 at 22:00 INDERJIT MCNULTY Apr 06, 2017 12:05
--- NOTE | 2017-04-06 12:27 | CONS ---
Date/Time of Note Date/Time of Note DATE: 04/06/17 TIME: 12:19 Assessment/Plan Assessment/Plan Problems: (1) Hyperthyroidism Status: Chronic Comment: Stone the new information this is a hyperthyroid multinodular goiter this been hyperthyroid for some time and not treated. He has had a few days of PTU and this can be transitioned over for simplicity's sake to methimazole. I am going to make an rough estimate that the dosage here should be 20 mg a day that can be fine-tuned in 5 weeks. Please note this could have aggravated his cardiac rhythm disturbance and certainly would aggravate his lung disease in terms of increasing oxygen demand. Treatment will be proceeding forward. He is not having side effects of the medications at this time. (2) Essential hypertension Status: Chronic Comment: Noted. He is on a calcium channel roe for the A. fib. (3) Hyperlipidemia Status: Chronic Comment: As per primary team to use statin therapy. 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 Pulmonary is on the case will try and use maximal medical therapy to assist with this. In addition controlling hyperthyroidism should give him a little bit better treatment. I am in concurrence that the amiodarone may not be the most appropriate choice purely on the basis of his lung disease and not on the basis of the thyroid disease. Qualifiers: Qualified Code: J43.1 - Panlobular emphysema (5) Prostate cancer Status: Chronic Comment: Noted. (6) Mass of right lung Status: Acute Comment: As per pulmonary and primary care team Consultation Date/Type/Reason Admit Date/Time April 05, 2017 Date of Consultation: Apr 06, 2017 Type of Consultation: Endocrinology Reason for Consultation Hyperthyroidism with thyrotoxicosis Referring Provider: AXEL WHARTON Hx of Present Illness 77-year-old [place] gentleman readmitted with exacerbation of chronic obstructive pulmonary disease. He had been referred to me for hyperthyroidism which was presumed to be due to his amiodarone. is present today for additional historical information. She informs me that he was placed on amiodarone within the last 2 years for rhythm disturbance that came up at the same time his lung disease. She reports that roughly 3-4 years ago he was diagnosed with prostate cancer. At that time she is aware that his TSHs were below the measurable limits i.e. 0.015 and less. Warns me that her prior physician had advised her that they would deal with other issues first and get to the thyroid later. As such his hyperthyroidism long predates his exposure to amiodarone. Eyes: no complaints ENT: no complaints Respiratory: cough, shortness of breath, wheezing Cardiovascular: no complaints Gastrointestinal: no complaints Genitourinary: no complaints Musculoskeletal: no complaints Skin: no complaints Neurologic: no complaints Lymphatic: no complaints Psychological: nl mood/affect Immunologic: no complaints Past Medical History 1) bullous emphysema-COPD, 2) essential hypertension, 3) elevated thyroid function tests of at least 3-4 years duration, 4) hyperlipidemia 5) prostate cancer, 6) abnormality in right lung on chest CT scanning, 7) multinodular thyroid goiter Medical History: hyperthyroid (No information) Past Surgical History Past Surgical Hx: noncontributory Family History Significant Family History: no pertinent family hx Social History Alcohol Use: rarely Smoking Status: Former smoker Drug Use: none Other Social History Born [place] raised [place] lives with spouse. Exam/Review of Systems Vital Signs Vitals Vital Signs Date Time Temp Pulse Resp B/P Pulse Ox O2 Delivery O2 Flow Rate FiO2 04/06/17 09:40 2.0 04/06/17 09:18 72 20 97 Nasal Cannula 04/06/17 08:00 97.9 119/68 04/05/17 17:57 21 Intake and Output 04/05/17 04/05/17 04/06/17 15:00 23:00 07:00 Intake Total 50 ml 490 ml Output Total 400 ml Balance 50 ml 90 ml Exam Constitutional: alert, oriented ENMT: mucosa pink and moist, nl external ears & nose, nl lips & teeth, nl nasal mucosa & septum Neck: non-tender, other (No palpable thyroid nodules), supple Respiratory: diminished breath sounds, other (Increased AP diameter decreased IT ratio), wheezing Results Result Diagram: 04/06/17 0549 04/06/17 0549 Results 24 hrs Laboratory Tests Test 04/05/17 17:30 04/05/17 21:05 04/05/17 23:08 04/06/17 05:49 White Blood Count 20.4 #H 14.5 #H Red Blood Count 4.51 L 4.19 L Hemoglobin 13.4 L 12.0 L Hematocrit 39.4 L 37.0 L Mean Corpuscular Volume 87.4 88.3 Mean Corpuscular Hemoglobin 29.7 28.6 L Mean Corpuscular Hemoglobin Concent 34.0 32.4 Red Cell Distribution Width 13.8 14.1 Platelet Count 335 278 Mean Platelet Volume 9.0 9.6 Neutrophils % 94.4 H Segmented Neutrophils % (Manual) 87 H Lymphocytes % 3.7 L Lymphocytes % (Manual) 8 L Monocytes % 1.4 Monocytes % (Manual) 5 Eosinophils % 0.0 Basophils % 0.0 Nucleated Red Blood Cells % 0.0 0.0 Neutrophils # 13.7 H Absolute Lymphocytes (Manual) 1.6 Lymphocytes # 0.5 L Monocytes # 0.2 L Absolute Monocytes (Manual) 1.0 H Eosinophils # 0.0 Basophils # 0.0 Nucleated Red Blood Cells # 0.0 Platelet Estimate NORMAL Sodium Level 137 140 Potassium Level 3.5 4.0 Chloride Level 103 106 Carbon Dioxide Level 27 29 Anion Gap 11 9 Blood Urea Nitrogen 24 H 20 Creatinine 1.04 0.93 Glucose Level 104 129 Lactic Acid Level 1.4 1.1 3.2 *H 1.5 Calcium Level 8.0 L 8.0 L Troponin I < 0.012 Digoxin Level 2.1 H Magnesium Level 2.3 Medications Medications Current Medications Ondansetron HCl (Zofran Inj) 4 mg Q6H PRN IV NAUSEA AND/OR VOMITING; Start at 20:00 Acetaminophen (Tylenol Tab) 650 mg Q6H PRN PO PAIN LEVEL 1-3 OR FEVER; Start at 20:00 Acetaminophen/ Hydrocodone Bitart ([place] (5/325)) 1 tab Q6H PRN PO MODERATE PAIN LEVEL 4-6; Start 04/05/17 at 20:00 Morphine Sulfate (morphine) 2 mg Q4H PRN IV SEVERE PAIN LEVEL 7-10; Start 04/05 at 20:00 Docusate Sodium (Colace) 100 mg Q12H PRN PO CONSTIPATION; Start 04/05/17 at 20: 00 Zolpidem Tartrate 5 mg 5 mg QHS PRN PO SLEEP; Start 04/05/17 at 20:00 Ceftriaxone Sodium 50 ml @ 100 mls/hr Q24H IVPB Last administered on 21:52; Admin Dose 100 MLS/HR; Start 04/05/17 at 20:00 Azithromycin (Zithromax 500mg/ NS (Pmx)) 250 ml @ 250 mls/hr Q24H IVPB ; Start 04/06/17 at 18:00 Apixaban (Eliquis) 5 mg BID PO Last administered on 04/06/17 09:31; Admin Dose 5 MG; Start 04/05/17 at 21:00 Atorvastatin Calcium (Lipitor) 20 mg QHS PO Last administered on 04/05/17 21: 53; Admin Dose 20 MG; Start 04/05/17 at 21:00 Bicalutamide (Casodex) 50 mg DAILY PO Last administered on 04/06/17 09:21; Admin Dose 50 MG; Start 04/06/17 at 09:00 Latanoprost (Xalatan) 1 drop HS BOTH EYES ; Start 04/05/17 at 22:30 Digoxin (Digoxin) 0.125 mg DAILY@13 PO ; Start 04/06/17 at 13:00 Diltiazem HCl (Cardizem Cd) 240 mg DAILY PO Last administered on 04/06/17 09: 31; Admin Dose 240 MG; Start 04/06/17 at 09:00 Docusate Sodium (Colace) 100 mg DAILY PO Last administered on 04/06/17 09:30; Admin Dose 100 MG; Start 04/06/17 at 09:00 Dorzolamide/ Timolol (Cosopt) 1 drop BID BOTH EYES Last administered on 09:29; Admin Dose 1 DROP; Start 04/05/17 at 22:30 Lactobacillus Acidophilus/ Rhamnosus (Culturelle) 1 cap BID PO Last administered on 04/06/17 09:31; Admin Dose 1 CAP; Start 04/05/17 at 21:00 Salmeterol Xinafoate/ Fluticasone (Advair 250/50 Diskus) 1 inh BID INH Last administered on 04/06/17 09:29; Admin Dose 1 INH; Start 04/05/17 at 21:00 Senna (Senokot) 1 tab QHS PO Last administered on 04/05/17 21:53; Admin Dose 1 TAB; Start 04/05/17 at 21:00 Tiotropium [place] (Spiriva) 1 inh DAILY INH Last administered on 04/06/17 09: 30; Admin Dose 1 INH; Start 04/06/17 at 09:00 Methylprednisolone Sodium Succinate (Solu-Medrol) 60 mg Q8 IV Last administered on 04/06/17 06:05; Admin Dose 60 MG; Start 04/05/17 at 22:00 Methimazole (Tapazole) 20 mg ONCE ONCE PO ; Start 04/06/17 at 13:00; Stop 04/06 at 13:01 Theophylline ([place]er-24) 200 mg QHS PO ; Start 04/06/17 at 21:00 Montelukast Sodium (Singulair) 10 mg QHS PO ; Start 04/06/17 at 21:00 LULI SANCHEZ MD Apr 06, 2017 12:26
[2017-04-06] MEDS ORDERED: METHIMAZOLE 5 MG TAB PO ONE (13:00)
[2017-04-06] MEDS: DIGOXIN 0.125 MG TAB PO SCH (13:07)
[2017-04-06] MEDS: ALBUTEROL/IPRATROPIUM (NEB) 3 ML AMP HHN SCH ×3 (13:46→21:01)
[2017-04-06 14:00] VITALS: BP 107/56; RESP 18
[2017-04-06] MEDS: AZITHROMYCIN 500MG/NS (PMX) 250 ML IVPB SCH (17:18)
--- NOTE | 2017-04-06 17:21 | CONS ---
Date/Time of Note Date/Time of Note DATE: 04/06/17 TIME: 17:17 Assessment/Plan Assessment/Plan Additional Assessment/Plan IMP: 1. COPD Exacerbation 2. Likely infectious bronchiolitis complicating underlying emphysema and ectatic disease RECS: 1. Abx 2. BD's 3. CS 4. DVT prophylaxis 5. Titrate FiO2 to SpO2 88-92% Consultation Date/Type/Reason Admit Date/Time April 05, 2017 Type of Consultation: Pulm Hx of Present Illness In brief, this is a 77-year-old [place] man with severe bullous emphysema, A. 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 Eyes: no complaints ENT: no complaints Respiratory: cough, shortness of breath, wheezing Cardiovascular: no complaints Gastrointestinal: no complaints Genitourinary: no complaints Musculoskeletal: no complaints Skin: no complaints Neurologic: no complaints Lymphatic: no complaints Psychological: nl mood/affect Immunologic: no complaints Past Medical History as per HPI Medical History: hyperthyroid (No information) Past Surgical History Past Surgical Hx: noncontributory Family History Significant Family History: no pertinent family hx Social History Alcohol Use: none Smoking Status: Former smoker Drug Use: none Exam/Review of Systems Vital Signs Vitals Vital Signs Date Time Temp Pulse Resp B/P Pulse Ox O2 Delivery O2 Flow Rate FiO2 04/06/17 14:27 2.0 04/06/17 13:50 60 20 97 Nasal Cannula 04/06/17 08:00 97.9 119/68 04/05/17 17:57 21 Intake and Output 04/05/17 04/05/17 04/06/17 15:00 23:00 07:00 Intake Total 50 ml 490 ml Output Total 400 ml Balance 50 ml 90 ml Exam Constitutional: alert, oriented Psych: no complaints Head: normocephalic Eyes: EOMI, nl conjunctiva ENMT: mucosa pink and moist, nl external ears & nose, nl lips & teeth, nl nasal mucosa & septum Neck: non-tender, supple Respiratory: diminished breath sounds, intercostal retraction Cardiovascular: irregular rhythm, jugular venous distention (JVD) Gastrointestinal: nl liver, spleen, non-tender, soft Musculoskeletal: nl extremities to inspection Extremities: normal pulses Results Result Diagram: 04/06/17 0549 04/06/17 0549 Results 24 hrs Laboratory Tests Test 04/05/17 17:30 04/05/17 21:05 04/05/17 23:08 04/06/17 05:49 White Blood Count 20.4 #H 14.5 #H Red Blood Count 4.51 L 4.19 L Hemoglobin 13.4 L 12.0 L Hematocrit 39.4 L 37.0 L Mean Corpuscular Volume 87.4 88.3 Mean Corpuscular Hemoglobin 29.7 28.6 L Mean Corpuscular Hemoglobin Concent 34.0 32.4 Red Cell Distribution Width 13.8 14.1 Platelet Count 335 278 Mean Platelet Volume 9.0 9.6 Neutrophils % 94.4 H Segmented Neutrophils % (Manual) 87 H Lymphocytes % 3.7 L Lymphocytes % (Manual) 8 L Monocytes % 1.4 Monocytes % (Manual) 5 Eosinophils % 0.0 Basophils % 0.0 Nucleated Red Blood Cells % 0.0 0.0 Neutrophils # 13.7 H Absolute Lymphocytes (Manual) 1.6 Lymphocytes # 0.5 L Monocytes # 0.2 L Absolute Monocytes (Manual) 1.0 H Eosinophils # 0.0 Basophils # 0.0 Nucleated Red Blood Cells # 0.0 Platelet Estimate NORMAL Sodium Level 137 140 Potassium Level 3.5 4.0 Chloride Level 103 106 Carbon Dioxide Level 27 29 Anion Gap 11 9 Blood Urea Nitrogen 24 H 20 Creatinine 1.04 0.93 Glucose Level 104 129 Lactic Acid Level 1.4 1.1 3.2 *H 1.5 Calcium Level 8.0 L 8.0 L Troponin I < 0.012 Digoxin Level 2.1 H Magnesium Level 2.3 Medications Medications Current Medications Ondansetron HCl (Zofran Inj) 4 mg Q6H PRN IV NAUSEA AND/OR VOMITING; Start at 20:00 Acetaminophen (Tylenol Tab) 650 mg Q6H PRN PO PAIN LEVEL 1-3 OR FEVER; Start at 20:00 Acetaminophen/ Hydrocodone Bitart ([place] (5/325)) 1 tab Q6H PRN PO MODERATE PAIN LEVEL 4-6; Start 04/05/17 at 20:00 Morphine Sulfate (morphine) 2 mg Q4H PRN IV SEVERE PAIN LEVEL 7-10; Start 04/05 at 20:00 Docusate Sodium (Colace) 100 mg Q12H PRN PO CONSTIPATION; Start 04/05/17 at 20: 00 Zolpidem Tartrate 5 mg 5 mg QHS PRN PO SLEEP; Start 04/05/17 at 20:00 Ceftriaxone Sodium 50 ml @ 100 mls/hr Q24H IVPB Last administered on 21:52; Admin Dose 100 MLS/HR; Start 04/05/17 at 20:00 Azithromycin (Zithromax 500mg/ NS (Pmx)) 250 ml @ 250 mls/hr Q24H IVPB ; Start 04/06/17 at 18:00 Apixaban (Eliquis) 5 mg BID PO Last administered on 04/06/17 09:31; Admin Dose 5 MG; Start 04/05/17 at 21:00 Atorvastatin Calcium (Lipitor) 20 mg QHS PO Last administered on 04/05/17 21: 53; Admin Dose 20 MG; Start 04/05/17 at 21:00 Bicalutamide (Casodex) 50 mg DAILY PO Last administered on 04/06/17 09:21; Admin Dose 50 MG; Start 04/06/17 at 09:00 Latanoprost (Xalatan) 1 drop HS BOTH EYES ; Start 04/05/17 at 22:30 Digoxin (Digoxin) 0.125 mg DAILY@13 PO Last administered on 04/06/17 13:07; Admin Dose 0.125 MG; Start 04/06/17 at 13:00 Diltiazem HCl (Cardizem Cd) 240 mg DAILY PO Last administered on 04/06/17 09: 31; Admin Dose 240 MG; Start 04/06/17 at 09:00 Docusate Sodium (Colace) 100 mg DAILY PO Last administered on 04/06/17 09:30; Admin Dose 100 MG; Start 04/06/17 at 09:00 Dorzolamide/ Timolol (Cosopt) 1 drop BID BOTH EYES Last administered on 09:29; Admin Dose 1 DROP; Start 04/05/17 at 22:30 Lactobacillus Acidophilus/ Rhamnosus (Culturelle) 1 cap BID PO Last administered on 04/06/17 09:31; Admin Dose 1 CAP; Start 04/05/17 at 21:00 Salmeterol Xinafoate/ Fluticasone (Advair 250/50 Diskus) 1 inh BID INH Last administered on 04/06/17 09:29; Admin Dose 1 INH; Start 04/05/17 at 21:00 Senna (Senokot) 1 tab QHS PO Last administered on 04/05/17 21:53; Admin Dose 1 TAB; Start 04/05/17 at 21:00 Tiotropium [place] (Spiriva) 1 inh DAILY INH Last administered on 04/06/17 09: 30; Admin Dose 1 INH; Start 04/06/17 at 09:00 Methylprednisolone Sodium Succinate (Solu-Medrol) 60 mg Q8 IV Last administered on 04/06/17 14:13; Admin Dose 60 MG; Start 04/05/17 at 22:00 Theophylline ([place]-24) 200 mg QHS PO ; Start 04/06/17 at 21:00 Montelukast Sodium (Singulair) 10 mg QHS PO ; Start 04/06/17 at 21:00 FABRICIO SOMMERS MD Apr 06, 2017 17:21
[2017-04-06 19:34] VITALS: BP 105/57; RESP 20
[2017-04-06] MEDS: LATANOPROST 0.005% 2.5 ML OPH BOTH EYES SCH (21:00)
[2017-04-06] MEDS: CEFTRIAXONE 1 GM/50 ML (PMX) 50 ML IVPB SCH (21:41)
[2017-04-06] MEDS: SENNA TAB PO SCH (21:42)
[2017-04-06] MEDS: METHYLPREDNISOLONE 40 MG INJ IV SCH (21:42)
[2017-04-06] MEDS: THEOPHYLLINE (SR) 200 MG CAPSR PO SCH (21:42)
[2017-04-06] MEDS: ATORVASTATIN 20 MG TAB PO SCH (21:42)
[2017-04-06] MEDS: MONTELUKAST 10 MG TAB PO SCH (21:42)
[2017-04-07] MEDS: ALBUTEROL/IPRATROPIUM (NEB) 3 ML AMP HHN SCH ×6 (01:13→20:31)
[2017-04-07 01:58] VITALS: BP 117/63; RESP 18
[2017-04-07] MEDS: METHIMAZOLE 5 MG TAB PO SCH (07:53)
[2017-04-07 08:00] VITALS: BP 131/66; RESP 19
[2017-04-07] MEDS: SALMETEROL/FLUTICASONE 250/50 INHA INH SCH ×2 (09:00→20:10)
[2017-04-07] MEDS: DORZOLAMIDE/TIMOLOL 10 ML OPH BOTH EYES SCH ×2 (09:00→20:10)
[2017-04-07] MEDS: METHYLPREDNISOLONE 40 MG INJ IV SCH ×2 (09:01→20:10)
[2017-04-07] MEDS: TIOTROPIUM 18 MCG CAPSULE INHA DEV INH SCH (09:01)
[2017-04-07] MEDS: DILTIAZEM (CD) 240 MG CAP PO SCH (09:06)
[2017-04-07] MEDS: LACTOBACILLUS RHAMNOSUS CAP PO SCH ×2 (09:06→20:10)
[2017-04-07] MEDS: DOCUSATE SODIUM 100 MG CAP PO SCH (09:06)
[2017-04-07] MEDS: APIXABAN 5 MG TABLET PO SCH ×2 (09:06→20:10)
[2017-04-07] MEDS: BICALUTAMIDE 50 MG TAB PO SCH (09:11)
--- NOTE | 2017-04-07 12:33 | PN ---
Date/Time of Note Date/Time of Note DATE: 04/07/17 TIME: 12:31 Assessment/Plan VTE Prophylaxis VTE Prophylaxis Intervention: SCD's Lines/Catheters IV Catheter Type (from Nrs): Saline Lock Urinary Cath still in place: No Assessment/Plan Chief Complaint/Hosp Course Assessment and plan 1. Acute on chronic respiratory distress secondary to COPD exacerbation. Director Equipment to follow. Continue with steroid treatment as well as bronchodilators. improving 2. Suspected acute bronchitis. Continue on azithromycin 3. Hyperthyroidism .Patient noted with multinodular goiter Therapy Coordinator to follow. Continue with recommendations. 4. History of proximal paroxysmal atrial ablation. Stable at present. Monitor off amiodarone for now. 5. Hypertension. Continue interventions and additionally 6. History of glaucoma. Patient to be resumed on home medications. Disposition plan: Monitor for improvement of respiratory status. Follow-up with lead relay tester or conditions. d/c when medically stable and cleared by consultants. Discussed plan of care with Dr. Yun Problems: Subjective 24 Hr Interval Summary Free Text/Dictation Shortness of breath noted at this time. Still reports having pain on mid right back Exam/Review of Systems Vital Signs Vitals Vital Signs Date Time Temp Pulse Resp B/P Pulse Ox O2 Delivery O2 Flow Rate FiO2 04/07/17 08:05 Nasal Cannula 2.0 04/07/17 08:00 97.7 61 19 131/66 94 04/05/17 17:57 21 Intake and Output 04/06/17 04/06/17 04/07/17 15:00 23:00 07:00 Intake Total 1050 ml 250 ml Output Total 300 ml Balance 1050 ml -50 ml Exam Constitutional: alert Psych: nl mood/affect Head: normocephalic Respiratory: diminished breath sounds Cardiovascular: regular rate and rhythm Gastrointestinal: non-tender, soft Musculoskeletal: nl extremities to inspection Neurological: [employer] II-XII intact, nl mental status, nl speech Results Result Diagram: 04/06/17 0549 04/06/1749 Medications Medications Current Medications Ondansetron HCl (Zofran Inj) 4 mg Q6H PRN IV NAUSEA AND/OR VOMITING; Start at 20:00 Acetaminophen (Tylenol Tab) 650 mg Q6H PRN PO PAIN LEVEL 1-3 OR FEVER; Start at 20:00 Acetaminophen/ Hydrocodone Bitart ([place] (5/325)) 1 tab Q6H PRN PO MODERATE PAIN LEVEL 4-6; Start 04/05/17 at 20:00 Morphine Sulfate (morphine) 2 mg Q4H PRN IV SEVERE PAIN LEVEL 7-10; Start 04/05 at 20:00 Docusate Sodium (Colace) 100 mg Q12H PRN PO CONSTIPATION; Start 04/05/17 at 20: 00 Zolpidem Tartrate 5 mg 5 mg QHS PRN PO SLEEP; Start 04/05/17 at 20:00 Ceftriaxone Sodium 50 ml @ 100 mls/hr Q24H IVPB Last administered on 21:41; Admin Dose 100 MLS/HR; Start 04/05/17 at 20:00 Azithromycin (Zithromax 500mg/ NS (Pmx)) 250 ml @ 250 mls/hr Q24H IVPB Last administered on 04/06/17 17:18; Admin Dose 250 MLS/HR; Start 04/06/17 at 18:00 Apixaban (Eliquis) 5 mg BID PO Last administered on 04/07/17 09:06; Admin Dose 5 MG; Start 04/05/17 at 21:00 Atorvastatin Calcium (Lipitor) 20 mg QHS PO Last administered on 04/06/17 21: 42; Admin Dose 20 MG; Start 04/05/17 at 21:00 Bicalutamide (Casodex) 50 mg DAILY PO Last administered on 04/07/17 09:11; Admin Dose 50 MG; Start 04/06/17 at 09:00 Digoxin (Digoxin) 0.125 mg DAILY@13 PO Last administered on 04/06/17 13:07; Admin Dose 0.125 MG; Start 04/06/17 at 13:00 Diltiazem HCl (Cardizem Cd) 240 mg DAILY PO Last administered on 04/07/17 09: 06; Admin Dose 240 MG; Start 04/06/17 at 09:00 Docusate Sodium (Colace) 100 mg DAILY PO Last administered on 04/07/17 09:06; Admin Dose 100 MG; Start 04/06/17 at 09:00 Dorzolamide/ Timolol (Cosopt) 1 drop BID BOTH EYES Last administered on 21:42; Admin Dose 1 DROP; Start 04/05/17 at 22:30 Lactobacillus Acidophilus/ Rhamnosus (Culturelle) 1 cap BID PO Last administered on 04/07/17 09:06; Admin Dose 1 CAP; Start 04/05/17 at 21:00 Salmeterol Xinafoate/ Fluticasone (Advair 250/50 Diskus) 1 inh BID INH Last administered on 04/07/17 09:00; Admin Dose 1 INH; Start 04/05/17 at 21:00 Senna (Senokot) 1 tab QHS PO Last administered on 04/06/17 21:42; Admin Dose 1 TAB; Start 04/05/17 at 21:00 Tiotropium [place] (Spiriva) 1 inh DAILY INH Last administered on 04/07/17 09: 01; Admin Dose 1 INH; Start 04/06/17 at 09:00 Theophylline (Turner-24) 200 mg QHS PO Last administered on 04/06/17 21:42; Admin Dose 200 MG; Start 04/06/17 at 21:00 Montelukast Sodium (Singulair) 10 mg QHS PO Last administered on 04/06/17 21: 42; Admin Dose 10 MG; Start 04/06/17 at 21:00 Methylprednisolone Sodium Succinate (Solu-Medrol) 40 mg BID IV Last administered on 04/07/17 09:01; Admin Dose 40 MG; Start 04/06/17 at 21:00 Patient Own Medication 1 ea QHS BOTH EYES ; Start 04/07/17 at 21:00 INDERJIT MCNULTY Apr 07, 2017 12:33
[2017-04-07] MEDS: DIGOXIN 0.125 MG TAB PO SCH (13:32)
--- NOTE | 2017-04-07 13:54 | CONS ---
Date/Time of Note Date/Time of Note DATE: 04/07/17 TIME: 13:49 Assessment/Plan Assessment/Plan Chief Complaint/Hosp Course 77-year-old [place] gentleman readmitted with exacerbation of chronic obstructive pulmonary disease. He had been referred to me for hyperthyroidism which was presumed to be due to his amiodarone. is present today for additional historical information. She informs me that he was placed on amiodarone within the last 2 years for rhythm disturbance that came up at the same time his lung disease. She reports that roughly 3-4 years ago he was diagnosed with prostate cancer. At that time she is aware that his TSHs were below the measurable limits i.e. 0.015 and less. Warns me that her prior physician had advised her that they would deal with other issues first and get to the thyroid later. As such his hyperthyroidism long predates his exposure to amiodarone. Problems: (1) Paroxysmal atrial fibrillation Status: Chronic Comment: Patient presently is in normal sinus rhythm. I am unable to determine whether or not the chronic hyperthyroidism is the primary cause of this or not. That actually is not important. Right now he is rate controlled off of amiodarone. (2) COPD (chronic obstructive pulmonary disease) Status: Chronic Comment: He is on treatment for this aggressively. Further determination as per the primary care team although may be a consideration to do additional workups. Qualifiers: COPD type: emphysema Emphysema type: panlobular Qualified Code: J43.1 - Panlobular emphysema (3) Prostate cancer Status: Chronic Comment: Noted and stable. (4) Glaucoma Onset Date: ~ 03/1992 Status: Chronic Comment: He is on his glaucoma eyedrop Qualifiers: Glaucoma type: open-angle Open angle glaucoma type: primary Laterality: bilateral Glaucoma stage: moderate stage Qualified Code: H40.1132 - Primary open angle glaucoma of both eyes, moderate stage (5) Hyperthyroidism Status: Chronic Comment: He is now on a simpler thyroid medication regimen and will continue with this. We will find tenderness as we go along. Needs his blood tests is a roughly 5 weeks (6) Hyperlipidemia Status: Chronic Comment: Continue statin therapy Qualifiers: Hyperlipidemia type: pure hypercholesterolemia Qualified Code: E78.00 - Pure hypercholesterolemia (7) Essential hypertension Status: Chronic Comment: Good control Consultation Date/Type/Reason Admit Date/Time Apr 05, 2017 at 17:54 Initial Consult Date 04/06/17 Type of Consultation: Endocrinology Reason for Consultation 4 years of hyperthyroidism with multinodular goiter; COPD; paroxysmal atrial fibrillation Referring Provider: AXEL WHARTON 24 HR Interval Summary Constitutional: no complaints Detailed Summary Respiratory: cough, shortness of breath Exam/Review of Systems Vital Signs Vitals Vital Signs Date Time Temp Pulse Resp B/P Pulse Ox O2 Delivery O2 Flow Rate FiO2 04/07/17 12:54 2.0 04/07/17 12:54 62 20 97 Nasal Cannula 04/07/17 08:00 97.7 131/66 04/05/17 17:57 21 Intake and Output 04/06/17 04/06/17 04/07/17 15:00 23:00 07:00 Intake Total 1050 ml 250 ml Output Total 300 ml Balance 1050 ml -50 ml Exam Constitutional: alert, oriented Neck: non-tender, supple Respiratory: diminished breath sounds, wheezing Cardiovascular: nl pulses, regular rate and rhythm (These notes a normal rhythm today) Results Result Diagram: 04/06/17 0549 04/06/17 0549 Medications Medications Current Medications Ondansetron HCl (Zofran Inj) 4 mg Q6H PRN IV NAUSEA AND/OR VOMITING; Start at 20:00 Acetaminophen (Tylenol Tab) 650 mg Q6H PRN PO PAIN LEVEL 1-3 OR FEVER; Start at 20:00 Acetaminophen/ Hydrocodone Bitart ([place] (5/325)) 1 tab Q6H PRN PO MODERATE PAIN LEVEL 4-6; Start 04/05/17 at 20:00 Morphine Sulfate (morphine) 2 mg Q4H PRN IV SEVERE PAIN LEVEL 7-10; Start 04/05 at 20:00 Docusate Sodium (Colace) 100 mg Q12H PRN PO CONSTIPATION; Start 04/05/17 at 20: 00 Zolpidem Tartrate 5 mg 5 mg QHS PRN PO SLEEP; Start 04/05/17 at 20:00 Ceftriaxone Sodium 50 ml @ 100 mls/hr Q24H IVPB Last administered on t 21:41; Admin Dose 100 MLS/HR; Start 04/05/17 at 20:00 Azithromycin (Zithromax 500mg/ NS (Pmx)) 250 ml @ 250 mls/hr Q24H IVPB Last administered on 04/06/17 17:18; Admin Dose 250 MLS/HR; Start 04/06/17 at 18:00 Apixaban (Eliquis) 5 mg BID PO Last administered on 04/07/17 09:06; Admin Dose 5 MG; Start 04/05/17 at 21:00 Atorvastatin Calcium (Lipitor) 20 mg QHS PO Last administered on 04/06/17 21: 42; Admin Dose 20 MG; Start 04/05/17 at 21:00 Bicalutamide (Casodex) 50 mg DAILY PO Last administered on 04/07/17 09:11; Admin Dose 50 MG; Start 04/06/17 at 09:00 Digoxin (Digoxin) 0.125 mg DAILY@13 PO Last administered on 04/07/17 13:32; Admin Dose 0.125 MG; Start 04/06/17 at 13:00 Diltiazem HCl (Cardizem Cd) 240 mg DAILY PO Last administered on 04/07/17 09: 06; Admin Dose 240 MG; Start 04/06/17 at 09:00 Docusate Sodium (Colace) 100 mg DAILY PO Last administered on 04/07/17 09:06; Admin Dose 100 MG; Start 04/06/17 at 09:00 Dorzolamide/ Timolol (Cosopt) 1 drop BID BOTH EYES Last administered on 21:42; Admin Dose 1 DROP; Start 04/05/17 at 22:30 Lactobacillus Acidophilus/ Rhamnosus (Culturelle) 1 cap BID PO Last administered on 04/07/17 09:06; Admin Dose 1 CAP; Start 04/05/17 at 21:00 Salmeterol Xinafoate/ Fluticasone (Advair 250/50 Diskus) 1 inh BID INH Last administered on 04/07/17 09:00; Admin Dose 1 INH; Start 04/05/17 at 21:00 Senna (Senokot) 1 tab QHS PO Last administered on 04/06/17 21:42; Admin Dose 1 TAB; Start 04/05/17 at 21:00 Tiotropium [place] (Spiriva) 1 inh DAILY INH Last administered on 04/07/17 09: 01; Admin Dose 1 INH; Start 04/06/17 at 09:00 Theophylline (Turner-24) 200 mg QHS PO Last administered on 04/06/17 21:42; Admin Dose 200 MG; Start 04/06/17 at 21:00 Montelukast Sodium (Singulair) 10 mg QHS PO Last administered on 04/06/17 21: 42; Admin Dose 10 MG; Start 04/06/17 at 21:00 Methylprednisolone Sodium Succinate (Solu-Medrol) 40 mg BID IV Last administered on 04/07/17 09:01; Admin Dose 40 MG; Start 04/06/17 at 21:00 Patient Own Medication 1 ea QHS BOTH EYES ; Start 04/07/17 at 21:00 LULI SANCHEZ MD Apr 07, 2017 13:54
[2017-04-07 14:00] VITALS: BP 121/58; RESP 19
--- NOTE | 2017-04-07 16:08 | CONS ---
Date/Time of Note Date/Time of Note DATE: 04/07/17 TIME: 16:07 Consult Date/Type/Reason Admit Date/Time Apr 05, 2017 at 17:54 Initial Consult Date 04/06/17 Type of Consultation: Pulm Ordering Provider: AXEL WHARTON Subjective No events. Objective Vital Signs Date Time Temp Pulse Resp B/P Pulse Ox O2 Delivery O2 Flow Rate FiO2 04/07/17 12:54 2.0 04/07/17 12:54 62 20 97 Nasal Cannula 04/07/17 08:00 97.7 131/66 04/05/17 17:57 21 Intake and Output 04/06/17 04/06/17 04/07/17 15:00 23:00 07:00 Intake Total 1050 ml 250 ml Output Total 300 ml Balance 1050 ml -50 ml Exam HEENT: Neck supple; no JVD; no LAD CVS: RRR, S1 and S2 CHEST: + Rhonchi ABD: Soft, NT, + BS EXT: No c/c/ tr edema Results/Medications Result Diagram: 04/06/17 0549 04/06/17 0549 Medications Current Medications Ondansetron HCl (Zofran Inj) 4 mg Q6H PRN IV NAUSEA AND/OR VOMITING; Start at 20:00 Acetaminophen (Tylenol Tab) 650 mg Q6H PRN PO PAIN LEVEL 1-3 OR FEVER; Start at 20:00 Acetaminophen/ Hydrocodone Bitart ([place] (5/325)) 1 tab Q6H PRN PO MODERATE PAIN LEVEL 4-6; Start 04/05/17 at 20:00 Morphine Sulfate (morphine) 2 mg Q4H PRN IV SEVERE PAIN LEVEL 7-10; Start 04/05 at 20:00 Docusate Sodium (Colace) 100 mg Q12H PRN PO CONSTIPATION; Start 04/05/17 at 20: 00 Zolpidem Tartrate 5 mg 5 mg QHS PRN PO SLEEP; Start 04/05/17 at 20:00 Ceftriaxone Sodium 50 ml @ 100 mls/hr Q24H IVPB Last administered on t 21:41; Admin Dose 100 MLS/HR; Start 04/05/17 at 20:00 Azithromycin (Zithromax 500mg/ NS (Pmx)) 250 ml @ 250 mls/hr Q24H IVPB Last administered on 04/06/17 17:18; Admin Dose 250 MLS/HR; Start 04/06/17 at 18:00 Apixaban (Eliquis) 5 mg BID PO Last administered on 04/07/17 09:06; Admin Dose 5 MG; Start 04/05/17 at 21:00 Atorvastatin Calcium (Lipitor) 20 mg QHS PO Last administered on 04/06/17 21: 42; Admin Dose 20 MG; Start 04/05/17 at 21:00 Bicalutamide (Casodex) 50 mg DAILY PO Last administered on 04/07/17 09:11; Admin Dose 50 MG; Start 04/06/17 at 09:00 Digoxin (Digoxin) 0.125 mg DAILY@13 PO Last administered on 04/07/17 13:32; Admin Dose 0.125 MG; Start 04/06/17 at 13:00 Diltiazem HCl (Cardizem Cd) 240 mg DAILY PO Last administered on 04/07/17 09: 06; Admin Dose 240 MG; Start 04/06/17 at 09:00 Docusate Sodium (Colace) 100 mg DAILY PO Last administered on 04/07/17 09:06; Admin Dose 100 MG; Start 04/06/17 at 09:00 Dorzolamide/ Timolol (Cosopt) 1 drop BID BOTH EYES Last administered on 21:42; Admin Dose 1 DROP; Start 04/05/17 at 22:30 Lactobacillus Acidophilus/ Rhamnosus (Culturelle) 1 cap BID PO Last administered on 04/07/17 09:06; Admin Dose 1 CAP; Start 04/05/17 at 21:00 Salmeterol Xinafoate/ Fluticasone (Advair 250/50 Diskus) 1 inh BID INH Last administered on 04/07/17 09:00; Admin Dose 1 INH; Start 04/05/17 at 21:00 Senna (Senokot) 1 tab QHS PO Last administered on 04/06/17 21:42; Admin Dose 1 TAB; Start 04/05/17 at 21:00 Tiotropium [place] (Spiriva) 1 inh DAILY INH Last administered on 04/07/17 09: 01; Admin Dose 1 INH; Start 04/06/17 at 09:00 Theophylline (Turner-24) 200 mg QHS PO Last administered on 04/06/17 21:42; Admin Dose 200 MG; Start 04/06/17 at 21:00 Montelukast Sodium (Singulair) 10 mg QHS PO Last administered on 04/06/17 21: 42; Admin Dose 10 MG; Start 04/06/17 at 21:00 Methylprednisolone Sodium Succinate (Solu-Medrol) 40 mg BID IV Last administered on 04/07/17 09:01; Admin Dose 40 MG; Start 04/06/17 at 21:00 Patient Own Medication 1 ea QHS BOTH EYES ; Start 04/07/17 at 21:00 Assessment/Plan Chief Complaint/Hosp Course In brief, this is a 77-year-old [place] man with severe bullous emphysema, A. 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 Problems: Additional Assessment/Plan IMP: 1. COPD Exacerbation 2. Likely infectious bronchiolitis complicating underlying emphysema and ectatic disease RECS: 1. Cont Abx 2. BD's 3. Taper CS 4. DVT prophylaxis 5. Titrate FiO2 to SpO2 88-92% FABRICIO SOMMERS MD Apr 07, 2017 16:08
[2017-04-07] MEDS: AZITHROMYCIN 500MG/NS (PMX) 250 ML IVPB SCH (17:37)
[2017-04-07 19:33] VITALS: BP 123/60; RESP 20
[2017-04-07] MEDS: CEFTRIAXONE 1 GM/50 ML (PMX) 50 ML IVPB SCH (20:05)
[2017-04-07] MEDS: LUMIGAN EYE BOTH EYES SCH (20:10)
[2017-04-07] MEDS: ATORVASTATIN 20 MG TAB PO SCH (20:11)
[2017-04-07] MEDS: MONTELUKAST 10 MG TAB PO SCH (20:11)
[2017-04-07] MEDS: SENNA TAB PO SCH (20:11)
[2017-04-07] MEDS: THEOPHYLLINE (SR) 200 MG CAPSR PO SCH (22:22)
[2017-04-08] MEDS: ALBUTEROL/IPRATROPIUM (NEB) 3 ML AMP HHN SCH ×6 (01:43→20:15)
[2017-04-08 02:03] VITALS: BP 144/81; RESP 20
[2017-04-08 07:54] VITALS: BP 140/77; RESP 16
[2017-04-08] MEDS: APIXABAN 5 MG TABLET PO SCH ×2 (09:03→20:08)
[2017-04-08] MEDS: DOCUSATE SODIUM 100 MG CAP PO SCH (09:03)
[2017-04-08] MEDS: DILTIAZEM (CD) 240 MG CAP PO SCH (09:04)
[2017-04-08] MEDS: LACTOBACILLUS RHAMNOSUS CAP PO SCH ×2 (09:05→20:08)
[2017-04-08] MEDS: TIOTROPIUM 18 MCG CAPSULE INHA DEV INH SCH (09:05)
[2017-04-08] MEDS: SALMETEROL/FLUTICASONE 250/50 INHA INH SCH ×2 (09:05→20:09)
[2017-04-08] MEDS: METHYLPREDNISOLONE 40 MG INJ IV SCH ×2 (09:06→20:08)
[2017-04-08] MEDS: DORZOLAMIDE/TIMOLOL 10 ML OPH BOTH EYES SCH ×2 (09:07→20:08)
[2017-04-08] MEDS: METHIMAZOLE 5 MG TAB PO SCH (09:08)
[2017-04-08] MEDS: BICALUTAMIDE 50 MG TAB PO SCH (09:26)
[2017-04-08] MEDS: DIGOXIN 0.125 MG TAB PO SCH (13:17)
[2017-04-08 14:30] VITALS: BP 112/56; RESP 18
--- NOTE | 2017-04-08 17:10 | CONS ---
Date/Time of Note Date/Time of Note DATE: 04/08/17 TIME: 17:01 Consult Date/Type/Reason Admit Date/Time Apr 05, 2017 at 17:54 Initial Consult Date 04/06/17 Type of Consultation: Pulm Ordering Provider: AXEL WHARTON Subjective improved pleuritic chest pain, denies shortness of breath. Objective Vital Signs Date Time Temp Pulse Resp B/P Pulse Ox O2 Delivery O2 Flow Rate FiO2 04/08/17 14:30 98.1 59 18 112/56 95 04/08/17 13:25 Nasal Cannula 2.0 04/05/17 17:57 21 Intake and Output 04/07/17 04/07/17 04/08/17 15:00 23:00 07:00 Intake Total 1100 ml 300 ml Output Total 700 ml Balance 1100 ml -400 ml Exam HEENT: mmm pupils normal cvs; s1s2 rs: clear bilaterally abdo: soft nt bs present ext: no cy cl avinash Results/Medications Result Diagram: 04/06/17 0549 04/06/17 0549 Medications Current Medications Ondansetron HCl (Zofran Inj) 4 mg Q6H PRN IV NAUSEA AND/OR VOMITING; Start at 20:00 Acetaminophen (Tylenol Tab) 650 mg Q6H PRN PO PAIN LEVEL 1-3 OR FEVER; Start at 20:00 Acetaminophen/ Hydrocodone Bitart ([place] (5/325)) 1 tab Q6H PRN PO MODERATE PAIN LEVEL 4-6; Start 04/05/17 at 20:00 Morphine Sulfate (morphine) 2 mg Q4H PRN IV SEVERE PAIN LEVEL 7-10; Start 04/05 at 20:00 Docusate Sodium (Colace) 100 mg Q12H PRN PO CONSTIPATION; Start 04/05/17 at 20: 00 Zolpidem Tartrate 5 mg 5 mg QHS PRN PO SLEEP; Start 04/05/17 at 20:00 Ceftriaxone Sodium 50 ml @ 100 mls/hr Q24H IVPB Last administered on 20:05; Admin Dose 100 MLS/HR; Start 04/05/17 at 20:00 Azithromycin (Zithromax 500mg/ NS (Pmx)) 250 ml @ 250 mls/hr Q24H IVPB Last administered on 04/07/17 17:37; Admin Dose 250 MLS/HR; Start 04/06/17 at 18:00 Apixaban (Eliquis) 5 mg BID PO Last administered on 04/08/17 09:03; Admin Dose 5 MG; Start 04/05/17 at 21:00 Atorvastatin Calcium (Lipitor) 20 mg QHS PO Last administered on 04/07/17 20: 11; Admin Dose 20 MG; Start 04/05/17 at 21:00 Bicalutamide (Casodex) 50 mg DAILY PO Last administered on 04/08/17 09:26; Admin Dose 50 MG; Start 04/06/17 at 09:00 Digoxin (Digoxin) 0.125 mg DAILY@13 PO Last administered on 04/08/17 13:17; Admin Dose 0.125 MG; Start 04/06/17 at 13:00 Diltiazem HCl (Cardizem Cd) 240 mg DAILY PO Last administered on 04/08/17 09: 04; Admin Dose 240 MG; Start 04/06/17 at 09:00 Docusate Sodium (Colace) 100 mg DAILY PO Last administered on 04/08/17 09:03; Admin Dose 100 MG; Start 04/06/17 at 09:00 Dorzolamide/ Timolol (Cosopt) 1 drop BID BOTH EYES Last administered on 09:07; Admin Dose 1 DROP; Start 04/05/17 at 22:30 Lactobacillus Acidophilus/ Rhamnosus (Culturelle) 1 cap BID PO Last administered on 04/08/17 09:05; Admin Dose 1 CAP; Start 04/05/17 at 21:00 Salmeterol Xinafoate/ Fluticasone (Advair 250/50 Diskus) 1 inh BID INH Last administered on 04/08/17 09:05; Admin Dose 1 INH; Start 04/05/17 at 21:00 Senna (Senokot) 1 tab QHS PO Last administered on 04/07/17 20:11; Admin Dose 1 TAB; Start 04/05/17 at 21:00 Tiotropium [place] (Spiriva) 1 inh DAILY INH Last administered on 04/08/17 09: 05; Admin Dose 1 INH; Start 04/06/17 at 09:00 Theophylline (Turner-24) 200 mg QHS PO Last administered on 04/07/17 22:22; Admin Dose 200 MG; Start 04/06/17 at 21:00 Montelukast Sodium (Singulair) 10 mg QHS PO Last administered on 04/07/17 20: 11; Admin Dose 10 MG; Start 04/06/17 at 21:00 Methylprednisolone Sodium Succinate (Solu-Medrol) 40 mg BID IV Last administered on 04/08/17 09:06; Admin Dose 40 MG; Start 04/06/17 at 21:00 Patient Own Medication 1 ea QHS BOTH EYES Last administered on 04/07/17 20:10 ; Admin Dose 1 EA; Start 04/07/17 at 21:00 Assessment/Plan Chief Complaint/Hosp Course IMP: 1. COPD Exacerbation 2. Likely infectious bronchiolitis complicating underlying emphysema and ectatic disease 3. Pleuritc cp. RECS: 1. Cont Abx 2. BD's 3. Taper CS 4. DVT prophylaxis 5. Titrate FiO2 to SpO2 88-92% dc planning ok with me/ f/u with me in office. rpt ct chest 1 month Problems: [facility] WOMACK [facility] Apr 08, 2017 17:10
--- NOTE | 2017-04-08 17:35 | PN ---
Date/Time of Note Date/Time of Note DATE: 04/08/17 TIME: 17:33 Assessment/Plan VTE Prophylaxis VTE Prophylaxis Intervention: other (Factor Xa inhibitors.) Lines/Catheters IV Catheter Type (from [facility]): [facility] Urinary Cath still in place: No Assessment/Plan Chief Complaint/Hosp Course 1. COPD exacerbation. Continue tapering dose of steroids. Continue inhaled bronchodilators. Continue supplemental oxygen. Being followed by pulmonology. 2. Possible underlying acute tracheobronchitis. Continue antimicrobials. 3. Hyperthyroidism. Continue methimazole. Being followed by endocrinology. 4. Paroxysmal atrial fibrillation. Continue apixaban for stroke prophylaxis. Continue Digoxin and Cardizem. 5. Essential hypertension. Continue antihypertensives. 6. History of metastatic prostate cancer. Status post prostatectomy. On bicalutamide. 7. Pulmonary hypertension. PA systolic pressure 44 mmHg as per 2D echocardiogram done in October 2016. Continue supplemental oxygen. 8. Fluids, electrolytes, and nutrition. Regular diet. 9. DVT prophylaxis. Factor Xa inhibitors. 10. Plan. Continue inhaled bronchodilators. Continue tapering dose of steroids. Discharge the patient home once clinically stable. Case discussed with Dr. Kan. Problems: Subjective 24 Hr Interval Summary Free Text/Dictation Complains of a cough. Denies any pain. Exam/Review of Systems Vital Signs Vitals Vital Signs Date Time Temp Pulse Resp B/P Pulse Ox O2 Delivery O2 Flow Rate FiO2 04/08/17 14:30 98.1 59 18 112/56 95 04/08/17 13:25 Nasal Cannula 2.0 04/05/17 17:57 21 Intake and Output 04/07/17 04/07/17 04/08/17 15:00 23:00 07:00 Intake Total 1100 ml 300 ml Output Total 700 ml Balance 1100 ml -400 ml Exam General: Adequately build 77 year-old male lying in bed in no apparent distress. HEENT: Normocephalic, atraumatic. Eyes: Anicteric sclerae, conjunctivae clear. ENT: Nasal septum midline, oral mucosa moist. Neck supple, no JVD noticed. Respiratory: Bilaterally diminished breath sounds. No use of accessory muscles of respiration. No adventitious breath sounds. Cardiovascular: S1, S2 heard. Regular rate and rhythm. Abdomen: Soft, nontender, and nondistended. Bowel sounds positive in all 4 quadrants. Genitourinary: Deferred. Extremities: No cyanosis, no edema. Peripheral pulses palpable. Neurologic: Cranial nerves II through XII grossly intact. The patient is awake, alert, and oriented. Skin: Normal skin turgor. No skin rashes. Results Result Diagram: 04/06/17 0549 04/06/17 0549 Medications Medications Current Medications Ondansetron HCl (Zofran Inj) 4 mg Q6H PRN IV NAUSEA AND/OR VOMITING; Start at 20:00 Acetaminophen (Tylenol Tab) 650 mg Q6H PRN PO PAIN LEVEL 1-3 OR FEVER; Start at 20:00 Acetaminophen/ Hydrocodone Bitart ([place] (5/325)) 1 tab Q6H PRN PO MODERATE PAIN LEVEL 4-6; Start 04/05/17 at 20:00 Morphine Sulfate (morphine) 2 mg Q4H PRN IV SEVERE PAIN LEVEL 7-10; Start 04/05 at 20:00 Docusate Sodium (Colace) 100 mg Q12H PRN PO CONSTIPATION; Start 04/05/17 at 20: 00 Zolpidem Tartrate 5 mg 5 mg QHS PRN PO SLEEP; Start 04/05/17 at 20:00 Ceftriaxone Sodium 50 ml @ 100 mls/hr Q24H IVPB Last administered on 20:05; Admin Dose 100 MLS/HR; Start 04/05/17 at 20:00 Azithromycin (Zithromax 500mg/ NS (Pmx)) 250 ml @ 250 mls/hr Q24H IVPB Last administered on 04/07/17 17:37; Admin Dose 250 MLS/HR; Start 04/06/17 at 18:00 Apixaban (Eliquis) 5 mg BID PO Last administered on 04/08/17 09:03; Admin Dose 5 MG; Start 04/05/17 at 21:00 Atorvastatin Calcium (Lipitor) 20 mg QHS PO Last administered on 04/07/17 20: 11; Admin Dose 20 MG; Start 04/05/17 at 21:00 Bicalutamide (Casodex) 50 mg DAILY PO Last administered on 04/08/17 09:26; Admin Dose 50 MG; Start 04/06/17 at 09:00 Digoxin (Digoxin) 0.125 mg DAILY@13 PO Last administered on 04/08/17 13:17; Admin Dose 0.125 MG; Start 04/06/17 at 13:00 Diltiazem HCl (Cardizem Cd) 240 mg DAILY PO Last administered on 04/08/17 09: 04; Admin Dose 240 MG; Start 04/06/17 at 09:00 Docusate Sodium (Colace) 100 mg DAILY PO Last administered on 04/08/17 09:03; Admin Dose 100 MG; Start 04/06/17 at 09:00 Dorzolamide/ Timolol (Cosopt) 1 drop BID BOTH EYES Last administered on 09:07; Admin Dose 1 DROP; Start 04/05/17 at 22:30 Lactobacillus Acidophilus/ Rhamnosus (Culturelle) 1 cap BID PO Last administered on 04/08/17 09:05; Admin Dose 1 CAP; Start 04/05/17 at 21:00 Salmeterol Xinafoate/ Fluticasone (Advair 250/50 Diskus) 1 inh BID INH Last administered on 04/08/17 09:05; Admin Dose 1 INH; Start 04/05/17 at 21:00 Senna (Senokot) 1 tab QHS PO Last administered on 04/07/17 20:11; Admin Dose 1 TAB; Start 04/05/17 at 21:00 Tiotropium [place] (Spiriva) 1 inh DAILY INH Last administered on 04/08/17 09: 05; Admin Dose 1 INH; Start 04/06/17 at 09:00 Theophylline (Turner-24) 200 mg QHS PO Last administered on 04/07/17 22:22; Admin Dose 200 MG; Start 04/06/17 at 21:00 Montelukast Sodium (Singulair) 10 mg QHS PO Last administered on 04/07/17 20: 11; Admin Dose 10 MG; Start 04/06/17 at 21:00 Methylprednisolone Sodium Succinate (Solu-Medrol) 40 mg BID IV Last administered on 04/08/17 09:06; Admin Dose 40 MG; Start 04/06/17 at 21:00 Patient Own Medication 1 ea QHS BOTH EYES Last administered on 04/07/17 20:10 ; Admin Dose 1 EA; Start 04/07/17 at 21:00 BERYL PEARL NP Apr 08, 2017 17:35
--- NOTE | 2017-04-08 17:44 | CONS ---
Date/Time of Note Date/Time of Note DATE: 04/08/17 TIME: 17:42 Assessment/Plan Assessment/Plan Chief Complaint/Hosp Course 77-year-old [place] gentleman readmitted with exacerbation of chronic obstructive pulmonary disease. He had been referred to me for hyperthyroidism which was presumed to be due to his amiodarone. is present today for additional historical information. She informs me that he was placed on amiodarone within the last 2 years for rhythm disturbance that came up at the same time his lung disease. She reports that roughly 3-4 years ago he was diagnosed with prostate cancer. At that time she is aware that his TSHs were below the measurable limits i.e. 0.015 and less. Warns me that her prior physician had advised her that they would deal with other issues first and get to the thyroid later. As such his hyperthyroidism long predates his exposure to amiodarone. Problems: (1) Paroxysmal atrial fibrillation Status: Chronic Comment: Patient will be anticoagulated as per primary team on this. 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 Please note he should have his next set of tests done approximately 5 weeks Consultation Date/Type/Reason Admit Date/Time Apr 05, 2017 at 17:54 Initial Consult Date 04/06/17 Type of Consultation: Endocrinology Reason for Consultation Hyperthyroidism with multinodular goiter times years Referring Provider: AXEL WHARTON 24 HR Interval Summary Free Text/Dictation Patient is stable and offers no complaints Exam/Review of Systems Vital Signs Vitals Vital Signs Date Time Temp Pulse Resp B/P Pulse Ox O2 Delivery O2 Flow Rate FiO2 04/08/17 14:30 98.1 59 18 112/56 95 04/08/17 13:25 Nasal Cannula 2.0 04/05/17 17:57 21 Intake and Output 04/07/17 04/07/17 04/08/17 15:00 23:00 07:00 Intake Total 1100 ml 300 ml Output Total 700 ml Balance 1100 ml -400 ml Results No changes. Result Diagram: 04/06/17 0549 04/06/17 0549 Medications Medications Current Medications Ondansetron HCl (Zofran Inj) 4 mg Q6H PRN IV NAUSEA AND/OR VOMITING; Start at 20:00 Acetaminophen (Tylenol Tab) 650 mg Q6H PRN PO PAIN LEVEL 1-3 OR FEVER; Start at 20:00 Acetaminophen/ Hydrocodone Bitart ([place] (5/325)) 1 tab Q6H PRN PO MODERATE PAIN LEVEL 4-6; Start 04/05/17 at 20:00 Morphine Sulfate (morphine) 2 mg Q4H PRN IV SEVERE PAIN LEVEL 7-10; Start 04/05 at 20:00 Docusate Sodium (Colace) 100 mg Q12H PRN PO CONSTIPATION; Start 04/05/17 at 20: 00 Zolpidem Tartrate 5 mg 5 mg QHS PRN PO SLEEP; Start 04/05/17 at 20:00 Ceftriaxone Sodium 50 ml @ 100 mls/hr Q24H IVPB Last administered on 20:05; Admin Dose 100 MLS/HR; Start 04/05/17 at 20:00 Azithromycin (Zithromax 500mg/ NS (Pmx)) 250 ml @ 250 mls/hr Q24H IVPB Last administered on 04/07/17 17:37; Admin Dose 250 MLS/HR; Start 04/06/17 at 18:00 Apixaban (Eliquis) 5 mg BID PO Last administered on 04/08/17 09:03; Admin Dose 5 MG; Start 04/05/17 at 21:00 Atorvastatin Calcium (Lipitor) 20 mg QHS PO Last administered on 04/07/17 20: 11; Admin Dose 20 MG; Start 04/05/17 at 21:00 Bicalutamide (Casodex) 50 mg DAILY PO Last administered on 04/08/17 09:26; Admin Dose 50 MG; Start 04/06/17 at 09:00 Digoxin (Digoxin) 0.125 mg DAILY@13 PO Last administered on 04/08/17 13:17; Admin Dose 0.125 MG; Start 04/06/17 at 13:00 Diltiazem HCl (Cardizem Cd) 240 mg DAILY PO Last administered on 04/08/17 09: 04; Admin Dose 240 MG; Start 04/06/17 at 09:00 Docusate Sodium (Colace) 100 mg DAILY PO Last administered on 04/08/17 09:03; Admin Dose 100 MG; Start 04/06/17 at 09:00 Dorzolamide/ Timolol (Cosopt) 1 drop BID BOTH EYES Last administered on 09:07; Admin Dose 1 DROP; Start 04/05/17 at 22:30 Lactobacillus Acidophilus/ Rhamnosus (Culturelle) 1 cap BID PO Last administered on 04/08/17 09:05; Admin Dose 1 CAP; Start 04/05/17 at 21:00 Salmeterol Xinafoate/ Fluticasone (Advair 250/50 Diskus) 1 inh BID INH Last administered on 04/08/17 09:05; Admin Dose 1 INH; Start 04/05/17 at 21:00 Senna (Senokot) 1 tab QHS PO Last administered on 04/07/17 20:11; Admin Dose 1 TAB; Start 04/05/17 at 21:00 Tiotropium [place] (Spiriva) 1 inh DAILY INH Last administered on 04/08/17 09: 05; Admin Dose 1 INH; Start 04/06/17 at 09:00 Theophylline (Turner-24) 200 mg QHS PO Last administered on 04/07/17 22:22; Admin Dose 200 MG; Start 04/06/17 at 21:00 Montelukast Sodium (Singulair) 10 mg QHS PO Last administered on 04/07/17 20: 11; Admin Dose 10 MG; Start 04/06/17 at 21:00 Methylprednisolone Sodium Succinate (Solu-Medrol) 40 mg BID IV Last administered on 04/08/17 09:06; Admin Dose 40 MG; Start 04/06/17 at 21:00 Patient Own Medication 1 ea QHS BOTH EYES Last administered on 04/07/17 20:10 ; Admin Dose 1 EA; Start 04/07/17 at 21:00 LULI SANCHEZ MD Apr 08, 2017 17:44
[2017-04-08] MEDS: AZITHROMYCIN 500MG/NS (PMX) 250 ML IVPB SCH (17:54)
[2017-04-08] MEDS: CEFTRIAXONE 1 GM/50 ML (PMX) 50 ML IVPB SCH (19:56)
[2017-04-08] MEDS: THEOPHYLLINE (SR) 200 MG CAPSR PO SCH (20:07)
[2017-04-08] MEDS: ATORVASTATIN 20 MG TAB PO SCH (20:08)
[2017-04-08] MEDS: SENNA TAB PO SCH (20:08)
[2017-04-08] MEDS: MONTELUKAST 10 MG TAB PO SCH (20:08)
[2017-04-08] MEDS: LUMIGAN EYE BOTH EYES SCH (20:09)
[2017-04-08 21:19] VITALS: BP 135/71; RESP 18
[2017-04-09] MEDS: ALBUTEROL/IPRATROPIUM (NEB) 3 ML AMP HHN SCH ×5 (02:04→15:48)
[2017-04-09 02:44] VITALS: BP 136/73; RESP 18
[2017-04-09 06:17] LABS: ABNORMAL IP MESSAGE 1; BASOPHILS % 0.1 % (0.0-2.0); HEMATOCRIT 39.8 % (42.0-52.0); HEMOGLOBIN 12.9 g/dl (14.0-18.0); LYMPHOCYTES # 0.6 10^3/ul (0.8-2.9); LYMPHOCYTES % 3.7 % (15.0-51.0); MEAN CORPUSCULAR HEMOGLOBIN 29.3 pg (29.0-33.0); MEAN CORPUSCULAR HGB CONC 32.4 g/dl (32.0-37.0); MEAN CORPUSCULAR VOLUME 90.5 fl (82.0-101.0); MEAN PLATELET VOLUME 9.6 fl (7.4-10.4); MONOCYTE # 0.7 10^3/ul (0.3-0.9); MONOCYTES % 4.3 % (0.0-11.0); NEUTROPHIL # 14.5 10^3/ul (1.6-7.5); NEUTROPHILS % 90.6 % (39.0-77.0); PLATELET COUNT 323 10^3/UL (140-415); POSITIVE DIFF @See below; WHITE BLOOD COUNT 15.9 10^3/ul (4.8-10.8)
[2017-04-09 06:48] LABS: MAGNESIUM 2.3 mg/dl (1.7-2.5); PHOSPHORUS 3.3 mg/dl (2.5-4.9)
[2017-04-09 06:51] LABS: CALCIUM 7.7 mg/dl (8.4-10.2); CREATININE 0.84 mg/dl (0.61-1.24); POTASSIUM 4.1 mmol/L (3.5-5.1)
[2017-04-09 07:52] VITALS: BP 141/72; RESP 17
[2017-04-09] MEDS: SALMETEROL/FLUTICASONE 250/50 INHA INH SCH (08:08)
[2017-04-09] MEDS: BICALUTAMIDE 50 MG TAB PO SCH (08:08)
[2017-04-09] MEDS: DORZOLAMIDE/TIMOLOL 10 ML OPH BOTH EYES SCH (08:08)
[2017-04-09] MEDS: METHYLPREDNISOLONE 40 MG INJ IV SCH (08:08)
[2017-04-09] MEDS: LACTOBACILLUS RHAMNOSUS CAP PO SCH (08:08)
[2017-04-09] MEDS: DOCUSATE SODIUM 100 MG CAP PO SCH (08:08)
[2017-04-09] MEDS: METHIMAZOLE 5 MG TAB PO SCH (08:09)
[2017-04-09] MEDS: DILTIAZEM (CD) 240 MG CAP PO SCH (08:09)
[2017-04-09] MEDS: APIXABAN 5 MG TABLET PO SCH (08:09)
[2017-04-09] MEDS: TIOTROPIUM 18 MCG CAPSULE INHA DEV INH SCH (08:10)
--- NOTE | 2017-04-09 09:12 | PDOCDIS ---
Discharge Instructions DIAGNOSIS Discharge Diagnosis COPD exacerbation. CONDITION Patient Condition: Stable HOME CARE INSTRUCTIONS: Diet Instructions: RegularSpecial Diet: regular FOLLOW UP/APPOINTMENTS Follow-up Plan Gareth Castellano MD Specialty: Critical Care Medicine/ Pulmonary Medicine Office Address [address] [place], [place] [id number] Office OTHER ORDERS: Other Orders: 1. Resume home medications. Take Robitussin as needed for cough. 2. Regular diet. 3. Activities as tolerated. 4. Follow-up with Dr. Castellano as scheduled. BERYL PEARL NP Apr 09, 2017 09:12
[2017-04-09] MEDS ORDERED: AZIT500T2 PO (09:16)
[2017-04-09] MEDS ORDERED: HYDR-3498 PO (09:16)
[2017-04-09] MEDS ORDERED: GUAI-637 PO (09:20)
[2017-04-09] MEDS ORDERED: MED4DP PO (09:20)
--- NOTE | 2017-04-09 10:26 | DS ---
DATE OF ADMISSION: 04/05/2017 DATE OF DISCHARGE: 04/09/2017 FINAL DIAGNOSES: 1. Acute on chronic hypoxic respiratory failure secondary to chronic obstructive pulmonary disease exacerbation. 2. Chronic obstructive pulmonary disease exacerbation. 3. Possible underlying acute tracheobronchitis. 4. Hyperthyroidism. 5. Paroxysmal atrial fibrillation. 6. Essential hypertension. 7. Pulmonary hypertension. 8. History of metastatic prostate cancer. CONSULTANTS: 1. Gareth Castellano MD, pulmonary. 2. Won Busby MD, pulmonary. 3. King Bautista MD, endocrinology. HOSPITAL COURSE: This is a 77-year-old male with past medical history of COPD, atrial fibrillation, hyperthyroidism, glaucoma, metastatic prostate cancer and essential hypertension who came to the emergency room with chief complaint of dyspnea. The patient has chronic COPD and he uses home O2. Provided the patient's history of present illness and his comorbidities, a clinical decision was made to admit the patient to inpatient setting to have him further evaluated. The patient was admitted to inpatient setting. The patient was started on inhaled bronchodilators. The patient was started on tapering dose of IV steroids. The patient was started on empiric antibiotics for any underlying tracheobronchitis. The patient's symptomatology improved with the treatment strategy. The patient had significant leukocytosis upon presentation that was improving throughout the patient's hospital course. The patient has underlying hyperthyroidism. The patient was evaluated by endocrinology. The patient was maintained on methimazole. The patient has history of paroxysmal atrial fibrillation. He was maintained on digoxin and Cardizem. The patient was maintained on apixaban for stroke prophylaxis. The patient was maintained on antihypertensives for his underlying essential hypertension. The patient also has history of pulmonary hypertension as evidenced by a PA systolic pressure 44 as on 2D echocardiogram done in October 2016. The patient was maintained on supplemental oxygen. He also has history of metastatic prostate cancer. He was maintained on bicalutamide. The patient had a stable hospital course. The patient was cleared by consultants to be discharged home. The patient denied any complaints at the time of discharge. DISPOSITION/PLAN: The patient will be discharged home today. The patient was instructed to resume his home medications. He was instructed take p.r.n. Robitussin as needed for cough. The patient was instructed take a regular diet. The patient was instructed to resume activities as tolerated. The patient was instructed to follow up with Dr. Castellano as scheduled. The patient verbalized understanding of his discharge instructions. CONDITION ON DISCHARGE: Stable. DISCHARGE MEDICATIONS: 1. Zithromax tri pack. 2. Robitussin 5 mL orally every 4 hours p.r.n. cough. 3. [place] 5/325, 1 tab p.o. every 6 hours p.r.n. pain. 4. Medrol Dosepak 4 mg p.o. as directed. 5. Eliquis 5 mg p.o. b.i.d. 6. Lipitor 20 mg p.o. at bedtime. 7. Bicalutamide 50 mg p.o. daily. 8. [place] 1 drop to both eyes. 9. Digoxin 250 mcg p.o. daily. 10. Diltiazem XT 240 mg p.o. daily. 11. Colace 100 mg p.o. daily. 12. Dorzolamide with timolol 1 drop to both eyes b.i.d. 13. Propylthiouracil 200 mg p.o. t.i.d. 14. Advair 1-2 puffs inhaled b.i.d. 15. Spiriva 1 inhalation daily. DIAGNOSTIC DATA: 1. Chest x-ray: Marked emphysema. Peripheral opacity in the right midlung is unchanged from 04/01/2017. No pneumonia or pleural effusion. 2. Latest CBC: WBC 15.9, hemoglobin 12.9, hematocrit 39.8, platelet count 323,000. 3. Latest BMP: Sodium 141, potassium 4.1, chloride 107, carbon dioxide 20, anion gap 10, BUN 21, creatinine 0.8, glucose 111, calcium 7.7, phosphorus 3.3, magnesium 2.3. At this time I would like to thank all the consultants for seeing the patient and providing recommendations. The case and management of this patient was fully discussed with Dr. Kan. Approximately 35 minutes was spent on coordinating the discharge on this patient. Dictated By: Edi Marshall NP /yunier/kay /Document#: [id number] JOSE
[2017-04-09] MEDS: DIGOXIN 0.125 MG TAB PO SCH (12:32)
--- NOTE | 2017-04-09 12:43 | CONS ---
Date/Time of Note Date/Time of Note DATE: 04/09/17 TIME: 12:42 Consult Date/Type/Reason Admit Date/Time Apr 05, 2017 at 17:54 Initial Consult Date 04/06/17 Type of Consultation: Pulm Ordering Provider: AXEL WHARTON Subjective Better, less sob. Objective Vital Signs Date Time Temp Pulse Resp B/P Pulse Ox O2 Delivery O2 Flow Rate FiO2 04/09/17 11:42 70 20 98 Nasal Cannula 2.0 04/09/17 07:52 97.6 141/72 04/05/17 17:57 21 Intake and Output 04/08/17 04/08/17 04/09/17 15:00 23:00 07:00 Intake Total 1500 ml 360 ml Output Total 350 ml Balance 1500 ml 10 ml Exam HEENT: mmm pupils normal cvs; s1s2 rs: clear bilaterally abdo: soft nt bs present ext: no cy cl avinash Results/Medications Result Diagram: 04/09/17 0552 04/09/17 0552 Results 24 hrs Laboratory Tests Test 04/09/17 05:52 White Blood Count 15.9 H Red Blood Count 4.40 L Hemoglobin 12.9 L Hematocrit 39.8 L Mean Corpuscular Volume 90.5 Mean Corpuscular Hemoglobin 29.3 Mean Corpuscular Hemoglobin Concent 32.4 Red Cell Distribution Width 14.0 Platelet Count 323 Mean Platelet Volume 9.6 Neutrophils % 90.6 H Lymphocytes % 3.7 L Monocytes % 4.3 Eosinophils % 0.0 Basophils % 0.1 Nucleated Red Blood Cells % 0.0 Neutrophils # 14.5 H Lymphocytes # 0.6 L Monocytes # 0.7 Eosinophils # 0.0 Basophils # 0.0 Nucleated Red Blood Cells # 0.0 Sodium Level 141 Potassium Level 4.1 Chloride Level 107 Carbon Dioxide Level 28 Anion Gap 10 Blood Urea Nitrogen 21 H Creatinine 0.84 Glucose Level 111 Calcium Level 7.7 L Phosphorus Level 3.3 Magnesium Level 2.3 Medications Current Medications Ondansetron HCl (Zofran Inj) 4 mg Q6H PRN IV NAUSEA AND/OR VOMITING; Start at 20:00 Acetaminophen (Tylenol Tab) 650 mg Q6H PRN PO PAIN LEVEL 1-3 OR FEVER; Start at 20:00 Acetaminophen/ Hydrocodone Bitart ([place] (5/325)) 1 tab Q6H PRN PO MODERATE PAIN LEVEL 4-6 Last administered on 04/09/17 07:40; Admin Dose 1 TAB; Start at 20:00 Morphine Sulfate (morphine) 2 mg Q4H PRN IV SEVERE PAIN LEVEL 7-10; Start 04/05 at 20:00 Docusate Sodium (Colace) 100 mg Q12H PRN PO CONSTIPATION; Start 04/05/17 at 20: 00 Zolpidem Tartrate 5 mg 5 mg QHS PRN PO SLEEP; Start 04/05/17 at 20:00 Ceftriaxone Sodium 50 ml @ 100 mls/hr Q24H IVPB Last administered on 19:56; Admin Dose 100 MLS/HR; Start 04/05/17 at 20:00 Azithromycin (Zithromax 500mg/ NS (Pmx)) 250 ml @ 250 mls/hr Q24H IVPB Last administered on 04/08/17 17:54; Admin Dose 250 MLS/HR; Start 04/06/17 at 18:00 Apixaban (Eliquis) 5 mg BID PO Last administered on 04/09/17 08:09; Admin Dose 5 MG; Start 04/05/17 at 21:00 Atorvastatin Calcium (Lipitor) 20 mg QHS PO Last administered on 04/08/17 20: 08; Admin Dose 20 MG; Start 04/05/17 at 21:00 Bicalutamide (Casodex) 50 mg DAILY PO Last administered on 04/09/17 08:08; Admin Dose 50 MG; Start 04/06/17 at 09:00 Digoxin (Digoxin) 0.125 mg DAILY@13 PO Last administered on 04/09/17 12:32; Admin Dose 0.125 MG; Start 04/06/17 at 13:00 Diltiazem HCl (Cardizem Cd) 240 mg DAILY PO Last administered on 04/09/17 08: 09; Admin Dose 240 MG; Start 04/06/17 at 09:00 Docusate Sodium (Colace) 100 mg DAILY PO Last administered on 04/09/17 08:08; Admin Dose 100 MG; Start 04/06/17 at 09:00 Dorzolamide/ Timolol (Cosopt) 1 drop BID BOTH EYES Last administered on 08:08; Admin Dose 1 DROP; Start 04/05/17 at 22:30 Lactobacillus Acidophilus/ Rhamnosus (Culturelle) 1 cap BID PO Last administered on 04/09/17 08:08; Admin Dose 1 CAP; Start 04/05/17 at 21:00 Salmeterol Xinafoate/ Fluticasone (Advair 250/50 Diskus) 1 inh BID INH Last administered on 04/09/17 08:08; Admin Dose 1 INH; Start 04/05/17 at 21:00 Senna (Senokot) 1 tab QHS PO Last administered on 04/08/17 20:08; Admin Dose 1 TAB; Start 04/05/17 at 21:00 Tiotropium [place] (Spiriva) 1 inh DAILY INH Last administered on 04/08/17 09: 05; Admin Dose 1 INH; Start 04/06/17 at 09:00 Theophylline (Turner-24) 200 mg QHS PO Last administered on 04/08/17 20:07; Admin Dose 200 MG; Start 04/06/17 at 21:00 Montelukast Sodium (Singulair) 10 mg QHS PO Last administered on 04/08/17 20: 08; Admin Dose 10 MG; Start 04/06/17 at 21:00 Methylprednisolone Sodium Succinate (Solu-Medrol) 40 mg BID IV Last administered on 04/09/17 08:08; Admin Dose 40 MG; Start 04/06/17 at 21:00 Patient Own Medication 1 ea QHS BOTH EYES Last administered on 04/08/17 20:09 ; Admin Dose 1 EA; Start 04/07/17 at 21:00 Assessment/Plan Chief Complaint/Hosp Course IMP: 1. COPD Exacerbation 2. Likely infectious bronchiolitis complicating underlying emphysema and ectatic disease 3. Pleuritc cp. RECS: 1. Cont Abx 2. BD's 3. Taper CS 4. DVT prophylaxis 5. Titrate FiO2 to SpO2 88-92% dc planning ok with me/ f/u with me in office. rpt ct chest 1 month Problems: ANITA WOMACK MD, FCCP Apr 09, 2017 12:43
[2017-04-09 14:24] VITALS: BP 116/70; RESP 19
--- NOTE | 2017-04-09 17:36 | CONS ---
Date/Time of Note Date/Time of Note DATE: 04/09/17 TIME: 17:33 Assessment/Plan Assessment/Plan Chief Complaint/Hosp Course 77-year-old [place] gentleman readmitted with exacerbation of chronic obstructive pulmonary disease. He had been referred to me for hyperthyroidism which was presumed to be due to his amiodarone. is present today for additional historical information. She informs me that he was placed on amiodarone within the last 2 years for rhythm disturbance that came up at the same time his lung disease. She reports that roughly 3-4 years ago he was diagnosed with prostate cancer. At that time she is aware that his TSHs were below the measurable limits i.e. 0.015 and less. Warns me that her prior physician had advised her that they would deal with other issues first and get to the thyroid later. As such his hyperthyroidism long predates his exposure to amiodarone. Problems: (1) Hyperthyroidism Status: Chronic Comment: The patients spouse has brought in old labs. His hyperthyroidism can be traced back 11 years minimum!! This is a Hyperthyroid multinodular goiter and will require PERMANENT treatment!! Consultation Date/Type/Reason Admit Date/Time Apr 05, 2017 at 17:54 Initial Consult Date 04/06/17 Type of Consultation: Endocrinology Reason for Consultation Hyperthyroid multinodular goiter Referring Provider: AXEL WHARTON 24 HR Interval Summary Constitutional: improved Exam/Review of Systems Vital Signs Vitals Vital Signs Date Time Temp Pulse Resp B/P Pulse Ox O2 Delivery O2 Flow Rate FiO2 04/09/17 15:50 75 18 98 Nasal Cannula 2.0 04/09/17 14:24 97.6 116/70 04/05/17 17:57 21 Intake and Output 04/08/17 04/08/17 04/09/17 15:00 23:00 07:00 Intake Total 1500 ml 360 ml Output Total 350 ml Balance 1500 ml 10 ml Exam Constitutional: alert, oriented Extremities: other (tremor) Results Result Diagram: 04/09/17 0552 04/09/17 0552 Results 24 hrs Laboratory Tests Test 04/09/17 05:52 White Blood Count 15.9 H Red Blood Count 4.40 L Hemoglobin 12.9 L Hematocrit 39.8 L Mean Corpuscular Volume 90.5 Mean Corpuscular Hemoglobin 29.3 Mean Corpuscular Hemoglobin Concent 32.4 Red Cell Distribution Width 14.0 Platelet Count 323 Mean Platelet Volume 9.6 Neutrophils % 90.6 H Lymphocytes % 3.7 L Monocytes % 4.3 Eosinophils % 0.0 Basophils % 0.1 Nucleated Red Blood Cells % 0.0 Neutrophils # 14.5 H Lymphocytes # 0.6 L Monocytes # 0.7 Eosinophils # 0.0 Basophils # 0.0 Nucleated Red Blood Cells # 0.0 Sodium Level 141 Potassium Level 4.1 Chloride Level 107 Carbon Dioxide Level 28 Anion Gap 10 Blood Urea Nitrogen 21 H Creatinine 0.84 Glucose Level 111 Calcium Level 7.7 L Phosphorus Level 3.3 Magnesium Level 2.3 Medications Medications Current Medications Ondansetron HCl (Zofran Inj) 4 mg Q6H PRN IV NAUSEA AND/OR VOMITING; Start at 20:00 Acetaminophen (Tylenol Tab) 650 mg Q6H PRN PO PAIN LEVEL 1-3 OR FEVER; Start at 20:00 Acetaminophen/ Hydrocodone Bitart ([place] (5/325)) 1 tab Q6H PRN PO MODERATE PAIN LEVEL 4-6 Last administered on 04/09/17 07:40; Admin Dose 1 TAB; Start at 20:00 Morphine Sulfate (morphine) 2 mg Q4H PRN IV SEVERE PAIN LEVEL 7-10; Start 04/05 at 20:00 Docusate Sodium (Colace) 100 mg Q12H PRN PO CONSTIPATION; Start 04/05/17 at 20: 00 Zolpidem Tartrate 5 mg 5 mg QHS PRN PO SLEEP; Start 04/05/17 at 20:00 Ceftriaxone Sodium 50 ml @ 100 mls/hr Q24H IVPB Last administered on 19:56; Admin Dose 100 MLS/HR; Start 04/05/17 at 20:00 Azithromycin (Zithromax 500mg/ NS (Pmx)) 250 ml @ 250 mls/hr Q24H IVPB Last administered on 04/08/17 17:54; Admin Dose 250 MLS/HR; Start 04/06/17 at 18:00 Apixaban (Eliquis) 5 mg BID PO Last administered on 04/09/17 08:09; Admin Dose 5 MG; Start 04/05/17 at 21:00 Atorvastatin Calcium (Lipitor) 20 mg QHS PO Last administered on 04/08/17 20: 08; Admin Dose 20 MG; Start 04/05/17 at 21:00 Bicalutamide (Casodex) 50 mg DAILY PO Last administered on 04/09/17 08:08; Admin Dose 50 MG; Start 04/06/17 at 09:00 Digoxin (Digoxin) 0.125 mg DAILY@13 PO Last administered on 04/09/17 12:32; Admin Dose 0.125 MG; Start 04/06/17 at 13:00 Diltiazem HCl (Cardizem Cd) 240 mg DAILY PO Last administered on 04/09/17 08: 09; Admin Dose 240 MG; Start 04/06/17 at 09:00 Docusate Sodium (Colace) 100 mg DAILY PO Last administered on 04/09/17 08:08; Admin Dose 100 MG; Start 04/06/17 at 09:00 Dorzolamide/ Timolol (Cosopt) 1 drop BID BOTH EYES Last administered on 08:08; Admin Dose 1 DROP; Start 04/05/17 at 22:30 Lactobacillus Acidophilus/ Rhamnosus (Culturelle) 1 cap BID PO Last administered on 04/09/17 08:08; Admin Dose 1 CAP; Start 04/05/17 at 21:00 Salmeterol Xinafoate/ Fluticasone (Advair 250/50 Diskus) 1 inh BID INH Last administered on 04/09/17 08:08; Admin Dose 1 INH; Start 04/05/17 at 21:00 Senna (Senokot) 1 tab QHS PO Last administered on 04/08/17 20:08; Admin Dose 1 TAB; Start 04/05/17 at 21:00 Tiotropium [place] (Spiriva) 1 inh DAILY INH Last administered on 04/08/17 09: 05; Admin Dose 1 INH; Start 04/06/17 at 09:00 Theophylline (Turner-24) 200 mg QHS PO Last administered on 04/08/17 20:07; Admin Dose 200 MG; Start 04/06/17 at 21:00 Montelukast Sodium (Singulair) 10 mg QHS PO Last administered on 04/08/17 20: 08; Admin Dose 10 MG; Start 04/06/17 at 21:00 Methylprednisolone Sodium Succinate (Solu-Medrol) 40 mg BID IV Last administered on 04/09/17 08:08; Admin Dose 40 MG; Start 04/06/17 at 21:00 Patient Own Medication 1 ea QHS BOTH EYES Last administered on 04/08/17 20:09 ; Admin Dose 1 EA; Start 04/07/17 at 21:00 LULI SANCHEZ MD Apr 09, 2017 17:36
[2017-04-09] MEDS: AZITHROMYCIN 500MG/NS (PMX) 250 ML IVPB SCH (18:00)
== END 2017-04-09 18:35 | disposition home or self-care (01) | DRG 190 ==
LOC: E/R 17:13 → PP2 17:54
PROVIDERS: ADMIT Internal Medicine; ATTEND Internal Medicine
DX: J44.1 Chronic obstructive pulmonary disease with (acute) exacerbation (principal); J96.21 Acute and chronic respiratory failure with hypoxia; I27.20 Pulmonary hypertension, unspecified; C79.9 Secondary malignant neoplasm of unspecified site; I48.0 Paroxysmal atrial fibrillation; Z99.81 Dependence on supplemental oxygen; J44.0 Chronic obstructive pulmonary disease with (acute) lower respiratory infection; J20.9 Acute bronchitis, unspecified; I10 Essential (primary) hypertension; D72.829 Elevated white blood cell count, unspecified; E05.20 Thyrotoxicosis with toxic multinodular goiter without thyrotoxic crisis or storm; E78.5 Hyperlipidemia, unspecified; R91.8 Other nonspecific abnormal finding of lung field; H40.1132 Primary open-angle glaucoma, bilateral, moderate stage; Z87.01 Personal history of pneumonia (recurrent); Z87.891 Personal history of nicotine dependence; Z85.46 Personal history of malignant neoplasm of prostate; T46.2X5A Adverse effect of other antidysrhythmic drugs, initial encounter; T38.0X5A Adverse effect of glucocorticoids and synthetic analogues, initial encounter
CPT/HCPCS: 36415; 71010; 80048; 80162; 83605; 83735; 84100; 84484; 85025; 87040; 87081; 93005; 94640; 94664; 96374; 96375; J0456; J0696; J2405; J2920; J2930; J7040

== ENCOUNTER 2017-04-16 19:19 | Inpatient (IN) | payer MEDICARE, OTHER ==
[~2017-04-16] VITALS: Ht 175.3 cm; Wt 59.0 kg
[~2017-04-16 19:19] MED LIST changes: +AZIT500T2 PO; +GUAI-637 PO; +HYDR-3498 PO; -LACT1CAP57 PO; +MED4DP PO; -PRED20TA PO
[2017-04-16 19:54] VITALS: Ht 175.3 cm; Wt 59.0 kg
[2017-04-16] MEDS ORDERED: ACETAMINOPHEN 325 MG TAB PO STA (20:19)
[2017-04-16] MEDS ORDERED: CEFEPIME 2GM/50 ML (PMX) 50 ML IVPB STA (20:19)
[2017-04-16] MEDS ORDERED: SODIUM CHLORIDE 0.9% 1L BAG IV* STA (20:19)
[2017-04-16] MEDS ORDERED: NACL 3% FOR INHALATION 15 ML NEBU NEB ONE (20:30)
[2017-04-16] MEDS ORDERED: VANCOMYCIN 1 GM (PMX) 250 ML IVPB ONE (20:30)
[2017-04-16] MEDS ORDERED: ACETAMINOPHEN 325 MG TAB PO PRN (21:00)
[2017-04-16] MEDS ORDERED: ONDANSETRON 4 MG INJ IV PRN (21:00)
[2017-04-16 21:08] LABS: ABNORMAL IP MESSAGE 1; BASOPHILS % 0.1 % (0.0-2.0); EOSINOPHILS # 0.1 10^3/ul (0.0-0.5); EOSINOPHILS % 0.3 % (0.0-7.0); HEMATOCRIT 38.7 % (42.0-52.0); HEMOGLOBIN 12.7 g/dl (14.0-18.0); LYMPHOCYTES # 1.3 10^3/ul (0.8-2.9); LYMPHOCYTES % 4.7 % (15.0-51.0); MEAN CORPUSCULAR HEMOGLOBIN 29.6 pg (29.0-33.0); MEAN CORPUSCULAR HGB CONC 32.8 g/dl (32.0-37.0); MEAN CORPUSCULAR VOLUME 90.2 fl (82.0-101.0); MEAN PLATELET VOLUME 10.2 fl (7.4-10.4); MONOCYTE # 1.5 10^3/ul (0.3-0.9); MONOCYTES % 5.4 % (0.0-11.0); NEUTROPHIL # 24.4 10^3/ul (1.6-7.5); NEUTROPHILS % 88.4 % (39.0-77.0); PLATELET COUNT 202 10^3/UL (140-415); POSITIVE DIFF @See below; RED BLOOD COUNT 4.29 10^6/ul (4.70-6.10); RED CELL DISTRIBUTION WIDTH 14.5 % (11.5-14.5); WHITE BLOOD COUNT 27.5 10^3/ul (4.8-10.8)
[2017-04-16 21:24] LABS: INR 1.86; PARTIAL THROMBOPLASTIN TIME 43.2 Sec (25.0-35.0); PROTIME 21.6 Sec (12.2-14.2); PT RATIO 1.7
[2017-04-16 21:27] LABS: ALBUMIN 3.5 g/dl (3.3-4.9); ALBUMIN/GLOBULIN RATIO 1.06; BILIRUBIN,INDIRECT 0.9 mg/dl (0-1.1); BILIRUBIN,TOTAL 0.9 mg/dl (0.2-1.3); CALCIUM 8.6 mg/dl (8.4-10.2); CREATININE 0.96 mg/dl (0.61-1.24); POTASSIUM 3.9 mmol/L (3.5-5.1); TOTAL PROTEIN 6.8 g/dl (6.1-8.1)
[2017-04-16] MEDS ORDERED: ADV25050 INHALATION (21:35)
[2017-04-16 21:38] LABS: TROPONIN-I 0.017 ng/ml (0.00-0.12)
[2017-04-16] MEDS ORDERED: LUPRON (21:57)
--- NOTE | 2017-04-16 21:59 | RADRPT ---
PROCEDURE: XR Chest. CLINICAL INDICATION: Possible sepsis. TECHNIQUE: 2 frontal views of the chest. COMPARISON: 10/10/2016. FINDINGS: The cardiomediastinal silhouette is within normal limits. Atherosclerotic calcifications in the tort uous thoracic aorta. Right lung base patchy air space disease with a right lung base loculated pleur al effusion. Consider CT correlation. Atelectasis versus airspace disease at the right lung horizont al fissure. No signs of pleural fluid or pneumothorax are seen. The osseous structures and soft tiss ues are unremarkable. IMPRESSION: 1. Right lung base patchy air space disease, which may represent pneumonia in setting of sepsis. 2. Loculated pleural effusion at the right lung base. 3. Consider CT correlation. RPTAT: [facility] Physician Geo Date Time Electronically viewed and signed by Physician Geo on 04/16/2017 21:59 RS/
--- NOTE | 2017-04-16 22:45 | ERA ---
ER Documentation Chief Complaint Date/Time DATE: 04/16/17 TIME: 22:42 Chief Complaint SOB x3 wks. dc'd on 04/11/17. "not feeling better" dx Bronchitis HPI Patient is a 77-year-old male with COPD who presents with shortness of breath. He has fever as well. The says that he has "congestion and sputum". It started 3 weeks ago. He was recently on antibiotics and finished yesterday. He did have a recent admission on April 05 for hypoxia. Upon review of old medical records the patient is 8 visits to the ER since 2013 and multiple admissions recently. ROS All systems reviewed and are negative except as per history of present illness. Medications Home Meds Reported Medications [Lupron] No Conflict Check, Q3MONT. 04/16/17 Salmeterol Xinaf/Fluticasone* (Advair*) 250-50 Diskus Inhaler, 1 INH INHALATION BID, #1 INHALER 04/16/17 Bicalutamide* (Bicalutamide*) 50 Mg Tablet, 50 MG PO DAILY, TAB 04/01/17 Sennosides* (Senna Lax*) 8.6 Mg Tablet, 1 TAB PO QHS, TAB 10/10/16 Docusate Sodium (Col-Rite) 100 Mg Capsule, 100 MG PO DAILY, CAP 10/10/16 Diltiazem Hcl* (Diltiazem XT) 240 Mg Capsule.er, 240 MG PO DAILY, #30 CAP 10/10/16 Atorvastatin Calcium* (Atorvastatin Calcium*) 20 Mg Tablet, 20 MG PO QHS, #30 TAB 10/10/16 Bimatoprost* (Lumigan*) 2.5 Ml Drops, 1 DROP BOTH EYES HS 12/19/13 Dorzolamide/Timolol* (Dorzolamide/Timolol*) 10 Ml Drops, 1 DROP BOTH EYES BID, EA 12/19/13 Tiotropium [place]* (Spiriva*) 18 Mcg Cap.w.dev, 1 INH IH DAILY, EA 12/19/13 Digoxin* (Digox*) 250 Mcg Tablet, 250 MCG PO DAILY 12/19/13 Discontinued Reported Medications Apixaban* (Eliquis*) 5 Mg Tablet, 5 MG PO BID, TAB 10/10/16 Salmeterol Xinaf/Fluticasone* (Advair*) 1 Inh Inha, 2 PUFF INH BID, INH 12/19/13 Discontinued Scripts Guaifenesin* (Robitussin*) 100 Mg/5 Ml Syrup, 100 MG PO Q4H Y for COUGH, #200 ML Prov:BERYL PEARL NP 04/09/17 Methylprednisolone* (Medrol* DOSE PACK) 4 Mg/Dose-Pack Tab.ds.pk, 4 MG PO . DIRECTED, #1 PACKET Prov:BERYL PEARL TAPER MACHINE 04/09/17 Hydrocodone Bit-Acetaminophen (Hydrocodone Bit-APAP) 5-325MG Tablet, 1 TAB PO Q6H Y for MODERATE PAIN LEVEL 4-6, #10 TAB Prov:BERYL PEARL NP 04/09/17 Azithromycin* (Zithromax* Tri-Vlad) 500 Mg Tablet, 500 MG PO DAILY for 3 Days, # 3 TAB Prov:BERYL PEARL NP 04/09/17 Levofloxacin* (Levofloxacin*) 500 Mg Tablet, 500 MG PO DAILY, #5 TAB Prov:NGOC SILVESTRE NP 04/04/17 Propylthiouracil* (Propylthiouracil*) 50 Mg Tablet, 200 MG PO TID, #30 TAB Prov:NGOC SILVESTRE V. TAPER MACHINE 04/04/17 Prednisone* (Prednisone*) 20 Mg Tab, 20 MG PO DAILY, #2 TAB Prednisone 20 mg p.o. daily 2 days dose schedule for 04/05/2017 and 04/06/2017. Then prednisone 10 mg p.o. daily 2 days dose scheduled for 04/07/2079 04/08/2017. Prov:NGOC SILVESTRE NP 04/04/17 Allergies Allergies: Coded Allergies: No Known Allergy (Unverified , 04/16/17) PMhx/Soc History of Surgery: Yes (prostectomy) Anesthesia Reaction: No Hx Neurological Disorder: No Hx Respiratory Disorders: Yes (COPD) Hx Cardiac Disorders: Yes (HTN) Hx Psychiatric Problems: No Hx Miscellaneous Medical Probl: No Hx Alcohol Use: Yes (occasionally) Hx Substance Use: No Hx Tobacco Use: Yes Smoking Status: Current some day smoker FmHx Family History: No diabetes Physical Exam Vitals Vital Signs Date Time Temp Pulse Resp B/P Pulse Ox O2 Delivery O2 Flow Rate FiO2 04/16/17 20:25 Nasal Cannula 2 04/16/17 20:22 Nasal Cannula 2.0 04/16/17 19:54 101.3 89 20 126/59 92 Physical Exam Const: Moderate distress secondary to shortness of breath Head: Atraumatic Eyes: Normal Conjunctiva ENT: Normal External Ears, Nose and Mouth. Neck: Full range of motion..~ No meningismus. Resp: Decreased breath sounds bilaterally Cardio: Regular rate and rhythm, no murmurs Abd: Soft, non tender, non distended. Normal bowel sounds Skin: No petechiae or rashes Back: No midline or flank tenderness Ext: No cyanosis, or edema Neur: Awake and alert Psych: Normal Mood and Affect Result Diagram: 04/16/17204404/16/172044 Results 24 hrs Laboratory Tests Test 04/16/17 20:45 White Blood Count 27.510^3/ul Red Blood Count 4.2910^6/ul Hemoglobin 12.7g/dl Hematocrit 38.7% Mean Corpuscular Volume 90.2fl Mean Corpuscular Hemoglobin 29.6pg Mean Corpuscular Hemoglobin Concent 32.8g/dl Red Cell Distribution Width 14.5% Platelet Count 94546^3/UL Mean Platelet Volume 10.2fl Neutrophils % 88.4% Lymphocytes % 4.7% Monocytes % 5.4% Eosinophils % 0.3% Basophils % 0.1% Nucleated Red Blood Cells % 0.0/100WBC Neutrophils # 24.410^3/ul Lymphocytes # 1.310^3/ul Monocytes # 1.510^3/ul Eosinophils # 0.110^3/ul Basophils # 0.010^3/ul Nucleated Red Blood Cells # 0.010^3/ul Prothrombin Time 21.6Sec Prothrombin Time Ratio 1.7 INR International Normalized Ratio 1.86 Activated Partial Thromboplast Time 43.2Sec Sodium Level 137mmol/L Potassium Level 3.9mmol/L Chloride Level 99mmol/L Carbon Dioxide Level 29mmol/L Anion Gap 13 Blood Urea Nitrogen 21mg/dl Creatinine 0.96mg/dl Glucose Level 91mg/dl Lactic Acid Level 1.4mmol/L Calcium Level 8.6mg/dl Total Bilirubin 0.9mg/dl Direct Bilirubin 0.00mg/dl Indirect Bilirubin 0.9mg/dl Aspartate Amino Transf (AST/SGOT) 19IU/L Alanine Aminotransferase (ALT/SGPT) 37IU/L Alkaline Phosphatase 70IU/L Troponin I 0.017ng/ml Total Protein 6.8g/dl Albumin 3.5g/dl Globulin 3.30g/dl Albumin/Globulin Ratio 1.06 Current Medications Medications (Trade) Dose Ordered Sig/Pily Route PRN Reason Start Time Stop Time Status Last Admin Dose Admin Sodium Chloride (NS) 1,750 ml BOLUS OVER 2 HOURS STAT IV* 04/16/17 20:19 04/16/17 20:21 DC 04/16/17 21:27 Acetaminophen 650 mg 650 mg ONCE STAT PO 04/16/17 20:19 04/16/17 20:21 DC 04/16/17 21:27 Cefepime HCl 50 ml @ 100 mls/hr ONCE STAT IVPB 04/16/17 20:19 04/16/17 20:48 DC 04/16/17 21:27 Vancomycin HCl (Vancocin) 250 ml @ 125 mls/hr ONCE ONCE IVPB 04/16/17 20:30 04/16/17 22:29 DC 04/16/17 22:33 Sodium Chloride (Nacl 3% For Inhalation) 5 ml ONCE ONCE NEB 04/16/17 20:30 04/16/17 20:31 DC Ondansetron HCl (Zofran Inj) 4 mg BRIDGE ORDER PRN IV NAUSEA AND/OR VOMITING 04/16/17 21:00 04/17/17 20:59 Acetaminophen (Tylenol Tab) 650 mg ER BRIDGE PRN PO MILD PAIN/FEVER 04/16/17 21:00 04/17/17 20:59 Procedures/MDM Chest X-ray 1V Interpreted by me: Soft Tissue: No acute abnormalities Bones: No acute abnormalities Mediastinum/Cardiac Silhouette/Lungs: Right lower lobe pneumonia EKG read by me: Rate/Rhythm: Regular rate and rhythm at a rate of 95 Intervals: Normal Impression: No evidence of ischemia or arrhythmia Admit MDM: Patient's infectious symptoms have not stabilized and the patient is at risk of rapid decompensation. The patient will be admitted for careful hydration, antibiotic therapy, and infectious source control. Severe Sepsis criteria: Infectious source: Pneumonia End organ damage indicated by: Hypoxia Sepsis Management: Time of recognition of sepsis: Upon arrival Within 3 hours of recognition: Blood cultures x 2 before broad-spectrum antibiotics: Yes 30 ml/kg NS bolus Completed Initial lactate normal Repeat lactate pending Time of recognition of septic shock: No septic shock Septic Shock Assessment: Any lactic acid > 4.0 No Persistent hypotension (SBP < 90 or 40 mmHg drop, MAP < 65) despite 30 mL/kg IV fluid bolus No Volume Re-assessment for Septic Shock (post 30 ml/kg bolus): No septic shock at this time Persistent Hypotension Treatment: Comfort care No Central line Not Required Vasopressor started Not required I considered further perfusion assessment with CVP measurement, SCVO2, bedside ultrasound volume assessment, passive leg raise, trial of further fluid bolus. And proceeded with 30 ml/kg fluid bolus of NSS, broad spectrum antibiotics, and admission. Accepting Care Team Current data and ongoing care discussed. Admitting Physician: Dr. Pitts from the panel team as the patient was recently admitted to panel General Sales Manager(s): None Outstanding Data: Culture results and repeat lactic acid Critical Care: Critical care time 35 minutes excluding all billable procedures Emergent fluid management while maintaining close respiratory support. Provision of immediate and broad-spectrum antibiotic therapy. Simultaneous assessment for possible sources in order to direct targeted therapy. Consideration for invasive and chemical support to prevent cardiopulmonary collapse. Departure Diagnosis: Primary Impression: Severe sepsis Additional Impressions: Shortness of breath Hypoxia Pneumonia Qualified Code: J18.1 - Pneumonia of right lower lobe due to infectious organism Condition: KIAH Gilmore MD Apr 16, 2017 22:45
[2017-04-16 23:02] LABS: ADD UMIC YES; UR ASCORBIC ACID NEGATIVE (NEGATIVE); UR BILIRUBIN (Dip) NEGATIVE (NEGATIVE); UR BLOOD (Dip) 1+ mg/dL (NEGATIVE); UR CLARITY CLEAR (CLEAR); UR COLOR YELLOW (YELLOW); UR GLUCOSE (Dip) NEGATIVE (NEGATIVE); UR KETONES (Dip) NEGATIVE (NEGATIVE); UR LEUKOCYTE ESTERASE (Dip) NEGATIVE Leu/ul (NEGATIVE); UR MUCUS FEW /HPF (NONE SEEN); UR NITRITE (Dip) NEGATIVE (NEGATIVE); UR RBC 1 /HPF (0-5); UR SPECIFIC GRAVITY (Dip) 1.019 (1.003-1.030); UR TOTAL PROTEIN (Dip) 1+ mg/dl (NEGATIVE); UR UROBILINOGEN (Dip) 1+ mg/dL (NEGATIVE)
[2017-04-17] MEDS ORDERED: morphine 2 MG INJ IV PRN (05:30)
[2017-04-17] MEDS ORDERED: VANCOMYCIN IV PER PHARMACY XX SCH (05:30)
[2017-04-17] MEDS ORDERED: ALBUTEROL/IPRATROPIUM (NEB) 3 ML AMP HHN PRN (05:30)
[2017-04-17] MEDS ORDERED: ONDANSETRON 4 MG INJ IV PRN (05:30)
[2017-04-17] MEDS ORDERED: LORAZEPAM 0.5 MG TAB PO PRN (05:30)
[2017-04-17] MEDS ORDERED: ACETAMINOPHEN 325 MG TAB PO PRN (05:30)
[2017-04-17] MEDS ORDERED: NACL 0.9% 3 ML SYG IV SCH (05:30)
[2017-04-17] MEDS: PIPER-TAZO 3.375 GM IV (PMX) 100 ML IVPB SCH ×3 (05:39→18:57)
--- NOTE | 2017-04-17 08:46 | HP ---
Date/Time of Note Date/Time of Note DATE: 04/17/17 TIME: 08:38 Assessment/Plan VTE Prophylaxis VTE Prophylaxis Intervention: heparin Assessment/Plan Assessment/Plan ASSESSMENT 77-year-old male with a history of hypertension, hypothyroidism, paroxysmal atrial fibrillation, pulmonary hypertension, metastatic prostate cancer, and a severe COPD on home oxygen who presented to the ER complaining of shortness of breath and productive cough, found to be septic secondary to hospital-acquired pneumonia. PLAN -Given patient was hospitalized here earlier this month, he will be treated for healthcare acquired pneumonia -IV antibiotic -Follow-up culture results -Supplemental oxygen and breathing treatments -Pulmonary consult -Continue home medications with adjustment as needed HPI/ROS Admit Date/Time Admit Date/Time Hx of Present Illness This is a 77-year-old male with a history of hypertension, hypothyroidism, paroxysmal atrial fibrillation, pulmonary hypertension, metastatic prostate cancer, and a severe COPD on home oxygen who presented to the ER complaining of shortness of breath and productive cough. Patient was admitted here and was discharged a week ago after he presented with same symptoms.After discharge, he said initially he was feeling better but started experiencing progressively worsening shortness of breath as well as cough, which has been productive of yellowish/brownish sputum. When he presented to the ER, he was febrile with a temperature of 1.3 and a lab shows a WBC of 27.5. Chest x-ray showed Right lung base patchy air space disease, which may represent pneumonia in setting of sepsis and loculated pleural effusion at the right lung base. PMH/Family/Social Past Surgical History Past Surgical Hx: noncontributory Social History Smoking Status: Current some day smoker Exam/Review of Systems Vital Signs Vitals Vital Signs Date Time Temp Pulse Resp B/P Pulse Ox O2 Delivery O2 Flow Rate FiO2 04/17/17 08:22 86 20 129/62 97 Nasal Cannula 2.0 04/17/17 05:03 98.2 Exam Constitutional: other (Mild distress secondary to shortness of breath noted.) Head: atraumatic, normocephalic Eyes: EOMI, PERRL Respiratory: diminished breath sounds, other (Barrel chest), wheezing Cardiovascular: nl pulses, regular rate and rhythm Gastrointestinal: non-tender, soft Extremities: normal pulses Labs Result Diagram: 04/16/17204404/16/172044 Medications Medications Current Medications Lorazepam (Ativan) 0.5 mg Q8H PRN PO ANXIETY; Start 04/17/17 at 05:30 Ondansetron HCl (Zofran Inj) 4 mg Q6H PRN IV NAUSEA AND/OR VOMITING; Start 05/24 at 05:30 Acetaminophen (Tylenol Tab) 650 mg Q6H PRN PO PAIN LEVEL 1-3 OR FEVER; Start 04/17/17 at 05:30 Morphine Sulfate (morphine) 2 mg Q4H PRN IV PAIN LEVEL 7-10; Start 04/17/17 at 05:30 Heparin Sodium (Porcine) 5000 unit 5,000 unit Q12 SC ; Start 04/17/17 at 09:00 Piperacillin Sod/ Tazobactam Sod (Zosyn 3.375gm/ 100 ml (Pmx)) 100 ml @ 200 mls /hr Q6H IVPB Last administered on 04/17/17t 05:39; Admin Dose 200 MLS/HR; Start 04/17/17 at 06:00 Atorvastatin Calcium (Lipitor) 20 mg QHS PO ; Start 04/17/17 at 21:00 Bicalutamide (Casodex) 50 mg DAILY PO ; Start 04/17/17 at 09:00 Bimatoprost (Lumigan 0.01% Oph) 1 drop HS BOTH EYES ; Start 04/17/17 at 21:00 Digoxin (Digoxin) 0.25 mg DAILY@13 PO ; Start 04/17/17 at 13:00 Diltiazem HCl (Cardizem Cd) 240 mg DAILY PO ; Start 04/17/17 at 09:00 Docusate Sodium (Colace) 100 mg DAILY PO ; Start 04/17/17 at 09:00 Dorzolamide/ Timolol (Cosopt) 1 drop BID BOTH EYES ; Start 04/17/17 at 09:00 Salmeterol Xinafoate/ Fluticasone (Advair 250/50 Diskus) 1 inh BID INH ; Start 04/17/17 at 09:00 Senna (Senokot) 1 tab QHS PO ; Start 04/17/17 at 21:00 Tiotropium [place] 1 inh 1 inh DAILY INH ; Start 04/17/17 at 09:00 Vancomycin HCl/ Sodium Chloride (Vancocin/NS) 150 ml @ 75 mls/hr Q24H IVPB ; Start 04/17/17 at 22:00 DONITA CRUZ MD Apr 17, 2017 08:46
[2017-04-17] MEDS ORDERED: HEPARIN 5,000 UNIT/0.5 ML VIAL SC SCH (09:00)
[2017-04-17 09:34] LABS: ABNORMAL IP MESSAGE 1; BASOPHILS % 0.1 % (0.0-2.0); EOSINOPHILS # 0.1 10^3/ul (0.0-0.5); EOSINOPHILS % 0.2 % (0.0-7.0); HEMATOCRIT 35.4 % (42.0-52.0); LYMPHOCYTES # 0.9 10^3/ul (0.8-2.9); LYMPHOCYTES % 3.4 % (15.0-51.0); MEAN CORPUSCULAR HEMOGLOBIN 28.8 pg (29.0-33.0); MEAN CORPUSCULAR HGB CONC 31.1 g/dl (32.0-37.0); MEAN CORPUSCULAR VOLUME 92.7 fl (82.0-101.0); MEAN PLATELET VOLUME 9.8 fl (7.4-10.4); MONOCYTE # 1.2 10^3/ul (0.3-0.9); MONOCYTES % 4.3 % (0.0-11.0); NEUTROPHILS % 91.1 % (39.0-77.0); PLATELET COUNT 178 10^3/UL (140-415); POSITIVE DIFF @See below; RED BLOOD COUNT 3.82 10^6/ul (4.70-6.10); RED CELL DISTRIBUTION WIDTH 14.7 % (11.5-14.5); WHITE BLOOD COUNT 27.5 10^3/ul (4.8-10.8)
[2017-04-17] MEDS: DORZOLAMIDE/TIMOLOL 10 ML OPH BOTH EYES SCH ×2 (09:37→21:09)
[2017-04-17] MEDS: SALMETEROL/FLUTICASONE 250/50 INHA INH SCH ×2 (09:38→21:09)
[2017-04-17] MEDS: TIOTROPIUM 18 MCG CAPSULE INHA DEV INH SCH (09:39)
[2017-04-17] MEDS: BICALUTAMIDE 50 MG TAB PO SCH (09:40)
[2017-04-17] MEDS: DOCUSATE SODIUM 100 MG CAP PO SCH (09:42)
[2017-04-17] MEDS: DILTIAZEM (CD) 240 MG CAP PO SCH (09:42)
[2017-04-17 09:57] LABS: ALBUMIN 2.9 g/dl (3.3-4.9); BILIRUBIN,INDIRECT 0.8 mg/dl (0-1.1); BILIRUBIN,TOTAL 0.8 mg/dl (0.2-1.3); CALCIUM 7.8 mg/dl (8.4-10.2); CREATININE 0.93 mg/dl (0.61-1.24); MAGNESIUM 1.8 mg/dl (1.7-2.5); POTASSIUM 4.1 mmol/L (3.5-5.1); TOTAL PROTEIN 5.8 g/dl (6.1-8.1)
[2017-04-17 10:30] VITALS: TEMP 98.1
[2017-04-17] MEDS: VANCOMYCIN 750 MG in SOD CHLORIDE 0.9% 150 ML IVPB SCH ×2 (10:30→23:33)
[2017-04-17 12:58] VITALS: BP 120/60; PULSE 73; RESP 22
[2017-04-17] MEDS: DIGOXIN 0.25 MG TAB PO SCH (15:31)
[2017-04-17 16:09] LABS: PATH REVIEW CH
[2017-04-17] MEDS ORDERED: INFLUENZA VIRUS VACCINE 0.5 ML SYG IM* ONE (17:00)
--- NOTE | 2017-04-17 17:23 | CONS ---
Date/Time of Note Date/Time of Note DATE: 04/17/17 TIME: 17:22 Consultation Date/Type/Reason Admit Date/Time Date of Consultation: Apr 17, 2017 Type of Consultation: pulmonary Hx of Present Illness dictated # [id number] Past Surgical History Past Surgical Hx: noncontributory Social History Smoking Status: Former smoker Exam/Review of Systems Vital Signs Vitals Vital Signs Date Time Temp Pulse Resp B/P Pulse Ox O2 Delivery O2 Flow Rate FiO2 04/17/17 15:03 3.0 04/17/17 15:02 71 18 94 Nasal Cannula 04/17/17 12:58 99.3 120/60 Results Result Diagram: 04/17/1719 04/17/1719 Results 24 hrs Laboratory Tests Test 04/16/17 20:45 04/16/17 22:35 04/16/17 23:35 04/17/17 04:43 White Blood Count 27.5 #H Red Blood Count 4.29 L Hemoglobin 12.7 L Hematocrit 38.7 L Mean Corpuscular Volume 90.2 Mean Corpuscular Hemoglobin 29.6 Mean Corpuscular Hemoglobin Concent 32.8 Red Cell Distribution Width 14.5 Platelet Count 202 # Mean Platelet Volume 10.2 Neutrophils % 88.4 H Lymphocytes % 4.7 L Monocytes % 5.4 Eosinophils % 0.3 Basophils % 0.1 Nucleated Red Blood Cells % 0.0 Neutrophils # 24.4 H Lymphocytes # 1.3 Monocytes # 1.5 H Eosinophils # 0.1 Basophils # 0.0 Nucleated Red Blood Cells # 0.0 Prothrombin Time 21.6 #H Prothrombin Time Ratio 1.7 INR International Normalized Ratio 1.86 Activated Partial Thromboplast Time 43.2 H Sodium Level 137 Potassium Level 3.9 Chloride Level 99 Carbon Dioxide Level 29 Anion Gap 13 Blood Urea Nitrogen 21 H Creatinine 0.96 Glucose Level 91 Lactic Acid Level 1.4 0.7 1.4 Calcium Level 8.6 Total Bilirubin 0.9 Direct Bilirubin 0.00 Indirect Bilirubin 0.9 Aspartate Amino Transf (AST/SGOT) 19 Alanine Aminotransferase (ALT/SGPT) 37 Alkaline Phosphatase 70 Troponin I 0.017 Total Protein 6.8 Albumin 3.5 Globulin 3.30 H Albumin/Globulin Ratio 1.06 Urine Color YELLOW Urine Clarity CLEAR Urine pH 5.0 Urine Specific [place] 1.019 Urine Ketones NEGATIVE Urine Nitrite NEGATIVE Urine Bilirubin NEGATIVE Urine Urobilinogen 1+ H Urine Leukocyte Esterase NEGATIVE Urine Microscopic RBC 1 Urine Microscopic WBC 4 Urine Mucus FEW A Urine Hemoglobin 1+ H Urine Glucose NEGATIVE Urine Total Protein 1+ H Test 04/17/17 09:19 White Blood Count 27.5 H Red Blood Count 3.82 L Hemoglobin 11.0 L Hematocrit 35.4 L Mean Corpuscular Volume 92.7 Mean Corpuscular Hemoglobin 28.8 L Mean Corpuscular Hemoglobin Concent 31.1 L Red Cell Distribution Width 14.7 H Platelet Count 178 Mean Platelet Volume 9.8 Neutrophils % 91.1 H Lymphocytes % 3.4 L Monocytes % 4.3 Eosinophils % 0.2 Basophils % 0.1 Nucleated Red Blood Cells % 0.0 Neutrophils # 25.0 H Lymphocytes # 0.9 Monocytes # 1.2 H Eosinophils # 0.1 Basophils # 0.0 Nucleated Red Blood Cells # 0.0 Pathologist Review (Hematology) CH Sodium Level 139 Potassium Level 4.1 Chloride Level 106 Carbon Dioxide Level 25 Anion Gap 12 Blood Urea Nitrogen 16 Creatinine 0.93 Glucose Level 89 Calcium Level 7.8 L Magnesium Level 1.8 Total Bilirubin 0.8 Direct Bilirubin 0.00 Indirect Bilirubin 0.8 Aspartate Amino Transf (AST/SGOT) 15 Alanine Aminotransferase (ALT/SGPT) 38 Alkaline Phosphatase 58 Total Protein 5.8 #L Albumin 2.9 L Globulin 2.90 Albumin/Globulin Ratio 1.00 Medications Medications Current Medications Lorazepam (Ativan) 0.5 mg Q8H PRN PO ANXIETY; Start 04/17/17 at 05:30 Ondansetron HCl (Zofran Inj) 4 mg Q6H PRN IV NAUSEA AND/OR VOMITING; Start 05/24 at 05:30 Acetaminophen (Tylenol Tab) 650 mg Q6H PRN PO PAIN LEVEL 1-3 OR FEVER; Start 04/17/17 at 05:30 Morphine Sulfate 2 mg 2 mg Q4H PRN IV PAIN LEVEL 7-10; Start 04/17/17 at 05:30 Piperacillin Sod/ Tazobactam Sod (Zosyn 3.375gm/ 100 ml (Pmx)) 100 ml @ 200 mls /hr Q6H IVPB Last administered on 04/17/17t 13:40; Admin Dose 200 MLS/HR; Start 04/17/17 at 06:00 Atorvastatin Calcium (Lipitor) 20 mg QHS PO ; Start 04/17/17 at 21:00 Bicalutamide (Casodex) 50 mg DAILY PO Last administered on 04/17/17 09:40; Admin Dose 50 MG; Start 04/17/17 at 09:00 Bimatoprost (Lumigan 0.01% Oph) 1 drop HS BOTH EYES ; Start 04/17/17 at 21:00 Digoxin (Digoxin) 0.25 mg DAILY@13 PO Last administered on 04/17/17 15:31; Admin Dose 0.25 MG; Start 04/17/17 at 13:00 Diltiazem HCl (Cardizem Cd) 240 mg DAILY PO Last administered on 04/17/17 09: 42; Admin Dose 240 MG; Start 04/17/17 at 09:00 Docusate Sodium (Colace) 100 mg DAILY PO Last administered on 04/17/17 09:42 ; Admin Dose 100 MG; Start 04/17/17 at 09:00 Dorzolamide/ Timolol (Cosopt) 1 drop BID BOTH EYES Last administered on 09:37; Admin Dose 1 DROP; Start 04/17/17 at 09:00 Salmeterol Xinafoate/ Fluticasone (Advair 250/50 Diskus) 1 inh BID INH Last administered on 04/17/17 09:38; Admin Dose 1 INH; Start 04/17/17 at 09:00 Senna (Senokot) 1 tab QHS PO ; Start 04/17/17 at 21:00 Tiotropium [place] 1 inh 1 inh DAILY INH Last administered on 04/17/17 09:39 ; Admin Dose 1 INH; Start 04/17/17 at 09:00 Vancomycin HCl/ Sodium Chloride (Vancocin/NS) 150 ml @ 75 mls/hr Q12H IVPB Last administered on 04/17/17 10:30; Admin Dose 75 MLS/HR; Start 04/17/17 at 11:00 Miscellaneous Information (*Rx Drug Level Order Reminder*) VANCOMYCIN TROUGH AT 1000 ONCE ONCE XX ; Start 04/18/17 at 10:00; Stop 04/18/17 at 10:01 Apixaban (Eliquis) 5 mg BID PO ; Start 04/17/17 at 21:00 JUAN POSADA Apr 17, 2017 17:23
[2017-04-17] MEDS: ALBUTEROL/IPRATROPIUM (NEB) 3 ML AMP HHN SCH (19:59)
[2017-04-17 20:44] VITALS: BP 125/60; PULSE 75; RESP 18
[2017-04-17] MEDS: LATANOPROST 0.005% 2.5 ML OPH BOTH EYES SCH (21:00)
[2017-04-17] MEDS ORDERED: BIMATOPROST 0.01% 2.5 ML BTL BOTH EYES SCH (21:00)
[2017-04-17] MEDS ORDERED: APIXABAN 5 MG TABLET PO SCH (21:00)
[2017-04-17] MEDS: ATORVASTATIN 20 MG TAB PO SCH (21:07)
[2017-04-17] MEDS: SENNA TAB PO SCH (21:07)
[2017-04-17] MEDS: APIXABAN 5 MG TABLET PO SCH (21:08)
[2017-04-17] MEDS ORDERED: VANCOMYCIN 750 MG in SOD CHLORIDE 0.9% 150 ML IVPB SCH (22:00)
--- NOTE | 2017-04-17 22:13 | RADRPT ---
PROCEDURE: CT Chest without contrast. CLINICAL INDICATION: Pneumonia. Pleural effusion. TECHNIQUE: Helical axial sections were obtained through the chest without intravenous contrast enh ancement. Coronal and sagittal reformatted images were obtained from the axial source images. Total exam DLP is 284.07 mGy-cm. CTDIvol is 6.32 mGy. One or more of the following dose reduction tech niques were used: Automated exposure control, adjustment of the mA and/or kV according to patient si ze, use of iterative reconstruction technique. COMPARISON: CT pulmonary angiogram dated 04/01/2017. FINDINGS: There is severe emphysematous change bilaterally with marked arterial deficiency in the lower lung z ones. The lungs are hyperinflated. There is a region of peripheral consolidation in the right upper lobe inferiorly and laterally measuring 4.8 x 4.2 cm; prior was 2.5 x 2.0 cm. There is an irregular nodule or scarring in the superior segment of the left lower lobe measuring 0.6 x 1.2 cm, unchanged. There is a region of scarring in the lingula measuring 2.0 x 1.2 cm. There is scarring in the right lower lobe posteriorly inferiorly with associated mild bronchiectasis. There is a new region of con solidation in the right lower lobe posteriorly measuring 4.4 x 7.0 cm. There is a new right perihila r nodular density measuring 1.4 x 1.4 cm. There is no other abnormal pulmonary density. There is no pneumothorax. There is no mediastinal or hilar lymphadenopathy or mass. There is no axillary, supraclavicular, or internal mammary lymphadenopathy. The thoracic aorta is not dilated. There is calcification in the aorta consistent with atheroscleros is. The heart size is normal. There is no pleural effusion or pericardial effusion. Images through the upper abdomen demonstrate normal visualized portions of the liver, spleen, and ad renals. There are benign left renal cysts. There are mild degenerative changes of the spine. There is no fracture or lytic lesion. IMPRESSION: 1. Severe emphysematous changes bilaterally. 2. Larger density in the right upper lobe inferiorly laterally consistent with pneumonia. New regio ns of pneumonia in the right lower lobe posteriorly and right perihilar region. Follow-up advised. 3. Bilateral pulmonary densities consistent with scarring similar to the prior study. 4. Atherosclerosis. 5. Benign left renal cysts. 6. Mild degenerative changes of the spine. RPTAT: QQ .Justino Fonseca MD, Date Time Electronically viewed and signed by .Justino Fonseca MD, on 04/17/2017 22:12 .R/
[2017-04-18] MEDS: PIPER-TAZO 3.375 GM IV (PMX) 100 ML IVPB SCH ×4 (01:36→17:51)
[2017-04-18 02:05] VITALS: BP 117/57; PULSE 72; RESP 19
[2017-04-18 06:54] LABS: ABNORMAL IP MESSAGE 1; BASOPHILS % 0.1 % (0.0-2.0); EOSINOPHILS # 0.2 10^3/ul (0.0-0.5); EOSINOPHILS % 0.6 % (0.0-7.0); HEMATOCRIT 33.3 % (42.0-52.0); HEMOGLOBIN 10.5 g/dl (14.0-18.0); LYMPHOCYTES # 1.2 10^3/ul (0.8-2.9); LYMPHOCYTES % 5.3 % (15.0-51.0); MEAN CORPUSCULAR HEMOGLOBIN 28.8 pg (29.0-33.0); MEAN CORPUSCULAR HGB CONC 31.5 g/dl (32.0-37.0); MEAN CORPUSCULAR VOLUME 91.2 fl (82.0-101.0); MEAN PLATELET VOLUME 10.2 fl (7.4-10.4); MONOCYTES % 4.3 % (0.0-11.0); NEUTROPHIL # 20.9 10^3/ul (1.6-7.5); NEUTROPHILS % 88.8 % (39.0-77.0); PLATELET COUNT 174 10^3/UL (140-415); POSITIVE DIFF @See below; RED BLOOD COUNT 3.65 10^6/ul (4.70-6.10); RED CELL DISTRIBUTION WIDTH 14.5 % (11.5-14.5); WHITE BLOOD COUNT 23.5 10^3/ul (4.8-10.8)
[2017-04-18 07:00] VITALS: BP 121/60; PULSE 72; RESP 20
[2017-04-18 07:10] LABS: CALCIUM 7.7 mg/dl (8.4-10.2); CREATININE 0.9 mg/dl (0.61-1.24); MAGNESIUM 1.8 mg/dl (1.7-2.5); PHOSPHORUS 2.6 mg/dl (2.5-4.9); POTASSIUM 3.1 mmol/L (3.5-5.1)
--- NOTE | 2017-04-18 07:45 | CONS ---
DATE OF ADMISSION: 04/16/2017 DATE OF CONSULTATION: 04/17/2017 TYPE OF CONSULTATION: Pulmonary. REASON FOR REFERRAL: Evaluation of COPD and pneumonia. HISTORY OF PRESENT ILLNESS: Mr. Cochran is a pleasant 77-year-old white male who was recently adm itted to [facility] and discharged home in stable condition when he was admitted f or COPD exacerbation; however, according to the patient's , the patient's condition became worse since yesterday evening with increasing chest congestion and fever. Upon evaluation here, a chest x-ray was done which is showing a right midlung infiltrate with elevated white cell count. The surinder ent has been started on appropriate antibiotic regimen. According to him is feeling better now. He denies any chest pain, any wheezing. Complains of cough and chest congestion but denies any hemopt ysis, any nausea, vomiting. PAST MEDICAL HISTORY: Underlying COPD with multiple admissions for that. CURRENT MEDICATIONS: The patient is on: 1. Intravenous vancomycin and Zosyn being dosed by the pharmacy. 2. Acetaminophen on a p.r.n. basis. 3. Albuterol q. 6 hours. 4. Apixaban 5 mg b.i.d. 5. Lipitor 20 mg daily. 6. Casodex 50 mg daily. 7. Cardizem 240 mg a day. 8. Timolol eyedrops daily. 9. Subcutaneous heparin 5000 units q. 12 hours. 10. Morphine on a p.r.n. basis. 11. Advair 250/50 b.i.d. 12. Normal saline. The patient was given a bolus of 70 and 50 mL x1. ALLERGIES: NONE. SOCIAL HISTORY: Quit smoking 12 years ago, has a [id number] smoking history. FAMILY HISTORY: The patient is . He has 3 children. 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 REVIEW OF SYSTEMS: Denies any headache, seizures, visual changes, sinus symptoms, postnasal drip, s hortness of breath is improving. Complains of cough and chest congestion. Denies any chest pain, d enies any further fever, denies any abdominal pain, nausea, vomiting. Denies any edema. Complains of mild orthopnea. Denies any edema, any GI or urinary symptoms. PHYSICAL EXAMINATION: GENERAL: Elderly male, awake, alert, currently in no distress. VITAL SIGNS: Temperature is 99.3 degrees Fahrenheit, respiratory rate is 18 to 20 per minute, heart rate 72 per minute, blood pressure 125/62, O2 sat is 98% on 2 liters nasal cannula. HEENT: Supple neck, no JVD, no lymphadenopathy, midline trachea, no thyromegaly. Pharynx clear, no neck bruits. Patient is edentulous and wears dentures. He has bilateral intraocular lens implants . CHEST: Diminished but clear breath sounds. HEART: S1, S2 audible. No murmurs, regular rhythm. ABDOMEN: Soft, nontender, nondistended. Bowel sounds audible. EXTREMITIES: No edema. Pulses 1+ bilaterally. CENTRAL NERVOUS SYSTEM: No focal deficit. LABORATORY DATA: Today, white count is 27.5, hemoglobin 11, platelet count of 178. Sodium 139, pot assium 4.1, chloride 106, bicarb 25, BUN 16, creatinine 0.9. IMAGING: Chest x-ray was reviewed from today which is showing a right midlung infiltrate with possi zainab loculated right pleural effusion. ASSESSMENT AND PLAN: 1. Patient admitted for pneumonia involving the right mid lung with possible loculated pleural effu keith. 2. Significant leukocytosis. 3. Underlying severe chronic obstructive pulmonary disease. 4. History of cardiac arrhythmia, maintained on chronic anticoagulation. 5. History of hyperlipidemia. 6. Glaucoma. RECOMMENDATIONS: Continue current treatment. We will obtain CT of the chest without contrast. I d id have a very detailed discussion with patient's at bedside and answered all her questions. Dictated By: JUAN ARRIOLA/HOLLAND Conf#: [id number] DID#: [id number]
[2017-04-18] MEDS: ALBUTEROL/IPRATROPIUM (NEB) 3 ML AMP HHN SCH ×3 (08:16→23:13)
[2017-04-18] MEDS: TIOTROPIUM 18 MCG CAPSULE INHA DEV INH SCH (09:00)
--- NOTE | 2017-04-18 09:42 | CONS ---
Date/Time of Note Date/Time of Note DATE: 04/18/17 TIME: 09:39 Assessment/Plan Assessment/Plan Chief Complaint/Hosp Course dictated # [id number] Problems: Additional Assessment/Plan CT chest was reviewed from yesterday which is showing peripheral right midlung pneumonia with areas of patchy pneumonia in right lung. Severe emphysematous changes are present. Assessment and recommendations; 1. Patient admitted with pneumonia with history of underlying severe COPD. Clinically improved. Currently on appropriate antibiotic regimen. 2. History of cardiac arrhythmia. 3. History of glaucoma. Continue current treatment. Consultation Date/Type/Reason Admit Date/Time Apr 16, 2017 at 20:39 Initial Consult Date 04/17/17 Type of Consultation: pulmonary 24 HR Interval Summary Free Text/Dictation Patient's condition is stable. Reports decreased shortness of breath. Still complains of cough and chest congestion. Denies any chest pain, fever or chills. General exam; elderly male, awake and alert. Currently in no distress. Exam/Review of Systems Vital Signs Vitals Vital Signs Date Time Temp Pulse Resp B/P Pulse Ox O2 Delivery O2 Flow Rate FiO2 04/18/17 08:19 67 18 95 Nasal Cannula 2.0 04/18/17 02:05 98.7 117/57 Intake and Output 04/17/17 04/17/17 04/18/17 15:00 23:00 07:00 Intake Total 605 ml 400 ml 350 ml Output Total 250 ml 200 ml Balance 355 ml 200 ml 350 ml Exam HEENT exam; supple neck, no JVD. No lymphadenopathy. Midline trachea. No thyromegaly. Patient is edentulous and wears dentures. Pupils are small bilaterally. Chest exam; diminished but clear breath sounds, S1-S2 audible, no murmurs, regular rhythm Abdomen : soft nontender, nondistended, bowel sounds audible, no organomegaly. Extremity examination; no peripheral edema. BIOLOGY SPECIALIST exam; no focal deficit. Results Result Diagram: 04/18/1712 04/18/17 0612 Results 24 hrs Laboratory Tests Test 04/18/17 06:12 White Blood Count 23.5 H Red Blood Count 3.65 L Hemoglobin 10.5 L Hematocrit 33.3 L Mean Corpuscular Volume 91.2 Mean Corpuscular Hemoglobin 28.8 L Mean Corpuscular Hemoglobin Concent 31.5 L Red Cell Distribution Width 14.5 Platelet Count 174 Mean Platelet Volume 10.2 Neutrophils % 88.8 H Lymphocytes % 5.3 L Monocytes % 4.3 Eosinophils % 0.6 Basophils % 0.1 Nucleated Red Blood Cells % 0.0 Neutrophils # 20.9 H Lymphocytes # 1.2 Monocytes # 1.0 H Eosinophils # 0.2 Basophils # 0.0 Nucleated Red Blood Cells # 0.0 Sodium Level 138 Potassium Level 3.1 L Chloride Level 105 Carbon Dioxide Level 28 Anion Gap 8 Blood Urea Nitrogen 13 Creatinine 0.90 Glucose Level 89 Calcium Level 7.7 L Phosphorus Level 2.6 Magnesium Level 1.8 Medications Medications Current Medications Lorazepam (Ativan) 0.5 mg Q8H PRN PO ANXIETY; Start 04/17/17 at 05:30 Ondansetron HCl (Zofran Inj) 4 mg Q6H PRN IV NAUSEA AND/OR VOMITING; Start 05/24 at 05:30 Acetaminophen (Tylenol Tab) 650 mg Q6H PRN PO PAIN LEVEL 1-3 OR FEVER; Start 04/17/17 at 05:30 Morphine Sulfate 2 mg 2 mg Q4H PRN IV PAIN LEVEL 7-10; Start 04/17/17 at 05:30 Piperacillin Sod/ Tazobactam Sod (Zosyn 3.375gm/ 100 ml (Pmx)) 100 ml @ 200 mls /hr Q6H IVPB Last administered on 04/18/17 05:57; Admin Dose 200 MLS/HR; Start 04/17/17 at 06:00 Atorvastatin Calcium (Lipitor) 20 mg QHS PO Last administered on 04/17/17 21: 07; Admin Dose 20 MG; Start 04/17/17 at 21:00 Bicalutamide (Casodex) 50 mg DAILY PO Last administered on 04/17/17 09:40; Admin Dose 50 MG; Start 04/17/17 at 09:00 Digoxin (Digoxin) 0.25 mg DAILY@13 PO Last administered on 04/17/17 15:31; Admin Dose 0.25 MG; Start 04/17/17 at 13:00 Diltiazem HCl (Cardizem Cd) 240 mg DAILY PO Last administered on 04/17/17 09: 42; Admin Dose 240 MG; Start 04/17/17 at 09:00 Docusate Sodium (Colace) 100 mg DAILY PO Last administered on 04/17/17 09:42 ; Admin Dose 100 MG; Start 04/17/17 at 09:00 Dorzolamide/ Timolol (Cosopt) 1 drop BID BOTH EYES Last administered on 21:09; Admin Dose 1 DROP; Start 04/17/17 at 09:00 Salmeterol Xinafoate/ Fluticasone (Advair 250/50 Diskus) 1 inh BID INH Last administered on 04/17/17 21:09; Admin Dose 1 INH; Start 04/17/17 at 09:00 Senna (Senokot) 1 tab QHS PO Last administered on 04/17/17 21:07; Admin Dose 1 TAB; Start 04/17/17 at 21:00 Tiotropium [place] 1 inh 1 inh DAILY INH Last administered on 04/17/17 09:39 ; Admin Dose 1 INH; Start 04/17/17 at 09:00 Vancomycin HCl/ Sodium Chloride (Vancocin/NS) 150 ml @ 75 mls/hr Q12H IVPB Last administered on 04/17/17 23:33; Admin Dose 75 MLS/HR; Start 04/17/17 at 11:00 Miscellaneous Information (*Rx Drug Level Order Reminder*) VANCOMYCIN TROUGH AT 1000 ONCE ONCE XX ; Start 04/18/17 at 10:00; Stop 04/18/17 at 10:01 Apixaban (Eliquis) 5 mg BID PO Last administered on 04/17/17 21:08; Admin Dose 5 MG; Start 04/17/17 at 21:00 Latanoprost (Xalatan) 1 drop QHS BOTH EYES ; Start 04/17/17 at 21:00 JUAN POSADA Apr 18, 2017 09:42
[2017-04-18] MEDS: DORZOLAMIDE/TIMOLOL 10 ML OPH BOTH EYES SCH (10:05)
[2017-04-18] MEDS: DIGOXIN 0.25 MG TAB PO SCH (10:06)
[2017-04-18] MEDS: DILTIAZEM (CD) 240 MG CAP PO SCH (10:07)
[2017-04-18] MEDS: DOCUSATE SODIUM 100 MG CAP PO SCH (10:07)
[2017-04-18] MEDS: BICALUTAMIDE 50 MG TAB PO SCH (10:09)
[2017-04-18] MEDS: APIXABAN 5 MG TABLET PO SCH ×2 (10:09→20:47)
[2017-04-18] MEDS: SALMETEROL/FLUTICASONE 250/50 INHA INH SCH ×2 (10:09→21:47)
[2017-04-18] MEDS ORDERED: POTASSIUM CHLORIDE (SR) 20 MEQ TAB PO STA (10:37)
--- NOTE | 2017-04-18 11:15 | PN ---
Date/Time of Note Date/Time of Note DATE: 04/18/17 TIME: 11:10 Assessment/Plan VTE Prophylaxis VTE Prophylaxis Intervention: other (eliquis) Lines/Catheters IV C[facility]ter Type (from [facility]): [facility] Urinary Cath still in place: No Assessment/Plan Chief Complaint/Hosp Course Assessment and plan 1. Pneumonia. Patient did have CT scan of his chest that did show large density in the right upper lobe consistent with pneumonia. Continue antibiotic regimen. Hot Man was consulted. Follow-up with recommendations. Antitussive as needed for cough 2. History of paroxysmal atrial for ablation. Continue with Eliquis. Continue with cardiovascular medications. Monitor on telemetry. 3. COPD. Severe. Continue bronchodilators. Hot Man following. Titrate off O2 as tolerated. 4. History of hypothyroidism. Continue on Synthroid 5. History of essential hypertension. Continue antihypertensives as needed 6. History of metastatic prostate cancer. Patient will patient follow-up with this issue. Disposition and plan: With her clinical improvement of respiratory status. Continue the antibiotics. Continue CPT and bronchodilators. Continue in-house monitoring.. Problems: Subjective 24 Hr Interval Summary Free Text/Dictation reports little better breathing. still has some cough Exam/Review of Systems Vital Signs Vitals Vital Signs Date Time Temp Pulse Resp B/P Pulse Ox O2 Delivery O2 Flow Rate FiO2 04/18/17 08:19 67 18 95 Nasal Cannula 2.0 04/18/17 02:05 98.7 117/57 Intake and Output 04/17/17 04/17/17 04/18/17 15:00 23:00 07:00 Intake Total 605 ml 400 ml 350 ml Output Total 250 ml 200 ml Balance 355 ml 200 ml 350 ml Exam Constitutional: alert, oriented Psych: anxiety Respiratory: other (slightly congested right lung field ) Cardiovascular: other (regular rate) Gastrointestinal: non-tender, soft Musculoskeletal: nl gait and stance Neurological: SAND BUFFER II-XII intact, nl mental status, nl speech Skin: nl turgor Results Result Diagram: 04/18/1712 04/18/17 0612 Results 24 hrs Laboratory Tests Test 04/18/17 06:12 White Blood Count 23.5 H Red Blood Count 3.65 L Hemoglobin 10.5 L Hematocrit 33.3 L Mean Corpuscular Volume 91.2 Mean Corpuscular Hemoglobin 28.8 L Mean Corpuscular Hemoglobin Concent 31.5 L Red Cell Distribution Width 14.5 Platelet Count 174 Mean Platelet Volume 10.2 Neutrophils % 88.8 H Lymphocytes % 5.3 L Monocytes % 4.3 Eosinophils % 0.6 Basophils % 0.1 Nucleated Red Blood Cells % 0.0 Neutrophils # 20.9 H Lymphocytes # 1.2 Monocytes # 1.0 H Eosinophils # 0.2 Basophils # 0.0 Nucleated Red Blood Cells # 0.0 Sodium Level 138 Potassium Level 3.1 L Chloride Level 105 Carbon Dioxide Level 28 Anion Gap 8 Blood Urea Nitrogen 13 Creatinine 0.90 Glucose Level 89 Calcium Level 7.7 L Phosphorus Level 2.6 Magnesium Level 1.8 Medications Medications Current Medications Lorazepam (Ativan) 0.5 mg Q8H PRN PO ANXIETY; Start 04/17/17 at 05:30 Ondansetron HCl (Zofran Inj) 4 mg Q6H PRN IV NAUSEA AND/OR VOMITING; Start 05/24 at 05:30 Acetaminophen (Tylenol Tab) 650 mg Q6H PRN PO PAIN LEVEL 1-3 OR FEVER; Start 04/17/17 at 05:30 Morphine Sulfate 2 mg 2 mg Q4H PRN IV PAIN LEVEL 7-10; Start 04/17/17 at 05:30 Piperacillin Sod/ Tazobactam Sod (Zosyn 3.375gm/ 100 ml (Pmx)) 100 ml @ 200 mls /hr Q6H IVPB Last administered on 04/18/17 05:57; Admin Dose 200 MLS/HR; Start 04/17/17 at 06:00 Atorvastatin Calcium (Lipitor) 20 mg QHS PO Last administered on 04/17/17 21: 07; Admin Dose 20 MG; Start 04/17/17 at 21:00 Bicalutamide (Casodex) 50 mg DAILY PO Last administered on 04/18/17 10:09; Admin Dose 50 MG; Start 04/17/17 at 09:00 Digoxin (Digoxin) 0.25 mg DAILY@13 PO Last administered on 04/18/17 10:06; Admin Dose 0.25 MG; Start 04/17/17 at 13:00 Diltiazem HCl (Cardizem Cd) 240 mg DAILY PO Last administered on 04/18/17 10: 07; Admin Dose 240 MG; Start 04/17/17 at 09:00 Docusate Sodium (Colace) 100 mg DAILY PO Last administered on 04/18/17 10:07 ; Admin Dose 100 MG; Start 04/17/17 at 09:00 Dorzolamide/ Timolol (Cosopt) 1 drop BID BOTH EYES Last administered on 10:05; Admin Dose 1 DROP; Start 04/17/17 at 09:00 Salmeterol Xinafoate/ Fluticasone (Advair 250/50 Diskus) 1 inh BID INH Last administered on 04/18/17 10:09; Admin Dose 1 INH; Start 04/17/17 at 09:00 Senna (Senokot) 1 tab QHS PO Last administered on 04/17/17 21:07; Admin Dose 1 TAB; Start 04/17/17 at 21:00 Tiotropium [place] 1 inh 1 inh DAILY INH Last administered on 04/18/17 09:00 ; Admin Dose 1 INH; Start 04/17/17 at 09:00 Vancomycin HCl/ Sodium Chloride (Vancocin/NS) 150 ml @ 75 mls/hr Q12H IVPB Last administered on 04/17/17 23:33; Admin Dose 75 MLS/HR; Start 04/17/17 at 11:00 Apixaban (Eliquis) 5 mg BID PO Last administered on 04/18/17 10:09; Admin Dose 5 MG; Start 04/17/17 at 21:00 Latanoprost (Xalatan) 1 drop QHS BOTH EYES ; Start 04/17/17 at 21:00 INDERJIT MCNULTY Apr 18, 2017 11:15
[2017-04-18] MEDS ORDERED: ALBUTEROL/IPRATROPIUM (NEB) 3 ML AMP HHN SCH (12:00)
[2017-04-18] MEDS: VANCOMYCIN 1.25 GM in SOD CHLORIDE 0.9% 250 ML IVPB SCH (14:22)
--- NOTE | 2017-04-18 14:26 | CONS ---
Date/Time of Note Date/Time of Note DATE: 04/18/17 TIME: 14:17 Assessment/Plan Assessment/Plan Additional Assessment/Plan Long discussion with patients ..pt has been deteriorating and has had three hospitalizations over the last year primarily for resp distress. He also has a h/o CAP on hormone suppression treatments last give approximately one month ago. He has stopped loosing weight since beginning chemotherapy. We discussed goals of care and code status, prognosis as related to COPD primarily. Further discussed ethical spiritual issues and symptom management. She has never thought about addressing his code status and was reticent to approach the subject. She is very pleasant and I did not push the discussion further. I asked her to think about five wishes and will fololow up tomorrow. Consultation Date/Type/Reason Admit Date/Time Apr 16, 2017 at 20:39 Type of Consultation: Palliative Care Psychological: anxiety Past Surgical History Past Surgical Hx: noncontributory Social History Smoking Status: Former smoker Exam/Review of Systems Vital Signs Vitals Vital Signs Date Time Temp Pulse Resp B/P Pulse Ox O2 Delivery O2 Flow Rate FiO2 04/18/17 13:14 73 20 95 Nasal Cannula 2.0 04/18/17 07:00 98.7 121/60 Intake and Output 04/17/17 04/17/17 04/18/17 15:00 23:00 07:00 Intake Total 605 ml 400 ml 350 ml Output Total 250 ml 200 ml Balance 355 ml 200 ml 350 ml Results Result Diagram: 04/18/17 0612 04/18/17 0612 Results 24 hrs Laboratory Tests Test 04/18/17 06:12 04/18/17 10:28 White Blood Count 23.5 H Red Blood Count 3.65 L Hemoglobin 10.5 L Hematocrit 33.3 L Mean Corpuscular Volume 91.2 Mean Corpuscular Hemoglobin 28.8 L Mean Corpuscular Hemoglobin Concent 31.5 L Red Cell Distribution Width 14.5 Platelet Count 174 Mean Platelet Volume 10.2 Neutrophils % 88.8 H Lymphocytes % 5.3 L Monocytes % 4.3 Eosinophils % 0.6 Basophils % 0.1 Nucleated Red Blood Cells % 0.0 Neutrophils # 20.9 H Lymphocytes # 1.2 Monocytes # 1.0 H Eosinophils # 0.2 Basophils # 0.0 Nucleated Red Blood Cells # 0.0 Sodium Level 138 Potassium Level 3.1 L Chloride Level 105 Carbon Dioxide Level 28 Anion Gap 8 Blood Urea Nitrogen 13 Creatinine 0.90 Glucose Level 89 Calcium Level 7.7 L Phosphorus Level 2.6 Magnesium Level 1.8 Vancomycin Level Trough 6.8 L Medications Medications Current Medications Lorazepam (Ativan) 0.5 mg Q8H PRN PO ANXIETY; Start 04/17/17 at 05:30 Ondansetron HCl (Zofran Inj) 4 mg Q6H PRN IV NAUSEA AND/OR VOMITING; Start 05/24 at 05:30 Acetaminophen (Tylenol Tab) 650 mg Q6H PRN PO PAIN LEVEL 1-3 OR FEVER; Start 04/17/17 at 05:30 Morphine Sulfate 2 mg 2 mg Q4H PRN IV PAIN LEVEL 7-10; Start 04/17/17 at 05:30 Piperacillin Sod/ Tazobactam Sod (Zosyn 3.375gm/ 100 ml (Pmx)) 100 ml @ 200 mls /hr Q6H IVPB Last administered on 04/18/17 12:00; Admin Dose 200 MLS/HR; Start 04/17/17 at 06:00 Atorvastatin Calcium (Lipitor) 20 mg QHS PO Last administered on 04/17/17 21: 07; Admin Dose 20 MG; Start 04/17/17 at 21:00 Bicalutamide (Casodex) 50 mg DAILY PO Last administered on 04/18/17 10:09; Admin Dose 50 MG; Start 04/17/17 at 09:00 Digoxin (Digoxin) 0.25 mg DAILY@13 PO Last administered on 04/18/17 10:06; Admin Dose 0.25 MG; Start 04/17/17 at 13:00 Diltiazem HCl (Cardizem Cd) 240 mg DAILY PO Last administered on 04/18/17 10: 07; Admin Dose 240 MG; Start 04/17/17 at 09:00 Docusate Sodium (Colace) 100 mg DAILY PO Last administered on 04/18/17 10:07 ; Admin Dose 100 MG; Start 04/17/17 at 09:00 Dorzolamide/ Timolol (Cosopt) 1 drop BID BOTH EYES Last administered on 10:05; Admin Dose 1 DROP; Start 04/17/17 at 09:00 Salmeterol Xinafoate/ Fluticasone (Advair 250/50 Diskus) 1 inh BID INH Last administered on 04/18/17 10:09; Admin Dose 1 INH; Start 04/17/17 at 09:00 Senna (Senokot) 1 tab QHS PO Last administered on 04/17/17 21:07; Admin Dose 1 TAB; Start 04/17/17 at 21:00 Tiotropium [place] (Spiriva) 1 inh DAILY INH Last administered on 04/18/17 09 :00; Admin Dose 1 INH; Start 04/17/17 at 09:00 Apixaban (Eliquis) 5 mg BID PO Last administered on 04/18/17 10:09; Admin Dose 5 MG; Start 04/17/17 at 21:00 Latanoprost (Xalatan) 1 drop QHS BOTH EYES ; Start 04/17/17 at 21:00 Albuterol/ Ipratropium (Duoneb) 3 ml Q4H HHN Last administered on 04/18/17 13 :14; Admin Dose 3 ML; Start 04/18/17 at 12:00 Guaifenesin 600 mg 600 mg BID PO ; Start 04/18/17 at 21:00 Vancomycin HCl/ Sodium Chloride (Vancocin/NS) 250 ml @ 83.333 mls/ hr Q12H IVPB ; Start 04/18/17 at 12:30 LELAND LIU Apr 18, 2017 14:26
[2017-04-18] MEDS: SENNA TAB PO SCH (20:47)
[2017-04-18] MEDS: ATORVASTATIN 20 MG TAB PO SCH (20:47)
[2017-04-18 21:00] VITALS: BP 122/58; RESP 20
[2017-04-18] MEDS: TIMOLOL BOTH EYES SCH (21:47)
[2017-04-18] MEDS: DORZOLAMIDE BOTH EYES SCH (21:47)
[2017-04-18] MEDS: LATANOPROST 0.005% 2.5 ML OPH BOTH EYES SCH (21:48)
[2017-04-18] MEDS: GUAIFENESIN LA 600 MG TABSR PO SCH (21:48)
[2017-04-19] MEDS: PIPER-TAZO 3.375 GM IV (PMX) 100 ML IVPB SCH ×5 (00:02→23:45)
[2017-04-19] MEDS: VANCOMYCIN 1.25 GM in SOD CHLORIDE 0.9% 250 ML IVPB SCH ×2 (00:41→12:19)
[2017-04-19 02:00] VITALS: BP 100/50; RESP 19
[2017-04-19] MEDS: ALBUTEROL/IPRATROPIUM (NEB) 3 ML AMP HHN SCH ×6 (02:04→20:06)
[2017-04-19 06:12] LABS: BASOPHILS % 0.2 % (0.0-2.0); EOSINOPHILS # 0.1 10^3/ul (0.0-0.5); EOSINOPHILS % 0.7 % (0.0-7.0); HEMATOCRIT 32.5 % (42.0-52.0); HEMOGLOBIN 10.3 g/dl (14.0-18.0); LYMPHOCYTES # 1.2 10^3/ul (0.8-2.9); LYMPHOCYTES % 5.9 % (15.0-51.0); MEAN CORPUSCULAR HEMOGLOBIN 28.8 pg (29.0-33.0); MEAN CORPUSCULAR HGB CONC 31.7 g/dl (32.0-37.0); MEAN CORPUSCULAR VOLUME 90.8 fl (82.0-101.0); MEAN PLATELET VOLUME 9.8 fl (7.4-10.4); MONOCYTE # 0.8 10^3/ul (0.3-0.9); MONOCYTES % 3.8 % (0.0-11.0); NEUTROPHIL # 17.3 10^3/ul (1.6-7.5); NEUTROPHILS % 88.6 % (39.0-77.0); PLATELET COUNT 181 10^3/UL (140-415); RED BLOOD COUNT 3.58 10^6/ul (4.70-6.10); RED CELL DISTRIBUTION WIDTH 14.4 % (11.5-14.5); WHITE BLOOD COUNT 19.5 10^3/ul (4.8-10.8)
[2017-04-19 06:48] LABS: CALCIUM 7.8 mg/dl (8.4-10.2); CREATININE 0.87 mg/dl (0.61-1.24); POTASSIUM 3.3 mmol/L (3.5-5.1)
[2017-04-19 07:35] VITALS: BP 120/63; RESP 18
[2017-04-19] MEDS: SALMETEROL/FLUTICASONE 250/50 INHA INH SCH ×2 (09:43→20:57)
[2017-04-19] MEDS: TIOTROPIUM 18 MCG CAPSULE INHA DEV INH SCH (09:43)
[2017-04-19] MEDS: DOCUSATE SODIUM 100 MG CAP PO SCH (09:44)
[2017-04-19] MEDS: APIXABAN 5 MG TABLET PO SCH ×2 (09:44→20:57)
[2017-04-19] MEDS: GUAIFENESIN LA 600 MG TABSR PO SCH ×2 (09:44→21:01)
[2017-04-19] MEDS: DILTIAZEM (CD) 240 MG CAP PO SCH (09:45)
[2017-04-19] MEDS: TIMOLOL BOTH EYES SCH ×2 (09:47→23:43)
[2017-04-19] MEDS: DORZOLAMIDE BOTH EYES SCH ×2 (09:47→23:43)
[2017-04-19] MEDS: BICALUTAMIDE 50 MG TAB PO SCH (09:52)
[2017-04-19] MEDS ORDERED: POTASSIUM CHLORIDE (SR) 20 MEQ TAB PO STA (12:06)
[2017-04-19] MEDS: DIGOXIN 0.25 MG TAB PO SCH (12:23)
--- NOTE | 2017-04-19 13:01 | CONS ---
Date/Time of Note Date/Time of Note DATE: 04/19/17 TIME: 12:59 Assessment/Plan Assessment/Plan Chief Complaint/Hosp Course dictated # [id number] Problems: Additional Assessment/Plan Assessment and recommendations; 1. Patient admitted with right-sided pneumonia as well as COPD exacerbation with interval improvement. 2. Underlying severe COPD. 3. Improving leukocytosis. Continue current treatment. Consultation Date/Type/Reason Admit Date/Time Apr 16, 2017 at 20:39 Initial Consult Date 04/17/17 Type of Consultation: Pulmonary/critical care 24 HR Interval Summary Free Text/Dictation Patient's condition is stable. Reports decreased chest congestion. Still complains of dyspnea on exertion. Denies any chest pain, fever or chills. General exam; elderly male, awake and alert. Currently in no distress. Exam/Review of Systems Vital Signs Vitals Vital Signs Date Time Temp Pulse Resp B/P Pulse Ox O2 Delivery O2 Flow Rate FiO2 04/19/17 08:30 Nasal Cannula 2.0 04/19/17 08:24 72 18 96 04/19/17 07:35 97.8 120/63 Intake and Output 04/18/17 04/18/17 04/19/17 15:00 23:00 07:00 Intake Total 1300 ml Output Total 1050 ml Balance 250 ml Exam HEENT exam; supple neck, no JVD. No lymphadenopathy. Midline trachea. No thyromegaly. Patient is edentulous and wears dentures. Chest exam; diminished but clear breath sounds. S1-S2 audible, no murmurs. Regular rhythm. Abdomen exam; soft, nondistended. Nontender. No organomegaly. Bowel sounds audible. Extremity exam; no peripheral edema. No clubbing. 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 Results Result Diagram: 04/19/17 0523 04/19/17 0522 Results 24 hrs Laboratory Tests Test 04/19/17 05:22 04/19/17 05:23 Sodium Level 142 Potassium Level 3.3 L Chloride Level 108 Carbon Dioxide Level 27 Anion Gap 10 Blood Urea Nitrogen 12 Creatinine 0.87 Glucose Level 77 Calcium Level 7.8 L White Blood Count 19.5 H Red Blood Count 3.58 L Hemoglobin 10.3 L Hematocrit 32.5 L Mean Corpuscular Volume 90.8 Mean Corpuscular Hemoglobin 28.8 L Mean Corpuscular Hemoglobin Concent 31.7 L Red Cell Distribution Width 14.4 Platelet Count 181 Mean Platelet Volume 9.8 Neutrophils % 88.6 H Lymphocytes % 5.9 L Monocytes % 3.8 Eosinophils % 0.7 Basophils % 0.2 Nucleated Red Blood Cells % 0.0 Neutrophils # 17.3 H Lymphocytes # 1.2 Monocytes # 0.8 Eosinophils # 0.1 Basophils # 0.0 Nucleated Red Blood Cells # 0.0 Medications Medications Current Medications Lorazepam (Ativan) 0.5 mg Q8H PRN PO ANXIETY; Start 04/17/17 at 05:30 Ondansetron HCl (Zofran Inj) 4 mg Q6H PRN IV NAUSEA AND/OR VOMITING; Start 05/24 at 05:30 Acetaminophen (Tylenol Tab) 650 mg Q6H PRN PO PAIN LEVEL 1-3 OR FEVER; Start 04/17/17 at 05:30 Morphine Sulfate 2 mg 2 mg Q4H PRN IV PAIN LEVEL 7-10; Start 04/17/17 at 05:30 Piperacillin Sod/ Tazobactam Sod (Zosyn 3.375gm/ 100 ml (Pmx)) 100 ml @ 200 mls /hr Q6H IVPB Last administered on 04/19/17 11:29; Admin Dose 200 MLS/HR; Start 04/17/17 at 06:00 Atorvastatin Calcium (Lipitor) 20 mg QHS PO Last administered on 04/18/17 20: 47; Admin Dose 20 MG; Start 04/17/17 at 21:00 Bicalutamide (Casodex) 50 mg DAILY PO Last administered on 04/19/17 09:52; Admin Dose 50 MG; Start 04/17/17 at 09:00 Digoxin (Digoxin) 0.25 mg DAILY@13 PO Last administered on 04/19/17 12:23; Admin Dose 0.25 MG; Start 04/17/17 at 13:00 Diltiazem HCl (Cardizem Cd) 240 mg DAILY PO Last administered on 04/19/17 09: 45; Admin Dose 240 MG; Start 04/17/17 at 09:00 Docusate Sodium (Colace) 100 mg DAILY PO Last administered on 04/19/17 09:44 ; Admin Dose 100 MG; Start 04/17/17 at 09:00 Salmeterol Xinafoate/ Fluticasone (Advair 250/50 Diskus) 1 inh BID INH Last administered on 04/19/17 09:43; Admin Dose 1 INH; Start 04/17/17 at 09:00 Senna (Senokot) 1 tab QHS PO Last administered on 04/18/17 20:47; Admin Dose 1 TAB; Start 04/17/17 at 21:00 Tiotropium [place] (Spiriva) 1 inh DAILY INH Last administered on 04/19/17 09 :43; Admin Dose 1 INH; Start 04/17/17 at 09:00 Apixaban (Eliquis) 5 mg BID PO Last administered on 04/19/17 09:44; Admin Dose 5 MG; Start 04/17/17 at 21:00 Latanoprost (Xalatan) 1 drop QHS BOTH EYES Last administered on 04/18/17 21: 48; Admin Dose 1 DROP; Start 04/17/17 at 21:00 Guaifenesin 600 mg 600 mg BID PO Last administered on 04/19/17 09:44; Admin Dose 600 MG; Start 04/18/17 at 21:00 Vancomycin HCl/ Sodium Chloride (Vancocin/NS) 250 ml @ 83.333 mls/ hr Q12H IVPB Last administered on 04/19/17 12:19; Admin Dose 83.333 MLS/HR; Start at 12:30 Albuterol/ Ipratropium (Duoneb) 3 ml Q4H HHN Last administered on 04/19/17 08 :21; Admin Dose 3 ML; Start 04/18/17 at 17:00 Non-Formulary Medication 1 ea BID BOTH EYES Last administered on 04/19/17 09: 47; Admin Dose 1 EA; Start 04/18/17 at 22:00 JUAN POSADA Apr 19, 2017 13:01
[2017-04-19 14:13] VITALS: BP 111/55; RESP 18
--- NOTE | 2017-04-19 16:21 | PN ---
Date/Time of Note Date/Time of Note DATE: 04/19/17 TIME: 16:19 Assessment/Plan VTE Prophylaxis VTE Prophylaxis Intervention: SCD's Lines/Catheters IV [facility]from [facility] Saline [facility] Urinary Cath still in place: No Assessment/Plan Assessment/Plan 1. Pneumonia. Patient did have CT scan of his chest that did show large density in the right upper lobe consistent with pneumonia. Continue antibiotic regimen. Python Architect following sputum cx positive for normal katrina and nina albicans, will add po fluconazole 2. History of paroxysmal atrial for ablation. Continue with Eliquis. Continue with cardiovascular medications. Monitor on telemetry. 3. COPD. Severe. Continue bronchodilators. Python Architect following. Titrate off O2 as tolerated. 4. History of hypothyroidism. Continue on Synthroid 5. History of essential hypertension. Continue antihypertensives as needed 6. History of metastatic prostate cancer. Patient will patient follow-up with this issue. Disposition and plan: With her clinical improvement of respiratory status. Continue the antibiotics. Continue CPT and bronchodilators. Continue in-house monitoring..KCL 40mEQ PO X 1 dose today , add PO fluconazole Subjective 24 Hr Interval Summary Free Text/Dictation K low, BP stable, Still c/o SOB off oxygen and c/o cough Exam/Review of Systems Vital Signs Vitals Vital Signs Date Time Temp Pulse Resp B/P Pulse Ox O2 Delivery O2 Flow Rate FiO2 04/19/17 14:13 97.8 70 18 111/55 92 04/19/17 13:00 Nasal Cannula 2.0 Intake and Output 04/18/17 04/18/17 04/19/17 15:00 23:00 07:00 Intake Total 1300 ml Output Total 1050 ml Balance 250 ml Exam Constitutional: alert, oriented Psych: anxiety Respiratory: other (slightly congested right lung field ) Cardiovascular: other (regular rate) Gastrointestinal: non-tender, soft Musculoskeletal: nl gait and stance 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, nl mental status, nl speech Skin: nl turgo Results Result Diagram: 04/19/1752204/19/17 0522 Results 24 hrs Laboratory Tests Test 04/19/17 05:22 04/19/17 05:23 Sodium Level 142 Potassium Level 3.3 L Chloride Level 108 Carbon Dioxide Level 27 Anion Gap 10 Blood Urea Nitrogen 12 Creatinine 0.87 Glucose Level 77 Calcium Level 7.8 L White Blood Count 19.5 H Red Blood Count 3.58 L Hemoglobin 10.3 L Hematocrit 32.5 L Mean Corpuscular Volume 90.8 Mean Corpuscular Hemoglobin 28.8 L Mean Corpuscular Hemoglobin Concent 31.7 L Red Cell Distribution Width 14.4 Platelet Count 181 Mean Platelet Volume 9.8 Neutrophils % 88.6 H Lymphocytes % 5.9 L Monocytes % 3.8 Eosinophils % 0.7 Basophils % 0.2 Nucleated Red Blood Cells % 0.0 Neutrophils # 17.3 H Lymphocytes # 1.2 Monocytes # 0.8 Eosinophils # 0.1 Basophils # 0.0 Nucleated Red Blood Cells # 0.0 Medications Medications Current Medications Lorazepam (Ativan) 0.5 mg Q8H PRN PO ANXIETY; Start 04/17/17 at 05:30 Ondansetron HCl (Zofran Inj) 4 mg Q6H PRN IV NAUSEA AND/OR VOMITING; Start 05/24 at 05:30 Acetaminophen (Tylenol Tab) 650 mg Q6H PRN PO PAIN LEVEL 1-3 OR FEVER; Start 04/17/17 at 05:30 Morphine Sulfate 2 mg 2 mg Q4H PRN IV PAIN LEVEL 7-10; Start 04/17/17 at 05:30 Piperacillin Sod/ Tazobactam Sod (Zosyn 3.375gm/ 100 ml (Pmx)) 100 ml @ 200 mls /hr Q6H IVPB Last administered on 04/19/17 11:29; Admin Dose 200 MLS/HR; Start 04/17/17 at 06:00 Atorvastatin Calcium (Lipitor) 20 mg QHS PO Last administered on 04/18/17 20: 47; Admin Dose 20 MG; Start 04/17/17 at 21:00 Bicalutamide (Casodex) 50 mg DAILY PO Last administered on 04/19/17 09:52; Admin Dose 50 MG; Start 04/17/17 at 09:00 Digoxin (Digoxin) 0.25 mg DAILY@13 PO Last administered on 04/19/17 12:23; Admin Dose 0.25 MG; Start 04/17/17 at 13:00 Diltiazem HCl (Cardizem Cd) 240 mg DAILY PO Last administered on 04/19/17 09: 45; Admin Dose 240 MG; Start 04/17/17 at 09:00 Docusate Sodium (Colace) 100 mg DAILY PO Last administered on 04/19/17 09:44 ; Admin Dose 100 MG; Start 04/17/17 at 09:00 Salmeterol Xinafoate/ Fluticasone (Advair 250/50 Diskus) 1 inh BID INH Last administered on 04/19/17 09:43; Admin Dose 1 INH; Start 04/17/17 at 09:00 Senna (Senokot) 1 tab QHS PO Last administered on 04/18/17 20:47; Admin Dose 1 TAB; Start 04/17/17 at 21:00 Tiotropium [place] (Spiriva) 1 inh DAILY INH Last administered on 04/19/17 09 :43; Admin Dose 1 INH; Start 04/17/17 at 09:00 Apixaban (Eliquis) 5 mg BID PO Last administered on 04/19/17 09:44; Admin Dose 5 MG; Start 04/17/17 at 21:00 Latanoprost (Xalatan) 1 drop QHS BOTH EYES Last administered on 04/18/17 21: 48; Admin Dose 1 DROP; Start 04/17/17 at 21:00 Guaifenesin 600 mg 600 mg BID PO Last administered on 04/19/17 09:44; Admin Dose 600 MG; Start 04/18/17 at 21:00 Vancomycin HCl/ Sodium Chloride (Vancocin/NS) 250 ml @ 83.333 mls/ hr Q12H IVPB Last administered on 04/19/17 12:19; Admin Dose 83.333 MLS/HR; Start at 12:30 Albuterol/ Ipratropium (Duoneb) 3 ml Q4H HHN Last administered on 04/19/17 12 :59; Admin Dose 3 ML; Start 04/18/17 at 17:00 Non-Formulary Medication 1 ea BID BOTH EYES Last administered on 04/19/17 09: 47; Admin Dose 1 EA; Start 04/18/17 at 22:00 Miscellaneous Information (*Rx Drug Level Order Reminder*) VANCO TROUGH @ 2, 330 ON ... ONCE ONCE XX ; Start 04/19/17 at 23:30; Stop 04/19/17 at 23:31 KAYA RICKETTS MD Apr 19, 2017 16:21
[2017-04-19] MEDS ORDERED: FLUCONAZOLE 100 MG TAB PO ONE (16:30)
[2017-04-19 20:00] VITALS: BP 131/60; RESP 20
[2017-04-19] MEDS: ATORVASTATIN 20 MG TAB PO SCH (20:57)
[2017-04-19] MEDS: SENNA TAB PO SCH (20:57)
[2017-04-19] MEDS: LATANOPROST 0.005% 2.5 ML OPH BOTH EYES SCH (21:11)
[2017-04-20] MEDS: ALBUTEROL/IPRATROPIUM (NEB) 3 ML AMP HHN SCH ×6 (00:18→20:32)
[2017-04-20 02:16] VITALS: BP 119/59; RESP 18
[2017-04-20] MEDS: PIPER-TAZO 3.375 GM IV (PMX) 100 ML IVPB SCH ×3 (05:39→17:39)
[2017-04-20 06:28] LABS: BASOPHILS % 0.1 % (0.0-2.0); EOSINOPHILS # 0.2 10^3/ul (0.0-0.5); EOSINOPHILS % 1.5 % (0.0-7.0); HEMATOCRIT 30.6 % (42.0-52.0); HEMOGLOBIN 9.8 g/dl (14.0-18.0); LYMPHOCYTES # 1.1 10^3/ul (0.8-2.9); LYMPHOCYTES % 7.5 % (15.0-51.0); MEAN CORPUSCULAR HEMOGLOBIN 29.2 pg (29.0-33.0); MEAN CORPUSCULAR VOLUME 91.1 fl (82.0-101.0); MEAN PLATELET VOLUME 10.1 fl (7.4-10.4); MONOCYTE # 0.5 10^3/ul (0.3-0.9); MONOCYTES % 3.8 % (0.0-11.0); NEUTROPHIL # 12.5 10^3/ul (1.6-7.5); NEUTROPHILS % 86.4 % (39.0-77.0); PLATELET COUNT 179 10^3/UL (140-415); RED BLOOD COUNT 3.36 10^6/ul (4.70-6.10); RED CELL DISTRIBUTION WIDTH 14.3 % (11.5-14.5); WHITE BLOOD COUNT 14.4 10^3/ul (4.8-10.8)
[2017-04-20 07:06] LABS: CREATININE 0.91 mg/dl (0.61-1.24); POTASSIUM 3.3 mmol/L (3.5-5.1)
[2017-04-20 07:58] VITALS: BP 116/55; RESP 20
[2017-04-20] MEDS: APIXABAN 5 MG TABLET PO SCH ×2 (08:36→20:44)
[2017-04-20] MEDS: GUAIFENESIN LA 600 MG TABSR PO SCH ×2 (08:36→20:44)
[2017-04-20] MEDS: DILTIAZEM (CD) 240 MG CAP PO SCH (08:36)
[2017-04-20] MEDS: SALMETEROL/FLUTICASONE 250/50 INHA INH SCH ×2 (08:36→20:46)
[2017-04-20] MEDS: DOCUSATE SODIUM 100 MG CAP PO SCH (08:36)
[2017-04-20] MEDS: FLUCONAZOLE 100 MG TAB PO SCH (08:36)
[2017-04-20] MEDS: TIOTROPIUM 18 MCG CAPSULE INHA DEV INH SCH (08:37)
[2017-04-20] MEDS: TIMOLOL BOTH EYES SCH ×2 (08:37→20:45)
[2017-04-20] MEDS: DORZOLAMIDE BOTH EYES SCH ×2 (08:37→20:45)
[2017-04-20] MEDS: BICALUTAMIDE 50 MG TAB PO SCH (08:39)
[2017-04-20] MEDS ORDERED: POTASSIUM CHLORIDE (SR) 20 MEQ TAB PO STA (08:57)
--- NOTE | 2017-04-20 11:11 | CONS ---
Date/Time of Note Date/Time of Note DATE: 04/20/17 TIME: 11:10 Assessment/Plan Assessment/Plan Chief Complaint/Hosp Course dictated # [id number] Problems: Consultation Date/Type/Reason Admit Date/Time Apr 16, 2017 at 20:39 Initial Consult Date 04/17/17 Type of Consultation: Pulmonary/critical care 24 HR Interval Summary Free Text/Dictation dictated [id number] Exam/Review of Systems Vital Signs Vitals Vital Signs Date Time Temp Pulse Resp B/P Pulse Ox O2 Delivery O2 Flow Rate FiO2 04/20/17 09:42 Nasal Cannula 2.0 04/20/17 09:24 74 20 94 04/20/17 07:58 98.5 116/55 Intake and Output 04/19/17 04/19/17 04/20/17 15:00 23:00 07:00 Intake Total 100 ml 800 ml 660 ml Output Total 750 ml 500 ml Balance 100 ml 50 ml 160 ml Results Result Diagram: 04/20/17 0546 04/20/17 0546 Results 24 hrs Laboratory Tests Test 04/20/17 05:46 White Blood Count 14.4 #H Red Blood Count 3.36 L Hemoglobin 9.8 L Hematocrit 30.6 L Mean Corpuscular Volume 91.1 Mean Corpuscular Hemoglobin 29.2 Mean Corpuscular Hemoglobin Concent 32.0 Red Cell Distribution Width 14.3 Platelet Count 179 Mean Platelet Volume 10.1 Neutrophils % 86.4 H Lymphocytes % 7.5 L Monocytes % 3.8 Eosinophils % 1.5 Basophils % 0.1 Nucleated Red Blood Cells % 0.0 Neutrophils # 12.5 H Lymphocytes # 1.1 Monocytes # 0.5 Eosinophils # 0.2 Basophils # 0.0 Nucleated Red Blood Cells # 0.0 Sodium Level 134 L Potassium Level 3.3 L Chloride Level 107 Carbon Dioxide Level 28 Anion Gap 2 #L Blood Urea Nitrogen 12 Creatinine 0.91 Glucose Level 101 Calcium Level 8.0 L Magnesium Level 1.8 Medications Medications Current Medications Lorazepam (Ativan) 0.5 mg Q8H PRN PO ANXIETY; Start 04/17/17 at 05:30 Ondansetron HCl (Zofran Inj) 4 mg Q6H PRN IV NAUSEA AND/OR VOMITING; Start 05/24 at 05:30 Acetaminophen (Tylenol Tab) 650 mg Q6H PRN PO PAIN LEVEL 1-3 OR FEVER; Start 04/17/17 at 05:30 Morphine Sulfate 2 mg 2 mg Q4H PRN IV PAIN LEVEL 7-10; Start 04/17/17 at 05:30 Piperacillin Sod/ Tazobactam Sod (Zosyn 3.375gm/ 100 ml (Pmx)) 100 ml @ 200 mls /hr Q6H IVPB Last administered on 04/20/17 05:39; Admin Dose 200 MLS/HR; Start 04/17/17 at 06:00 Atorvastatin Calcium (Lipitor) 20 mg QHS PO Last administered on 04/19/17 20: 57; Admin Dose 20 MG; Start 04/17/17 at 21:00 Bicalutamide (Casodex) 50 mg DAILY PO Last administered on 04/20/17 08:39; Admin Dose 50 MG; Start 04/17/17 at 09:00 Digoxin (Digoxin) 0.25 mg DAILY@13 PO Last administered on 04/19/17 12:23; Admin Dose 0.25 MG; Start 04/17/17 at 13:00 Diltiazem HCl (Cardizem Cd) 240 mg DAILY PO Last administered on 04/20/17 08: 36; Admin Dose 240 MG; Start 04/17/17 at 09:00 Docusate Sodium (Colace) 100 mg DAILY PO Last administered on 04/20/17 08:36 ; Admin Dose 100 MG; Start 04/17/17 at 09:00 Salmeterol Xinafoate/ Fluticasone (Advair 250/50 Diskus) 1 inh BID INH Last administered on 04/20/17 08:36; Admin Dose 1 INH; Start 04/17/17 at 09:00 Senna (Senokot) 1 tab QHS PO Last administered on 04/19/17 20:57; Admin Dose 1 TAB; Start 04/17/17 at 21:00 Tiotropium [place] (Spiriva) 1 inh DAILY INH Last administered on 04/20/17 08 :37; Admin Dose 1 INH; Start 04/17/17 at 09:00 Apixaban (Eliquis) 5 mg BID PO Last administered on 04/20/17 08:36; Admin Dose 5 MG; Start 04/17/17 at 21:00 Latanoprost (Xalatan) 1 drop QHS BOTH EYES Last administered on 04/19/17 21: 11; Admin Dose 1 DROP; Start 04/17/17 at 21:00 Guaifenesin (Mucinex) 600 mg BID PO Last administered on 04/20/17 08:36; Admin Dose 600 MG; Start 04/18/17 at 21:00 Albuterol/ Ipratropium (Duoneb) 3 ml Q4H HHN Last administered on 04/20/17 09 :20; Admin Dose 3 ML; Start 04/18/17 at 17:00 Non-Formulary Medication 1 ea BID BOTH EYES Last administered on 04/20/17 08: 37; Admin Dose 1 EA; Start 04/18/17 at 22:00 Fluconazole (Diflucan) 100 mg DAILY PO Last administered on 04/20/17 08:36; Admin Dose 100 MG; Start 04/20/17 at 09:00 JUAN POSADA Apr 20, 2017 11:11
--- NOTE | 2017-04-20 14:06 | PN ---
Date/Time of Note Date/Time of Note DATE: 04/20/17 TIME: 14:03 Assessment/Plan VTE Prophylaxis VTE Prophylaxis Intervention: SCD's Lines/Catheters IV C[facility] Type [facility]from [facility] Saline Lock Urinary Cath still in place: No Assessment/Plan Chief Complaint/Hosp Course Assessment and plan 1. Pneumonia. Patient did have CT scan of his chest that did show large density in the right upper lobe consistent with pneumonia. Continue antibiotic regimen. continue CPT. 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 History of paroxysmal atrial for ablation. Continue with Eliquis. Continue with cardiovascular medications. Monitor on telemetry. 3. COPD. Severe. Continue bronchodilators. 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 Titrate off O2 as tolerated. 4. History of hypothyroidism. Continue on Synthroid 5. History of essential hypertension. Continue antihypertensives as needed 6. History of metastatic prostate cancer. Patient will patient follow-up with this issue. Disposition and plan: monitor for clinical improvement. continue with pulmonary regimen Discussed plan of care with Dr. Yun Problems: Subjective 24 Hr Interval Summary Free Text/Dictation still with some shortness of breath Exam/Review of Systems Vital Signs Vitals Vital Signs Date Time Temp Pulse Resp B/P Pulse Ox O2 Delivery O2 Flow Rate FiO2 04/20/17 09:42 Nasal Cannula 2.0 04/20/17 09:24 74 20 94 04/20/17 07:58 98.5 116/55 Intake and Output 04/19/17 04/19/17 04/20/17 15:00 23:00 07:00 Intake Total 100 ml 800 ml 660 ml Output Total 750 ml 500 ml Balance 100 ml 50 ml 160 ml Exam Constitutional: alert, frail, oriented Head: normocephalic Eyes: nl conjunctiva Neck: supple, No jvd Respiratory: other (congested right lung field ) Gastrointestinal: non-tender, soft 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, nl mental status, nl speech Skin: nl turgor Results Result Diagram: 04/20/17 0546 04/20/1746 Results 24 hrs Laboratory Tests Test 04/20/17 05:46 White Blood Count 14.4 #H Red Blood Count 3.36 L Hemoglobin 9.8 L Hematocrit 30.6 L Mean Corpuscular Volume 91.1 Mean Corpuscular Hemoglobin 29.2 Mean Corpuscular Hemoglobin Concent 32.0 Red Cell Distribution Width 14.3 Platelet Count 179 Mean Platelet Volume 10.1 Neutrophils % 86.4 H Lymphocytes % 7.5 L Monocytes % 3.8 Eosinophils % 1.5 Basophils % 0.1 Nucleated Red Blood Cells % 0.0 Neutrophils # 12.5 H Lymphocytes # 1.1 Monocytes # 0.5 Eosinophils # 0.2 Basophils # 0.0 Nucleated Red Blood Cells # 0.0 Sodium Level 134 L Potassium Level 3.3 L Chloride Level 107 Carbon Dioxide Level 28 Anion Gap 2 #L Blood Urea Nitrogen 12 Creatinine 0.91 Glucose Level 101 Calcium Level 8.0 L Magnesium Level 1.8 Medications Medications Current Medications Lorazepam (Ativan) 0.5 mg Q8H PRN PO ANXIETY; Start 04/17/17 at 05:30 Ondansetron HCl (Zofran Inj) 4 mg Q6H PRN IV NAUSEA AND/OR VOMITING; Start 05/24 at 05:30 Acetaminophen (Tylenol Tab) 650 mg Q6H PRN PO PAIN LEVEL 1-3 OR FEVER; Start 04/17/17 at 05:30 Morphine Sulfate 2 mg 2 mg Q4H PRN IV PAIN LEVEL 7-10; Start 04/17/17 at 05:30 Piperacillin Sod/ Tazobactam Sod (Zosyn 3.375gm/ 100 ml (Pmx)) 100 ml @ 200 mls /hr Q6H IVPB Last administered on 04/20/17 11:29; Admin Dose 200 MLS/HR; Start 04/17/17 at 06:00 Atorvastatin Calcium (Lipitor) 20 mg QHS PO Last administered on 04/19/17 20: 57; Admin Dose 20 MG; Start 04/17/17 at 21:00 Bicalutamide (Casodex) 50 mg DAILY PO Last administered on 04/20/17 08:39; Admin Dose 50 MG; Start 04/17/17 at 09:00 Digoxin (Digoxin) 0.25 mg DAILY@13 PO Last administered on 04/19/17 12:23; Admin Dose 0.25 MG; Start 04/17/17 at 13:00 Diltiazem HCl (Cardizem Cd) 240 mg DAILY PO Last administered on 04/20/17 08: 36; Admin Dose 240 MG; Start 04/17/17 at 09:00 Docusate Sodium (Colace) 100 mg DAILY PO Last administered on 04/20/17 08:36 ; Admin Dose 100 MG; Start 04/17/17 at 09:00 Salmeterol Xinafoate/ Fluticasone (Advair 250/50 Diskus) 1 inh BID INH Last administered on 04/20/17 08:36; Admin Dose 1 INH; Start 04/17/17 at 09:00 Senna (Senokot) 1 tab QHS PO Last administered on 04/19/17 20:57; Admin Dose 1 TAB; Start 04/17/17 at 21:00 Tiotropium [place] (Spiriva) 1 inh DAILY INH Last administered on 04/20/17 08 :37; Admin Dose 1 INH; Start 04/17/17 at 09:00 Apixaban (Eliquis) 5 mg BID PO Last administered on 04/20/17 08:36; Admin Dose 5 MG; Start 04/17/17 at 21:00 Latanoprost (Xalatan) 1 drop QHS BOTH EYES Last administered on 04/19/17 21: 11; Admin Dose 1 DROP; Start 04/17/17 at 21:00 Guaifenesin (Mucinex) 600 mg BID PO Last administered on 04/20/17 08:36; Admin Dose 600 MG; Start 04/18/17 at 21:00 Albuterol/ Ipratropium (Duoneb) 3 ml Q4H HHN Last administered on 04/20/17 09 :20; Admin Dose 3 ML; Start 04/18/17 at 17:00 Non-Formulary Medication 1 ea BID BOTH EYES Last administered on 04/20/17 08: 37; Admin Dose 1 EA; Start 04/18/17 at 22:00 Fluconazole (Diflucan) 100 mg DAILY PO Last administered on 04/20/17 08:36; Admin Dose 100 MG; Start 04/20/17 at 09:00 INDERJIT MCNULTY Apr 20, 2017 14:06
[2017-04-20] MEDS: BALSAM PERU/CASTOR OIL 60 GM TUBE TOP SCH (14:15)
[2017-04-20] MEDS: DIGOXIN 0.25 MG TAB PO SCH (14:16)
--- NOTE | 2017-04-20 14:50 | RADRPT ---
PROCEDURE: XR Chest. CLINICAL INDICATION: Pneumonia TECHNIQUE: AP view of the chest was obtained. COMPARISON: 04/16/2017 FINDINGS: There are atherosclerotic calcifications of the thoracic aorta. The cardiomediastinal silhouette i s within normal limits. Lungs remain hyperinflated with areas of lucency compatible with emphysema. There are mild chronic bibasilar changes. Focal consolidation in the mid to lower right lung appear s slightly improved. New ill-defined areas of consolidation are seen in the upper right lung - perih ilar region. No pleural effusion is seen. There is no pneumothorax. IMPRESSION: Focal right mid - lower lung consolidation, slightly improved. Interval ill-defined right upper lung - perihilar consolidation. Findings of emphysema and with chronic bibasilar changes redemonstrated RPTAT: QQ .Larry Salvador MD, Date Time Electronically viewed and signed by .Larry Salvador MD, on 04/20/2017 14:49 .O/
[2017-04-20 20:00] VITALS: BP 117/56; RESP 19
[2017-04-20] MEDS: SENNA TAB PO SCH (20:44)
[2017-04-20] MEDS: LATANOPROST 0.005% 2.5 ML OPH BOTH EYES SCH (20:44)
[2017-04-20] MEDS: ATORVASTATIN 20 MG TAB PO SCH (20:44)
--- NOTE | 2017-04-20 23:51 | PN ---
DATE: 04/20/2017 The patient's condition is stable. He is reporting decreased shortness of breath. Still complains of some chest congestion with scant sputum production. Denies any chest pain, fever, or wheezing. PHYSICAL EXAMINATION: GENERAL: Elderly male, awake, alert, currently in no distress. VITAL SIGNS: Temperature is 98.5 degrees Fahrenheit, respiratory rate is 18 per minute, heart rate 74 per minute, blood pressure is 116/55, O2 sat 94% on 2 liters nasal cannula. HEENT: Supple neck, no JVD, no lymphadenopathy, midline trachea, no thyromegaly. Pharynx is clear. No neck bruits. Patient is edentulous and wears dentures. CHEST: Diminished but clear breath sounds. No added sounds. HEART: S1, S2 audible. No murmurs, regular rhythm. ABDOMEN: Soft, nondistended, nontender. No organomegaly. Bowel sounds audible. EXTREMITIES: No peripheral edema. NEUROLOGIC: No focal deficit. LABORATORY DATA: Today, white count is 14.4, showing a continued downward trend, hemoglobin is 9.8, platelet count of 179. Sodium 134, potassium 3.3, chloride 107, bicarbonate 28, BUN 12, creatinine 0.9. MEDICATIONS: Reviewed. The patient is currently on: 1. Intravenous Zosyn. 2. Vancomycin 3. DuoNeb. 4. Apixaban. 5. Casodex 6. Digoxin. 7. Cardizem. 8. Diflucan. 9. Latanoprost eyedrops. 10. Advair. All doses were reviewed. ASSESSMENT AND PLAN: 1. Patient admitted with right-sided pneumonia as well as chronic obstructive pulmonary disease exa cerbation with interval improvement. 2. Underlying severe chronic obstructive pulmonary disease. 3. Improving leukocytosis. 4. History of glaucoma. 5. Hyperlipidemia. RECOMMENDATIONS: Continue current treatment. Obtain follow up chest x-ray in 48 hours. Dictated By: JUAN ARRIOLA/HOLLAND Conf#: [id number] DID#: [id number]
[2017-04-21] MEDS: PIPER-TAZO 3.375 GM IV (PMX) 100 ML IVPB SCH ×5 (00:08→23:51)
[2017-04-21] MEDS: ALBUTEROL/IPRATROPIUM (NEB) 3 ML AMP HHN SCH ×6 (00:47→22:30)
[2017-04-21 02:00] VITALS: BP 133/59; RESP 18
[2017-04-21 06:24] LABS: BASOPHILS % 0.2 % (0.0-2.0); EOSINOPHILS # 0.2 10^3/ul (0.0-0.5); EOSINOPHILS % 1.8 % (0.0-7.0); HEMATOCRIT 32.3 % (42.0-52.0); HEMOGLOBIN 10.3 g/dl (14.0-18.0); LYMPHOCYTES # 1.2 10^3/ul (0.8-2.9); LYMPHOCYTES % 10.7 % (15.0-51.0); MEAN CORPUSCULAR HEMOGLOBIN 29.7 pg (29.0-33.0); MEAN CORPUSCULAR HGB CONC 31.9 g/dl (32.0-37.0); MEAN CORPUSCULAR VOLUME 93.1 fl (82.0-101.0); MEAN PLATELET VOLUME 10.1 fl (7.4-10.4); MONOCYTE # 0.5 10^3/ul (0.3-0.9); MONOCYTES % 4.7 % (0.0-11.0); NEUTROPHIL # 9.5 10^3/ul (1.6-7.5); NEUTROPHILS % 82.1 % (39.0-77.0); PLATELET COUNT 197 10^3/UL (140-415); RED BLOOD COUNT 3.47 10^6/ul (4.70-6.10); RED CELL DISTRIBUTION WIDTH 14.2 % (11.5-14.5); WHITE BLOOD COUNT 11.6 10^3/ul (4.8-10.8)
[2017-04-21 07:38] VITALS: BP 107/54; RESP 20
[2017-04-21 08:40] LABS: CREATININE 0.93 mg/dl (0.61-1.24); POTASSIUM 3.8 mmol/L (3.5-5.1)
[2017-04-21] MEDS: SALMETEROL/FLUTICASONE 250/50 INHA INH SCH ×2 (08:56→20:44)
[2017-04-21] MEDS: TIOTROPIUM 18 MCG CAPSULE INHA DEV INH SCH (08:56)
[2017-04-21] MEDS: TIMOLOL BOTH EYES SCH ×2 (08:56→21:54)
[2017-04-21] MEDS: DORZOLAMIDE BOTH EYES SCH ×2 (08:56→21:54)
[2017-04-21] MEDS: APIXABAN 5 MG TABLET PO SCH ×2 (08:57→20:43)
[2017-04-21] MEDS: DOCUSATE SODIUM 100 MG CAP PO SCH (08:57)
[2017-04-21] MEDS: DILTIAZEM (CD) 240 MG CAP PO SCH (08:57)
[2017-04-21] MEDS: FLUCONAZOLE 100 MG TAB PO SCH (08:57)
[2017-04-21] MEDS: GUAIFENESIN LA 600 MG TABSR PO SCH ×2 (08:58→20:45)
[2017-04-21] MEDS: BALSAM PERU/CASTOR OIL 60 GM TUBE TOP SCH (09:00)
[2017-04-21] MEDS: BICALUTAMIDE 50 MG TAB PO SCH (11:38)
--- NOTE | 2017-04-21 11:44 | CONS ---
Date/Time of Note Date/Time of Note DATE: 04/21/17 TIME: 11:42 Assessment/Plan Assessment/Plan Chief Complaint/Hosp Course dictated # [id number] Problems: Additional Assessment/Plan Chest x-ray was reviewed which is showing significant improvement in right sided infiltrative changes. Severe emphysematous changes are present. Assessment and recommendations; 1. Patient admitted with right-sided pneumonia with significant radiological improvement. 2. Underlying severe COPD. 3. History of chronic atrial fibrillation. Continue current treatment. Consultation Date/Type/Reason Admit Date/Time Apr 16, 2017 at 20:39 Initial Consult Date 04/17/17 Type of Consultation: Pulmonary/critical care 24 HR Interval Summary Free Text/Dictation Patient's condition is gradually improving. Still complains of shortness of breath and chest congestion. General exam; elderly male, awake alert, currently in no distress. Exam/Review of Systems Vital Signs Vitals Vital Signs Date Time Temp Pulse Resp B/P Pulse Ox O2 Delivery O2 Flow Rate FiO2 04/21/17 09:38 2.0 04/21/17 09:38 72 20 97 Nasal Cannula 04/21/17 07:38 97.8 107/54 Intake and Output 04/20/17 04/20/17 04/21/17 15:00 23:00 07:00 Intake Total 1240 ml 1150 ml Output Total 600 ml Balance 1240 ml 550 ml Exam HEENT exam; supple neck, no JVD. No lymphadenopathy. Midline trachea. No thyromegaly. Patient is edentulous and wears dentures. Chest exam; diminished breath sounds bilaterally. No added sounds. S1-S2 audible, no murmurs. Regular rhythm. Abdomen exam; soft, nontender. No organomegaly. Bowel sounds audible. Extremity exam; no peripheral edema. No clubbing. LEGISLATIVE ANALYST exam; no focal deficit. Results Result Diagram: 04/21/17 0510 04/21/17 0510 Results 24 hrs Laboratory Tests Test 04/21/17 05:10 White Blood Count 11.6 H Red Blood Count 3.47 L Hemoglobin 10.3 L Hematocrit 32.3 L Mean Corpuscular Volume 93.1 Mean Corpuscular Hemoglobin 29.7 Mean Corpuscular Hemoglobin Concent 31.9 L Red Cell Distribution Width 14.2 Platelet Count 197 Mean Platelet Volume 10.1 Neutrophils % 82.1 H Lymphocytes % 10.7 L Monocytes % 4.7 Eosinophils % 1.8 Basophils % 0.2 Nucleated Red Blood Cells % 0.0 Neutrophils # 9.5 H Lymphocytes # 1.2 Monocytes # 0.5 Eosinophils # 0.2 Basophils # 0.0 Nucleated Red Blood Cells # 0.0 Sodium Level 144 Potassium Level 3.8 Chloride Level 108 Carbon Dioxide Level 29 Anion Gap 11 # Blood Urea Nitrogen 10 Creatinine 0.93 Glucose Level 85 Calcium Level 8.0 L Medications Medications Current Medications Lorazepam (Ativan) 0.5 mg Q8H PRN PO ANXIETY; Start 04/17/17 at 05:30 Ondansetron HCl (Zofran Inj) 4 mg Q6H PRN IV NAUSEA AND/OR VOMITING; Start 05/24 at 05:30 Acetaminophen (Tylenol Tab) 650 mg Q6H PRN PO PAIN LEVEL 1-3 OR FEVER; Start 04/17/17 at 05:30 Morphine Sulfate 2 mg 2 mg Q4H PRN IV PAIN LEVEL 7-10; Start 04/17/17 at 05:30 Piperacillin Sod/ Tazobactam Sod (Zosyn 3.375gm/ 100 ml (Pmx)) 100 ml @ 200 mls /hr Q6H IVPB Last administered on 04/21/17 05:55; Admin Dose 200 MLS/HR; Start 04/17/17 at 06:00 Atorvastatin Calcium (Lipitor) 20 mg QHS PO Last administered on 04/20/17 20: 44; Admin Dose 20 MG; Start 04/17/17 at 21:00 Bicalutamide (Casodex) 50 mg DAILY PO Last administered on 04/21/17 11:38; Admin Dose 50 MG; Start 04/17/17 at 09:00 Digoxin (Digoxin) 0.25 mg DAILY@13 PO Last administered on 04/20/17 14:16; Admin Dose 0.25 MG; Start 04/17/17 at 13:00 Diltiazem HCl (Cardizem Cd) 240 mg DAILY PO Last administered on 04/21/17 08: 57; Admin Dose 240 MG; Start 04/17/17 at 09:00 Docusate Sodium (Colace) 100 mg DAILY PO Last administered on 04/21/17 08:57 ; Admin Dose 100 MG; Start 04/17/17 at 09:00 Salmeterol Xinafoate/ Fluticasone (Advair 250/50 Diskus) 1 inh BID INH Last administered on 04/21/17 08:56; Admin Dose 1 INH; Start 04/17/17 at 09:00 Senna (Senokot) 1 tab QHS PO Last administered on 04/20/17 20:44; Admin Dose 1 TAB; Start 04/17/17 at 21:00 Tiotropium [place] (Spiriva) 1 inh DAILY INH Last administered on 04/21/17 08 :56; Admin Dose 1 INH; Start 04/17/17 at 09:00 Apixaban (Eliquis) 5 mg BID PO Last administered on 04/21/17 08:57; Admin Dose 5 MG; Start 04/17/17 at 21:00 Latanoprost (Xalatan) 1 drop QHS BOTH EYES Last administered on 04/20/17 20: 44; Admin Dose 1 DROP; Start 04/17/17 at 21:00 Guaifenesin (Mucinex) 600 mg BID PO Last administered on 04/21/17 08:58; Admin Dose 600 MG; Start 04/18/17 at 21:00 Albuterol/ Ipratropium (Duoneb) 3 ml Q4H HHN Last administered on 04/21/17 09 :38; Admin Dose 3 ML; Start 04/18/17 at 17:00 Non-Formulary Medication 1 ea BID BOTH EYES Last administered on 04/21/17 08: 56; Admin Dose 1 EA; Start 04/18/17 at 22:00 Fluconazole (Diflucan) 100 mg DAILY PO Last administered on 04/21/17 08:57; Admin Dose 100 MG; Start 04/20/17 at 09:00 JUAN POSADA Apr 21, 2017 11:44
--- NOTE | 2017-04-21 12:03 | PN ---
Date/Time of Note Date/Time of Note DATE: 04/21/17 TIME: 12:02 Assessment/Plan VTE Prophylaxis VTE Prophylaxis Intervention: other (Eliquis) Lines/Catheters IV Catheter Type (from [facility]): Saline Lock Urinary Cath still in place: No Assessment/Plan Chief Complaint/Hosp Course Assessment and plan 1. Pneumonia. Patient did have CT scan of his chest that did show large density in the right upper lobe consistent with pneumonia. Continue antibiotic regimen. continue CPT. continue with hotel general manager recs 2. History of paroxysmal atrial for ablation. Continue with Eliquis. Continue with cardiovascular medications. Monitor on telemetry. 3. COPD. Severe. Continue bronchodilators. Manager Discovery following. Titrate off O2 as tolerated. 4. History of hypothyroidism. Continue on Synthroid 5. History of essential hypertension. Continue antihypertensives as needed 6. History of metastatic prostate cancer. Patient will patient follow-up with this issue. Disposition and plan: Chest imaging noted with some improvement. Continue with antibiotics and pulmonary regimen. Continue with monitoring for clinical improvement. Titrate off O2 as tolerated. Discussed plan of care with Dr. Yun Problems: Subjective 24 Hr Interval Summary Free Text/Dictation Less shortness of breath reported today. Less cough also reported Exam/Review of Systems Vital Signs Vitals Vital Signs Date Time Temp Pulse Resp B/P Pulse Ox O2 Delivery O2 Flow Rate FiO2 04/21/17 09:38 2.0 04/21/17 09:38 72 20 97 Nasal Cannula 04/21/17 07:38 97.8 107/54 Intake and Output 04/20/17 04/20/17 04/21/17 15:00 23:00 07:00 Intake Total 1240 ml 1150 ml Output Total 600 ml Balance 1240 ml 550 ml Exam Constitutional: alert, frail, oriented Head: normocephalic Eyes: nl conjunctiva Neck: supple, No jvd Respiratory: other (congested right lung field, little less today) Gastrointestinal: non-tender, soft Neurological: RESIDENTIAL DIRECTOR II-XII intact, nl mental status, nl speech Skin: nl turgor Results Result Diagram: 04/21/17 0510 04/21/17 0510 Results 24 hrs Laboratory Tests Test 04/21/17 05:10 White Blood Count 11.6 H Red Blood Count 3.47 L Hemoglobin 10.3 L Hematocrit 32.3 L Mean Corpuscular Volume 93.1 Mean Corpuscular Hemoglobin 29.7 Mean Corpuscular Hemoglobin Concent 31.9 L Red Cell Distribution Width 14.2 Platelet Count 197 Mean Platelet Volume 10.1 Neutrophils % 82.1 H Lymphocytes % 10.7 L Monocytes % 4.7 Eosinophils % 1.8 Basophils % 0.2 Nucleated Red Blood Cells % 0.0 Neutrophils # 9.5 H Lymphocytes # 1.2 Monocytes # 0.5 Eosinophils # 0.2 Basophils # 0.0 Nucleated Red Blood Cells # 0.0 Sodium Level 144 Potassium Level 3.8 Chloride Level 108 Carbon Dioxide Level 29 Anion Gap 11 # Blood Urea Nitrogen 10 Creatinine 0.93 Glucose Level 85 Calcium Level 8.0 L Medications Medications Current Medications Lorazepam (Ativan) 0.5 mg Q8H PRN PO ANXIETY; Start 04/17/17 at 05:30 Ondansetron HCl (Zofran Inj) 4 mg Q6H PRN IV NAUSEA AND/OR VOMITING; Start 05/24 at 05:30 Acetaminophen (Tylenol Tab) 650 mg Q6H PRN PO PAIN LEVEL 1-3 OR FEVER; Start 04/17/17 at 05:30 Morphine Sulfate 2 mg 2 mg Q4H PRN IV PAIN LEVEL 7-10; Start 04/17/17 at 05:30 Piperacillin Sod/ Tazobactam Sod (Zosyn 3.375gm/ 100 ml (Pmx)) 100 ml @ 200 mls /hr Q6H IVPB Last administered on 04/21/17 05:55; Admin Dose 200 MLS/HR; Start 04/17/17 at 06:00 Atorvastatin Calcium (Lipitor) 20 mg QHS PO Last administered on 04/20/17 20: 44; Admin Dose 20 MG; Start 04/17/17 at 21:00 Bicalutamide (Casodex) 50 mg DAILY PO Last administered on 04/21/17 11:38; Admin Dose 50 MG; Start 04/17/17 at 09:00 Digoxin (Digoxin) 0.25 mg DAILY@13 PO Last administered on 04/20/17 14:16; Admin Dose 0.25 MG; Start 04/17/17 at 13:00 Diltiazem HCl (Cardizem Cd) 240 mg DAILY PO Last administered on 04/21/17 08: 57; Admin Dose 240 MG; Start 04/17/17 at 09:00 Docusate Sodium (Colace) 100 mg DAILY PO Last administered on 04/21/17 08:57 ; Admin Dose 100 MG; Start 04/17/17 at 09:00 Salmeterol Xinafoate/ Fluticasone (Advair 250/50 Diskus) 1 inh BID INH Last administered on 04/21/17 08:56; Admin Dose 1 INH; Start 04/17/17 at 09:00 Senna (Senokot) 1 tab QHS PO Last administered on 04/20/17 20:44; Admin Dose 1 TAB; Start 04/17/17 at 21:00 Tiotropium [place] (Spiriva) 1 inh DAILY INH Last administered on 04/21/17 08 :56; Admin Dose 1 INH; Start 04/17/17 at 09:00 Apixaban (Eliquis) 5 mg BID PO Last administered on 04/21/17 08:57; Admin Dose 5 MG; Start 04/17/17 at 21:00 Latanoprost (Xalatan) 1 drop QHS BOTH EYES Last administered on 04/20/17 20: 44; Admin Dose 1 DROP; Start 04/17/17 at 21:00 Guaifenesin (Mucinex) 600 mg BID PO Last administered on 04/21/17 08:58; Admin Dose 600 MG; Start 04/18/17 at 21:00 Albuterol/ Ipratropium (Duoneb) 3 ml Q4H HHN Last administered on 04/21/17 09 :38; Admin Dose 3 ML; Start 04/18/17 at 17:00 Non-Formulary Medication 1 ea BID BOTH EYES Last administered on 04/21/17 08: 56; Admin Dose 1 EA; Start 04/18/17 at 22:00 Fluconazole (Diflucan) 100 mg DAILY PO Last administered on 04/21/17 08:57; Admin Dose 100 MG; Start 04/20/17 at 09:00 INDERJIT MCNULTY Apr 21, 2017 12:03
[2017-04-21] MEDS ORDERED: BALSAM PERU/CASTOR OIL 60 GM TUBE TOP SCH (13:00)
[2017-04-21] MEDS: DIGOXIN 0.25 MG TAB PO SCH (13:59)
[2017-04-21 14:00] VITALS: BP 124/59; RESP 19
[2017-04-21 20:00] VITALS: BP 129/60; RESP 20
[2017-04-21] MEDS: LATANOPROST 0.005% 2.5 ML OPH BOTH EYES SCH (20:43)
[2017-04-21] MEDS: SENNA TAB PO SCH (20:43)
[2017-04-21] MEDS: ATORVASTATIN 20 MG TAB PO SCH (20:44)
[2017-04-22] MEDS: ALBUTEROL/IPRATROPIUM (NEB) 3 ML AMP HHN SCH ×6 (01:55→20:57)
[2017-04-22 02:00] VITALS: BP 138/64; RESP 20
[2017-04-22 05:41] LABS: BASOPHILS % 0.2 % (0.0-2.0); EOSINOPHILS # 0.3 10^3/ul (0.0-0.5); EOSINOPHILS % 2.1 % (0.0-7.0); HEMATOCRIT 32.2 % (42.0-52.0); HEMOGLOBIN 10.2 g/dl (14.0-18.0); LYMPHOCYTES # 1.7 10^3/ul (0.8-2.9); LYMPHOCYTES % 13.6 % (15.0-51.0); MEAN CORPUSCULAR HEMOGLOBIN 28.9 pg (29.0-33.0); MEAN CORPUSCULAR HGB CONC 31.7 g/dl (32.0-37.0); MEAN CORPUSCULAR VOLUME 91.2 fl (82.0-101.0); MONOCYTE # 0.6 10^3/ul (0.3-0.9); MONOCYTES % 4.6 % (0.0-11.0); NEUTROPHIL # 9.6 10^3/ul (1.6-7.5); NEUTROPHILS % 78.9 % (39.0-77.0); PLATELET COUNT 227 10^3/UL (140-415); RED BLOOD COUNT 3.53 10^6/ul (4.70-6.10); RED CELL DISTRIBUTION WIDTH 14.2 % (11.5-14.5); WHITE BLOOD COUNT 12.2 10^3/ul (4.8-10.8)
[2017-04-22] MEDS: PIPER-TAZO 3.375 GM IV (PMX) 100 ML IVPB SCH ×3 (05:56→17:07)
[2017-04-22 05:59] LABS: CALCIUM 8.4 mg/dl (8.4-10.2); CREATININE 0.93 mg/dl (0.61-1.24); POTASSIUM 3.3 mmol/L (3.5-5.1)
[2017-04-22 08:00] VITALS: BP 116/55; RESP 18
[2017-04-22] MEDS: SALMETEROL/FLUTICASONE 250/50 INHA INH SCH ×2 (08:55→20:47)
[2017-04-22] MEDS: FLUCONAZOLE 100 MG TAB PO SCH (08:56)
[2017-04-22] MEDS: TIOTROPIUM 18 MCG CAPSULE INHA DEV INH SCH (08:56)
[2017-04-22] MEDS: DOCUSATE SODIUM 100 MG CAP PO SCH (08:56)
[2017-04-22] MEDS: GUAIFENESIN LA 600 MG TABSR PO SCH ×2 (08:56→20:47)
[2017-04-22] MEDS: DORZOLAMIDE BOTH EYES SCH ×2 (08:57→20:46)
[2017-04-22] MEDS: DILTIAZEM (CD) 240 MG CAP PO SCH (08:57)
[2017-04-22] MEDS: APIXABAN 5 MG TABLET PO SCH ×2 (08:57→20:47)
[2017-04-22] MEDS: TIMOLOL BOTH EYES SCH ×2 (08:57→20:46)
[2017-04-22] MEDS: BALSAM PERU/CASTOR OIL 60 GM TUBE TOP SCH (09:00)
[2017-04-22] MEDS: BICALUTAMIDE 50 MG TAB PO SCH (09:01)
--- NOTE | 2017-04-22 11:27 | CONS ---
Date/Time of Note Date/Time of Note DATE: 04/22/17 TIME: 11:22 Assessment/Plan Assessment/Plan Chief Complaint/Hosp Course dictated # [id number] Problems: Additional Assessment/Plan Assessment recommendations; 1. Patient admitted with right-sided pneumonia with clinical and radiological improvement. With improving leukocytosis. 2. Underlying severe COPD. 3. History of chronic atrial fibrillation. Continue current treatment. Consultation Date/Type/Reason Admit Date/Time Apr 16, 2017 at 20:39 Initial Consult Date 04/17/17 Type of Consultation: Pulmonary/critical care 24 HR Interval Summary Free Text/Dictation Patient's condition is improving gradually. Still complains of dyspnea on exertion and chest congestion. Denies any chest pain, wheezing. General exam; elderly male, awake, currently in no distress. Exam/Review of Systems Vital Signs Vitals Vital Signs Date Time Temp Pulse Resp B/P Pulse Ox O2 Delivery O2 Flow Rate FiO2 04/22/17 08:27 2.0 04/22/17 08:27 95 20 98 Nasal Cannula 04/22/17 08:00 98.8 116/55 Intake and Output 04/21/17 04/21/17 04/22/17 15:00 23:00 07:00 Intake Total 100 ml 1020 ml 440 ml Output Total 800 ml 600 ml Balance 100 ml 220 ml -160 ml Exam HEENT exam; supple neck, no JVD. No lymphadenopathy. Midline trachea. No thyromegaly. Patient is edentulous and wears dentures. Chest exam; clear to auscultation. S1-S2 audible, no murmurs. Regular rhythm. Abdomen exam; soft, nontender. No organomegaly. Bowel sounds audible. Extremity exam; no peripheral edema. CHICKEN AND FISH BUTCHER exam; no focal deficit. Results Result Diagram: 04/22/17 0416 04/22/17 0416 Results 24 hrs Laboratory Tests Test 04/22/17 04:16 White Blood Count 12.2 H Red Blood Count 3.53 L Hemoglobin 10.2 L Hematocrit 32.2 L Mean Corpuscular Volume 91.2 Mean Corpuscular Hemoglobin 28.9 L Mean Corpuscular Hemoglobin Concent 31.7 L Red Cell Distribution Width 14.2 Platelet Count 227 Mean Platelet Volume 10.0 Neutrophils % 78.9 H Lymphocytes % 13.6 L Monocytes % 4.6 Eosinophils % 2.1 Basophils % 0.2 Nucleated Red Blood Cells % 0.0 Neutrophils # 9.6 H Lymphocytes # 1.7 Monocytes # 0.6 Eosinophils # 0.3 Basophils # 0.0 Nucleated Red Blood Cells # 0.0 Sodium Level 142 Potassium Level 3.3 L Chloride Level 108 Carbon Dioxide Level 28 Anion Gap 9 Blood Urea Nitrogen 10 Creatinine 0.93 Glucose Level 94 Calcium Level 8.4 Medications Medications Current Medications Lorazepam (Ativan) 0.5 mg Q8H PRN PO ANXIETY; Start 04/17/17 at 05:30 Ondansetron HCl (Zofran Inj) 4 mg Q6H PRN IV NAUSEA AND/OR VOMITING; Start 05/24 at 05:30 Acetaminophen (Tylenol Tab) 650 mg Q6H PRN PO PAIN LEVEL 1-3 OR FEVER; Start 04/17/17 at 05:30 Morphine Sulfate 2 mg 2 mg Q4H PRN IV PAIN LEVEL 7-10; Start 04/17/17 at 05:30 Piperacillin Sod/ Tazobactam Sod (Zosyn 3.375gm/ 100 ml (Pmx)) 100 ml @ 200 mls /hr Q6H IVPB Last administered on 04/22/17 05:56; Admin Dose 200 MLS/HR; Start 04/17/17 at 06:00 Atorvastatin Calcium (Lipitor) 20 mg QHS PO Last administered on 04/21/17 20: 44; Admin Dose 20 MG; Start 04/17/17 at 21:00 Bicalutamide (Casodex) 50 mg DAILY PO Last administered on 04/22/17 09:01; Admin Dose 50 MG; Start 04/17/17 at 09:00 Digoxin (Digoxin) 0.25 mg DAILY@13 PO Last administered on 04/21/17 13:59; Admin Dose 0.25 MG; Start 04/17/17 at 13:00 Diltiazem HCl (Cardizem Cd) 240 mg DAILY PO Last administered on 04/22/17 08: 57; Admin Dose 240 MG; Start 04/17/17 at 09:00 Docusate Sodium (Colace) 100 mg DAILY PO Last administered on 04/22/17 08:56 ; Admin Dose 100 MG; Start 04/17/17 at 09:00 Salmeterol Xinafoate/ Fluticasone (Advair 250/50 Diskus) 1 inh BID INH Last administered on 04/22/17 08:55; Admin Dose 1 INH; Start 04/17/17 at 09:00 Senna (Senokot) 1 tab QHS PO Last administered on 04/21/17 20:43; Admin Dose 1 TAB; Start 04/17/17 at 21:00 Tiotropium [place] (Spiriva) 1 inh DAILY INH Last administered on 04/22/17 08 :56; Admin Dose 1 INH; Start 04/17/17 at 09:00 Apixaban (Eliquis) 5 mg BID PO Last administered on 04/22/17 08:57; Admin Dose 5 MG; Start 04/17/17 at 21:00 Latanoprost (Xalatan) 1 drop QHS BOTH EYES Last administered on 04/21/17 20: 43; Admin Dose 1 DROP; Start 04/17/17 at 21:00 Guaifenesin (Mucinex) 600 mg BID PO Last administered on 04/22/17 08:56; Admin Dose 600 MG; Start 04/18/17 at 21:00 Albuterol/ Ipratropium (Duoneb) 3 ml Q4H HHN Last administered on 04/22/17 08 :26; Admin Dose 3 ML; Start 04/18/17 at 17:00 Non-Formulary Medication 1 ea BID BOTH EYES Last administered on 04/22/17 08: 57; Admin Dose 1 EA; Start 04/18/17 at 22:00 Fluconazole (Diflucan) 100 mg DAILY PO Last administered on 04/22/17 08:56; Admin Dose 100 MG; Start 04/20/17 at 09:00 JUAN POSADA Apr 22, 2017 11:27
[2017-04-22 14:00] VITALS: BP 109/56; RESP 18
--- NOTE | 2017-04-22 14:26 | PN ---
Date/Time of Note Date/Time of Note DATE: 04/22/17 TIME: 14:25 Assessment/Plan VTE Prophylaxis VTE Prophylaxis Intervention: other (Factorx Xa inhibitors.) Lines/Catheters [facility] Saline Lock Urinary Cath still in place: No Assessment/Plan Chief Complaint/Hosp Course 1. Right upper lobe pneumonia. Continue antimicrobials. 2. COPD. Continue inhaled bronchodilators. Continue supplemental oxygen. Being followed by pulmonology. 3. Hyperthyroidism. Continue methimazole. 4. Paroxysmal atrial fibrillation. Continue apixaban for stroke prophylaxis. Continue Digoxin and Cardizem. 5. Essential hypertension. Continue antihypertensives. 6. History of metastatic prostate cancer. Status post prostatectomy. On bicalutamide. 7. Pulmonary hypertension. PA systolic pressure 44 mmHg as per 2D echocardiogram done in October 2016. Continue supplemental oxygen. 8. Fluids, electrolytes, and nutrition. Regular diet. 9. DVT prophylaxis. Factor Xa inhibitors. 10. Plan. Continue inhaled bronchodilators. Continue antimicrobials. Case discussed with Dr. Kan. Problems: Subjective 24 Hr Interval Summary Free Text/Dictation Continues to have dyspnea. Exam/Review of Systems Vital Signs Vitals Vital Signs Date Time Temp Pulse Resp B/P Pulse Ox O2 Delivery O2 Flow Rate FiO2 04/22/17 14:07 76 20 97 Nasal Cannula 2.0 04/22/17 08:00 98.8 116/55 Intake and Output 04/21/17 04/21/17 04/22/17 15:00 23:00 07:00 Intake Total 100 ml 1020 ml 440 ml Output Total 800 ml 600 ml Balance 100 ml 220 ml -160 ml Exam General: Adequately build 77 year-old male lying in bed in no apparent distress. HEENT: Normocephalic, atraumatic. Eyes: Anicteric sclerae, conjunctivae clear. ENT: Nasal septum midline, oral mucosa moist. Neck supple, no JVD noticed. Respiratory: Bilaterally diminished breath sounds. No use of accessory muscles of respiration. No adventitious breath sounds. Cardiovascular: S1, S2 heard. Regular rate and rhythm. Abdomen: Soft, nontender, and nondistended. Bowel sounds positive in all 4 quadrants. Genitourinary: Deferred. Extremities: No cyanosis, no edema. Peripheral pulses palpable. Neurologic: Cranial nerves II through XII grossly intact. The patient is awake, alert, and oriented. Skin: Normal skin turgor. No skin rashes. Results Result Diagram: 04/22/17 0416 04/22/17 0416 Results 24 hrs Laboratory Tests Test 04/22/17 04:16 White Blood Count 12.2 H Red Blood Count 3.53 L Hemoglobin 10.2 L Hematocrit 32.2 L Mean Corpuscular Volume 91.2 Mean Corpuscular Hemoglobin 28.9 L Mean Corpuscular Hemoglobin Concent 31.7 L Red Cell Distribution Width 14.2 Platelet Count 227 Mean Platelet Volume 10.0 Neutrophils % 78.9 H Lymphocytes % 13.6 L Monocytes % 4.6 Eosinophils % 2.1 Basophils % 0.2 Nucleated Red Blood Cells % 0.0 Neutrophils # 9.6 H Lymphocytes # 1.7 Monocytes # 0.6 Eosinophils # 0.3 Basophils # 0.0 Nucleated Red Blood Cells # 0.0 Sodium Level 142 Potassium Level 3.3 L Chloride Level 108 Carbon Dioxide Level 28 Anion Gap 9 Blood Urea Nitrogen 10 Creatinine 0.93 Glucose Level 94 Calcium Level 8.4 Medications Medications Current Medications Lorazepam (Ativan) 0.5 mg Q8H PRN PO ANXIETY; Start 04/17/17 at 05:30 Ondansetron HCl (Zofran Inj) 4 mg Q6H PRN IV NAUSEA AND/OR VOMITING; Start 05/24 at 05:30 Acetaminophen (Tylenol Tab) 650 mg Q6H PRN PO PAIN LEVEL 1-3 OR FEVER; Start 04/17/17 at 05:30 Morphine Sulfate 2 mg 2 mg Q4H PRN IV PAIN LEVEL 7-10; Start 04/17/17 at 05:30 Piperacillin Sod/ Tazobactam Sod (Zosyn 3.375gm/ 100 ml (Pmx)) 100 ml @ 200 mls /hr Q6H IVPB Last administered on 04/22/17 13:25; Admin Dose 200 MLS/HR; Start 04/17/17 at 06:00 Atorvastatin Calcium (Lipitor) 20 mg QHS PO Last administered on 04/21/17 20: 44; Admin Dose 20 MG; Start 04/17/17 at 21:00 Bicalutamide (Casodex) 50 mg DAILY PO Last administered on 04/22/17 09:01; Admin Dose 50 MG; Start 04/17/17 at 09:00 Digoxin (Digoxin) 0.25 mg DAILY@13 PO Last administered on 04/21/17 13:59; Admin Dose 0.25 MG; Start 04/17/17 at 13:00 Diltiazem HCl (Cardizem Cd) 240 mg DAILY PO Last administered on 04/22/17 08: 57; Admin Dose 240 MG; Start 04/17/17 at 09:00 Docusate Sodium (Colace) 100 mg DAILY PO Last administered on 04/22/17 08:56 ; Admin Dose 100 MG; Start 04/17/17 at 09:00 Salmeterol Xinafoate/ Fluticasone (Advair 250/50 Diskus) 1 inh BID INH Last administered on 04/22/17 08:55; Admin Dose 1 INH; Start 04/17/17 at 09:00 Senna (Senokot) 1 tab QHS PO Last administered on 04/21/17 20:43; Admin Dose 1 TAB; Start 04/17/17 at 21:00 Tiotropium [place] (Spiriva) 1 inh DAILY INH Last administered on 04/22/17 08 :56; Admin Dose 1 INH; Start 04/17/17 at 09:00 Apixaban (Eliquis) 5 mg BID PO Last administered on 04/22/17 08:57; Admin Dose 5 MG; Start 04/17/17 at 21:00 Latanoprost (Xalatan) 1 drop QHS BOTH EYES Last administered on 04/21/17 20: 43; Admin Dose 1 DROP; Start 04/17/17 at 21:00 Guaifenesin (Mucinex) 600 mg BID PO Last administered on 04/22/17 08:56; Admin Dose 600 MG; Start 04/18/17 at 21:00 Albuterol/ Ipratropium (Duoneb) 3 ml Q4H HHN Last administered on 04/22/17 14 :06; Admin Dose 3 ML; Start 04/18/17 at 17:00 Non-Formulary Medication 1 ea BID BOTH EYES Last administered on 04/22/17 08: 57; Admin Dose 1 EA; Start 04/18/17 at 22:00 Fluconazole (Diflucan) 100 mg DAILY PO Last administered on 04/22/17 08:56; Admin Dose 100 MG; Start 04/20/17 at 09:00 Potassium Chloride (Klor-Con 10) 30 meq ONCE ONCE PO ; Start 04/22/17 at 14:30 ; Stop 04/22/17 at 14:31; Status UNV BERYL PEARL MOTTLER OPERATOR Apr 22, 2017 14:26
[2017-04-22] MEDS ORDERED: POTASSIUM CHLORIDE (SR) 10 MEQ TAB PO ONE (14:30)
[2017-04-22] MEDS: DIGOXIN 0.25 MG TAB PO SCH (15:47)
[2017-04-22 20:35] VITALS: BP 121/58; RESP 16
[2017-04-22] MEDS: ATORVASTATIN 20 MG TAB PO SCH (20:47)
[2017-04-22] MEDS: SENNA TAB PO SCH (20:47)
[2017-04-22] MEDS: BIMATOPROST 0.01% BOTH EYES SCH (22:25)
[2017-04-23] MEDS: PIPER-TAZO 3.375 GM IV (PMX) 100 ML IVPB SCH ×5 (00:12→23:19)
[2017-04-23] MEDS: ALBUTEROL/IPRATROPIUM (NEB) 3 ML AMP HHN SCH ×6 (01:14→20:58)
[2017-04-23 02:17] VITALS: BP 121/60; RESP 16
[2017-04-23 06:40] LABS: BASOPHILS % 0.2 % (0.0-2.0); EOSINOPHILS # 0.3 10^3/ul (0.0-0.5); EOSINOPHILS % 2.7 % (0.0-7.0); HEMOGLOBIN 9.6 g/dl (14.0-18.0); LYMPHOCYTES # 1.4 10^3/ul (0.8-2.9); LYMPHOCYTES % 14.6 % (15.0-51.0); MEAN CORPUSCULAR HEMOGLOBIN 28.2 pg (29.0-33.0); MEAN CORPUSCULAR VOLUME 91.2 fl (82.0-101.0); MEAN PLATELET VOLUME 9.6 fl (7.4-10.4); MONOCYTE # 0.4 10^3/ul (0.3-0.9); MONOCYTES % 4.6 % (0.0-11.0); NEUTROPHIL # 7.3 10^3/ul (1.6-7.5); NEUTROPHILS % 77.5 % (39.0-77.0); PLATELET COUNT 242 10^3/UL (140-415); RED CELL DISTRIBUTION WIDTH 14.2 % (11.5-14.5); WHITE BLOOD COUNT 9.4 10^3/ul (4.8-10.8)
[2017-04-23 07:13] LABS: MAGNESIUM 1.9 mg/dl (1.7-2.5); PHOSPHORUS 2.8 mg/dl (2.5-4.9)
[2017-04-23 07:14] LABS: CREATININE 0.83 mg/dl (0.61-1.24); POTASSIUM 3.7 mmol/L (3.5-5.1)
[2017-04-23 07:47] VITALS: BP 119/57; RESP 16
[2017-04-23] MEDS: DORZOLAMIDE BOTH EYES SCH ×2 (09:00→20:07)
[2017-04-23] MEDS: TIMOLOL BOTH EYES SCH ×2 (09:00→20:07)
[2017-04-23] MEDS: TIOTROPIUM 18 MCG CAPSULE INHA DEV INH SCH (10:12)
[2017-04-23] MEDS: SALMETEROL/FLUTICASONE 250/50 INHA INH SCH ×2 (10:12→20:06)
[2017-04-23] MEDS: GUAIFENESIN LA 600 MG TABSR PO SCH ×2 (10:12→20:08)
[2017-04-23] MEDS: DILTIAZEM (CD) 240 MG CAP PO SCH (10:13)
[2017-04-23] MEDS: APIXABAN 5 MG TABLET PO SCH ×2 (10:13→20:08)
[2017-04-23] MEDS: FLUCONAZOLE 100 MG TAB PO SCH (10:13)
[2017-04-23] MEDS: DOCUSATE SODIUM 100 MG CAP PO SCH (10:13)
[2017-04-23] MEDS: BALSAM PERU/CASTOR OIL 60 GM TUBE TOP SCH (10:14)
[2017-04-23] MEDS: BICALUTAMIDE 50 MG TAB PO SCH (10:15)
--- NOTE | 2017-04-23 12:34 | CONS ---
Date/Time of Note Date/Time of Note DATE: 04/23/17 TIME: 12:33 Assessment/Plan Assessment/Plan Chief Complaint/Hosp Course dictated # [id number] Problems: Additional Assessment/Plan Assessment and recommendations; 1. Patient admitted with pneumonia with significant clinical improvement. 2. Underlying severe COPD. 3. Chronic atrial fibrillation. Continue current treatment. Consultation Date/Type/Reason Admit Date/Time Apr 16, 2017 at 20:39 Initial Consult Date 04/17/17 Type of Consultation: Pulmonary/critical care 24 HR Interval Summary Free Text/Dictation Patient's condition is stable. Reports decreased shortness of breath and chest congestion. Denies any fever or chills. General exam; elderly male, awake alert, currently in no distress. Exam/Review of Systems Vital Signs Vitals Vital Signs Date Time Temp Pulse Resp B/P Pulse Ox O2 Delivery O2 Flow Rate FiO2 04/23/17 12:16 65 18 97 Nasal Cannula 2.0 04/23/17 07:47 97.5 119/57 Intake and Output 04/22/17 04/22/17 04/23/17 15:00 23:00 07:00 Intake Total 100 ml 1120 ml 750 ml Output Total 1100 ml Balance 100 ml 1120 ml -350 ml Exam HEENT exam; supple neck, no JVD. No lymphadenopathy. Midline trachea. No thyromegaly. Patient is edentulous and wears dentures. No neck masses. Chest exam; diminished but clear breath sounds. S1-S2 audible, no murmurs. Regular rhythm. Abdomen exam; soft, nontender. No distention. Bowel sounds audible. Extremity exam; no edema. No clubbing. ASSESSMENT CONSULTANT exam; no focal deficit. Results Result Diagram: 04/23/17 0557 04/23/17 0557 Results 24 hrs Laboratory Tests Test 04/23/17 05:57 White Blood Count 9.4 # Red Blood Count 3.40 L Hemoglobin 9.6 L Hematocrit 31.0 L Mean Corpuscular Volume 91.2 Mean Corpuscular Hemoglobin 28.2 L Mean Corpuscular Hemoglobin Concent 31.0 L Red Cell Distribution Width 14.2 Platelet Count 242 Mean Platelet Volume 9.6 Neutrophils % 77.5 H Lymphocytes % 14.6 L Monocytes % 4.6 Eosinophils % 2.7 Basophils % 0.2 Nucleated Red Blood Cells % 0.0 Neutrophils # 7.3 Lymphocytes # 1.4 Monocytes # 0.4 Eosinophils # 0.3 Basophils # 0.0 Nucleated Red Blood Cells # 0.0 Sodium Level 142 Potassium Level 3.7 Chloride Level 109 Carbon Dioxide Level 28 Anion Gap 9 Blood Urea Nitrogen 10 Creatinine 0.83 Glucose Level 93 Calcium Level 8.0 L Phosphorus Level 2.8 Magnesium Level 1.9 Medications Medications Current Medications Lorazepam (Ativan) 0.5 mg Q8H PRN PO ANXIETY; Start 04/17/17 at 05:30 Ondansetron HCl (Zofran Inj) 4 mg Q6H PRN IV NAUSEA AND/OR VOMITING; Start 05/24 at 05:30 Acetaminophen (Tylenol Tab) 650 mg Q6H PRN PO PAIN LEVEL 1-3 OR FEVER; Start 04/17/17 at 05:30 Morphine Sulfate 2 mg 2 mg Q4H PRN IV PAIN LEVEL 7-10; Start 04/17/17 at 05:30 Piperacillin Sod/ Tazobactam Sod (Zosyn 3.375gm/ 100 ml (Pmx)) 100 ml @ 200 mls /hr Q6H IVPB Last administered on 04/23/17 05:25; Admin Dose 200 MLS/HR; Start 04/17/17 at 06:00 Atorvastatin Calcium (Lipitor) 20 mg QHS PO Last administered on 04/22/17 20: 47; Admin Dose 20 MG; Start 04/17/17 at 21:00 Bicalutamide (Casodex) 50 mg DAILY PO Last administered on 04/23/17 10:15; Admin Dose 50 MG; Start 04/17/17 at 09:00 Digoxin (Digoxin) 0.25 mg DAILY@13 PO Last administered on 04/22/17 15:47; Admin Dose 0.25 MG; Start 04/17/17 at 13:00 Diltiazem HCl (Cardizem Cd) 240 mg DAILY PO Last administered on 04/23/17 10: 13; Admin Dose 240 MG; Start 04/17/17 at 09:00 Docusate Sodium (Colace) 100 mg DAILY PO Last administered on 04/23/17 10:13 ; Admin Dose 100 MG; Start 04/17/17 at 09:00 Salmeterol Xinafoate/ Fluticasone (Advair 250/50 Diskus) 1 inh BID INH Last administered on 04/23/17 10:12; Admin Dose 1 INH; Start 04/17/17 at 09:00 Senna (Senokot) 1 tab QHS PO Last administered on 04/22/17 20:47; Admin Dose 1 TAB; Start 04/17/17 at 21:00 Tiotropium [place] (Spiriva) 1 inh DAILY INH Last administered on 04/23/17 10 :12; Admin Dose 1 INH; Start 04/17/17 at 09:00 Apixaban (Eliquis) 5 mg BID PO Last administered on 04/23/17 10:13; Admin Dose 5 MG; Start 04/17/17 at 21:00 Guaifenesin (Mucinex) 600 mg BID PO Last administered on 04/23/17 10:12; Admin Dose 600 MG; Start 04/18/17 at 21:00 Albuterol/ Ipratropium (Duoneb) 3 ml Q4H HHN Last administered on 04/23/17 12 :16; Admin Dose 3 ML; Start 04/18/17 at 17:00 Non-Formulary Medication 1 ea BID BOTH EYES Last administered on 04/23/17 09: 00; Admin Dose 1 EA; Start 04/18/17 at 22:00 Fluconazole (Diflucan) 100 mg DAILY PO Last administered on 04/23/17 10:13; Admin Dose 100 MG; Start 04/20/17 at 09:00 Bimatoprost (Lumigan 0.01% Oph) 1 drop HS BOTH EYES Last administered on 22:25; Admin Dose 1 DROP; Start 04/22/17 at 21:00 JUAN POSADA Apr 23, 2017 12:34
[2017-04-23] MEDS: DIGOXIN 0.25 MG TAB PO SCH (13:23)
--- NOTE | 2017-04-23 13:52 | PN ---
Date/Time of Note Date/Time of Note DATE: 04/23/17 TIME: 13:51 Assessment/Plan VTE Prophylaxis VTE Prophylaxis Intervention: other (Factor Xa inhibitors.) Lines/Catheters IV [facility] Type [facility]from [facility] Urinary Cath still in place: No Assessment/Plan Chief Complaint/Hosp Course 1. Right upper lobe pneumonia. Continue antimicrobials. 2. COPD. Continue inhaled bronchodilators. Continue supplemental oxygen. Being followed by pulmonology. 3. Hyperthyroidism. Continue methimazole. 4. Paroxysmal atrial fibrillation. Continue apixaban for stroke prophylaxis. Continue Digoxin and Cardizem. 5. Essential hypertension. Continue antihypertensives. 6. History of metastatic prostate cancer. Status post prostatectomy. On bicalutamide. 7. Pulmonary hypertension. PA systolic pressure 44 mmHg as per 2D echocardiogram done in October 2016. Continue supplemental oxygen. 8. Fluids, electrolytes, and nutrition. Regular diet. 9. DVT prophylaxis. Factor Xa inhibitors. 10. Plan. Continue inhaled bronchodilators. Continue antimicrobials. Await clearance from Pulmonology before discharge. Case discussed with Dr. Kan. Problems: Subjective 24 Hr Interval Summary Free Text/Dictation Feeling better. Exam/Review of Systems Vital Signs Vitals Vital Signs Date Time Temp Pulse Resp B/P Pulse Ox O2 Delivery O2 Flow Rate FiO2 04/23/17 12:16 65 18 97 Nasal Cannula 2.0 04/23/17 07:47 97.5 119/57 Intake and Output 04/22/17 04/22/17 04/23/17 14:59 22:59 06:59 Intake Total 100 ml 1120 ml 750 ml Output Total 1100 ml Balance 100 ml 1120 ml -350 ml Exam General: Adequately build 77 year-old male lying in bed in no apparent distress. HEENT: Normocephalic, atraumatic. Eyes: Anicteric sclerae, conjunctivae clear. ENT: Nasal septum midline, oral mucosa moist. Neck supple, no JVD noticed. Respiratory: Bilaterally diminished breath sounds. No use of accessory muscles of respiration. No adventitious breath sounds. Cardiovascular: S1, S2 heard. Regular rate and rhythm. Abdomen: Soft, nontender, and nondistended. Bowel sounds positive in all 4 quadrants. Genitourinary: Deferred. Extremities: No cyanosis, no edema. Peripheral pulses palpable. Neurologic: Cranial nerves II through XII grossly intact. The patient is awake, alert, and oriented. Skin: Normal skin turgor. No skin rashes. Results Result Diagram: 04/23/17 0557 04/23/17 0557 Results 24 hrs Laboratory Tests Test 04/23/17 05:57 White Blood Count 9.4 # Red Blood Count 3.40 L Hemoglobin 9.6 L Hematocrit 31.0 L Mean Corpuscular Volume 91.2 Mean Corpuscular Hemoglobin 28.2 L Mean Corpuscular Hemoglobin Concent 31.0 L Red Cell Distribution Width 14.2 Platelet Count 242 Mean Platelet Volume 9.6 Neutrophils % 77.5 H Lymphocytes % 14.6 L Monocytes % 4.6 Eosinophils % 2.7 Basophils % 0.2 Nucleated Red Blood Cells % 0.0 Neutrophils # 7.3 Lymphocytes # 1.4 Monocytes # 0.4 Eosinophils # 0.3 Basophils # 0.0 Nucleated Red Blood Cells # 0.0 Sodium Level 142 Potassium Level 3.7 Chloride Level 109 Carbon Dioxide Level 28 Anion Gap 9 Blood Urea Nitrogen 10 Creatinine 0.83 Glucose Level 93 Calcium Level 8.0 L Phosphorus Level 2.8 Magnesium Level 1.9 Medications Medications Current Medications Lorazepam (Ativan) 0.5 mg Q8H PRN PO ANXIETY; Start 04/17/17 at 05:30 Ondansetron HCl (Zofran Inj) 4 mg Q6H PRN IV NAUSEA AND/OR VOMITING; Start 05/24 at 05:30 Acetaminophen (Tylenol Tab) 650 mg Q6H PRN PO PAIN LEVEL 1-3 OR FEVER; Start 04/17/17 at 05:30 Morphine Sulfate 2 mg 2 mg Q4H PRN IV PAIN LEVEL 7-10; Start 04/17/17 at 05:30 Piperacillin Sod/ Tazobactam Sod (Zosyn 3.375gm/ 100 ml (Pmx)) 100 ml @ 200 mls /hr Q6H IVPB Last administered on 04/23/17 13:05; Admin Dose 200 MLS/HR; Start 04/17/17 at 06:00 Atorvastatin Calcium (Lipitor) 20 mg QHS PO Last administered on 04/22/17 20: 47; Admin Dose 20 MG; Start 04/17/17 at 21:00 Bicalutamide (Casodex) 50 mg DAILY PO Last administered on 04/23/17 10:15; Admin Dose 50 MG; Start 04/17/17 at 09:00 Digoxin (Digoxin) 0.25 mg DAILY@13 PO Last administered on 04/23/17 13:23; Admin Dose 0.25 MG; Start 04/17/17 at 13:00 Diltiazem HCl (Cardizem Cd) 240 mg DAILY PO Last administered on 04/23/17 10: 13; Admin Dose 240 MG; Start 04/17/17 at 09:00 Docusate Sodium (Colace) 100 mg DAILY PO Last administered on 04/23/17 10:13 ; Admin Dose 100 MG; Start 04/17/17 at 09:00 Salmeterol Xinafoate/ Fluticasone (Advair 250/50 Diskus) 1 inh BID INH Last administered on 04/23/17 10:12; Admin Dose 1 INH; Start 04/17/17 at 09:00 Senna (Senokot) 1 tab QHS PO Last administered on 04/22/17 20:47; Admin Dose 1 TAB; Start 04/17/17 at 21:00 Tiotropium [place] (Spiriva) 1 inh DAILY INH Last administered on 04/23/17 10 :12; Admin Dose 1 INH; Start 04/17/17 at 09:00 Apixaban (Eliquis) 5 mg BID PO Last administered on 04/23/17 10:13; Admin Dose 5 MG; Start 04/17/17 at 21:00 Guaifenesin (Mucinex) 600 mg BID PO Last administered on 04/23/17 10:12; Admin Dose 600 MG; Start 04/18/17 at 21:00 Albuterol/ Ipratropium (Duoneb) 3 ml Q4H HHN Last administered on 04/23/17 12 :16; Admin Dose 3 ML; Start 04/18/17 at 17:00 Non-Formulary Medication 1 ea BID BOTH EYES Last administered on 04/23/17 09: 00; Admin Dose 1 EA; Start 04/18/17 at 22:00 Fluconazole (Diflucan) 100 mg DAILY PO Last administered on 04/23/17 10:13; Admin Dose 100 MG; Start 04/20/17 at 09:00 Bimatoprost (Lumigan 0.01% Oph) 1 drop HS BOTH EYES Last administered on 10/16/ 17at 22:25; Admin Dose 1 DROP; Start 04/22/17 at 21:00 BERYL PEARL NP Apr 23, 2017 13:52
[2017-04-23 14:06] VITALS: BP 107/59; RESP 18
[2017-04-23] MEDS: ATORVASTATIN 20 MG TAB PO SCH (20:08)
[2017-04-23] MEDS: BIMATOPROST 0.01% BOTH EYES SCH (20:08)
[2017-04-23] MEDS: SENNA TAB PO SCH (20:08)
[2017-04-23 20:51] VITALS: BP 121/57; RESP 16
[2017-04-24] MEDS: ALBUTEROL/IPRATROPIUM (NEB) 3 ML AMP HHN SCH ×6 (01:29→20:43)
[2017-04-24 02:41] VITALS: BP 113/54; RESP 18
[2017-04-24] MEDS: PIPER-TAZO 3.375 GM IV (PMX) 100 ML IVPB SCH ×4 (05:14→23:14)
[2017-04-24 07:40] VITALS: BP 127/61; RESP 18
[2017-04-24] MEDS: DORZOLAMIDE BOTH EYES SCH ×2 (08:29→20:32)
[2017-04-24] MEDS: TIMOLOL BOTH EYES SCH ×2 (08:29→20:32)
[2017-04-24] MEDS: GUAIFENESIN LA 600 MG TABSR PO SCH ×2 (09:11→20:24)
[2017-04-24] MEDS: FLUCONAZOLE 100 MG TAB PO SCH (09:12)
[2017-04-24] MEDS: DOCUSATE SODIUM 100 MG CAP PO SCH (09:12)
[2017-04-24] MEDS: TIOTROPIUM 18 MCG CAPSULE INHA DEV INH SCH (09:12)
[2017-04-24] MEDS: SALMETEROL/FLUTICASONE 250/50 INHA INH SCH ×2 (09:12→20:24)
[2017-04-24] MEDS: BICALUTAMIDE 50 MG TAB PO SCH (09:12)
[2017-04-24] MEDS: APIXABAN 5 MG TABLET PO SCH ×2 (09:12→20:24)
[2017-04-24] MEDS: DILTIAZEM (CD) 240 MG CAP PO SCH (09:13)
[2017-04-24] MEDS: BALSAM PERU/CASTOR OIL 60 GM TUBE TOP SCH (09:13)
[2017-04-24] MEDS: DIGOXIN 0.25 MG TAB PO SCH (12:30)
--- NOTE | 2017-04-24 12:45 | CONS ---
Date/Time of Note Date/Time of Note DATE: 04/24/17 TIME: 12:43 Assessment/Plan Assessment/Plan Chief Complaint/Hosp Course dictated # [id number] Problems: Additional Assessment/Plan Assessment recommendations; 1. Patient admitted with pneumonia involving right lung with significant clinical improvement. 2. Underlying severe COPD. Continue current treatment. Consider discharge on oral Levaquin with oral doxycycline for at least another week. Consultation Date/Type/Reason Admit Date/Time Apr 16, 2017 at 20:39 Initial Consult Date 04/17/17 Type of Consultation: Pulmonary/critical care 24 HR Interval Summary Free Text/Dictation Patient's condition is significantly improved. Shortness of breath and chest congestion are decreased. General exam; elderly male, awake, currently in no distress. Exam/Review of Systems Vital Signs Vitals Vital Signs Date Time Temp Pulse Resp B/P Pulse Ox O2 Delivery O2 Flow Rate FiO2 04/24/17 08:36 65 18 89 21 04/24/17 08:00 Nasal Cannula 2.0 04/24/17 07:40 98.1 127/61 Intake and Output 04/23/17 04/23/17 04/24/17 15:00 23:00 07:00 Intake Total 100 ml 1240 ml 900 ml Output Total 1450 ml Balance 100 ml 1240 ml -550 ml Exam HEENT exam; supple neck, no JVD. No lymphadenopathy. Midline trachea. No thyromegaly. Patient is edentulous and wears dentures. Chest exam; diminished but clear breath sound. S1-S2 audible, no murmurs. Regular rhythm. Abdomen exam; soft, nontender. No organomegaly. Bowel sounds audible. Extremity exam; no peripheral edema. No clubbing. HYPERBARIC TECHNICIAN exam; no focal deficit. Results Result Diagram: 04/23/1757 04/23/1757 Medications Medications Current Medications Lorazepam (Ativan) 0.5 mg Q8H PRN PO ANXIETY; Start 04/17/17 at 05:30 Ondansetron HCl (Zofran Inj) 4 mg Q6H PRN IV NAUSEA AND/OR VOMITING; Start 05/24 at 05:30 Acetaminophen (Tylenol Tab) 650 mg Q6H PRN PO PAIN LEVEL 1-3 OR FEVER; Start 04/17/17 at 05:30 Morphine Sulfate 2 mg 2 mg Q4H PRN IV PAIN LEVEL 7-10; Start 04/17/17 at 05:30 Piperacillin Sod/ Tazobactam Sod (Zosyn 3.375gm/ 100 ml (Pmx)) 100 ml @ 200 mls /hr Q6H IVPB Last administered on 04/24/17 12:26; Admin Dose 200 MLS/HR; Start 04/17/17 at 06:00 Atorvastatin Calcium (Lipitor) 20 mg QHS PO Last administered on 04/23/17 20: 08; Admin Dose 20 MG; Start 04/17/17 at 21:00 Bicalutamide (Casodex) 50 mg DAILY PO Last administered on 04/24/17 09:12; Admin Dose 50 MG; Start 04/17/17 at 09:00 Digoxin (Digoxin) 0.25 mg DAILY@13 PO Last administered on 04/24/17 12:30; Admin Dose 0.25 MG; Start 04/17/17 at 13:00 Diltiazem HCl (Cardizem Cd) 240 mg DAILY PO Last administered on 04/24/17 09: 13; Admin Dose 240 MG; Start 04/17/17 at 09:00 Docusate Sodium (Colace) 100 mg DAILY PO Last administered on 04/24/17 09:12 ; Admin Dose 100 MG; Start 04/17/17 at 09:00 Salmeterol Xinafoate/ Fluticasone (Advair 250/50 Diskus) 1 inh BID INH Last administered on 04/24/17 09:12; Admin Dose 1 INH; Start 04/17/17 at 09:00 Senna (Senokot) 1 tab QHS PO Last administered on 04/23/17 20:08; Admin Dose 1 TAB; Start 04/17/17 at 21:00 Tiotropium [place] (Spiriva) 1 inh DAILY INH Last administered on 04/24/17 09 :12; Admin Dose 1 INH; Start 04/17/17 at 09:00 Apixaban (Eliquis) 5 mg BID PO Last administered on 04/24/17 09:12; Admin Dose 5 MG; Start 04/17/17 at 21:00 Guaifenesin (Mucinex) 600 mg BID PO Last administered on 04/24/17 09:11; Admin Dose 600 MG; Start 04/18/17 at 21:00 Albuterol/ Ipratropium (Duoneb) 3 ml Q4H HHN Last administered on 04/24/17 08 :36; Admin Dose 3 ML; Start 04/18/17 at 17:00 Non-Formulary Medication 1 ea BID BOTH EYES Last administered on 04/24/17 08: 29; Admin Dose 1 EA; Start 04/18/17 at 22:00 Fluconazole (Diflucan) 100 mg DAILY PO Last administered on 04/24/17 09:12; Admin Dose 100 MG; Start 04/20/17 at 09:00 Bimatoprost (Lumigan 0.01% Oph) 1 drop HS BOTH EYES Last administered on 20:08; Admin Dose 1 DROP; Start 04/22/17 at 21:00 JUAN POSADA Apr 24, 2017 12:45
[2017-04-24 14:00] VITALS: BP 120/68; RESP 20
--- NOTE | 2017-04-24 14:28 | PN ---
Date/Time of Note Date/Time of Note DATE: 04/24/17 TIME: 14:05 Assessment/Plan VTE Prophylaxis VTE Prophylaxis Intervention: other (Factor Xa inhibitors.) Lines/Catheters IV [facility] (from [facility] Urinary Cath still in place: No Assessment/Plan Chief Complaint/Hosp Course 1. Right upper lobe pneumonia. Continue antimicrobials. 2. COPD. Continue inhaled bronchodilators. Continue supplemental oxygen. Being followed by pulmonology. 3. Hyperthyroidism. Continue methimazole. 4. Paroxysmal atrial fibrillation. Continue apixaban for stroke prophylaxis. Continue Digoxin and Cardizem. 5. Essential hypertension. Continue antihypertensives. 6. History of metastatic prostate cancer. Status post prostatectomy. On bicalutamide. 7. Pulmonary hypertension. PA systolic pressure 44 mmHg as per 2D echocardiogram done in October 2016. Continue supplemental oxygen. 8. Fluids, electrolytes, and nutrition. Regular diet. 9. DVT prophylaxis. Factor Xa inhibitors. 10. Plan. Continue inhaled bronchodilators. Continue antimicrobials. Await clearance from Pulmonology before discharge. Case discussed with Dr. Kan. Problems: Subjective 24 Hr Interval Summary Free Text/Dictation Feeling better. Exam/Review of Systems Vital Signs Vitals Vital Signs Date Time Temp Pulse Resp B/P Pulse Ox O2 Delivery O2 Flow Rate FiO2 04/24/17 13:12 63 18 92 21 04/24/17 08:00 Nasal Cannula 2.0 04/24/17 07:40 98.1 127/61 Intake and Output 04/23/17 04/23/17 04/24/17 15:00 23:00 07:00 Intake Total 100 ml 1240 ml 900 ml Output Total 1450 ml Balance 100 ml 1240 ml -550 ml Exam General: Adequately build 77 year-old male lying in bed in no apparent distress. HEENT: Normocephalic, atraumatic. Eyes: Anicteric sclerae, conjunctivae clear. ENT: Nasal septum midline, oral mucosa moist. Neck supple, no JVD noticed. Respiratory: Bilaterally diminished breath sounds. No use of accessory muscles of respiration. No adventitious breath sounds. Cardiovascular: S1, S2 heard. Regular rate and rhythm. Abdomen: Soft, nontender, and nondistended. Bowel sounds positive in all 4 quadrants. Genitourinary: Deferred. Extremities: No cyanosis, no edema. Peripheral pulses palpable. Neurologic: Cranial nerves II through XII grossly intact. The patient is awake, alert, and oriented. Skin: Normal skin turgor. No skin rashes. Results Result Diagram: 04/23/1755604/23/17556 Medications Medications Current Medications Lorazepam (Ativan) 0.5 mg Q8H PRN PO ANXIETY; Start 04/17/17 at 05:30 Ondansetron HCl (Zofran Inj) 4 mg Q6H PRN IV NAUSEA AND/OR VOMITING; Start 05/24 at 05:30 Acetaminophen (Tylenol Tab) 650 mg Q6H PRN PO PAIN LEVEL 1-3 OR FEVER; Start 04/17/17 at 05:30 Morphine Sulfate 2 mg 2 mg Q4H PRN IV PAIN LEVEL 7-10; Start 04/17/17 at 05:30 Piperacillin Sod/ Tazobactam Sod (Zosyn 3.375gm/ 100 ml (Pmx)) 100 ml @ 200 mls /hr Q6H IVPB Last administered on 04/24/17 12:26; Admin Dose 200 MLS/HR; Start 04/17/17 at 06:00 Atorvastatin Calcium (Lipitor) 20 mg QHS PO Last administered on 04/23/17 20: 08; Admin Dose 20 MG; Start 04/17/17 at 21:00 Bicalutamide (Casodex) 50 mg DAILY PO Last administered on 04/24/17 09:12; Admin Dose 50 MG; Start 04/17/17 at 09:00 Digoxin (Digoxin) 0.25 mg DAILY@13 PO Last administered on 04/24/17 12:30; Admin Dose 0.25 MG; Start 04/17/17 at 13:00 Diltiazem HCl (Cardizem Cd) 240 mg DAILY PO Last administered on 04/24/17 09: 13; Admin Dose 240 MG; Start 04/17/17 at 09:00 Docusate Sodium (Colace) 100 mg DAILY PO Last administered on 04/24/17 09:12 ; Admin Dose 100 MG; Start 04/17/17 at 09:00 Salmeterol Xinafoate/ Fluticasone (Advair 250/50 Diskus) 1 inh BID INH Last administered on 04/24/17 09:12; Admin Dose 1 INH; Start 04/17/17 at 09:00 Senna (Senokot) 1 tab QHS PO Last administered on 04/23/17 20:08; Admin Dose 1 TAB; Start 04/17/17 at 21:00 Tiotropium [place] (Spiriva) 1 inh DAILY INH Last administered on 04/24/17 09 :12; Admin Dose 1 INH; Start 04/17/17 at 09:00 Apixaban (Eliquis) 5 mg BID PO Last administered on 04/24/17 09:12; Admin Dose 5 MG; Start 04/17/17 at 21:00 Guaifenesin (Mucinex) 600 mg BID PO Last administered on 04/24/17 09:11; Admin Dose 600 MG; Start 04/18/17 at 21:00 Albuterol/ Ipratropium (Duoneb) 3 ml Q4H HHN Last administered on 04/24/17 13 :12; Admin Dose 3 ML; Start 04/18/17 at 17:00 Non-Formulary Medication 1 ea BID BOTH EYES Last administered on 04/24/17 08: 29; Admin Dose 1 EA; Start 04/18/17 at 22:00 Fluconazole (Diflucan) 100 mg DAILY PO Last administered on 04/24/17 09:12; Admin Dose 100 MG; Start 04/20/17 at 09:00 Bimatoprost ([place]umigan 0.01% Oph) 1 drop HS BOTH EYES Last administered on 20:08; Admin Dose 1 DROP; Start 04/22/17 at 21:00 BERYL PEARL NP Apr 24, 2017 14:06
[2017-04-24 20:11] VITALS: BP 108/57; RESP 16
[2017-04-24] MEDS: SENNA TAB PO SCH (20:24)
[2017-04-24] MEDS: ATORVASTATIN 20 MG TAB PO SCH (20:24)
[2017-04-24] MEDS: BIMATOPROST 0.01% BOTH EYES SCH (20:24)
[2017-04-25] MEDS: ALBUTEROL/IPRATROPIUM (NEB) 3 ML AMP HHN SCH ×6 (00:33→21:06)
[2017-04-25 03:00] VITALS: BP 119/57; RESP 16
[2017-04-25] MEDS: PIPER-TAZO 3.375 GM IV (PMX) 100 ML IVPB SCH ×2 (05:21→12:07)
[2017-04-25 08:14] VITALS: BP 115/58; RESP 18
[2017-04-25] MEDS: TIOTROPIUM 18 MCG CAPSULE INHA DEV INH SCH (08:48)
[2017-04-25] MEDS: SALMETEROL/FLUTICASONE 250/50 INHA INH SCH ×2 (08:48→20:34)
[2017-04-25] MEDS: TIMOLOL BOTH EYES SCH ×2 (08:49→20:34)
[2017-04-25] MEDS: DORZOLAMIDE BOTH EYES SCH ×2 (08:49→20:34)
[2017-04-25] MEDS: DILTIAZEM (CD) 240 MG CAP PO SCH (08:50)
[2017-04-25] MEDS: DOCUSATE SODIUM 100 MG CAP PO SCH (08:51)
[2017-04-25] MEDS: APIXABAN 5 MG TABLET PO SCH ×2 (08:51→20:34)
[2017-04-25] MEDS: FLUCONAZOLE 100 MG TAB PO SCH (08:51)
[2017-04-25] MEDS: GUAIFENESIN LA 600 MG TABSR PO SCH ×2 (08:52→20:34)
[2017-04-25] MEDS: BICALUTAMIDE 50 MG TAB PO SCH (08:52)
[2017-04-25] MEDS: BALSAM PERU/CASTOR OIL 60 GM TUBE TOP SCH (08:53)
--- NOTE | 2017-04-25 09:13 | PDOCDIS ---
Discharge Instructions DIAGNOSIS Discharge Diagnosis Pneumonia. CONDITION Patient Condition: Stable HOME CARE INSTRUCTIONS: Diet Instructions: Regular FOLLOW UP/APPOINTMENTS Follow-up Plan Gareth Castellano MD Specialty: Critical Care Medicine/ Pulmonary Medicine Office Address [address] [place] [address] Office OTHER ORDERS: Other Orders: 1. Resume home medications. Take Robitussin as needed for cough. 2. Regular diet. 3. Activities as tolerated. 4. Follow-up with Dr. Castellano as scheduled. BERYL PEARL NP Apr 25, 2017 09:13
[2017-04-25] MEDS ORDERED: APIX5TAB PO (09:17)
[2017-04-25] MEDS ORDERED: METH10TA5 PO (09:25)
[2017-04-25] MEDS ORDERED: LEVO500T72 PO (09:30)
[2017-04-25] MEDS ORDERED: ALBU8.5H3 INH (09:32)
--- NOTE | 2017-04-25 12:12 | RADRPT ---
PROCEDURE: XR Chest. CLINICAL INDICATION: Pneumonia . Infiltrates. TECHNIQUE: Single frontal chest x-ray. COMPARISON: 04/20/2017 FINDINGS: There are focal infiltrates or consolidation seen in the right lung base. The lungs are hyperinflate d suggestive of COPD. . Bullous changes are seen in the bilateral lung bases. The remainder of the l ungs are clear.. The cardiomediastinal silhouette is unremarkable. The osseous structures are intac t. Calcific atherosclerosis of the aorta is present. IMPRESSION: Focal right basilar pulmonary consolidation unchanged. 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 RPTAT: QQ .Stewart Canales MD, MD Date Time Electronically viewed and signed by .Stewart Canales MD, MD on 04/25/2017 12:11 .L/
--- NOTE | 2017-04-25 12:38 | CONS ---
Date/Time of Note Date/Time of Note DATE: 04/25/17 TIME: 12:36 Assessment/Plan Assessment/Plan Chief Complaint/Hosp Course dictated # [id number] Problems: Additional Assessment/Plan Chest x-ray was reviewed from today which is showing complete resolution of right sided infiltrative changes. Assessment and recommendations; 1. Patient admitted with right-sided pneumonia with marked clinical and radiological improvement. 2. Underlying severe COPD. 3. History of cardiac arrhythmia. Discontinue antibiotics. Consider discharge. Consultation Date/Type/Reason Admit Date/Time Apr 16, 2017 at 20:39 Initial Consult Date 04/17/17 Type of Consultation: Pulmonary/critical care 24 HR Interval Summary Free Text/Dictation Patient's condition is stable. Remains awake alert. Reporting improved shortness of breath as well as marked reduction in chest congestion and coughing. General exam; elderly male, awake alert, currently in no distress. Exam/Review of Systems Vital Signs Vitals Vital Signs Date Time Temp Pulse Resp B/P Pulse Ox O2 Delivery O2 Flow Rate FiO2 04/25/17 08:59 59 20 96 Nasal Cannula 2.0 04/25/17 08:14 97.8 115/58 04/24/17 13:12 21 Intake and Output 04/24/17 04/24/17 04/25/17 15:00 23:00 07:00 Intake Total 100 ml 980 ml 600 ml Output Total 1200 ml 1200 ml Balance 100 ml -220 ml -600 ml Exam HEENT exam; supple neck, no JVD. No lymphadenopathy. Midline trachea. No thyromegaly. Pharynx is clear. Patient is edentulous and wears dentures. Chest exam; diminished but clear breath sound. S1-S2 audible, no murmurs. Abdomen exam; soft, nontender. No organomegaly. Bowel sounds audible. Extremity exam; no peripheral edema. No clubbing. LOGISTICS ANALYTICS MANAGER exam; no focal deficit. Results Result Diagram: 04/23/17 0557 04/23/1757 Medications Medications Current Medications Lorazepam (Ativan) 0.5 mg Q8H PRN PO ANXIETY; Start 04/17/17 at 05:30 Ondansetron HCl (Zofran Inj) 4 mg Q6H PRN IV NAUSEA AND/OR VOMITING; Start 05/24 at 05:30 Acetaminophen (Tylenol Tab) 650 mg Q6H PRN PO PAIN LEVEL 1-3 OR FEVER; Start 04/17/17 at 05:30 Morphine Sulfate 2 mg 2 mg Q4H PRN IV PAIN LEVEL 7-10; Start 04/17/17 at 05:30 Piperacillin Sod/ Tazobactam Sod (Zosyn 3.375gm/ 100 ml (Pmx)) 100 ml @ 200 mls /hr Q6H IVPB Last administered on 04/25/17 12:07; Admin Dose 200 MLS/HR; Start 04/17/17 at 06:00 Atorvastatin Calcium (Lipitor) 20 mg QHS PO Last administered on 04/24/17 20: 24; Admin Dose 20 MG; Start 04/17/17 at 21:00 Bicalutamide (Casodex) 50 mg DAILY PO Last administered on 04/25/17 08:52; Admin Dose 50 MG; Start 04/17/17 at 09:00 Digoxin (Digoxin) 0.25 mg DAILY@13 PO Last administered on 04/24/17 12:30; Admin Dose 0.25 MG; Start 04/17/17 at 13:00 Diltiazem HCl (Cardizem Cd) 240 mg DAILY PO Last administered on 04/25/17 08: 50; Admin Dose 240 MG; Start 04/17/17 at 09:00 Docusate Sodium (Colace) 100 mg DAILY PO Last administered on 04/25/17 08:51 ; Admin Dose 100 MG; Start 04/17/17 at 09:00 Salmeterol Xinafoate/ Fluticasone (Advair 250/50 Diskus) 1 inh BID INH Last administered on 04/25/17 08:48; Admin Dose 1 INH; Start 04/17/17 at 09:00 Senna (Senokot) 1 tab QHS PO Last administered on 04/24/17 20:24; Admin Dose 1 TAB; Start 04/17/17 at 21:00 Tiotropium [place] (Spiriva) 1 inh DAILY INH Last administered on 04/25/17 08 :48; Admin Dose 1 INH; Start 04/17/17 at 09:00 Apixaban (Eliquis) 5 mg BID PO Last administered on 04/25/17 08:51; Admin Dose 5 MG; Start 04/17/17 at 21:00 Guaifenesin (Mucinex) 600 mg BID PO Last administered on 04/25/17 08:52; Admin Dose 600 MG; Start 04/18/17 at 21:00 Albuterol/ Ipratropium (Duoneb) 3 ml Q4H HHN Last administered on 04/25/17 08 :57; Admin Dose 3 ML; Start 04/18/17 at 17:00 Non-Formulary Medication 1 ea BID BOTH EYES Last administered on 04/25/17 08: 49; Admin Dose 1 EA; Start 04/18/17 at 22:00 Fluconazole (Diflucan) 100 mg DAILY PO Last administered on 04/25/17 08:51; Admin Dose 100 MG; Start 04/20/17 at 09:00 Bimatoprost (Lumigan 0.01% Oph) 1 drop HS BOTH EYES Last administered on 20:24; Admin Dose 1 DROP; Start 04/22/17 at 21:00 Methimazole (Tapazole) 20 mg DAILY@06 PO ; Start 04/26/17 at 06:00 JUAN POSADA Apr 25, 2017 12:37
[2017-04-25] MEDS: DIGOXIN 0.25 MG TAB PO SCH (13:00)
[2017-04-25 14:19] VITALS: BP 113/56; RESP 16
--- NOTE | 2017-04-25 15:18 | DS ---
Date/Time of Note Date/Time of Note DATE: 04/25/17 TIME: 15:15 Discharge Summary Admission/Discharge Info Admit Date/Time Apr 16, 2017 at 20:39 Discharge Diagnosis 1. Right upper lobe pneumonia pneumonia. 2. Chronic obstructive pulmonary disease. 3. Hyperthyroidism. 4. Paroxysmal atrial fibrillation. 5. Essential hypertension. 6. Pulmonary hypertension. 7. History of metastatic prostate cancer. Patient Condition: Stable Consults 1. Armond Benavides Md, Pulmonology. Procedures Chest CT IMPRESSION: 1. Severe emphysematous changes bilaterally. 2. Larger density in the right upper lobe inferiorly laterally consistent with pneumonia. New regions of pneumonia in the right lower lobe posteriorly and right perihilar region. Follow-up advised. 3. Bilateral pulmonary densities consistent with scarring similar to the prior study. 4. Atherosclerosis. 5. Benign left renal cysts. 6. Mild degenerative changes of the spine. Hx of Present Illness This is a 77-year-old male with a history of hypertension, hyperthyroidism, paroxysmal atrial fibrillation, pulmonary hypertension, metastatic prostate cancer, and severe COPD on home oxygen who presented to the ER complaining of shortness of breath and productive cough. The patient was admitted here and was discharged a week ago after he presented with same symptoms.After discharge, he said initially he was feeling better but started experiencing progressively worsening shortness of breath as well as cough, which has been productive of yellowish/brownish sputum. When he presented to the ER, he was febrile with a temperature of 101.3 and lab showed a WBC of 27.5. Chest x-ray showed Right lung base patchy air space disease, which may represent pneumonia in setting of sepsis and loculated pleural effusion at the right lung base. Hospital Course The patient has chronic COPD and he uses home O2. Provided the patient's history of present illness and his comorbidities, a clinical decision was made to admit the patient to inpatient setting to have him further evaluated. The patient's chest CT scan showed larger density in the right upper lobe inferiorly laterally consistent with pneumonia along with new regions of pneumonia in the right lower lobe posteriorly and right perihilar region. The patient was admitted to inpatient setting. The patient was started on inhaled bronchodilators. The patient was started on appropriate antibiotics. Pulmonology was following the patient. The patient's symptomatology improved with the treatment strategy. The patient has underlying COPD. He was maintained on supplemental oxygen and inhaled bronchodilators. The patient has underlying hyperthyroidism. The patient was evaluated by endocrinology on his previous visit to [facility]. The patient was maintained on methimazole. The patient has history of paroxysmal atrial fibrillation. He was maintained on digoxin and Cardizem. The patient was maintained on apixaban for stroke prophylaxis. The patient was maintained on antihypertensives for his underlying essential hypertension. The patient also has history of pulmonary hypertension as evidenced by a PA systolic pressure 44 as on 2D echocardiogram done in October 2016. The patient was maintained on supplemental oxygen. He also has history of metastatic prostate cancer. He was maintained on bicalutamide. The patient had a stable hospital course. The patient was cleared by consultants to be discharged home. The patient denied any complaints at the time of discharge. DISPOSITION/PLAN: The patient will be discharged home today. The patient was instructed to resume his home medications. The patient was instructed take a regular diet. The patient was instructed to resume activities as tolerated. The patient was instructed to follow up with Dr. Castellano as scheduled. The patient verbalized understanding of his discharge instructions. CONDITION ON DISCHARGE: Stable. Case discussed with Dr. Kan. Home Meds Active Scripts Albuterol Sulfate* (Proair HFA*) 8.5 Gm Hfa.aer.ad, 2 PUFF INH Q4 for SHORTNESS OF BREATH, #1 INHALER Prov:BERYL PEARL NP 04/25/17 Levofloxacin* (Levaquin*) 500 Mg Tablet, 500 MG PO DAILY for 7 Days, #7 TAB Prov:BERYL PEARL NP 04/25/17 Methimazole* (Methimazole*) 10 Mg Tablet, 20 MG PO DAILY, #60 TAB Take this 2 tablets(10X2 = 20 mg) daily before breakfast. Prov:BERYL PEARL NP 04/25/17 Apixaban* (Eliquis*) 5 Mg Tablet, 5 MG PO BID, #60 TAB Prov:BERYL PEARL NP 04/25/17 Reported Medications Salmeterol Xinaf/Fluticasone* (Advair*) 250-50 Diskus Inhaler, 1 INH INHALATION BID, #1 INHALER 04/16/17 Bicalutamide* (Bicalutamide*) 50 Mg Tablet, 50 MG PO DAILY, TAB 9/25/17 Sennosides* (Senna Lax*) 8.6 Mg Tablet, 1 TAB PO QHS, TAB 10/10/16 Docusate Sodium (Col-Rite) 100 Mg Capsule, 100 MG PO DAILY, CAP 10/10/16 Diltiazem Hcl* (Diltiazem XT) 240 Mg Capsule.er, 240 MG PO DAILY, #30 CAP 10/10/16 Atorvastatin Calcium* (Atorvastatin Calcium*) 20 Mg Tablet, 20 MG PO QHS, #30 TAB 10/10/16 Bimatoprost* (Lumigan*) 2.5 Ml Drops, 1 DROP BOTH EYES HS 12/19/13 Dorzolamide/Timolol* (Dorzolamide/Timolol*) 10 Ml Drops, 1 DROP BOTH EYES BID, EA 12/19/13 Tiotropium [place]* (Spiriva*) 18 Mcg Cap.w.dev, 1 INH IH DAILY, EA 12/19/13 Digoxin* (Digox*) 250 Mcg Tablet, 250 MCG PO DAILY 12/19/13 Discontinued Reported Medications [Lupron] No Conflict Check, Q3MONT. 04/16/17 Follow-up Plan Gareth Castellano MD Specialty: Critical Care Medicine/ Pulmonary Medicine Office Address [address] [facility] [address] [place] [id number] Office Primary Care Provider Not On Staff Doctor Time spent on discharge: > 30 minutes BERYL PEARL NP Apr 25, 2017 15:18
[2017-04-25] MEDS: ATORVASTATIN 20 MG TAB PO SCH (20:34)
[2017-04-25] MEDS: SENNA TAB PO SCH (20:34)
[2017-04-25 20:36] VITALS: BP 111/71; RESP 20
[2017-04-25] MEDS: BIMATOPROST 0.01% BOTH EYES SCH (21:55)
[2017-04-26] MEDS: ALBUTEROL/IPRATROPIUM (NEB) 3 ML AMP HHN SCH ×6 (01:17→20:22)
[2017-04-26 03:01] VITALS: BP 113/59; RESP 18
[2017-04-26] MEDS: METHIMAZOLE 5 MG TAB PO SCH (05:22)
[2017-04-26 07:51] VITALS: BP 117/60; RESP 17
[2017-04-26] MEDS: BALSAM PERU/CASTOR OIL 60 GM TUBE TOP SCH (09:00)
[2017-04-26] MEDS: FLUCONAZOLE 100 MG TAB PO SCH (09:03)
[2017-04-26] MEDS: DOCUSATE SODIUM 100 MG CAP PO SCH (09:03)
[2017-04-26] MEDS: BICALUTAMIDE 50 MG TAB PO SCH (09:03)
[2017-04-26] MEDS: GUAIFENESIN LA 600 MG TABSR PO SCH ×2 (09:03→22:28)
[2017-04-26] MEDS: DILTIAZEM (CD) 240 MG CAP PO SCH (09:03)
[2017-04-26] MEDS: SALMETEROL/FLUTICASONE 250/50 INHA INH SCH ×2 (09:04→22:28)
[2017-04-26] MEDS: APIXABAN 5 MG TABLET PO SCH ×2 (09:04→22:28)
[2017-04-26] MEDS: TIOTROPIUM 18 MCG CAPSULE INHA DEV INH SCH (09:04)
[2017-04-26] MEDS: TIMOLOL BOTH EYES SCH ×2 (09:05→22:28)
[2017-04-26] MEDS: DORZOLAMIDE BOTH EYES SCH ×2 (09:05→22:28)
--- NOTE | 2017-04-26 10:55 | CONS ---
Date/Time of Note Date/Time of Note DATE: 04/26/17 TIME: 10:53 Assessment/Plan Assessment/Plan Chief Complaint/Hosp Course dictated # [id number] Problems: Additional Assessment/Plan Assessment recommendations; 1. Patient admitted with right-sided pneumonia with marked clinical and radiological improvement. Off antibiotics now. 2. Underlying severe COPD. 3. History of cardiac arrhythmia. Continue current treatment. Consider discharge. Consultation Date/Type/Reason Admit Date/Time Apr 16, 2017 at 20:39 Initial Consult Date 04/17/17 Type of Consultation: Pulmonary/critical care Reason for Consultation Patient's condition is stable. Denies any shortness of breath, chest pain. His congestion has markedly improved. General exam; elderly male, awake alert, currently in no distress. Exam/Review of Systems Vital Signs Vitals Vital Signs Date Time Temp Pulse Resp B/P Pulse Ox O2 Delivery O2 Flow Rate FiO2 04/26/17 09:46 98 2.0 04/26/17 07:51 97.8 62 17 117/60 04/26/17 04:58 Nasal Cannula 04/24/17 13:12 21 Intake and Output 04/25/17 04/25/17 04/26/17 15:00 23:00 07:00 Intake Total 860 ml 120 ml Output Total 250 ml Balance 860 ml -130 ml Exam HEENT exam; supple neck, no JVD. No lymphadenopathy. Midline trachea. No thyromegaly. Pharynx is clear. Patient has dentures. Chest exam; diminished but clear breath sounds. S1-S2 audible, no murmurs. Regular rhythm. Abdomen exam; soft, nontender. No organomegaly. Bowel sounds audible. Extremity exam; no peripheral edema. JUNIOR MECHANICAL ENGINEER exam; no focal deficit. Results Result Diagram: 04/23/1757 04/23/1757 Medications Medications Current Medications Lorazepam (Ativan) 0.5 mg Q8H PRN PO ANXIETY; Start 04/17/17 at 05:30 Ondansetron HCl (Zofran Inj) 4 mg Q6H PRN IV NAUSEA AND/OR VOMITING; Start 05/24 at 05:30 Acetaminophen (Tylenol Tab) 650 mg Q6H PRN PO PAIN LEVEL 1-3 OR FEVER; Start 04/17/17 at 05:30 Morphine Sulfate (morphine) 2 mg Q4H PRN IV PAIN LEVEL 7-10; Start 04/17/17 at 05:30 Atorvastatin Calcium (Lipitor) 20 mg QHS PO Last administered on 04/25/17 20: 34; Admin Dose 20 MG; Start 04/17/17 at 21:00 Bicalutamide (Casodex) 50 mg DAILY PO Last administered on 04/26/17 09:03; Admin Dose 50 MG; Start 04/17/17 at 09:00 Digoxin (Digoxin) 0.25 mg DAILY@13 PO Last administered on 04/24/17 12:30; Admin Dose 0.25 MG; Start 04/17/17 at 13:00 Diltiazem HCl (Cardizem Cd) 240 mg DAILY PO Last administered on 04/26/17 09: 03; Admin Dose 240 MG; Start 04/17/17 at 09:00 Docusate Sodium (Colace) 100 mg DAILY PO Last administered on 04/26/17 09:03 ; Admin Dose 100 MG; Start 04/17/17 at 09:00 Salmeterol Xinafoate/ Fluticasone (Advair 250/50 Diskus) 1 inh BID INH Last administered on 04/26/17 09:04; Admin Dose 1 INH; Start 04/17/17 at 09:00 Senna (Senokot) 1 tab QHS PO Last administered on 04/25/17 20:34; Admin Dose 1 TAB; Start 04/17/17 at 21:00 Tiotropium [place] (Spiriva) 1 inh DAILY INH Last administered on 04/26/17 09 :04; Admin Dose 1 INH; Start 04/17/17 at 09:00 Apixaban (Eliquis) 5 mg BID PO Last administered on 04/26/17 09:04; Admin Dose 5 MG; Start 04/17/17 at 21:00 Guaifenesin (Mucinex) 600 mg BID PO Last administered on 04/26/17 09:03; Admin Dose 600 MG; Start 04/18/17 at 21:00 Albuterol/ Ipratropium (Duoneb) 3 ml Q4H HHN Last administered on 04/26/17 04 :58; Admin Dose 3 ML; Start 04/18/17 at 17:00 Non-Formulary Medication 1 ea BID BOTH EYES Last administered on 04/26/17 09: 05; Admin Dose 1 EA; Start 04/18/17 at 22:00 Fluconazole (Diflucan) 100 mg DAILY PO Last administered on 04/26/17 09:03; Admin Dose 100 MG; Start 04/20/17 at 09:00 Bimatoprost (Lumigan 0.01% Oph) 1 drop HS BOTH EYES Last administered on 21:55; Admin Dose 1 DROP; Start 04/22/17 at 21:00 Methimazole (Tapazole) 20 mg DAILY@06 PO Last administered on 04/26/17 05:22 ; Admin Dose 20 MG; Start 04/26/17 at 06:00 JUAN POSADA Apr 26, 2017 10:55
[2017-04-26] MEDS: DIGOXIN 0.25 MG TAB PO SCH (13:00)
--- NOTE | 2017-04-26 13:20 | PN ---
Date/Time of Note Date/Time of Note DATE: 04/26/17 TIME: 13:19 Assessment/Plan VTE Prophylaxis VTE Prophylaxis Intervention: other (Factor Xa inhibitors.) Lines/Catheters IV [facility] [place] Urinary Cath still in place: No Assessment/Plan Chief Complaint/Hosp Course 1. Right upper lobe pneumonia. S/P antimicrobials. 2. COPD. Continue inhaled bronchodilators. Continue supplemental oxygen. Being followed by pulmonology. 3. Hyperthyroidism. Continue methimazole. 4. Paroxysmal atrial fibrillation. Continue apixaban for stroke prophylaxis. Continue Digoxin and Cardizem. 5. Essential hypertension. Continue antihypertensives. 6. History of metastatic prostate cancer. Status post prostatectomy. On bicalutamide. 7. Pulmonary hypertension. PA systolic pressure 44 mmHg as per 2D echocardiogram done in October 2016. Continue supplemental oxygen. 8. Fluids, electrolytes, and nutrition. Regular diet. 9. DVT prophylaxis. Factor Xa inhibitors. 10. Plan. Continue inhaled bronchodilators. Case discussed with Dr. Kan. Problems: Subjective 24 Hr Interval Summary Free Text/Dictation The patient had discharge orders yesterday. However, this has been held. Exam/Review of Systems Vital Signs Vitals Vital Signs Date Time Temp Pulse Resp B/P Pulse Ox O2 Delivery O2 Flow Rate FiO2 04/26/17 10:51 Nasal Cannula 2.0 04/26/17 09:46 98 04/26/17 07:51 97.8 62 17 117/60 04/24/17 13:12 21 Intake and Output 04/25/17 04/25/17 04/26/17 15:00 23:00 07:00 Intake Total 860 ml 120 ml Output Total 250 ml Balance 860 ml -130 ml Exam General: Adequately build 77 year-old male lying in bed in no apparent distress. HEENT: Normocephalic, atraumatic. Eyes: Anicteric sclerae, conjunctivae clear. ENT: Nasal septum midline, oral mucosa moist. Neck supple, no JVD noticed. Respiratory: Bilaterally diminished breath sounds. No use of accessory muscles of respiration. No adventitious breath sounds. Cardiovascular: S1, S2 heard. Regular rate and rhythm. Abdomen: Soft, nontender, and nondistended. Bowel sounds positive in all 4 quadrants. Genitourinary: Deferred. Extremities: No cyanosis, no edema. Peripheral pulses palpable. Neurologic: Cranial nerves II through XII grossly intact. The patient is awake, alert, and oriented. Skin: Normal skin turgor. No skin rashes. Results Result Diagram: 04/23/1755604/23/17556 Medications Medications Current Medications Lorazepam (Ativan) 0.5 mg Q8H PRN PO ANXIETY; Start 04/17/17 at 05:30 Ondansetron HCl (Zofran Inj) 4 mg Q6H PRN IV NAUSEA AND/OR VOMITING; Start 05/24 at 05:30 Acetaminophen (Tylenol Tab) 650 mg Q6H PRN PO PAIN LEVEL 1-3 OR FEVER; Start 04/17/17 at 05:30 Morphine Sulfate (morphine) 2 mg Q4H PRN IV PAIN LEVEL 7-10; Start 04/17/17 at 05:30 Atorvastatin Calcium (Lipitor) 20 mg QHS PO Last administered on 04/25/17 20: 34; Admin Dose 20 MG; Start 04/17/17 at 21:00 Bicalutamide (Casodex) 50 mg DAILY PO Last administered on 04/26/17 09:03; Admin Dose 50 MG; Start 04/17/17 at 09:00 Digoxin (Digoxin) 0.25 mg DAILY@13 PO Last administered on 04/24/17 12:30; Admin Dose 0.25 MG; Start 04/17/17 at 13:00 Diltiazem HCl (Cardizem Cd) 240 mg DAILY PO Last administered on 04/26/17 09: 03; Admin Dose 240 MG; Start 04/17/17 at 09:00 Docusate Sodium (Colace) 100 mg DAILY PO Last administered on 04/26/17 09:03 ; Admin Dose 100 MG; Start 04/17/17 at 09:00 Salmeterol Xinafoate/ Fluticasone (Advair 250/50 Diskus) 1 inh BID INH Last administered on 04/26/17 09:04; Admin Dose 1 INH; Start 04/17/17 at 09:00 Senna (Senokot) 1 tab QHS PO Last administered on 04/25/17 20:34; Admin Dose 1 TAB; Start 04/17/17 at 21:00 Tiotropium [place] (Spiriva) 1 inh DAILY INH Last administered on 04/26/17 09 :04; Admin Dose 1 INH; Start 04/17/17 at 09:00 Apixaban (Eliquis) 5 mg BID PO Last administered on 04/26/17 09:04; Admin Dose 5 MG; Start 04/17/17 at 21:00 Guaifenesin (Mucinex) 600 mg BID PO Last administered on 04/26/17 09:03; Admin Dose 600 MG; Start 04/18/17 at 21:00 Albuterol/ Ipratropium (Duoneb) 3 ml Q4H HHN Last administered on 04/26/17 04 :58; Admin Dose 3 ML; Start 04/18/17 at 17:00 Non-Formulary Medication 1 ea BID BOTH EYES Last administered on 04/26/17 09: 05; Admin Dose 1 EA; Start 04/18/17 at 22:00 Fluconazole (Diflucan) 100 mg DAILY PO Last administered on 04/26/17 09:03; Admin Dose 100 MG; Start 04/20/17 at 09:00 Bimatoprost (Lumigan 0.01% Oph) 1 drop HS BOTH EYES Last administered on 21:55; Admin Dose 1 DROP; Start 04/22/17 at 21:00 Methimazole (Tapazole) 20 mg DAILY@06 PO Last administered on 04/26/17 05:22 ; Admin Dose 20 MG; Start 04/26/17 at 06:00 BERYL PEARL NP Apr 26, 2017 13:20
[2017-04-26 14:11] VITALS: BP 130/62; RESP 19
--- NOTE | 2017-04-26 18:05 | RADRPT ---
PROCEDURE: XR Chest. CLINICAL INDICATION: Shortness of breath. TECHNIQUE: Single frontal view. COMPARISON: 04/25/2017. FINDINGS: The lungs are hyperinflated and there are severe emphysematous changes bilaterally. Mild consolidati on at the right lung base is unchanged. The heart size is normal. There is no pleural effusion. There is no pneumothorax. IMPRESSION: 1. Hyperinflation and severe emphysematous changes bilaterally. 2. Mild consolidation at the right lung base, unchanged. 3. Otherwise unremarkable chest radiograph. RPTAT: QQ .Justino Fonseca MD, MD Date Time Electronically viewed and signed by .Justino Fonseca MD, MD on 04/26/2017 18:05 .R/
[2017-04-26 20:47] VITALS: BP 112/54; RESP 18
[2017-04-26 22:00] VITALS: BP 104/54; RESP 18
[2017-04-26] MEDS: ATORVASTATIN 20 MG TAB PO SCH (22:28)
[2017-04-26] MEDS: BIMATOPROST 0.01% BOTH EYES SCH (22:28)
[2017-04-26] MEDS: SENNA TAB PO SCH (22:28)
[2017-04-27] MEDS: ALBUTEROL/IPRATROPIUM (NEB) 3 ML AMP HHN SCH ×5 (00:36→16:35)
[2017-04-27 02:00] VITALS: BP 104/54; RESP 18
[2017-04-27] MEDS: METHIMAZOLE 5 MG TAB PO SCH (05:46)
[2017-04-27 07:53] VITALS: BP 110/56; RESP 17
[2017-04-27] MEDS: APIXABAN 5 MG TABLET PO SCH (09:51)
[2017-04-27] MEDS: TIOTROPIUM 18 MCG CAPSULE INHA DEV INH SCH (09:51)
[2017-04-27] MEDS: DILTIAZEM (CD) 240 MG CAP PO SCH (09:52)
[2017-04-27] MEDS: FLUCONAZOLE 100 MG TAB PO SCH (09:52)
[2017-04-27] MEDS: BICALUTAMIDE 50 MG TAB PO SCH (09:53)
[2017-04-27] MEDS: GUAIFENESIN LA 600 MG TABSR PO SCH (09:53)
[2017-04-27] MEDS: DOCUSATE SODIUM 100 MG CAP PO SCH (09:53)
[2017-04-27] MEDS: TIMOLOL BOTH EYES SCH (09:54)
[2017-04-27] MEDS: DORZOLAMIDE BOTH EYES SCH (09:54)
[2017-04-27] MEDS: SALMETEROL/FLUTICASONE 250/50 INHA INH SCH (09:54)
[2017-04-27] MEDS: BALSAM PERU/CASTOR OIL 60 GM TUBE TOP SCH (09:55)
--- NOTE | 2017-04-27 12:04 | CONS ---
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 Explained to patient and regarding importance of long-standing treatment. Explained that patients complications including atrial fibrillation likely due to long-standing nontreated thyrotoxicosis. and patient understand that antithyroid medication is required and agreed to continue this. Continue methimazole 20 mg p.o. daily following discharge. Understand that follow-up is also required and will make follow-up appointment with our office in 6-8 weeks. Consultation Date/Type/Reason Admit Date/Time Apr 16, 2017 at 20:39 Date of Consultation: Apr 27, 2017 Type of Consultation: Endocrinology Reason for Consultation Thyrotoxicosis Referring Provider: BERYL PEARL NP Hx of Present Illness 77-year-old male with a history of hypertension, hyperthyroidism, paroxysmal atrial fibrillation, pulmonary hypertension, metastatic prostate cancer, and a severe COPD on home oxygen who presented to the ER complaining of shortness of breath and productive cough, found to be septic secondary to hospital-acquired pneumonia. Admitted and treated. While here was realized that the patient was not getting his recommended methimazole. This was restarted yesterday. However today, now that the patient is ready for discharge, the patient refused to take methimazole. Patient and have questions about ongoing treatment. Endocrinology consulted to see patient prior to discharge. Constitutional: improved, no complaints Eyes: no complaints ENT: no complaints Respiratory: no complaints Cardiovascular: no complaints Gastrointestinal: no complaints Genitourinary: no complaints Musculoskeletal: no complaints Neurologic: no complaints Psychological: anxiety Past Medical History Medical History: cancer (Prostate), congestive heart failure, hypertension, hyperthyroid, other (Atrial fibrillation, COPD, pulmonary hypertension) Past Surgical History Past Surgical Hx: noncontributory Family History Significant Family History: no pertinent family hx Social History Born in [facility], lives here now, Alcohol Use: none Smoking Status: Former smoker Drug Use: none Exam/Review of Systems Vital Signs Vitals VS - Last 72 Hours, by Label Date Time Temp Pulse Resp B/P Pulse Ox O2 Delivery O2 Flow Rate FiO2 04/27/17 08:46 98 2.0 04/27/17 08:46 67 14 98 Nasal Cannula 2.0 04/27/17 07:53 97.6 64 17 110/56 92 04/27/17 04:22 58 18 97 Nasal Cannula 2.0 04/27/17 04:22 97 2.0 04/27/17 02:00 97.9 62 18 104/54 93 04/27/17 00:37 97 2.0 04/27/17 00:37 57 20 97 Nasal Cannula 2.0 04/26/17 22:00 97.9 62 18 104/54 93 04/26/17 21:00 Nasal Cannula 2.0 04/26/17 20:47 97.9 61 18 112/54 94 04/26/17 20:22 97 2.0 04/26/17 20:22 58 18 97 Nasal Cannula 2.0 04/26/17 17:14 98 2.0 04/26/17 17:14 64 20 97 Nasal Cannula 2.0 04/26/17 14:11 98.1 56 19 130/62 94 04/26/17 13:50 98 2.0 04/26/17 13:50 64 18 97 Nasal Cannula 2.0 04/26/17 10:51 Nasal Cannula 2.0 04/26/17 09:46 98 2.0 04/26/17 07:51 97.8 62 17 117/60 96 04/26/17 04:58 63 18 97 Nasal Cannula 2.0 04/26/17 04:58 97 2.0 04/26/17 03:01 97.8 61 18 113/59 95 04/26/17 01:17 63 18 97 Nasal Cannula 2.0 04/26/17 01:17 2.0 04/25/17 21:20 64 20 98 Nasal Cannula 2.0 04/25/17 21:20 2.0 04/25/17 21:00 Nasal Cannula 2.0 04/25/17 20:36 98.4 61 20 111/71 97 04/25/17 17:15 60 20 96 Nasal Cannula 04/25/17 17:15 2.0 04/25/17 14:42 Nasal Cannula 2.0 04/25/17 14:19 98.1 59 16 113/56 93 04/25/17 13:59 2.0 04/25/17 13:59 57 20 96 Nasal Cannula 04/25/17 08:59 59 20 96 Nasal Cannula 2.0 04/25/17 08:59 2.0 04/25/17 08:14 97.8 61 18 115/58 95 04/25/17 04:30 61 18 96 Nasal Cannula 2.0 04/25/17 03:00 97.5 58 16 119/57 95 04/25/17 00:33 59 18 97 Nasal Cannula 2.0 04/25/17 00:33 2.0 04/24/17 21:32 Nasal Cannula 2.0 04/24/17 20:44 2.0 04/24/17 20:44 58 18 98 Nasal Cannula 2.0 04/24/17 20:11 98.1 60 16 108/57 96 04/24/17 17:02 2.0 04/24/17 17:00 59 18 95 Nasal Cannula 2.0 04/24/17 14:00 98.3 63 20 120/68 97 04/24/17 13:12 63 18 92 21 Vital Signs Date Time Temp Pulse Resp B/P Pulse Ox O2 Delivery O2 Flow Rate FiO2 04/27/17 08:46 98 2.0 04/27/17 08:46 67 14 Nasal Cannula 04/27/17 07:53 97.6 110/56 04/24/17 13:12 21 Intake and Output 04/26/17 04/26/17 04/27/17 15:00 23:00 07:00 Intake Total 720 ml 240 ml Balance 720 ml 240 ml Exam Constitutional: alert, frail (Noted temporal and thenar wasting), oriented Psych: nl mood/affect, no complaints Eyes: EOMI, PERRL, nl conjunctiva, nl lids, nl sclera ENMT: mucosa pink and moist, nl external ears & nose Neck: non-tender, supple, No bruits, No masses, No thyromegaly Respiratory: clear to auscultation, normal air movement Cardiovascular: nl pulses, regular rate and rhythm, No edema, No murmurs/extra sounds, No rub Gastrointestinal: bowel sounds, nl liver, spleen, non-tender, soft, No mass, No rebound or guarding Musculoskeletal: nl extremities to inspection Extremities: normal pulses, No clubbing, No cyanosis, No edema Neurological: CAKE MIXER II-XII intact, nl mental status, nl speech, nl strength Results Result Diagram: 04/23/17 0557 04/23/17 0557 Medications Medications Current Medications Lorazepam (Ativan) 0.5 mg Q8H PRN PO ANXIETY; Start 04/17/17 at 05:30 Ondansetron HCl (Zofran Inj) 4 mg Q6H PRN IV NAUSEA AND/OR VOMITING; Start 05/24 at 05:30 Acetaminophen (Tylenol Tab) 650 mg Q6H PRN PO PAIN LEVEL 1-3 OR FEVER; Start 04/17/17 at 05:30 Morphine Sulfate (morphine) 2 mg Q4H PRN IV PAIN LEVEL 7-10; Start 04/17/17 at 05:30 Atorvastatin Calcium (Lipitor) 20 mg QHS PO Last administered on 04/26/17 22: 28; Admin Dose 20 MG; Start 04/17/17 at 21:00 Bicalutamide (Casodex) 50 mg DAILY PO Last administered on 04/27/17 09:53; Admin Dose 50 MG; Start 04/17/17 at 09:00 Digoxin (Digoxin) 0.25 mg DAILY@13 PO Last administered on 04/24/17 12:30; Admin Dose 0.25 MG; Start 04/17/17 at 13:00 Diltiazem HCl (Cardizem Cd) 240 mg DAILY PO Last administered on 04/27/17 09: 52; Admin Dose 240 MG; Start 04/17/17 at 09:00 Docusate Sodium (Colace) 100 mg DAILY PO Last administered on 04/27/17 09:53 ; Admin Dose 100 MG; Start 04/17/17 at 09:00 Salmeterol Xinafoate/ Fluticasone (Advair 250/50 Diskus) 1 inh BID INH Last administered on 04/27/17 09:54; Admin Dose 1 INH; Start 04/17/17 at 09:00 Senna (Senokot) 1 tab QHS PO Last administered on 04/26/17 22:28; Admin Dose 1 TAB; Start 04/17/17 at 21:00 Tiotropium [place] (Spiriva) 1 inh DAILY INH Last administered on 04/27/17 09 :51; Admin Dose 1 INH; Start 04/17/17 at 09:00 Apixaban (Eliquis) 5 mg BID PO Last administered on 04/27/17 09:51; Admin Dose 5 MG; Start 04/17/17 at 21:00 Guaifenesin (Mucinex) 600 mg BID PO Last administered on 04/27/17 09:53; Admin Dose 600 MG; Start 04/18/17 at 21:00 Albuterol/ Ipratropium (Duoneb) 3 ml Q4H HHN Last administered on 04/27/17 08 :46; Admin Dose 3 ML; Start 04/18/17 at 17:00 Non-Formulary Medication 1 ea BID BOTH EYES Last administered on 04/27/17 09: 54; Admin Dose 1 EA; Start 04/18/17 at 22:00 Fluconazole (Diflucan) 100 mg DAILY PO Last administered on 04/27/17 09:52; Admin Dose 100 MG; Start 04/20/17 at 09:00 Bimatoprost (Lumigan 0.01% Oph) 1 drop HS BOTH EYES Last administered on 22:28; Admin Dose 1 DROP; Start 04/22/17 at 21:00 Methimazole (Tapazole) 20 mg DAILY@06 PO Last administered on 04/26/17 05:22 ; Admin Dose 20 MG; Start 04/26/17 at 06:00 JADE COFFEY MD Apr 27, 2017 12:04
[2017-04-27] MEDS: DIGOXIN 0.25 MG TAB PO SCH (12:27)
[2017-04-27 14:10] VITALS: BP 104/57; RESP 17
--- NOTE | 2017-04-27 17:03 | CONS ---
Date/Time of Note Date/Time of Note DATE: 04/27/17 TIME: 16:59 Consult Date/Type/Reason Admit Date/Time Apr 16, 2017 at 20:39 Initial Consult Date 04/27/17 Type of Consultation: Pulm Ordering Provider: BERYL PEARL [employer] Subjective Doing better; ambulating Objective Vital Signs Date Time Temp Pulse Resp B/P Pulse Ox O2 Delivery O2 Flow Rate FiO2 04/27/17 16:35 96 2.0 04/27/17 16:35 64 22 Nasal Cannula 04/27/17 14:10 98.3 104/57 04/24/17 13:12 21 Intake and Output 04/26/17 04/26/17 04/27/17 15:00 23:00 07:00 Intake Total 720 ml 240 ml Balance 720 ml 240 ml Exam HEENT: Neck supple; no JVD; no LAD CVS: RRR, S1 and S2 CHEST: Decreased BS ABD: Soft, NT, + BS EXT: No c/c/e Results/Medications Result Diagram: 04/23/17 0557 04/23/17 0557 Medications Current Medications Lorazepam (Ativan) 0.5 mg Q8H PRN PO ANXIETY; Start 04/17/17 at 05:30 Ondansetron HCl (Zofran Inj) 4 mg Q6H PRN IV NAUSEA AND/OR VOMITING; Start 05/24 at 05:30 Acetaminophen (Tylenol Tab) 650 mg Q6H PRN PO PAIN LEVEL 1-3 OR FEVER Last administered on 04/27/17 15:33; Admin Dose 650 MG; Start 04/17/17 at 05:30 Morphine Sulfate (morphine) 2 mg Q4H PRN IV PAIN LEVEL 7-10; Start 04/17/17 at 05:30 Atorvastatin Calcium (Lipitor) 20 mg QHS PO Last administered on 04/26/17 22: 28; Admin Dose 20 MG; Start 04/17/17 at 21:00 Bicalutamide (Casodex) 50 mg DAILY PO Last administered on 04/27/17 09:53; Admin Dose 50 MG; Start 04/17/17 at 09:00 Digoxin (Digoxin) 0.25 mg DAILY@13 PO Last administered on 04/27/17 12:27; Admin Dose 0.25 MG; Start 04/17/17 at 13:00 Diltiazem HCl (Cardizem Cd) 240 mg DAILY PO Last administered on 04/27/17 09: 52; Admin Dose 240 MG; Start 04/17/17 at 09:00 Docusate Sodium (Colace) 100 mg DAILY PO Last administered on 04/27/17 09:53 ; Admin Dose 100 MG; Start 04/17/17 at 09:00 Salmeterol Xinafoate/ Fluticasone (Advair 250/50 Diskus) 1 inh BID INH Last administered on 04/27/17 09:54; Admin Dose 1 INH; Start 04/17/17 at 09:00 Senna (Senokot) 1 tab QHS PO Last administered on 04/26/17 22:28; Admin Dose 1 TAB; Start 04/17/17 at 21:00 Tiotropium [place] (Spiriva) 1 inh DAILY INH Last administered on 04/27/17 09 :51; Admin Dose 1 INH; Start 04/17/17 at 09:00 Apixaban (Eliquis) 5 mg BID PO Last administered on 04/27/17 09:51; Admin Dose 5 MG; Start 04/17/17 at 21:00 Guaifenesin (Mucinex) 600 mg BID PO Last administered on 04/27/17 09:53; Admin Dose 600 MG; Start 04/18/17 at 21:00 Albuterol/ Ipratropium (Duoneb) 3 ml Q4H HHN Last administered on 04/27/17 16 :35; Admin Dose 3 ML; Start 04/18/17 at 17:00 Non-Formulary Medication 1 ea BID BOTH EYES Last administered on 04/27/17 09: 54; Admin Dose 1 EA; Start 04/18/17 at 22:00 Fluconazole (Diflucan) 100 mg DAILY PO Last administered on 04/27/17 09:52; Admin Dose 100 MG; Start 04/20/17 at 09:00 Bimatoprost (Lumigan 0.01% Oph) 1 drop HS BOTH EYES Last administered on 22:28; Admin Dose 1 DROP; Start 04/22/17 at 21:00 Methimazole (Tapazole) 20 mg DAILY@06 PO Last administered on 04/26/17 05:22 ; Admin Dose 20 MG; Start 04/26/17 at 06:00 Assessment/Plan Additional Assessment/Plan IMP: 1. COPD exacerbation 2. Multifocal pna/infectious bronchiolitis 3. Mass-like density in right lung--? pna vs. pseudotumor vs. tumor 4. Bronchiectatic disease RECS: 1. Home oxygen 2. BD's/CPT 3. Would benefit from the Vest chest percussion at [facility] 4. Repeat CT chest in 4-6 weeks 5. F/U Dr. Castellano in 5 days FABRICIO SOMMERS MD Apr 27, 2017 17:02
--- NOTE | 2017-04-27 18:28 | DS ---
Date/Time of Note Date/Time of Note DATE: 04/27/17 TIME: 18:28 Discharge Summary Admission/Discharge Info Admit Date/Time Apr 16, 2017 at 20:39 Discharge Date/Time Apr 27, 2017 at 18:12 Discharge Diagnosis 1. Right upper lobe pneumonia pneumonia. 2. Chronic obstructive pulmonary disease. 3. Hyperthyroidism. 4. Paroxysmal atrial fibrillation. 5. Essential hypertension. 6. Pulmonary hypertension. 7. History of metastatic prostate cancer. Patient Condition: Stable Consults 1. Armond Benavides MD, Pulmonology. 2. Sylvain Burns MD, Endocrinology. Procedures Chest CT IMPRESSION: 1. Severe emphysematous changes bilaterally. 2. Larger density in the right upper lobe inferiorly laterally consistent with pneumonia. New regions of pneumonia in the right lower lobe posteriorly and right perihilar region. Follow-up advised. 3. Bilateral pulmonary densities consistent with scarring similar to the prior study. 4. Atherosclerosis. 5. Benign left renal cysts. 6. Mild degenerative changes of the spine. Hx of Present Illness This is a 77-year-old male with a history of hypertension, hyperthyroidism, paroxysmal atrial fibrillation, pulmonary hypertension, metastatic prostate cancer, and severe COPD on home oxygen who presented to the ER complaining of shortness of breath and productive cough. The patient was admitted here and was discharged a week ago after he presented with same symptoms.After discharge, he said initially he was feeling better but started experiencing progressively worsening shortness of breath as well as cough, which has been productive of yellowish/brownish sputum. When he presented to the ER, he was febrile with a temperature of 101.3 and lab showed a WBC of 27.5. Chest x-ray showed Right lung base patchy air space disease, which may represent pneumonia in setting of sepsis and loculated pleural effusion at the right lung base. Hospital Course The patient has chronic COPD and he uses home O2. Provided the patient's history of present illness and his comorbidities, a clinical decision was made to admit the patient to inpatient setting to have him further evaluated. The patient's chest CT scan showed larger density in the right upper lobe inferiorly laterally consistent with pneumonia along with new regions of pneumonia in the right lower lobe posteriorly and right perihilar region. The patient was admitted to inpatient setting. The patient was started on inhaled bronchodilators. The patient was started on appropriate antibiotics. Pulmonology was following the patient. The patient's symptomatology improved with the treatment strategy. The patient has underlying COPD. He was maintained on supplemental oxygen and inhaled bronchodilators. The patient has underlying hyperthyroidism. The patient was evaluated by endocrinology during his current visit to [facility]. The patient was maintained on methimazole. The patient has history of paroxysmal atrial fibrillation. He was maintained on digoxin and Cardizem. The patient was maintained on apixaban for stroke prophylaxis. The patient was maintained on antihypertensives for his underlying essential hypertension. The patient also has history of pulmonary hypertension as evidenced by a PA systolic pressure 44 as on 2D echocardiogram done in October 2016. The patient was maintained on supplemental oxygen. He also has history of metastatic prostate cancer. He was maintained on bicalutamide. The patient had a stable hospital course. The patient was cleared by consultants to be discharged home. The patient denied any complaints at the time of discharge. DISPOSITION/PLAN: The patient will be discharged home today. The patient was instructed to resume his home medications. The patient was instructed take a regular diet. The patient was instructed to resume activities as tolerated. The patient was instructed to follow up with Dr. Castellano as scheduled. He was instructed to follow-up with outpatient endocrinology. The patient verbalized understanding of his discharge instructions. At this time I would like to thank all the consultants for seeing the patient and providing clinical recommendations. Case discussed with Dr. Kan. Home Meds Active Scripts Albuterol Sulfate* (Proair HFA*) 8.5 Gm Hfa.aer.ad, 2 PUFF INH Q4 for SHORTNESS OF BREATH, #1 INHALER Prov:BERYL PEARL NP 04/25/17 Methimazole* (Methimazole*) 10 Mg Tablet, 20 MG PO DAILY, #60 TAB Take this 2 tablets(10X2 = 20 mg) daily before breakfast. Prov:BERYL PEARL NP 04/25/17 Apixaban* (Eliquis*) 5 Mg Tablet, 5 MG PO BID, #60 TAB Prov:BERYL PEARL NP 04/25/17 Reported Medications Salmeterol Xinaf/Fluticasone* (Advair*) 250-50 Diskus Inhaler, 1 INH INHALATION BID, #1 INHALER 04/16/17 Bicalutamide* (Bicalutamide*) 50 Mg Tablet, 50 MG PO DAILY, TAB 04/01/17 Sennosides* (Senna Lax*) 8.6 Mg Tablet, 1 TAB PO QHS, TAB 10/10/16 Docusate Sodium (Col-Rite) 100 Mg Capsule, 100 MG PO DAILY, CAP 10/10/16 Diltiazem Hcl* (Diltiazem XT) 240 Mg Capsule.er, 240 MG PO DAILY, #30 CAP 10/10/16 Atorvastatin Calcium* (Atorvastatin Calcium*) 20 Mg Tablet, 20 MG PO QHS, #30 TAB 10/10/16 Bimatoprost* (Lumigan*) 2.5 Ml Drops, 1 DROP BOTH EYES HS 12/19/13 Dorzolamide/Timolol* (Dorzolamide/Timolol*) 10 Ml Drops, 1 DROP BOTH EYES BID, EA 12/19/13 Tiotropium [place]* (Spiriva*) 18 Mcg Cap.w.dev, 1 INH IH DAILY, EA 12/19/13 Digoxin* (Digox*) 250 Mcg Tablet, 250 MCG PO DAILY 12/19/13 Discontinued Reported Medications [Lupron] No Conflict Check, Q3MONT. 04/16/17 Follow-up Plan Gareth Castellano MD Specialty: Critical Care Medicine/ Pulmonary Medicine Office Address [address] [facility] [facility] [place] [address] Office Sylvain Burns MD Specialty Endocrinology Office Address [address] [facility] [address] [place] [address] Office Primary Care Provider Not On Staff Doctor Time spent on discharge: > 30 minutes BERYL PEARL NP Apr 27, 2017 18:28
== END 2017-04-27 18:12 | disposition home health service (06) | DRG 871 ==
LOC: E/R 19:19 → MS3 20:39 → PP2 04-18 20:20
PROVIDERS: ADMIT Internal Medicine; ATTEND Internal Medicine
DX: A41.9 Sepsis, unspecified organism (principal); J18.9 Pneumonia, unspecified organism; C79.9 Secondary malignant neoplasm of unspecified site; C61 Malignant neoplasm of prostate; I27.20 Pulmonary hypertension, unspecified; J44.1 Chronic obstructive pulmonary disease with (acute) exacerbation; Z68.1 Body mass index [BMI] 19.9 or less, adult; R65.20 Severe sepsis without septic shock; Z87.891 Personal history of nicotine dependence; Z51.5 Encounter for palliative care; Z79.02 Long term (current) use of antithrombotics/antiplatelets; E05.90 Thyrotoxicosis, unspecified without thyrotoxic crisis or storm
CPT/HCPCS: 36415; 71010; 71250; 80048; 80053; 80202; 81001; 83605; 83735; 84100; 84484; 85025; 85610; 85730; 87040; 87070; 87086; 90686; 93005; 94640; 94664; 94667; 94668; 96365; 96366; 96375; J0692; J1644; J2543; J3370; J7030; J7050

== ENCOUNTER 2017-10-01 03:28 | Inpatient (IN) | END 2017-10-03 18:55 | disposition home or self-care (01) | DRG 871 ==

== ENCOUNTER 2017-10-05 18:32 | Inpatient (IN) | END 2017-10-15 18:40 | disposition home or self-care (01) | DRG 871 ==

== ENCOUNTER 2018-12-06 09:35 | Inpatient (IN) | payer MEDICARE, OTHER ==
[~2018-12-06] VITALS: Ht 175.3 cm; Wt 85.0 kg
[~2018-12-06 09:35] MED LIST changes: -ADV25050 INH; +ADV25050 INHALATION; +ALBU8.5H8 INH; -ATOR20TA38 PO; -AZIT500T2 PO; -BICA50TA4 PO; +BICA50TA47 PO; -DIGO250T16 PO; +FLUC200T PO; -GUAI-637 PO; -HYDR-3498 PO; +IPRA3AMP29 INHALATION; -LEVO500T10 PO; -MED4DP PO; +METH10TA5 PO; +MONT10TA21 PO; +PRED10TA PO; -PROP50TA2 PO; +SENN-120 PO; -SENN-53 PO
[2018-12-06] MEDS ORDERED: CEFEPIME 2GM/50 ML (PMX) 50 ML IVPB STA (09:46)
[2018-12-06] MEDS ORDERED: VANCOMYCIN 1 GM (PMX) 250 ML IVPB ONE (10:00)
[2018-12-06] MEDS ORDERED: ONDANSETRON 4 MG INJ IV PRN ×2 (10:00→13:00)
[2018-12-06] MEDS ORDERED: ACETAMINOPHEN 325 MG TAB PO PRN (10:00)
[2018-12-06] MEDS ORDERED: CYAN50TA PO (11:40)
[2018-12-06] MEDS ORDERED: DILT120C62 ORAL (11:40)
[2018-12-06] MEDS ORDERED: DORZ10DR5 BOTH EYES (11:40)
[2018-12-06] MEDS ORDERED: FLUT1BLS3 IH (11:40)
[2018-12-06] MEDS ORDERED: ROSU10TA26 ORAL (11:40)
[2018-12-06] MEDS ORDERED: BIMA2.5D BOTH EYES (11:40)
[2018-12-06] MEDS ORDERED: METH10TA5 PO (11:40)
[2018-12-06] MEDS ORDERED: APIX2.5T PO (11:40)
--- NOTE | 2018-12-06 12:24 | HP ---
Date/Time of Note Date/Time of Note DATE: 12/06/18 TIME: 12:24 Assessment/Plan VTE Prophylaxis Pharmacological prophylaxis: apixaban Lines/Catheters IV C[facility]ter Type (from [facility]): Saline Lock Assessment/Plan Hospital Course 78-year-old male with comorbidities including chronic respiratory failure dependent on home O2, COPD, hypothyroidism, paroxysmal atrial fibrillation, essential hypertension, pulmonary hypertension, and metastatic prostate cancer travis chapman is presenting to the emergency room as instructed by his industrial arts teacher with positive chest imaging showing infected right lower lobe bulla, who will be admitted to inpatient setting for further treatment and evaluation. 1. Infected right lower lobe bulla. -Start the patient on antimicrobials including coverage for Pseudomonas. -Obtain a pulmonology consult. -Obtain pancultures. 2. Chronic respiratory failure secondary to underlying COPD. -Continue supplemental oxygen. -Continue KEON and LABA. 3. Hypertension. -Resume antihypertensives. 4. Pulmonary hypertension. -Continue the patient on supplemental oxygen. 5. Paroxysmal atrial fibrillation. -Remains in sinus rhythm. -Continue apixaban for stroke prophylaxis. 6. History of metastatic prostate cancer. -Continue bicalutamide. Plan: The patient will be admitted to inpatient medical surgical floor. The patient will be started on a low-cholesterol diet. The patient will be started on DVT prophylaxis. The patient will remain a full code. Activities will be as tolerated. The rest of the patient's management will be based on the clinical course, inputs from consultants, and the results of diagnostic studies. Based on the patient's clinical presentation, he most probably requires at least 2 midnights' stay for further management and evaluation of his clinical presentation. The patient was seen in collaboration with Dr. Bangura. Result Diagram: 12/06/18 1004 12/06/18 1003 Results 24hrs Laboratory Tests Test 12/06/18 10:03 12/06/18 10:04 12/06/18 10:09 Prothrombin Time 14.5 Prothrombin Time Ratio 1.1 INR International Normalized Ratio 1.12 Activated Partial Thromboplast Time 35.1 H Sodium Level 140 Potassium Level 3.8 Chloride Level 101 Carbon Dioxide Level 31 Anion Gap 8 Blood Urea Nitrogen 17 Creatinine 1.11 Est Glomerular Filtrat Rate mL/min Glucose Level 102 Calcium Level 8.9 Total Bilirubin 0.7 Direct Bilirubin 0.00 Indirect Bilirubin 0.7 Aspartate Amino Transf (AST/SGOT) 16 Alanine Aminotransferase (ALT/SGPT) 19 Alkaline Phosphatase 67 Troponin I < 0.012 Total Protein 7.4 Albumin 4.0 Globulin 3.40 H Albumin/Globulin Ratio 1.17 White Blood Count 14.7 #H Red Blood Count 4.01 L Hemoglobin 11.3 L Hematocrit 37.0 L Mean Corpuscular Volume 92.3 Mean Corpuscular Hemoglobin 28.2 L Mean Corpuscular Hemoglobin Concent 30.5 L Red Cell Distribution Width 13.1 Platelet Count 366 # Mean Platelet Volume 9.3 Immature Granulocytes % 0.500 H Neutrophils % 81.2 H Lymphocytes % 8.4 L Monocytes % 8.9 Eosinophils % 0.7 Basophils % 0.3 Nucleated Red Blood Cells % 0.0 Immature Granulocytes # 0.070 H Neutrophils # 12.0 H Lymphocytes # 1.2 Monocytes # 1.3 H Eosinophils # 0.1 Basophils # 0.0 Nucleated Red Blood Cells # 0.0 POC Venous Lactate 1.6 HPI/ROS Admit Date/Time Admit Date/Time Hx of Present Illness Reason for admission: Referred by industrial arts teacher for abnormal chest CT scan. Consultants 1. Pulmonology. 2. Infectious Diseases. This is a 78-year-old male with chronic respiratory failure dependent on home O2 secondary to chronic obstructive pulmonary disease, hypothyroidism, paroxysmal atrial fibrillation, essential hypertension, pulmonary hypertension, and a history of metastatic prostate cancer. The patient has been having frequent cough with sputum production for the past few days. Therefore, the patient went to see his industrial arts teacher on 12/04/2018 and the industrial arts teacher recommended obtaining a chest CT scan. The patient underwent a chest CT scan on 12/05/2018. The patient got the results of the CT scan on 12/05/2028 late in the evening that showed findings concerning for a large infected bulla with an air-fluid level in the right lower lobe. The patient also had a sputum sample obtained at the doctor's office on 12/04/2018, that was inconclusive. The patient denied any fe vers or chills. The patient was complaining of right-sided pleuritic chest pain that the patient has chronically. He was complaining of some nausea and epigastric pain. Denied any vomiting. Denied any diarrhea. Denied any dysuria. In the ER, the patient was noted to have leukocytosis (14.7). The patient was afebrile. The patient's chest x-ray was re-demonstrating an infected bulla in the right lower lobe. The patient was treated with a single dose of IV cefepime and vancomycin in the emergency room. ROS Constitutional: no complaints Eyes: no complaints ENT: no complaints Respiratory: cough, pleuritic pain, shortness of breath, sputum Cardiovascular: no complaints Gastrointestinal: pain, nausea Genitourinary: no complaints Musculoskeletal: other (Right shoulder) Skin: no complaints Neurologic: no complaints Endocrine: no complaints Lymphatic: no complaints Psychological: no complaints Immunologic: no complaints PMH/Family/Social Past Medical History 1. Chronic respiratory failure dependent on home O2. 2. Chronic obstructive pulmonary disease. 4. Hyperthyroidism. 5. Paroxysmal atrial fibrillation. 6. Essential hypertension. 7. Pulmonary hypertension. 8. History of metastatic prostate cancer. Medications Current Medications Ondansetron HCl (Zofran Inj) 4 mg BRIDGE ORDER PRN IV NAUSEA/VOMITING Last administered on 12/06/18at 10:21; Admin Dose 4 MG; Start 12/06/18 at 10:00; Stop 12/07/18 at 09:59 Acetaminophen (Tylenol Tab) 650 mg ER BRIDGE PRN PO .MILD PAIN 1-3 OR TEMP; Start 12/06/18 at 10:00; Stop 12/07/18 at 09:59 Coded Allergies: No Known Allergy (Unverified , 12/06/18) Past Surgical History Past Surgical Hx: other (Prostatectomy) Family History Significant Family History: no pertinent family hx Social History Smoking Status: Former smoker Exam/Review of Systems Vital Signs Vitals Vital Signs Date Temp Pulse Resp B/P (MAP) Pulse Ox O2 O2 Flow FiO2 Time Delivery Rate 12/06/18 98.8 91 30 129/76 95 Nasal 3.0 11:25 (93) Cannula Exam Exam General: Adequately build 70 year-old male lying in bed in mild respiratory distress. HEENT: Normocephalic, atraumatic. Eyes: Anicteric sclerae, conjunctivae clear. ENT: Nasal septum midline, oral mucosa moist. Neck supple, no JVD noticed. Respiratory: Bilaterally diminished breath sounds. Poor air entry bilaterally. On O2 via NC. Cardiovascular: S1, S2 heard. Regular rate and rhythm. Abdomen: Soft, nontender, and nondistended. Bowel sounds positive in all 4 quadrants. Genitourinary: Deferred. Extremities: No cyanosis no edema. Peripheral pulses palpable. Neurologic: Cranial nerves II through XII grossly intact. The patient is awake, alert, and oriented. Skin: Normal skin turgor. No skin rashes. Additional Comments CT Chest on 12/05/2018 (from outside facility) Impression: Findings concerning for a large infected bulla with an air-fluid level in the right lower lobe. CXR IMPRESSION: Severe emphysema with chronic interstitial lung disease. Infected bulla right lower lobe. 12-Lead EKG Normal sinus rhythm. BERYL PEARL NP Dec 06, 2018 12:24
--- NOTE | 2018-12-06 12:53 | ERD ---
ER Documentation Chief Complaint Chief Complaint has copd, on 4 liters at home , sob worsen x 2 weeks HPI Patient is a 78-year-old male with COPD, hypertension, and arrhythmia who presents for shortness of breath and hypoxia. The patient had an outpatient CT scan done yesterday which shows a large air-fluid level in the lung. The patient was sent for admission by Dr. Castellano the repeater operator. The patient had shortness of breath and low oxygen saturation and is on home O2. 2 weeks ago the patient was coughing up mucus with bloody sputum. The patient does have a primary doctor as well. ROS All systems reviewed and are negative except as per history of present illness. Medications Home Meds Active Scripts Prednisone* (Prednisone*) 10 Mg Tab, 10 MG PO DAILY, #30 TAB Prov:BREONNA SILVESTREVINICIUS Fermin LEAD PROJECT ENGINEER 10/16/17 Reported Medications Bimatoprost* (Lumigan*) 0.01%-2.5 Ml Opht Drops, 1 DROP BOTH EYES HS, EA 12/06/18 Dorzolamide Hcl* (Dorzolamide Hcl*) 10 Ml Drops, 1 DROP BOTH EYES TID, #1 EA 12/06/18 Rosuvastatin Calcium (Rosuvastatin Calcium) 10 Mg Tablet, 1 TAB ORAL DAILY 12/06/18 Cyanocobalamin* (Vitamin B-12*) 50 Mcg Tablet, 50 MCG PO DAILY, TAB 12/06/18 Methimazole* (Methimazole*) 10 Mg Tablet, 10 MG PO TID, TAB 12/06/18 Diltiazem Hcl* (Cartia XT*) 120 Mg Cap.sr.24h, 1 CAP ORAL DAILY 12/06/18 Apixaban* (Eliquis*) 2.5 Mg Tablet, 2.5 MG PO BID, TAB 12/06/18 Fluticasone/Umeclidin/Vilanter (Trelegy Ellipta 100-62.5-25) 1 Each Blst.w.dev, 1 EACH IH DAILY 12/06/18 Bicalutamide* (Bicalutamide*) 50 Mg Tablet, 50 MG PO DAILY, TAB 04/01/17 Discontinued Reported Medications Salmeterol Xinaf/Fluticasone* (Advair*) 250-50 Diskus Inhaler, 1 INH INHALATION BID, #1 INHALER 04/16/17 Sennosides* (Senna Lax*) 8.6 Mg Tablet, 1 TAB PO QHS, TAB 10/10/16 Docusate Sodium (Col-Rite) 100 Mg Capsule, 100 MG PO DAILY, CAP 10/10/16 Diltiazem Hcl* (Diltiazem XT) 240 Mg Capsule.er, 240 MG PO DAILY, #30 CAP 10/10/16 Bimatoprost* (Lumigan*) 2.5 Ml Drops, 1 DROP BOTH EYES HS 12/19/13 Dorzolamide/Timolol* (Dorzolamide/Timolol*) 10 Ml Drops, 1 DROP BOTH EYES BID, EA 12/19/13 Tiotropium [place]* (Spiriva*) 18 Mcg Cap.w.dev, 1 INH IH DAILY, EA 12/19/13 Discontinued Scripts Ipratropium-Albuterol (Ipratropium-Albuterol) 0.5-3 Mg/3 Ml Ampul.neb, 3 ML INHALATION QID for 30 Days, #30 VIAL Provide patient with 30 day supply of medication with nebulizer#1 Prov:NGOC SILVESTRE NP 10/15/17 Fluconazole* (Diflucan*) 200 Mg Tablet, 200 MG PO DAILY for 3 Days, #3 TAB Prov:NGOC SILVESTRE V. [employer]AD PROJECT ENGINEER 10/14/17 Prednisone* (Prednisone*) 10 Mg Tab, 10 MG PO DAILY, #30 TAB Prov:NGOC SILVESTRE V. LEAD PROJECT ENGINEER 10/14/17 Montelukast Sodium* (Singulair*) 10 Mg Tablet, 10 MG PO QHS, #30 TAB Prov:NGOC SILVESTRE NP 10/03/17 Albuterol Sulfate* (Proair HFA*) 8.5 Gm Hfa.aer.ad, 2 PUFF INH Q4 for SHORTNESS OF BREATH, #1 INHALER Prov:BERYL PEARL NP 04/25/17 Methimazole* (Methimazole*) 10 Mg Tablet, 20 MG PO DAILY, #60 TAB Take this 2 tablets(10X2 = 20 mg) daily before breakfast. Prov:BERYL PEARL NP 04/25/17 Apixaban* (Eliquis*) 5 Mg Tablet, 5 MG PO BID, #60 TAB Prov:BERYL PEARL NP 04/25/17 Allergies Allergies: Coded Allergies: No Known Allergy (Unverified , 12/06/18) PMhx/Soc History of Surgery: Yes (PROSTECTOMY) Anesthesia Reaction: No Hx Neurological Disorder: No Hx Respiratory Disorders: Yes (COPD) Hx Cardiac Disorders: Yes (HTN, ARRYTHMIA) Hx Psychiatric Problems: No Hx Miscellaneous Medical Probl: Yes (PROSTATE CA ON CHEMO) Hx Alcohol Use: No Hx Substance Use: No Hx Tobacco Use: Yes Smoking Status: Former smoker FmHx Family History: No diabetes Physical Exam Vitals Vital Signs Date Temp Pulse Resp B/P (MAP) Pulse Ox O2 O2 Flow FiO2 Time Delivery Rate 12/06/18 98.8 91 30 129/76 95 Nasal 3.0 11:25 (93) Cannula 12/06/18 Nasal 3 10:15 Cannula 12/06/18 Nasal 3.0 10:00 Cannula 12/06/18 98.8 99 24 169/74 89 09:40 (105) Physical Exam Const: Moderate distress Head: Atraumatic Eyes: Normal Conjunctiva ENT: Normal External Ears, Nose and Mouth. Neck: Full range of motion. No meningismus. Resp: Decreased breath sounds bilaterally Cardio: Regular rate and rhythm, no murmurs Abd: Soft, non tender, non distended. Normal bowel sounds Skin: No petechiae or rashes Back: No midline or flank tenderness Ext: No cyanosis, or edema Neur: Awake and alert Psych: Normal Mood and Affect Result Diagram: 12/06/18 1004 12/06/18 1003 Results 24 hrs Laboratory Tests Test 12/06/18 10:03 12/06/18 10:04 12/06/18 10:09 12/06/18 11:20 Prothrombin Time 14.5 Sec Prothrombin Time 1.1 Ratio INR International 1.12 Normalized Ratio Activated 35.1 Sec Partial Thrombopl ast Time Sodium Level 140 mmol/L Potassium Level 3.8 mmol/L Chloride Level 101 mmol/L Carbon Dioxide 31 mmol/L Level Anion Gap 8 Blood Urea 17 mg/dl Nitrogen Creatinine 1.11 mg/dl Est Glomerular mL/min Filtrat Rate mL/min Glucose Level 102 mg/dl Calcium Level 8.9 mg/dl Total Bilirubin 0.7 mg/dl Direct Bilirubin 0.00 mg/dl Indirect 0.7 mg/dl Bilirubin Aspartate Amino 16 IU/L Transf (AST/SGOT) Alanine 19 IU/L Aminotransferase (ALT/SGPT) Alkaline 67 IU/L Phosphatase Troponin I < 0.012 ng/ml Total Protein 7.4 g/dl Albumin 4.0 g/dl Globulin 3.40 g/dl Albumin/Globulin 1.17 Ratio White Blood Count 14.7 10^3/ul Red Blood Count 4.01 10^6/ul Hemoglobin 11.3 g/dl Hematocrit 37.0 % Mean Corpuscular 92.3 fl Volume Mean Corpuscular 28.2 pg Hemoglobin Mean Corpuscular 30.5 g/dl Hemoglobin Concen t Red Cell 13.1 % Distribution Width Platelet Count 366 10^3/UL Mean Platelet 9.3 fl Volume Immature 0.500 % Granulocytes % Neutrophils % 81.2 % Lymphocytes % 8.4 % Monocytes % 8.9 % Eosinophils % 0.7 % Basophils % 0.3 % Nucleated Red 0.0 /100WBC Blood Cells % Immature 0.070 10^3/ul Granulocytes # Neutrophils # 12.0 10^3/ul Lymphocytes # 1.2 10^3/ul Monocytes # 1.3 10^3/ul Eosinophils # 0.1 10^3/ul Basophils # 0.0 10^3/ul Nucleated Red 0.0 10^3/ul Blood Cells # POC Venous 1.6 mmol/L Lactate Urine Color YELLOW Urine Clarity SLIGHTLY CLOUDY Urine pH 5.0 Urine Specific 1.020 [place] Urine Ketones NEGATIVE mg/dL Urine Nitrite NEGATIVE mg/dL Urine Bilirubin NEGATIVE mg/dL Urine 2+ mg/dL Urobilinogen Urine Leukocyte NEGATIVE Maiet/ul Esterase Urine Microscopic 2 /HPF RBC Urine Microscopic 4 /HPF WBC Urine Mucus MODERATE /HPF Urine Hemoglobin NEGATIVE mg/dL Urine Glucose NEGATIVE mg/dL Urine Total 1+ mg/dl Protein Current Medications Medications Dose Sig/Pily Start Time Status Last (Trade) Ordered Route PRN Stop Time Admin Dose Reason Admin Cefepime HCl 50 ml @ ONCE STAT 12/06/18 DC 12/06/18 100 mls/hr IVPB 09:46 12/06/18 10:21 10:15 Vancomycin 250 ml @ ONCE ONCE 12/06/18 DC 12/06/18 HCl 125 mls/hr IVPB 10:00 12/06/18 11:13 11:59 Ondansetron 4 mg BRIDGE ORDER 12/06/18 12/06/18 HCl (Zofran PRN IV 10:00 12/07/18 10:21 Inj) NAUSEA/VOMITI 09:59 NG 650 mg ER BRIDGE 12/06/18 Acetaminophen PRN PO 10:00 12/07/18 (Tylenol .MILD PAIN 09:59 Tab) 1-3 OR TEMP IV Flush 3 ml PER 12/06/18 (NS 3 ml) PROTOCOL IV 13:00 Ondansetron 4 mg Q6H PRN 12/06/18 HCl (Zofran IV 13:00 Inj) NAUSEA/VOMITI NG 650 mg Q6H PRN 12/06/18 Acetaminophen PO .PAIN 1-3 13:00 (Tylenol OR TEMP Tab) 1 tab Q6H PRN 12/06/18 Acetaminophen PO .PAIN 4-6 13:00 / Hydrocodone Bitart ([place] (5/325)) Cefepime HCl 50 ml @ Q12 IVPB 12/06/18 UNV 100 mls/hr 21:00 Vancomycin VANCOMYCIN PER 12/06/18 UNV HCl (Vanco PER PHARMACY PROTOCOL XX 13:00 Iv Per Pharmacy) Apixaban 2.5 mg BID PO 12/06/18 UNV (Eliquis) 21:00 50 mg DAILY PO 12/07/18 UNV Bicalutamide 09:00 (Casodex) Bimatoprost 1 drop HS BOTH 12/06/18 UNV (Lumigan EYES 21:00 0.01% Oph) 50 mcg DAILY PO 12/07/18 UNV Cyanocobalami 09:00 n (Vitamin B12) Dorzolamide 1 drop TID BOTH 12/06/18 UNV HCl EYES 13:00 (Trusopt) Methimazole 10 mg TID PO 12/06/18 UNV (Tapazole) 13:00 Procedures/MDM Chest x-ray shows infected right bulla per radiology. EKG read by me: Rate/Rhythm: Regular rate and rhythm at a normal rate Intervals: Normal Impression: No evidence of ischemia or arrhythmia Patient is a 78-year-old male presents for shortness of breath and hypoxia. The patient was found to have a large right-sided bulla which is infected. The patient was given broad-spectrum antibiotics and will possibly need procedure to drain this area. I doubt sepsis at this time. The patient will be admitted to the care of the panel team to a medical surgical inpatient bed. Departure Diagnosis: Primary Impression: Shortness of breath Additional Impressions: Empyema Hypoxia Condition: Serious KIAH LOPES MD Dec 06, 2018 12:52
[2018-12-06] MEDS ORDERED: HYDROCODONE/APAP (5/325) TAB PO PRN (13:00)
[2018-12-06] MEDS ORDERED: VANCOMYCIN IV PER PHARMACY XX SCH (13:00)
[2018-12-06] MEDS ORDERED: NACL 0.9% 3 ML SYG IV SCH (13:00)
[2018-12-06 13:25] VITALS: BP 153/74; PULSE 87; RESP 20
[2018-12-06 13:40] VITALS: Ht 175.3 cm; Wt 85.0 kg
[2018-12-06] MEDS: METHIMAZOLE 5 MG TAB PO SCH ×2 (14:30→21:00)
--- NOTE | 2018-12-06 14:56 | CONS ---
Assessment/Plan Assessment/Plan Assessment/Plan (Daily) IMP: 1. Infected RLL Bullae--in a patient with advanced COPD 2. Emphysema/COPD 3. Pulm HTN RECS: 1. BD's 2. O2 to keep SpO2 88-92% 3. De-escalate Abx 4. Would likely be okay with Unasyn IV; though would continue augmentin x 6 weeks as outpatient. Consultation Date/Type/Reason Admit Date/Time Date of Consultation: Dec 06, 2018 Type of Consult Pulm Reason for Consultation Infected bullae Date/Time of Note DATE: 12/06/18 TIME: 14:51 Hx of Present Illness Briefly, this is a 78-year-old male with advanced emphysema, chronic respiratory failure dependent on home O2 secondary, hypothyroidism, paroxysmal atrial fibrillation, essential hypertension, pulmonary hypertension, and a history of metastatic prostate cancer. The patient has been having frequent cough with sputum production for the past few days. Therefore, the patient went to see his change management lead on 12/04/2018 and the change management lead recommended obtaining a chest CT scan. The patient underwent a chest CT scan on 12/05/2018 with findings concerning for a large infected bulla within an air-fluid level in the right lower lobe. The patient denies any fevers or chills. The patient was complaini ng of right-sided pleuritic chest pain at that the patient has chronically. Constitutional: no complaints Eyes: no complaints ENT: no complaints Respiratory: no complaints, pleuritic pain, sputum Cardiovascular: no complaints Gastrointestinal: no complaints Genitourinary: no complaints Musculoskeletal: no complaints Skin: no complaints Neurologic: no complaints Endocrine: no complaints Lymphatic: no complaints Psychological: no complaints Immunologic: no complaints Past Medical History as per HPI Home Meds Active Scripts Prednisone* (Prednisone*) 10 Mg Tab, 10 MG PO DAILY, #30 TAB Prov:BREONNA SILVESTREVINICIUS Fermin GROUT MACHINE OPERATOR 10/16/17 Reported Medications Bimatoprost* (Lumigan*) 0.01%-2.5 Ml Opht Drops, 1 DROP BOTH EYES HS, EA 12/06/18 Dorzolamide Hcl* (Dorzolamide Hcl*) 10 Ml Drops, 1 DROP BOTH EYES TID, #1 EA 12/06/18 Rosuvastatin Calcium (Rosuvastatin Calcium) 10 Mg Tablet, 1 TAB ORAL DAILY 12/06/18 Cyanocobalamin* (Vitamin B-12*) 50 Mcg Tablet, 50 MCG PO DAILY, TAB 12/06/18 Methimazole* (Methimazole*) 10 Mg Tablet, 10 MG PO TID, TAB 12/06/18 Diltiazem Hcl* (Cartia XT*) 120 Mg Cap.sr.24h, 1 CAP ORAL DAILY 12/06/18 Apixaban* (Eliquis*) 2.5 Mg Tablet, 2.5 MG PO BID, TAB 12/06/18 Fluticasone/Umeclidin/Vilanter (Trelegy Ellipta 100-62.5-25) 1 Each Blst.w.dev, 1 EACH IH DAILY 12/06/18 Bicalutamide* (Bicalutamide*) 50 Mg Tablet, 50 MG PO DAILY, TAB 04/01/17 Discontinued Reported Medications Salmeterol Xinaf/Fluticasone* (Advair*) 250-50 Diskus Inhaler, 1 INH INHALATION BID, #1 INHALER 04/16/17 Sennosides* (Senna Lax*) 8.6 Mg Tablet, 1 TAB PO QHS, TAB 10/10/16 Docusate Sodium (Col-Rite) 100 Mg Capsule, 100 MG PO DAILY, CAP 10/10/16 Diltiazem Hcl* (Diltiazem XT) 240 Mg Capsule.er, 240 MG PO DAILY, #30 CAP 10/10/16 Bimatoprost* (Lumigan*) 2.5 Ml Drops, 1 DROP BOTH EYES HS 12/19/13 Dorzolamide/Timolol* (Dorzolamide/Timolol*) 10 Ml Drops, 1 DROP BOTH EYES BID, EA 12/19/13 Tiotropium [place]* (Spiriva*) 18 Mcg Cap.w.dev, 1 INH IH DAILY, EA 12/19/13 Discontinued Scripts Ipratropium-Albuterol (Ipratropium-Albuterol) 0.5-3 Mg/3 Ml Ampul.neb, 3 ML INHALATION QID for 30 Days, #30 VIAL Provide patient with 30 day supply of medication with nebulizer#1 Prov:NGOC SILVESTRE V. GROUT MACHINE OPERATOR 10/15/17 Fluconazole* (Diflucan*) 200 Mg Tablet, 200 MG PO DAILY for 3 Days, #3 TAB Prov:NGOC SILVESTRE V. GROUT MACHINE OPERATOR 10/14/17 Prednisone* (Prednisone*) 10 Mg Tab, 10 MG PO DAILY, #30 TAB Prov:NGOC SILVESTRE V. GROUT MACHINE OPERATOR 10/14/17 Montelukast Sodium* (Singulair*) 10 Mg Tablet, 10 MG PO QHS, #30 TAB Prov:NGOC SILVESTRE V. GROUT MACHINE OPERATOR 10/03/17 Albuterol Sulfate* (Proair HFA*) 8.5 Gm Hfa.aer.ad, 2 PUFF INH Q4 for SHORTNESS OF BREATH, #1 INHALER Prov:BERYL PEARL NP 04/25/17 Methimazole* (Methimazole*) 10 Mg Tablet, 20 MG PO DAILY, #60 TAB Take this 2 tablets(10X2 = 20 mg) daily before breakfast. Prov:BERYL PEARL NP 04/25/17 Apixaban* (Eliquis*) 5 Mg Tablet, 5 MG PO BID, #60 TAB Prov:BERYL PEARL GROUT MACHINE OPERATOR 04/25/17 Medications Current Medications IV Flush (NS 3 ml) 3 ml PER PROTOCOL IV ; Start 12/06/18 at 13:00 Ondansetron HCl (Zofran Inj) 4 mg Q6H PRN IV NAUSEA/VOMITING; Start 12/06/18 at 13:00 Acetaminophen (Tylenol Tab) 650 mg Q6H PRN PO .PAIN 1-3 OR TEMP; Start 12/06/18 at 13:00 Acetaminophen/ Hydrocodone Bitart ([place] (5/325)) 1 tab Q6H PRN PO .PAIN 4-6; Start 12/06/18 at 13:00 Cefepime HCl 50 ml @ 100 mls/hr Q12 IVPB ; Start 12/06/18 at 21:00 Vancomycin HCl (Vanco Iv Per Pharmacy) VANCOMYCIN PER PHARMACY PER PROTOCOL XX ; Start 12/06/18 at 13:00 Apixaban (Eliquis) 2.5 mg BID PO ; Start 12/06/18 at 21:00 Bicalutamide (Casodex) 50 mg DAILY PO ; Start 12/07/18 at 09:00 Bimatoprost (Lumigan 0.01% Oph) 1 drop HS BOTH EYES ; Start 12/06/18 at 21:00 Cyanocobalamin (Vitamin B12) 50 mcg DAILY PO ; Start 12/07/18 at 09:00 Dorzolamide HCl (Trusopt) 1 drop TID BOTH EYES ; Start 12/06/18 at 14:30 Methimazole (Tapazole) 10 mg TID PO ; Start 12/06/18 at 14:30 Sodium Chloride (Nacl 3% For Inhalation) 5 ml ONCE ONCE NEB ; Start 12/06/18 at 15:00; Stop 12/06/18 at 15:01 Vancomycin/Sodium Chloride 250 ml @ 125 mls/hr ONCE IVPB ; Start 12/06/18 at 15:00; Stop 12/06/18 at 20:00 Allergies: Coded Allergies: No Known Allergy (Unverified , 12/06/18) Past Surgical History Past Surgical Hx: other (Prostatectomy) Family History Significant Family History: no pertinent family hx Social History Alcohol Use: none Smoking Status: Former smoker Drug Use: none Exam/Review of Systems Exam Vitals Vital Signs Date Temp Pulse Resp B/P (MAP) Pulse Ox O2 O2 Flow FiO2 Time Delivery Rate 12/06/18 98.8 98 24 137/78 95 Room Air 3.0 13:12 (97) Nasal Cannula Constitutional: alert, oriented, well developed Psych: no complaints Head: normocephalic, atraumatic Eyes: nl conjunctiva, EOMI, nl lids ENMT: nl external ears & nose, nl lips & teeth Neck: supple, non-tender Respiratory: congested cough, diminished breath sounds Cardiovascular: regular rate and rhythm, bruits Gastrointestinal: soft, nl liver, spleen, non-tender Musculoskeletal: nl extremities to inspection Extremities: normal pulses Neurological: STOCK CLERK [employer] II-XII intact Results Result Diagram: 12/06/18 1004 12/06/18 1003 Results 24hrs Laboratory Tests Test 12/06/18 10:03 12/06/18 10:04 12/06/18 10:09 12/06/18 11:20 Prothrombin Time 14.5 Prothrombin Time 1.1 Ratio INR International 1.12 Normalized Ratio Activated 35.[address] Time Sodium Level 140 Potassium Level 3.8 Chloride Level 101 Carbon Dioxide 31 Level Anion Gap 8 Blood Urea 17 Nitrogen Creatinine 1.11 Est Glomerular Filtrat Rate mL/min Glucose Level 102 Calcium Level 8.9 Total Bilirubin 0.7 Direct Bilirubin 0.00 Indirect Bilirubin 0.7 Aspartate Amino 16 Transf (AST/SGOT) Alanine 19 Aminotransferase ( ALT/SGPT) Alkaline 67 Phosphatase Troponin I < 0.012 Total Protein 7.4 Albumin 4.0 Globulin 3.40 H Albumin/Globulin 1.17 Ratio White Blood Count 14.7 #H Red Blood Count 4.01 L Hemoglobin 11.3 L Hematocrit 37.0 L Mean Corpuscular 92.3 Volume Mean Corpuscular 28.2 L Hemoglobin Mean Corpuscular 30.5 L Hemoglobin Concent Red Cell 13.1 Distribution Width Platelet Count 366 # Mean Platelet 9.3 Volume Immature 0.500 H Granulocytes % Neutrophils % 81.2 H Lymphocytes % 8.4 L Monocytes % 8.9 Eosinophils % 0.7 Basophils % 0.3 Nucleated Red 0.0 Blood Cells % Immature 0.070 H Granulocytes # Neutrophils # 12.0 H Lymphocytes # 1.2 Monocytes # 1.3 H Eosinophils # 0.1 Basophils # 0.0 Nucleated Red 0.0 Blood Cells # POC Venous Lactate 1.6 Urine Color YELLOW Urine Clarity SLIGHTLY CLOUDY A Urine pH 5.0 Urine Specific 1.020 [place] Urine Ketones NEGATIVE Urine Nitrite NEGATIVE Urine Bilirubin NEGATIVE Urine Urobilinogen 2+ H Urine Leukocyte NEGATIVE Esterase Urine Microscopic 2 RBC Urine Microscopic 4 WBC Urine Mucus MODERATE Urine Hemoglobin NEGATIVE Urine Glucose NEGATIVE Urine Total 1+ H Protein Test 12/06/18 12:40 12/06/18 14:14 Hemoglobin A1c 5.2 Lactic Acid Level 1.3 1.3 Procalcitonin 0.06 Thyroid 4.620 Stimulating Hormone (TSH) Free Thyroxine 1.03 Medications Medication Current Medications IV Flush (NS 3 ml) 3 ml PER PROTOCOL IV ; Start 12/06/18 at 13:00 Ondansetron HCl (Zofran Inj) 4 mg Q6H PRN IV NAUSEA/VOMITING; Start 12/06/18 at 13:00 Acetaminophen (Tylenol Tab) 650 mg Q6H PRN PO .PAIN 1-3 OR TEMP; Start 12/06/18 at 13:00 Acetaminophen/ Hydrocodone Bitart ([place] (5/325)) 1 tab Q6H PRN PO .PAIN 4-6; Start 12/06/18 at 13:00 Cefepime HCl 50 ml @ 100 mls/hr Q12 IVPB ; Start 12/06/18 at 21:00 Vancomycin HCl (Vanco Iv Per Pharmacy) VANCOMYCIN PER PHARMACY PER PROTOCOL XX ; Start 12/06/18 at 13:00 Apixaban (Eliquis) 2.5 mg BID PO ; Start 12/06/18 at 21:00 Bicalutamide (Casodex) 50 mg DAILY PO ; Start 12/07/18 at 09:00 Bimatoprost (Lumigan 0.01% Oph) 1 drop HS BOTH EYES ; Start 12/06/18 at 21:00 Cyanocobalamin (Vitamin B12) 50 mcg DAILY PO ; Start 12/07/18 at 09:00 Dorzolamide HCl (Trusopt) 1 drop TID BOTH EYES ; Start 12/06/18 at 14:30 Methimazole (Tapazole) 10 mg TID PO ; Start 12/06/18 at 14:30 Sodium Chloride (Nacl 3% For Inhalation) 5 ml ONCE ONCE NEB ; Start 12/06/18 at 15:00; Stop 12/06/18 at 15:01 Vancomycin/Sodium Chloride 250 ml @ 125 mls/hr ONCE IVPB ; Start 12/06/18 at 15:00; Stop 12/06/18 at 20:00 FABRICIO SOMMERS MD Dec 06, 2018 14:56
[2018-12-06] MEDS ORDERED: NACL 3% FOR INHALATION 15 ML NEBU NEB ONE (15:00)
[2018-12-06] MEDS ORDERED: VANCOMYCIN 750 MG (PMX) 250 ML IVPB SCH (15:00)
[2018-12-06] MEDS ORDERED: ALBUTEROL/IPRATROPIUM (NEB) 3 ML AMP HHN PRN (16:00)
[2018-12-06] MEDS: DORZOLAMIDE 2% 10 ML OPH BOTH EYES SCH ×2 (16:01→21:00)
[2018-12-06] MEDS: ALBUTEROL/IPRATROPIUM (NEB) 3 ML AMP HHN SCH (20:16)
[2018-12-06] MEDS: ARFORMOTEROL TARTRATE 15MCG/2 ML AMP NEB SCH (20:16)
[2018-12-06 20:21] VITALS: BP 142/71; PULSE 88; RESP 20
[2018-12-06] MEDS: APIXABAN 5 MG TABLET PO SCH (20:55)
[2018-12-06] MEDS: CEFEPIME 2GM/50 ML (PMX) 50 ML IVPB SCH (20:57)
[2018-12-06] MEDS: LATANOPROST 0.005% 2.5 ML OPH BOTH EYES SCH (21:00)
[2018-12-06] MEDS ORDERED: BIMATOPROST 0.01% 2.5 ML BTL BOTH EYES SCH (21:00)
--- NOTE | 2018-12-06 21:44 | CONS ---
DATE OF ADMISSION: 12/06/2018 DATE OF CONSULTATION: 12/06/2018 TYPE OF CONSULTATION: Infectious disease. REASON FOR CONSULTATION: Antibiotic management. HISTORY OF PRESENT ILLNESS: Rob Cochran is a 78-year-old [place] male, who comes in w ith a history of COPD with worsening shortness of breath over the last 2 weeks, problems include: 1. COPD. 2. Hypertension. 3. Arrhythmias. Acutely, the patient presents with shortness of breath and hypoxemia. A CT scan done as an outpatien t showed a large air fluid level in the lung. He was sent in for admission by Dr. Castellano. The surinder ent is short of breath with low oxygenation saturation. Two weeks ago, he was coughing up mucus and bloody sputum. Past problem also includes hyperlipidemia. PAST SURGICAL HISTORY: Includes prostatectomy and prostate cancer on chemotherapy. Other problems a re as outlined. FAMILY HISTORY: Noncontributory. SOCIAL HISTORY: He does not drink or abuse drugs. He was a former smoker. ALLERGIES: NONE TO PENICILLIN, SULFA OR FOODS. MEDICATIONS: Per chart. REVIEW OF SYSTEMS: Noncontributory. PHYSICAL EXAMINATION: GENERAL: The patient is in moderate distress. VITAL SIGNS: Stable. He is afebrile. SKIN: Without generalized rash. HEENT: Within normal limits. NECK: Supple. LYMPH NODES: None palpable. CHEST: Decreased breath sounds at the bases. HEART: Without murmur or gallop. ABDOMEN: Soft, nontender, nondistended, without organosplenomegaly or masses. EXTREMITIES: Without cyanosis, clubbing, or edema. RECTAL AND GENITAL: Deferred. NEUROLOGIC: No focal neurological abnormalities. ANCILLARY LABORATORY DATA: White count 14.7, H and H 11.3 and 37, platelet count 366,000. BUN and c reatinine 17/1.11. Blood sugar is 102. The patient has 81% neutrophils. Urine is negative for nitr ites and leukocyte esterase. IMPRESSION AND PLAN: The patient was started on vancomycin and cefepime. The patient was found to h ave a right-sided bulla, which is probably infected. He will need a procedure to drain this area. H e has severe emphysema with chronic interstitial lung disease. The bullous described as a mass at the lateral right lung base, measuring approximately 11 cm in diameter, containing fluid. We patricia l await Dr. Castellano's evaluation, but it seems like the patient will need drainage, probably by thora centesis, although since he is not really a candidate for extensive pulmonary surgery. I will dictat e my findings to the hospitalist and to Dr. Castellano. Dictated By: NEL BREAUX MD, JD/HOLLAND Conf#: [id number] DID#: [id number] CC: NICOLE LYLES MD;*EndCC*
[2018-12-07 01:59] VITALS: BP 139/71; PULSE 98; RESP 19
[2018-12-07] MEDS: ACETAMINOPHEN 325 MG TAB PO PRN ×2 (07:38→21:54)
[2018-12-07 07:54] VITALS: BP 141/68; PULSE 88; RESP 19
[2018-12-07] MEDS: ALBUTEROL/IPRATROPIUM (NEB) 3 ML AMP HHN SCH ×3 (08:48→19:51)
[2018-12-07] MEDS: ARFORMOTEROL TARTRATE 15MCG/2 ML AMP NEB SCH ×2 (08:48→21:12)
[2018-12-07] MEDS: CEFEPIME 2GM/50 ML (PMX) 50 ML IVPB SCH (09:13)
[2018-12-07] MEDS: DORZOLAMIDE 2% 10 ML OPH BOTH EYES SCH ×3 (09:13→21:53)
[2018-12-07] MEDS: METHIMAZOLE 5 MG TAB PO SCH ×3 (09:14→21:00)
[2018-12-07] MEDS: CYANOCOBALAMIN 100 MCG TAB PO SCH (09:14)
[2018-12-07] MEDS: APIXABAN 5 MG TABLET PO SCH ×2 (09:14→21:54)
[2018-12-07] MEDS: BICALUTAMIDE 50 MG TAB PO SCH (09:19)
[2018-12-07] MEDS ORDERED: BISACODYL (EC) 5 MG TAB PO PRN (12:30)
[2018-12-07] MEDS: ELLIPTA INH SCH (13:52)
[2018-12-07] MEDS: TRELEGY INH SCH (13:52)
--- NOTE | 2018-12-07 14:28 | CONS ---
Assessment/Plan Assessment/Plan Hospital Course (Demo Recall) Patient is alert eating lunch looks comfortable he is on 1 L nasal nasal cannula no shortness of breath at rest WBC today 11.8 platelets 297 neutrophils 79.4 BUN 16 creatinine 0.94 Microbiology: All cultures negative Chest x-ray on admission revealed infected bulla right lower lobe Antimicrobials: Vancomycin, cefepime Physical examination: Well-nourished well-developed elderly [place] man who is alert in no distress. Head atraumatic normocephalic sclera nonicteric vehicle mucosa pink neck is supple chest rise symmetrical breath sounds diminished bases heart S1-S2 abdomen soft bowel sounds present extremities without cyanosis Assessment: 1. Infected right lower lobe bulla 2. Advanced COPD and emphysema. Plan: Patient is doing better we are going to downgrade him to IV Unasyn, follow chest x-ray, per pulmonary recommendations patient will need to be on oral Augmentin for 6 weeks post discharge Consultation Date/Type/Reason Admit Date/Time Dec 06, 2018 at 10:00 Initial Consult Date 12/06/18 Type of Consult id Date/Time of Note DATE: 12/07/18 TIME: 14:28 Exam/Review of Systems Exam Vitals Vital Signs Date Temp Pulse Resp B/P (MAP) Pulse Ox O2 O2 Flow FiO2 Time Delivery Rate 12/07/18 103 20 93 Nasal 2.0 13:32 Cannula 12/07/18 98.4 141/68 07:54 (92) Intake and Output 12/06/18 12/06/18 12/07/18 1515:00 23:00 07:00 IntakeIntake Total 720 ml OutputOutput Total 650 ml 150 ml BalanceBalance 70 ml -150 ml Results Result Diagram: 12/07/18 0458 12/07/18 0458 Results 24hrs Laboratory Tests Test 12/07/18 04:58 White Blood Count 11.8 H Red Blood Count 3.59 L Hemoglobin 10.2 L Hematocrit 33.0 L Mean Corpuscular Volume 91.9 Mean Corpuscular Hemoglobin 28.4 L Mean Corpuscular Hemoglobin Concent 30.9 L Red Cell Distribution Width 13.2 Platelet Count 297 Mean Platelet Volume 9.3 Immature Granulocytes % 0.500 H Neutrophils % 79.4 H Lymphocytes % 10.0 L Monocytes % 8.7 Eosinophils % 1.1 Basophils % 0.3 Nucleated Red Blood Cells % 0.0 Immature Granulocytes # 0.060 H Neutrophils # 9.4 H Lymphocytes # 1.2 Monocytes # 1.0 H Eosinophils # 0.1 Basophils # 0.0 Nucleated Red Blood Cells # 0.0 Sodium Level 143 Potassium Level 3.9 Chloride Level 106 Carbon Dioxide Level 31 Anion Gap 6 Blood Urea Nitrogen 16 Creatinine 0.94 Est Glomerular Filtrat Rate mL/min Glucose Level 100 Calcium Level 8.4 Phosphorus Level 2.9 Magnesium Level 2.3 Total Bilirubin 0.5 Direct Bilirubin 0.00 Indirect Bilirubin 0.5 Aspartate Amino Transf (AST/SGOT) 20 Alanine Aminotransferase (ALT/SGPT) 16 Alkaline Phosphatase 53 Total Protein 6.2 # Albumin 3.4 Globulin 2.80 Albumin/Globulin Ratio 1.21 Triglycerides Level 62 Cholesterol Level 121 LDL Cholesterol, Calculated 54 HDL Cholesterol 55 Cholesterol/HDL Ratio 2.2 Medications Medication Current Medications IV Flush (NS 3 ml) 3 ml PER PROTOCOL IV ; Start 12/06/18 at 13:00 Ondansetron HCl (Zofran Inj) 4 mg Q6H PRN IV NAUSEA/VOMITING; Start 12/06/18 at 13:00 Acetaminophen (Tylenol Tab) 650 mg Q6H PRN PO .PAIN 1-3 OR TEMP Last administe red on 12/07/18at 07:38; Admin Dose 650 MG; Start 12/06/18 at 13:00 Acetaminophen/ Hydrocodone Bitart ([place] (5/325)) 1 tab Q6H PRN PO .PAIN 4-6 Last administered on 12/07/18at 02:24; Admin Dose 1 TAB; Start 12/06/18 at 13:00 Cefepime HCl 50 ml @ 100 mls/hr Q12 IVPB Last administered on 12/07/18at 09:13; Admin Dose 100 MLS/HR; Start 12/06/18 at 21:00 Vancomycin HCl (Vanco Iv Per Pharmacy) VANCOMYCIN PER PHARMACY PER PROTOCOL XX ; Start 12/06/18 at 13:00 Apixaban (Eliquis) 2.5 mg BID PO Last administered on 12/07/18at 09:14; Admin Dose 2.5 MG; Start 12/06/18 at 21:00 Bicalutamide (Casodex) 50 mg DAILY PO Last administered on 12/07/18at 09:19; Admin Dose 50 MG; Start 12/07/18 at 09:00 Cyanocobalamin (Vitamin B12) 50 mcg DAILY PO Last administered on 12/07/18 09:14; Admin Dose 50 MCG; Start 12/07/18 at 09:00 Dorzolamide HCl (Trusopt) 1 drop TID BOTH EYES Last administered on 12/07/18 13:19; Admin Dose 1 DROP; Start 12/06/18 at 14:30 Methimazole (Tapazole) 10 mg TID PO Last administered on 12/07/18 13:19; Admin Dose 10 MG; Start 12/06/18 at 14:30 Albuterol/ Ipratropium (Duoneb) 3 ml Q6HWA RESP THERAPY HHN Last administered on 12/07/18 13:31; Admin Dose 3 ML; Start 12/06/18 at 20:00 Albuterol/ Ipratropium (Duoneb) 3 ml Q2H RESP THERAPY PRN HHN SHORTNESS OF BREATH; Start 12/06/18 at 16:00 Arformoterol Tartrate (Brovana (Neb)) 2 ml BID NEB Last administered on 12/06/18 20:16; Admin Dose 2 ML; Start 12/06/18 at 21:00 Vancomycin HCl 1.5 gm/Sodium Chloride 250 ml @ 83.333 mls/ hr Q24H IVPB ; S tart 12/07/18 at 16:00 Latanoprost (Xalatan) 1 drop HS BOTH EYES Last administered on 12/06/18 21:00; Admin Dose 1 DROP; Start 12/06/18 at 21:00 Patient Own Medication 1 ea AM INH Last administered on 12/07/18 13:52; Admin Dose 1 EA; Start 12/07/18 at 12:00 Polyethylene Glycol (Miralax) 17 gm BID PO ; Start 12/07/18 at 21:00 Bisacodyl (Dulcolax) 10 mg DAILY PRN PO CONSTIPATION; Start 12/07/18 at 12:30 SHELLEY MAR NP Dec 07, 2018 14:28
--- NOTE | 2018-12-07 14:36 | PN ---
Date/Time of Note Date/Time of Note DATE: 12/07/18 TIME: 14:36 Assessment/Plan VTE Prophylaxis Risk score (from Ns)>0 risk: 6 SCD applied (from Ns): Yes Pharmacological prophylaxis: apixaban Lines/Catheters IV C[facility]ter Type [facility]from [facility] Saline Lock Urinary Cath still in place: No Assessment/Plan Hospital Course SUBJECTIVE: Continues to complain of right sided pleuritic pain. OBJECTIVE: Physical Exam General: Adequately build 70 year-old male lying in bed in mild respiratory distress. HEENT: Normocephalic, atraumatic. Eyes: Anicteric sclerae, conjunctivae clear. ENT: Nasal septum midline, oral mucosa moist. Neck supple, no JVD noticed. Respiratory: Bilaterally diminished breath sounds. Poor air entry bilaterally. On O2 via NC. Cardiovascular: S1, S2 heard. Regular rate and rhythm. Abdomen: Soft, nontender, and nondistended. Bowel sounds positive in all 4 quadrants. Genitourinary: Deferred. Extremities: No cyanosis no edema. Peripheral pulses palpable. Neurologic: Cranial nerves II through XII grossly intact. The patient is awake, alert, and oriented. Skin: Normal skin turgor. No skin rashes. Labs & Vitals per chart ASSESSMENT & PLAN 78-year-old male with comorbidities including chronic respiratory failure dependent on home O2, COPD, hypothyroidism, paroxysmal atrial fibrillation, essential hypertension, pulmonary hypertension, and metastatic prostate cancer who is presenting to the emergency room as instructed by his patient support associate with positive chest imaging showing infected right lower lobe bulla, who will be admitted to inpatient setting for further treatment and evaluation. 1. Infected right lower lobe bulla. -Continue the patient on antimicrobials as per ID. -Pulmonology following. -Pancultures pending. 2. Chronic respiratory failure secondary to underlying COPD. -Continue supplemental oxygen. -Continue KEON and LABA. 3. Hypertension. -Continue antihypertensives. 4. Pulmonary hypertension. -Continue the patient on supplemental oxygen. 5. Paroxysmal atrial fibrillation. -Remains in sinus rhythm. -Continue Cardizem and flecainide. -Continue apixaban for stroke prophylaxis. 6. History of metastatic prostate cancer. -Continue bicalutamide. 7. Fluids, electrolytes, and nutrition. -Low-cholesterol diet. 8. DVT prophylaxis. -Factor Xa inhibitors. 9. Plan. -Continue antimicrobials as per ID. -Await clinical improvement before discharge the patient home. The patient was seen in collaboration with Dr. Bangura. Result Diagram: 12/07/18 0458 12/07/18 0458 Results 24hrs Laboratory Tests Test 12/07/18 04:58 White Blood Count 11.8 H Red Blood Count 3.59 L Hemoglobin 10.2 L Hematocrit 33.0 L Mean Corpuscular Volume 91.9 Mean Corpuscular Hemoglobin 28.4 L Mean Corpuscular Hemoglobin Concent 30.9 L Red Cell Distribution Width 13.2 Platelet Count 297 Mean Platelet Volume 9.3 Immature Granulocytes % 0.500 H Neutrophils % 79.4 H Lymphocytes % 10.0 L Monocytes % 8.7 Eosinophils % 1.1 Basophils % 0.3 Nucleated Red Blood Cells % 0.0 Immature Granulocytes # 0.060 H Neutrophils # 9.4 H Lymphocytes # 1.2 Monocytes # 1.0 H Eosinophils # 0.1 Basophils # 0.0 Nucleated Red Blood Cells # 0.0 Sodium Level 143 Potassium Level 3.9 Chloride Level 106 Carbon Dioxide Level 31 Anion Gap 6 Blood Urea Nitrogen 16 Creatinine 0.94 Est Glomerular Filtrat Rate mL/min Glucose Level 100 Calcium Level 8.4 Phosphorus Level 2.9 Magnesium Level 2.3 Total Bilirubin 0.5 Direct Bilirubin 0.00 Indirect Bilirubin 0.5 Aspartate Amino Transf (AST/SGOT) 20 Alanine Aminotransferase (ALT/SGPT) 16 Alkaline Phosphatase 53 Total Protein 6.2 # Albumin 3.4 Globulin 2.80 Albumin/Globulin Ratio 1.21 Triglycerides Level 62 Cholesterol Level 121 LDL Cholesterol, Calculated 54 HDL Cholesterol 55 Cholesterol/HDL Ratio 2.2 Exam/Review of Systems Exam Vitals Vital Signs Date Temp Pulse Resp B/P (MAP) Pulse Ox O2 O2 Flow FiO2 Time Delivery Rate 12/07/18 103 20 93 Nasal 2.0 13:32 Cannula 12/07/18 98.4 141/68 07:54 (92) Intake and Output 12/06/18 12/06/18 12/07/18 1515:00 23:00 07:00 IntakeIntake Total 720 ml OutputOutput Total 650 ml 150 ml BalanceBalance 70 ml -150 ml Results Results 24hrs Laboratory Tests Test 12/07/18 04:58 White Blood Count 11.8 H Red Blood Count 3.59 L Hemoglobin 10.2 L Hematocrit 33.0 L Mean Corpuscular Volume 91.9 Mean Corpuscular Hemoglobin 28.4 L Mean Corpuscular Hemoglobin Concent 30.9 L Red Cell Distribution Width 13.2 Platelet Count 297 Mean Platelet Volume 9.3 Immature Granulocytes % 0.500 H Neutrophils % 79.4 H Lymphocytes % 10.0 L Monocytes % 8.7 Eosinophils % 1.1 Basophils % 0.3 Nucleated Red Blood Cells % 0.0 Immature Granulocytes # 0.060 H Neutrophils # 9.4 H Lymphocytes # 1.2 Monocytes # 1.0 H Eosinophils # 0.1 Basophils # 0.0 Nucleated Red Blood Cells # 0.0 Sodium Level 143 Potassium Level 3.9 Chloride Level 106 Carbon Dioxide Level 31 Anion Gap 6 Blood Urea Nitrogen 16 Creatinine 0.94 Est Glomerular Filtrat Rate mL/min Glucose Level 100 Calcium Level 8.4 Phosphorus Level 2.9 Magnesium Level 2.3 Total Bilirubin 0.5 Direct Bilirubin 0.00 Indirect Bilirubin 0.5 Aspartate Amino Transf (AST/SGOT) 20 Alanine Aminotransferase (ALT/SGPT) 16 Alkaline Phosphatase 53 Total Protein 6.2 # Albumin 3.4 Globulin 2.80 Albumin/Globulin Ratio 1.21 Triglycerides Level 62 Cholesterol Level 121 LDL Cholesterol, Calculated 54 HDL Cholesterol 55 Cholesterol/HDL Ratio 2.2 Medications Medication Current Medications IV Flush (NS 3 ml) 3 ml PER PROTOCOL IV ; Start 12/06/18 at 13:00 Ondansetron HCl (Zofran Inj) 4 mg Q6H PRN IV NAUSEA/VOMITING; Start 12/06/18 at 13:00 Acetaminophen (Tylenol Tab) 650 mg Q6H PRN PO .PAIN 1-3 OR TEMP Last administered on 12/07/18at 07:38; Admin Dose 650 MG; Start 12/06/18 at 13:00 Acetaminophen/ Hydrocodone Bitart ([place] (5/325)) 1 tab Q6H PRN PO .PAIN 4-6 Last administered on 12/07/18at 02:24; Admin Dose 1 TAB; Start 12/06/18 at 13:00 Apixaban (Eliquis) 2.5 mg BID PO Last administered on 12/07/18at 09:14; Admin Dose 2.5 MG; Start 12/06/18 at 21:00 Bicalutamide (Casodex) 50 mg DAILY PO Last administered on 12/07/18at 09:19; Admin Dose 50 MG; Start 12/07/18 at 09:00 Cyanocobalamin (Vitamin B12) 50 mcg DAILY PO Last administered on 12/07/18 09:14; Admin Dose 50 MCG; Start 12/07/18 at 09:00 Dorzolamide HCl (Trusopt) 1 drop TID BOTH EYES Last administered on 12/07/18 13:19; Admin Dose 1 DROP; Start 12/06/18 at 14:30 Methimazole (Tapazole) 10 mg TID PO Last administered on 12/07/18 13:19; Admin Dose 10 MG; Start 12/06/18 at 14:30 Albuterol/ Ipratropium (Duoneb) 3 ml Q6HWA RESP THERAPY HHN Last administered on 12/07/18 13:31; Admin Dose 3 ML; Start 12/06/18 at 20:00 Albuterol/ Ipratropium (Duoneb) 3 ml Q2H RESP THERAPY PRN HHN SHORTNESS OF BREATH; Start 12/06/18 at 16:00 Arformoterol Tartrate (Brovana (Neb)) 2 ml BID NEB Last administered on 12/06/18 20:16; Admin Dose 2 ML; Start 12/06/18 at 21:00 Latanoprost (Xalatan) 1 drop HS BOTH EYES Last administered on 12/06/18 21:00; Admin Dose 1 DROP; Start 12/06/18 at 21:00 Patient Own Medication 1 ea AM INH Last administered on 12/07/18 13:52; Admin Dose 1 EA; Start 12/07/18 at 12:00 Polyethylene Glycol (Miralax) 17 gm BID PO ; Start 12/07/18 at 21:00 Bisacodyl (Dulcolax) 10 mg DAILY PRN PO CONSTIPATION; Start 12/07/18 at 12:30 Ampicillin Sodium/ Sulbactam Sodium 50 ml @ 100 mls/hr Q8 IVPB ; Start 12/07/18 at 22:00; Status BERYL SEXTON NP Dec 07, 2018 14:36
[2018-12-07 14:40] VITALS: BP 153/73; PULSE 94; RESP 18
[2018-12-07] MEDS ORDERED: KETOROLAC 30 MG INJ IV PRN (15:00)
[2018-12-07] MEDS: AMPICILLIN/SULB 1.5GM/NS (PMX) 50 ML IVPB SCH ×2 (15:36→21:58)
[2018-12-07] MEDS ORDERED: VANCOMYCIN HCL 1.5 GM in SOD CHLORIDE 0.9% 250 ML IVPB SCH (16:00)
--- NOTE | 2018-12-07 16:31 | CONS ---
Consult Date/Type/Reason Admit Date/Time Dec 06, 2018 at 10:00 Initial Consult Date 12/06/18 Date/Time of Note DATE: 12/07/18 TIME: 16:29 Subjective No events. Still has a slight cough. Objective Vitals Vital Signs Date Temp Pulse Resp B/P (MAP) Pulse Ox O2 O2 Flow FiO2 Time Delivery Rate 12/07/18 98.6 94 18 153/73 96 Nasal 14:40 (99) Cannula 12/07/18 2.0 13:32 Intake and Output 12/06/18 12/06/18 12/07/18 1515:00 23:00 07:00 IntakeIntake Total 720 ml OutputOutput Total 650 ml 150 ml BalanceBalance 70 ml -150 ml Exam HEENT: Neck supple; no JVD; no LAD CVS: RRR, S1 and S2 CHEST: Decreased breath sounds bilaterally. ABD: Soft, NT, + BS EXT: No c/c/e Results/Medications Result Diagram: 12/07/18 0458 12/07/18 0458 Results 24 hrs Laboratory Tests Test 12/07/18 04:58 White Blood Count 11.8 H Red Blood Count 3.59 L Hemoglobin 10.2 L Hematocrit 33.0 L Mean Corpuscular Volume 91.9 Mean Corpuscular Hemoglobin 28.4 L Mean Corpuscular Hemoglobin Concent 30.9 L Red Cell Distribution Width 13.2 Platelet Count 297 Mean Platelet Volume 9.3 Immature Granulocytes % 0.500 H Neutrophils % 79.4 H Lymphocytes % 10.0 L Monocytes % 8.7 Eosinophils % 1.1 Basophils % 0.3 Nucleated Red Blood Cells % 0.0 Immature Granulocytes # 0.060 H Neutrophils # 9.4 H Lymphocytes # 1.2 Monocytes # 1.0 H Eosinophils # 0.1 Basophils # 0.0 Nucleated Red Blood Cells # 0.0 Sodium Level 143 Potassium Level 3.9 Chloride Level 106 Carbon Dioxide Level 31 Anion Gap 6 Blood Urea Nitrogen 16 Creatinine 0.94 Est Glomerular Filtrat Rate mL/min Glucose Level 100 Calcium Level 8.4 Phosphorus Level 2.9 Magnesium Level 2.3 Total Bilirubin 0.5 Direct Bilirubin 0.00 Indirect Bilirubin 0.5 Aspartate Amino Transf (AST/SGOT) 20 Alanine Aminotransferase (ALT/SGPT) 16 Alkaline Phosphatase 53 Total Protein 6.2 # Albumin 3.4 Globulin 2.80 Albumin/Globulin Ratio 1.21 Triglycerides Level 62 Cholesterol Level 121 LDL Cholesterol, Calculated 54 HDL Cholesterol 55 Cholesterol/HDL Ratio 2.2 Home Meds Active Scripts Prednisone* (Prednisone*) 10 Mg Tab, 10 MG PO DAILY, #30 TAB Prov:NGOC SILVESTRE V. STAMP PAD MAKER 10/16/17 Reported Medications Bimatoprost* (Lumigan*) 0.01%-2.5 Ml Opht Drops, 1 DROP BOTH EYES HS, EA 12/06/18 Dorzolamide Hcl* (Dorzolamide Hcl*) 10 Ml Drops, 1 DROP BOTH EYES TID, #1 EA 12/06/18 Rosuvastatin Calcium (Rosuvastatin Calcium) 10 Mg Tablet, 1 TAB ORAL DAILY 12/06/18 Cyanocobalamin* (Vitamin B-12*) 50 Mcg Tablet, 50 MCG PO DAILY, TAB 12/06/18 Methimazole* (Methimazole*) 10 Mg Tablet, 10 MG PO TID, TAB 12/06/18 Diltiazem Hcl* (Cartia XT*) 120 Mg Cap.sr.24h, 1 CAP ORAL DAILY 12/06/18 Apixaban* (Eliquis*) 2.5 Mg Tablet, 2.5 MG PO BID, TAB 12/06/18 Fluticasone/Umeclidin/Vilanter (Trelegy Ellipta 100-62.5-25) 1 Each Blst.w.dev, 1 EACH IH DAILY 12/06/18 Bicalutamide* (Bicalutamide*) 50 Mg Tablet, 50 MG PO DAILY, TAB 04/01/17 Discontinued Reported Medications Salmeterol Xinaf/Fluticasone* (Advair*) 250-50 Diskus Inhaler, 1 INH INHALATION BID, #1 INHALER 04/16/17 Sennosides* (Senna Lax*) 8.6 Mg Tablet, 1 TAB PO QHS, TAB 10/10/16 Docusate Sodium (Col-Rite) 100 Mg Capsule, 100 MG PO DAILY, CAP 10/10/16 Diltiazem Hcl* (Diltiazem XT) 240 Mg Capsule.er, 240 MG PO DAILY, #30 CAP 10/10/16 Bimatoprost* (Lumigan*) 2.5 Ml Drops, 1 DROP BOTH EYES HS 12/19/13 Dorzolamide/Timolol* (Dorzolamide/Timolol*) 10 Ml Drops, 1 DROP BOTH EYES BID, EA 12/19/13 Tiotropium [place]* (Spiriva*) 18 Mcg Cap.w.dev, 1 INH IH DAILY, EA 12/19/13 Discontinued Scripts Ipratropium-Albuterol (Ipratropium-Albuterol) 0.5-3 Mg/3 Ml Ampul.neb, 3 ML INHALATION QID for 30 Days, #30 VIAL Provide patient with 30 day supply of medication with nebulizer#1 Prov:NGOC SILVESTRE NP 10/15/17 Fluconazole* (Diflucan*) 200 Mg Tablet, 200 MG PO DAILY for 3 Days, #3 TAB Prov:NGOC SILVESTRE V. STAMP PAD MAKER 10/14/17 Prednisone* (Prednisone*) 10 Mg Tab, 10 MG PO DAILY, #30 TAB Prov:NGOC SILVESTRE V. STAMP PAD MAKER 10/14/17 Montelukast Sodium* (Singulair*) 10 Mg Tablet, 10 MG PO QHS, #30 TAB Prov:NGOC SILVESTRE NP 10/03/17 Albuterol Sulfate* (Proair HFA*) 8.5 Gm Hfa.aer.ad, 2 PUFF INH Q4 for SHORTNESS OF BREATH, #1 INHALER Prov:BERYL PEARL NP 04/25/17 Methimazole* (Methimazole*) 10 Mg Tablet, 20 MG PO DAILY, #60 TAB Take this 2 tablets(10X2 = 20 mg) daily before breakfast. Prov:BERYL PEARL NP 04/25/17 Apixaban* (Eliquis*) 5 Mg Tablet, 5 MG PO BID, #60 TAB Prov:BERYL PEARL NP 04/25/17 Medications Current Medications IV Flush (NS 3 ml) 3 ml PER PROTOCOL IV ; Start 12/06/18 at 13:00 Ondansetron HCl (Zofran Inj) 4 mg Q6H PRN IV NAUSEA/VOMITING; Start 12/06/18 at 13:00 Acetaminophen (Tylenol Tab) 650 mg Q6H PRN PO .PAIN 1-3 OR TEMP Last administered on 12/07/18at 07:38; Admin Dose 650 MG; Start 12/06/18 at 13:00 Acetaminophen/ Hydrocodone Bitart ([place] (5/325)) 1 tab Q6H PRN PO .PAIN 4-6 Last administered on 12/07/18 02:24; Admin Dose 1 TAB; Start 12/06/18 at 13:00 Apixaban (Eliquis) 2.5 mg BID PO Last administered on 12/07/18 09:14; Admin Dose 2.5 MG; Start 12/06/18 at 21:00 Bicalutamide (Casodex) 50 mg DAILY PO Last administered on 12/07/18 09:19; Admin Dose 50 MG; Start 12/07/18 at 09:00 Cyanocobalamin (Vitamin B12) 50 mcg DAILY PO Last administered on 12/07/18 09:14; Admin Dose 50 MCG; Start 12/07/18 at 09:00 Dorzolamide HCl (Trusopt) 1 drop TID BOTH EYES Last administered on 12/07/18 13:19; Admin Dose 1 DROP; Start 12/06/18 at 14:30 Methimazole (Tapazole) 10 mg TID PO Last administered on 12/07/18 13:19; Admin Dose 10 MG; Start 12/06/18 at 14:30 Albuterol/ Ipratropium (Duoneb) 3 ml Q6HWA RESP THERAPY HHN Last administered on 12/07/18 13:31; Admin Dose 3 ML; Start 12/06/18 at 20:00 Albuterol/ Ipratropium (Duoneb) 3 ml Q2H RESP THERAPY PRN HHN SHORTNESS OF BREATH; Start 12/06/18 at 16:00 Arformoterol Tartrate (Brovana (Neb)) 2 ml BID NEB Last administered on 12/06/18 20:16; Admin Dose 2 ML; Start 12/06/18 at 21:00 Latanoprost (Xalatan) 1 drop HS BOTH EYES Last administered on 12/06/18 21:00; Admin Dose 1 DROP; Start 12/06/18 at 21:00 Patient Own Medication 1 ea AM INH Last administered on 12/07/18 13:52; Admin Dose 1 EA; Start 12/07/18 at 12:00 Polyethylene Glycol (Miralax) 17 gm BID PO ; Start 12/07/18 at 21:00 Bisacodyl (Dulcolax) 10 mg DAILY PRN PO CONSTIPATION; Start 12/07/18 at 12:30 Ampicillin Sodium/ Sulbactam Sodium 50 ml @ 100 mls/hr Q8 IVPB Last administered on 12/07/18at 15:36; Admin Dose 100 MLS/HR; Start 12/07/18 at 15:00 Diltiazem HCl (Cardizem Cd) 120 mg DAILY PO ; Start 12/07/18 at 16:00 Flecainide Acetate (Tambocor) 100 mg Q12 PO ; Start 12/07/18 at 21:00 Prednisone (Prednisone) 10 mg DAILY PO ; Start 12/07/18 at 15:00 Ketorolac Tromethamine (Toradol) 30 mg Q6H PRN IV PAIN LEVEL 1-3; Start 12/07/18 at 15:00; Stop 12/10/18 at 14:59 Assessment/Plan Assessment/Plan (Daily) IMP: 1. Infected RLL Bullae--in a patient with advanced centrilobular and bullous emphysema 2. Emphysema/COPD 3. Pulm HTN RECS: 1. Continue BD's 2. O2 to keep SpO2 88-92% 3. De-escalate Abx--to unasyn for now 4. Would continue augmentin x 6 weeks as outpatient. 5. F/U as outpatient in 6 weeks with repeat chest imaging 6. Would not perform any type of percutaneous drainage FABRICIO SOMMERS MD Dec 07, 2018 16:31
[2018-12-07] MEDS: DILTIAZEM (CD) 120 MG CAP PO SCH (17:07)
[2018-12-07] MEDS: predniSONE 10 MG TAB PO SCH (17:07)
[2018-12-07 19:57] VITALS: BP 140/72; PULSE 96; RESP 18
[2018-12-07] MEDS: POLYETHYLENE GLYCOL 17 GM PACKET PO SCH (21:00)
[2018-12-07] MEDS: LATANOPROST 0.005% 2.5 ML OPH BOTH EYES SCH (21:56)
[2018-12-07] MEDS: FLECAINIDE 100 MG TAB PO SCH (21:56)
[2018-12-08 02:00] VITALS: BP 133/68; PULSE 89; RESP 18
[2018-12-08] MEDS: AMPICILLIN/SULB 1.5GM/NS (PMX) 50 ML IVPB SCH ×3 (05:20→21:41)
[2018-12-08] MEDS: ALBUTEROL/IPRATROPIUM (NEB) 3 ML AMP HHN SCH ×3 (07:57→20:35)
[2018-12-08] MEDS: ARFORMOTEROL TARTRATE 15MCG/2 ML AMP NEB SCH ×2 (07:57→20:39)
[2018-12-08 08:02] VITALS: BP 110/62; PULSE 107; RESP 20
[2018-12-08] MEDS: ELLIPTA INH SCH (09:38)
[2018-12-08] MEDS: TRELEGY INH SCH (09:38)
[2018-12-08] MEDS: DILTIAZEM (CD) 120 MG CAP PO SCH (09:41)
[2018-12-08] MEDS: POLYETHYLENE GLYCOL 17 GM PACKET PO SCH ×2 (09:41→21:48)
[2018-12-08] MEDS: FLECAINIDE 100 MG TAB PO SCH ×2 (09:41→21:40)
[2018-12-08] MEDS: APIXABAN 5 MG TABLET PO SCH ×2 (09:41→21:41)
[2018-12-08] MEDS: METHIMAZOLE 5 MG TAB PO SCH ×3 (09:42→21:40)
[2018-12-08] MEDS: predniSONE 10 MG TAB PO SCH (09:42)
[2018-12-08] MEDS: CYANOCOBALAMIN 100 MCG TAB PO SCH (09:42)
[2018-12-08] MEDS: BICALUTAMIDE 50 MG TAB PO SCH (09:43)
[2018-12-08] MEDS: DORZOLAMIDE 2% 10 ML OPH BOTH EYES SCH ×3 (09:44→21:41)
--- NOTE | 2018-12-08 12:56 | CONS ---
Consult Date/Type/Reason Admit Date/Time Dec 06, 2018 at 10:00 Initial Consult Date 12/06/18 Type of Consult Pulmonary Date/Time of Note DATE: 12/08/18 TIME: 12:55 Subjective Breathing better today. Less respiratory distress. Objective Vital Signs Date Temp Pulse Resp B/P (MAP) Pulse Ox O2 O2 Flow FiO2 Time Delivery Rate 12/08/18 96 20 95 Nasal 2.0 08:07 Cannula 12/08/18 98.2 110/62 08:02 (78) Intake and Output 12/07/18 12/07/18 12/08/18 1515:00 23:00 07:00 IntakeIntake Total 650 ml 340 ml 50 ml OutputOutput Total 550 ml 700 ml BalanceBalance 650 ml -210 ml -650 ml Exam GENERAL: Elderly gentleman comfortable at rest no acute distress VITAL SIGNS: per chart NECK: Supple. No JVD or lymphadenopathy. CARDIAC EXAM: S1, S2. No added sounds or murmurs. CHEST: Diminished air entry bilaterally ABDOMEN: Soft, nontender. No guarding or rebound. EXTREMITIES: No cyanosis, clubbing or edema. NEUROLOGIC: Generalized weakness. No focal deficits. Results/Medications Result Diagram: 12/08/18 0513 12/08/18 0513 Results 24 hrs Laboratory Tests Test 12/08/18 05:13 White Blood Count 10.3 Red Blood Count 3.63 L Hemoglobin 10.2 L Hematocrit 33.5 L Mean Corpuscular Volume 92.3 Mean Corpuscular Hemoglobin 28.1 L Mean Corpuscular Hemoglobin Concent 30.4 L Red Cell Distribution Width 13.1 Platelet Count 321 Mean Platelet Volume 9.5 Immature Granulocytes % 0.500 H Neutrophils % 81.9 H Lymphocytes % 9.6 L Monocytes % 7.1 Eosinophils % 0.7 Basophils % 0.2 Nucleated Red Blood Cells % 0.0 Immature Granulocytes # 0.050 H Neutrophils # 8.4 H Lymphocytes # 1.0 Monocytes # 0.7 Eosinophils # 0.1 Basophils # 0.0 Nucleated Red Blood Cells # 0.0 Sodium Level 144 Potassium Level 3.8 Chloride Level 104 Carbon Dioxide Level 34 H Anion Gap 6 Blood Urea Nitrogen 11 Creatinine 0.89 Est Glomerular Filtrat Rate mL/min Glucose Level 99 Calcium Level 8.5 Phosphorus Level 3.6 Magnesium Level 2.3 Medications Current Medications IV Flush (NS 3 ml) 3 ml PER PROTOCOL IV ; Start 12/06/18 at 13:00 Ondansetron HCl (Zofran Inj) 4 mg Q6H PRN IV NAUSEA/VOMITING Last administered on 12/07/18 21:51; Admin Dose 4 MG; Start 12/06/18 at 13:00 Acetaminophen (Tylenol Tab) 650 mg Q6H PRN PO .PAIN 1-3 OR TEMP Last administered on 12/07/18 21:54; Admin Dose 650 MG; Start 12/06/18 at 13:00 Acetaminophen/ Hydrocodone Bitart ([place] (5/325)) 1 tab Q6H PRN PO .PAIN 4-[address] administered on 12/07/18 02:24; Admin Dose 1 TAB; Start 12/06/18 at 13:00 Apixaban (Eliquis) 2.5 mg BID PO Last administered on 12/08/18 09:41; Admin Dose 2.5 MG; Start 12/06/18 at 21:00 Bicalutamide (Casodex) 50 mg DAILY PO Last administered on 12/08/18 09:43; Admin Dose 50 MG; Start 12/07/18 at 09:00 Cyanocobalamin (Vitamin B12) 50 mcg DAILY PO Last administered on 12/08/18 09:42; Admin Dose 50 MCG; Start 12/07/18 at 09:00 Dorzolamide HCl (Trusopt) 1 drop TID BOTH EYES Last administered on 12/08/18 09:44; Admin Dose 1 DROP; Start 12/06/18 at 14:30 Methimazole (Tapazole) 10 mg TID PO Last administered on 12/08/18 09:42; Admin Dose 10 MG; Start 12/06/18 at 14:30 Albuterol/ Ipratropium (Duoneb) 3 ml Q6HWA RESP THERAPY HHN Last administered on 12/08/18 07:57; Admin Dose 3 ML; Start 12/06/18 at 20:00 Albuterol/ Ipratropium (Duoneb) 3 ml Q2H RESP THERAPY PRN HHN SHORTNESS OF BREATH; Start 12/06/18 at 16:00 Arformoterol Tartrate (Brovana (Neb)) 2 ml BID NEB Last administered on 6/3/19at 07:57; Admin Dose 2 ML; Start 12/06/18 at 21:00 Latanoprost (Xalatan) 1 drop HS BOTH EYES Last administered on 12/07/18 21:56; Admin Dose 1 DROP; Start 12/06/18 at 21:00 Patient Own Medication 1 ea AM INH Last administered on 12/08/18 09:38; Admin Dose 1 EA; Start 12/07/18 at 12:00 Polyethylene Glycol (Miralax) 17 gm BID PO Last administered on 12/08/18 09:41; Admin Dose 17 GM; Start 12/07/18 at 21:00 Bisacodyl (Dulcolax) 10 mg DAILY PRN PO CONSTIPATION; Start 12/07/18 at 12:30 Ampicillin Sodium/ Sulbactam Sodium 50 ml @ 100 mls/hr Q8 IVPB Last administered on 12/08/18 05:20; Admin Dose 100 MLS/HR; Start 12/07/18 at 15:00 Diltiazem HCl (Cardizem Cd) 120 mg DAILY PO Last administered on 12/08/18 09:41; Admin Dose 120 MG; Start 12/07/18 at 16:00 Flecainide Acetate (Tambocor) 100 mg Q12 PO Last administered on 12/08/18 09:41; Admin Dose 100 MG; Start 12/07/18 at 21:00 Prednisone (Prednisone) 10 mg DAILY PO Last administered on 12/08/18 09:42; Admin Dose 10 MG; Start 12/07/18 at 15:00 Ketorolac Tromethamine (Toradol) 30 mg Q6H PRN IV PAIN LEVEL 1-3; Start 12/07/18 at 15:00; Stop 12/10/18 at 14:59 Assessment/Plan Hospital Course (Demo Recall) IMP: 1. Infected RLL Bullae--in a patient with advanced centrilobular and bullous emphysema 2. Emphysema/COPD 3. Pulm HTN RECS: 1. Continue BD's 2. O2 to keep SpO2 88-92% 3. De-escalate Abx--to unasyn for now 4. Would continue augmentin x 6 weeks as outpatient. 5. CT chest to evaluate right lower lobe pneumonia ANITA WOMACK MD, [facility] Dec 08, 2018 12:56
--- NOTE | 2018-12-08 14:08 | CONS ---
Assessment/Plan Assessment/Plan Hospital Course (Demo Recall) Patient is alert no SOB Microbiology: All cultures negative Chest x-ray on admission revealed infected bulla right lower lobe Antimicrobials: Unasyn Physical examination: Well-nourished well-developed elderly [place] man who is alert in no distress. Head atraumatic normocephalic sclera nonicteric vehicle mucosa pink neck is supple chest rise symmetrical breath sounds diminished bases heart S1-S2 abdomen soft bowel sounds present extremities without cyanosis Assessment: 1. Infected right lower lobe bulla 2. Advanced COPD and emphysema. Plan: Stable, continue abx, f/u pulmonary rec-s, pending CT chest Consultation Date/Type/Reason Admit Date/Time Dec 06, 2018 at 10:00 Initial Consult Date 12/06/18 Type of Consult id Date/Time of Note DATE: 12/08/18 TIME: 14:06 Exam/Review of Systems Exam Vitals Vital Signs Date Temp Pulse Resp B/P (MAP) Pulse Ox O2 O2 Flow FiO2 Time Delivery Rate 12/08/18 96 20 95 Nasal 2.0 08:07 Cannula 12/08/18 98.2 110/62 08:02 (78) Intake and Output 12/07/18 12/07/18 12/08/18 1515:00 23:00 07:00 IntakeIntake Total 650 ml 340 ml 50 ml OutputOutput Total 550 ml 700 ml BalanceBalance 650 ml -210 ml -650 ml Results Result Diagram: 12/08/18 0513 12/08/18 0513 Results 24hrs Laboratory Tests Test 12/08/18 05:13 White Blood Count 10.3 Red Blood Count 3.63 L Hemoglobin 10.2 L Hematocrit 33.5 L Mean Corpuscular Volume 92.3 Mean Corpuscular Hemoglobin 28.1 L Mean Corpuscular Hemoglobin Concent 30.4 L Red Cell Distribution Width 13.1 Platelet Count 321 Mean Platelet Volume 9.5 Immature Granulocytes % 0.500 H Neutrophils % 81.9 H Lymphocytes % 9.6 L Monocytes % 7.1 Eosinophils % 0.7 Basophils % 0.2 Nucleated Red Blood Cells % 0.0 Immature Granulocytes # 0.050 H Neutrophils # 8.4 H Lymphocytes # 1.0 Monocytes # 0.7 Eosinophils # 0.1 Basophils # 0.0 Nucleated Red Blood Cells # 0.0 Sodium Level 144 Potassium Level 3.8 Chloride Level 104 Carbon Dioxide Level 34 H Anion Gap 6 Blood Urea Nitrogen 11 Creatinine 0.89 Est Glomerular Filtrat Rate mL/min Glucose Level 99 Calcium Level 8.5 Phosphorus Level 3.6 Magnesium Level 2.3 Medications Medication Current Medications IV Flush (NS 3 ml) 3 ml PER PROTOCOL IV ; Start 12/06/18 at 13:00 Ondansetron HCl (Zofran Inj) 4 mg Q6H PRN IV NAUSEA/VOMITING Last administered on 12/07/18 21:51; Admin Dose 4 MG; Start 12/06/18 at 13:00 Acetaminophen (Tylenol Tab) 650 mg Q6H PRN PO .PAIN 1-3 OR TEMP Last administered on 12/07/18 21:54; Admin Dose 650 MG; Start 12/06/18 at 13:00 Acetaminophen/ Hydrocodone Bitart ([place] (5/325)) 1 tab Q6H PRN PO .PAIN 4-6 Last administered on 12/07/18 02:24; Admin Dose 1 TAB; Start 12/06/18 at 13:00 Apixaban (Eliquis) 2.5 mg BID PO Last administered on 12/08/18 09:41; Admin Dose 2.5 MG; Start 12/06/18 at 21:00 Bicalutamide (Casodex) 50 mg DAILY PO Last administered on 12/08/18 09:43; Admin Dose 50 MG; Start 12/07/18 at 09:00 Cyanocobalamin (Vitamin B12) 50 mcg DAILY PO Last administered on 12/08/18 09:42; Admin Dose 50 MCG; Start 12/07/18 at 09:00 Dorzolamide HCl (Trusopt) 1 drop TID BOTH EYES Last administered on 12/08/18 13:15; Admin Dose 1 DROP; Start 12/06/18 at 14:30 Methimazole (Tapazole) 10 mg TID PO Last administered on 12/08/18 13:15; Admin Dose 10 MG; Start 12/06/18 at 14:30 Albuterol/ Ipratropium (Duoneb) 3 ml Q6HWA RESP THERAPY HHN Last administered on 12/08/18 07:57; Admin Dose 3 ML; Start 12/06/18 at 20:00 Albuterol/ Ipratropium (Duoneb) 3 ml Q2H RESP THERAPY PRN HHN SHORTNESS OF BREATH; Start 12/06/18 at 16:00 Arformoterol Tartrate (Brovana (Neb)) 2 ml BID NEB Last administered on 12/08/18 07:57; Admin Dose 2 ML; Start 12/06/18 at 21:00 Latanoprost (Xalatan) 1 drop HS BOTH EYES Last administered on 12/07/18 21:56; Admin Dose 1 DROP; Start 12/06/18 at 21:00 Patient Own Medication 1 ea AM INH Last administered on 12/08/18 09:38; Admin Dose 1 EA; Start 12/07/18 at 12:00 Polyethylene Glycol (Miralax) 17 gm BID PO Last administered on 12/08/18 09:41; Admin Dose 17 GM; Start 12/07/18 at 21:00 Bisacodyl (Dulcolax) 10 mg DAILY PRN PO CONSTIPATION; Start 12/07/18 at 12:30 Ampicillin Sodium/ Sulbactam Sodium 50 ml @ 100 mls/hr Q8 IVPB Last administered on 12/08/18 05:20; Admin Dose 100 MLS/HR; Start 12/07/18 at 15:00 Diltiazem HCl (Cardizem Cd) 120 mg DAILY PO Last administered on 12/08/18 09:41; Admin Dose 120 MG; Start 12/07/18 at 16:00 Flecainide Acetate (Tambocor) 100 mg Q12 PO Last administered on 12/08/18 09:41; Admin Dose 100 MG; Start 12/07/18 at 21:00 Prednisone (Prednisone) 10 mg DAILY PO Last administered on 12/08/18 09:42; Admin Dose 10 MG; Start 12/07/18 at 15:00 Ketorolac Tromethamine (Toradol) 30 mg Q6H PRN IV PAIN LEVEL 1-3; Start 12/07/18 at 15:00; Stop 12/10/18 at 14:59 Mupirocin (Bactroban) 1 applic BID TOP ; Start 12/08/18 at 14:30 SHELLEY MAR NP Dec 08, 2018 14:08
[2018-12-08 14:41] VITALS: BP 130/68; PULSE 91; RESP 20
--- NOTE | 2018-12-08 14:42 | PN ---
Date/Time of Note Date/Time of Note DATE: 12/08/18 TIME: 14:36 Assessment/Plan VTE Prophylaxis Risk score (from Ns)>0 risk: 6 SCD applied (from Ns): Yes Pharmacological prophylaxis: other Lines/Catheters [facility] [place] [facility] Urinary Cath still in place: No Assessment/Plan Hospital Course 78-year-old male with comorbidities including chronic respiratory failure d ependent on home O2, COPD, hypothyroidism, paroxysmal atrial fibrillation, essential hypertension, pulmonary hypertension, and metastatic prostate cancer who is presenting to the emergency room as instructed by his director consumer with positive chest imaging showing infected right lower lobe bulla, who will be admitted to inpatient setting for further treatment and evaluation. 1. Infected right lower lobe bulla. -Continue the patient on antimicrobials as per ID. -Pulmonology following. -Pancultures pending. 2. Chronic respiratory failure secondary to underlying COPD. -Continue supplemental oxygen. -Continue KEON and LABA. 3. Hypertension. -Continue antihypertensives. 4. Pulmonary hypertension. -Continue the patient on supplemental oxygen. 5. Paroxysmal atrial fibrillation. -Remains in sinus rhythm. -Continue Cardizem and flecainide. -Continue apixaban for stroke prophylaxis. 6. History of metastatic prostate cancer. -Continue bicalutamide. 7. Fluids, electrolytes, and nutrition. -Low-cholesterol diet. 8. First great toe infection -Infection is mild, continue IV antibiotics and have added Bactroban cream DVT prophylaxis. -Factor Xa inhibitors. DC planning: -Continue antimicrobials as per ID. -Await clinical improvement before discharge the patient home. Result Diagram: 12/08/18 0513 12/08/18 0513 Results 24hrs Laboratory Tests Test 12/08/18 05:13 White Blood Count 10.3 Red Blood Count 3.63 L Hemoglobin 10.2 L Hematocrit 33.5 L Mean Corpuscular Volume 92.3 Mean Corpuscular Hemoglobin 28.1 L Mean Corpuscular Hemoglobin Concent 30.4 L Red Cell Distribution Width 13.1 Platelet Count 321 Mean Platelet Volume 9.5 Immature Granulocytes % 0.500 H Neutrophils % 81.9 H Lymphocytes % 9.6 L Monocytes % 7.1 Eosinophils % 0.7 Basophils % 0.2 Nucleated Red Blood Cells % 0.0 Immature Granulocytes # 0.050 H Neutrophils # 8.4 H Lymphocytes # 1.0 Monocytes # 0.7 Eosinophils # 0.1 Basophils # 0.0 Nucleated Red Blood Cells # 0.0 Sodium Level 144 Potassium Level 3.8 Chloride Level 104 Carbon Dioxide Level 34 H Anion Gap 6 Blood Urea Nitrogen 11 Creatinine 0.89 Est Glomerular Filtrat Rate mL/min Glucose Level 99 Calcium Level 8.5 Phosphorus Level 3.6 Magnesium Level 2.3 Subjective 24 Hr Interval Summary Musculoskeletal: bone/joint pain Exam/Review of Systems Exam Vitals Vital Signs Date Temp Pulse Resp B/P (MAP) Pulse Ox O2 O2 Flow FiO2 Time Delivery Rate 12/08/18 100 20 94 Nasal 2.0 14:28 Cannula 12/08/18 98.2 110/62 08:02 (78) Intake and Output 12/07/18 12/07/18 12/08/18 1515:00 23:00 07:00 IntakeIntake Total 650 ml 340 ml 50 ml OutputOutput Total 550 ml 700 ml BalanceBalance 650 ml -210 ml -650 ml Constitutional: alert, oriented Respiratory: clear to auscultation Cardiovascular: regular rate and rhythm Musculoskeletal: No nl extremities to inspection Results Results 24hrs Laboratory Tests Test 12/08/18 05:13 White Blood Count 10.3 Red Blood Count 3.63 L Hemoglobin 10.2 L Hematocrit 33.5 L Mean Corpuscular Volume 92.3 Mean Corpuscular Hemoglobin 28.1 L Mean Corpuscular Hemoglobin Concent 30.4 L Red Cell Distribution Width 13.1 Platelet Count 321 Mean Platelet Volume 9.5 Immature Granulocytes % 0.500 H Neutrophils % 81.9 H Lymphocytes % 9.6 L Monocytes % 7.1 Eosinophils % 0.7 Basophils % 0.2 Nucleated Red Blood Cells % 0.0 Immature Granulocytes # 0.050 H Neutrophils # 8.4 H Lymphocytes # 1.0 Monocytes # 0.7 Eosinophils # 0.1 Basophils # 0.0 Nucleated Red Blood Cells # 0.0 Sodium Level 144 Potassium Level 3.8 Chloride Level 104 Carbon Dioxide Level 34 H Anion Gap 6 Blood Urea Nitrogen 11 Creatinine 0.89 Est Glomerular Filtrat Rate mL/min Glucose Level 99 Calcium Level 8.5 Phosphorus Level 3.6 Magnesium Level 2.3 Medications Medication Current Medications IV Flush (NS 3 ml) 3 ml PER PROTOCOL IV ; Start 12/06/18 at 13:00 Ondansetron HCl (Zofran Inj) 4 mg Q6H PRN IV NAUSEA/VOMITING Last administered on 12/07/18 21:51; Admin Dose 4 MG; Start 12/06/18 at 13:00 Acetaminophen (Tylenol Tab) 650 mg Q6H PRN PO .PAIN 1-3 OR TEMP Last administered on 12/07/18 21:54; Admin Dose 650 MG; Start 12/06/18 at 13:00 Acetaminophen/ Hydrocodone Bitart ([place] (5/325)) 1 tab Q6H PRN PO .PAIN 4-6 Last administered on 12/07/18 02:24; Admin Dose 1 TAB; Start 12/06/18 at 13:00 Apixaban (Eliquis) 2.5 mg BID PO Last administered on 12/08/18 09:41; Admin Dose 2.5 MG; Start 12/06/18 at 21:00 Bicalutamide (Casodex) 50 mg DAILY PO Last administered on 12/08/18 09:43; Admin Dose 50 MG; Start 12/07/18 at 09:00 Cyanocobalamin (Vitamin B12) 50 mcg DAILY PO Last administered on 12/08/18 09:42; Admin Dose 50 MCG; Start 12/07/18 at 09:00 Dorzolamide HCl (Trusopt) 1 drop TID BOTH EYES Last administered on 12/08/18 13:15; Admin Dose 1 DROP; Start 12/06/18 at 14:30 Methimazole (Tapazole) 10 mg TID PO Last administered on 12/08/18 13:15; Admin Dose 10 MG; Start 12/06/18 at 14:30 Albuterol/ Ipratropium (Duoneb) 3 ml Q6HWA RESP THERAPY HHN Last administered on 12/08/18 14:28; Admin Dose 3 ML; Start 12/06/18 at 20:00 Albuterol/ Ipratropium (Duoneb) 3 ml Q2H RESP THERAPY PRN HHN SHORTNESS OF B REATH; Start 12/06/18 at 16:00 Arformoterol Tartrate (Brovana (Neb)) 2 ml BID NEB Last administered on 12/08/18 07:57; Admin Dose 2 ML; Start 12/06/18 at 21:00 Latanoprost (Xalatan) 1 drop HS BOTH EYES Last administered on 12/07/18 21:56; Admin Dose 1 DROP; Start 12/06/18 at 21:00 Patient Own Medication 1 ea AM INH Last administered on 12/08/18 09:38; Admin Dose 1 EA; Start 12/07/18 at 12:00 Polyethylene Glycol (Miralax) 17 gm BID PO Last administered on 12/08/18 09:41; Admin Dose 17 GM; Start 12/07/18 at 21:00 Bisacodyl (Dulcolax) 10 mg DAILY PRN PO CONSTIPATION; Start 12/07/18 at 12:30 Ampicillin Sodium/ Sulbactam Sodium 50 ml @ 100 mls/hr Q8 IVPB Last administered on 12/08/18 05:20; Admin Dose 100 MLS/HR; Start 12/07/18 at 15:00 Diltiazem HCl (Cardizem Cd) 120 mg DAILY PO Last administered on 12/08/18 09:41; Admin Dose 120 MG; Start 12/07/18 at 16:00 Flecainide Acetate (Tambocor) 100 mg Q12 PO Last administered on 12/08/18 09:41; Admin Dose 100 MG; Start 12/07/18 at 21:00 Prednisone (Prednisone) 10 mg DAILY PO Last administered on 12/08/18 09:42; Admin Dose 10 MG; Start 12/07/18 at 15:00 Ketorolac Tromethamine (Toradol) 30 mg Q6H PRN IV PAIN LEVEL 1-3; Start 12/07/18 at 15:00; Stop 12/10/18 at 14:59 Mupirocin (Bactroban) 1 applic BID TOP ; Start 12/08/18 at 14:30 AXEL WHARTON Dec 08, 2018 14:42
[2018-12-08] MEDS: MUPIROCIN 2% 22 GM OINT TOP SCH ×2 (15:51→21:42)
[2018-12-08 19:46] VITALS: BP 144/70; PULSE 95; RESP 18
[2018-12-08] MEDS: LATANOPROST 0.005% 2.5 ML OPH BOTH EYES SCH (21:41)
[2018-12-08] MEDS: ACETAMINOPHEN 325 MG TAB PO PRN (21:48)
[2018-12-09 02:10] VITALS: BP 118/61; PULSE 88; RESP 18
[2018-12-09] MEDS: AMPICILLIN/SULB 1.5GM/NS (PMX) 50 ML IVPB SCH ×2 (05:44→13:32)
[2018-12-09 07:45] VITALS: BP 129/75; PULSE 85; RESP 18
[2018-12-09] MEDS: ALBUTEROL/IPRATROPIUM (NEB) 3 ML AMP HHN SCH ×2 (08:50→14:09)
[2018-12-09] MEDS: ARFORMOTEROL TARTRATE 15MCG/2 ML AMP NEB SCH (08:51)
[2018-12-09] MEDS: POLYETHYLENE GLYCOL 17 GM PACKET PO SCH (09:00)
[2018-12-09] MEDS: TRELEGY INH SCH (09:25)
[2018-12-09] MEDS: ELLIPTA INH SCH (09:25)
[2018-12-09] MEDS: CYANOCOBALAMIN 100 MCG TAB PO SCH (09:26)
[2018-12-09] MEDS: METHIMAZOLE 5 MG TAB PO SCH ×2 (09:27→13:26)
[2018-12-09] MEDS: DILTIAZEM (CD) 120 MG CAP PO SCH (09:27)
[2018-12-09] MEDS: predniSONE 10 MG TAB PO SCH (09:27)
[2018-12-09] MEDS: FLECAINIDE 100 MG TAB PO SCH (09:28)
[2018-12-09] MEDS: DORZOLAMIDE 2% 10 ML OPH BOTH EYES SCH ×2 (09:28→13:00)
[2018-12-09] MEDS: MUPIROCIN 2% 22 GM OINT TOP SCH (09:29)
[2018-12-09] MEDS: BICALUTAMIDE 50 MG TAB PO SCH (09:37)
[2018-12-09] MEDS: APIXABAN 5 MG TABLET PO SCH (09:40)
[2018-12-09] MEDS: ACETAMINOPHEN 325 MG TAB PO PRN (09:41)
[2018-12-09] MEDS ORDERED: LEVO750T8 PO (11:40)
--- NOTE | 2018-12-09 11:41 | PDOCDIS ---
Discharge Instructions CONDITION [id number] Patient Condition: Vitim2b Good ACTIVITY: [id number] Activity Restrictions: [id number] No Restrictions FOLLOW UP/APPOINTMENTS Follow-up Plan FOLLOW UP WITH YOUR PCP AND [facility] IN 1-2 WEEKS AXEL WHARTON Dec 09, 2018 11:41
--- NOTE | 2018-12-09 12:38 | CONS ---
Consult Date/Type/Reason Admit Date/Time Dec 06, 2018 at 10:00 Initial Consult Date 12/06/18 Type of Consult Pulmonary Date/Time of Note DATE: 12/09/18 TIME: 12:37 Subjective Patient comfortable this morning no respiratory distress. CT noted. Loculated effusion and cavity. Objective Vital Signs Date Temp Pulse Resp B/P (MAP) Pulse Ox O2 O2 Flow FiO2 Time Delivery Rate 12/09/18 2.0 09:00 12/09/18 101 20 95 Nasal 09:00 Cannula 12/09/18 97.5 129/75 07:45 (93) Intake and Output 12/08/18 12/08/18 12/09/18 1414:59 22:59 06:59 IntakeIntake Total 990 ml 580 ml 270 ml OutputOutput Total 700 ml 400 ml 650 ml BalanceBalance 290 ml 180 ml -380 ml Exam GENERAL: Elderly gentleman comfortable at rest no acute distress VITAL SIGNS: per chart NECK: Supple. No JVD or lymphadenopathy. CARDIAC EXAM: S1, S2. No added sounds or murmurs. CHEST: Diminished air entry bilaterally ABDOMEN: Soft, nontender. No guarding or rebound. EXTREMITIES: No cyanosis, clubbing or edema. NEUROLOGIC: Generalized weakness. No focal deficits. Results/Medications Result Diagram: 12/09/18 0513 12/09/18 0513 Results 24 hrs Laboratory Tests Test 12/09/18 05:13 White Blood Count 10.3 Red Blood Count 3.55 L Hemoglobin 10.1 L Hematocrit 33.2 L Mean Corpuscular Volume 93.5 Mean Corpuscular Hemoglobin 28.5 L Mean Corpuscular Hemoglobin Concent 30.4 L Red Cell Distribution Width 13.0 Platelet Count 336 Mean Platelet Volume 9.2 Immature Granulocytes % 0.400 Neutrophils % 75.6 Lymphocytes % 14.5 L Monocytes % 7.5 Eosinophils % 1.6 Basophils % 0.4 Nucleated Red Blood Cells % 0.0 Immature Granulocytes # 0.040 H Neutrophils # 7.8 H Lymphocytes # 1.5 Monocytes # 0.8 Eosinophils # 0.2 Basophils # 0.0 Nucleated Red Blood Cells # 0.0 Sodium Level 144 Potassium Level 3.9 Chloride Level 103 Carbon Dioxide Level 34 H Anion Gap 7 Blood Urea Nitrogen 13 Creatinine 1.03 Est Glomerular Filtrat Rate mL/min Glucose Level 89 Calcium Level 8.7 Medications Current Medications IV Flush (NS 3 ml) 3 ml PER PROTOCOL IV ; Start 12/06/18 at 13:00 Ondansetron HCl (Zofran Inj) 4 mg Q6H PRN IV NAUSEA/VOMITING Last administered on 12/07/18 21:51; Admin Dose 4 MG; Start 12/06/18 at 13:00 Acetaminophen (Tylenol Tab) 650 mg Q6H PRN PO .PAIN 1-3 OR TEMP Last administered on 12/09/18 09:41; Admin Dose 650 MG; Start 12/06/18 at 13:00 Acetaminophen/ Hydrocodone Bitart ([place] (5/325)) 1 tab Q6H PRN PO .PAIN 4-6 Last administered on 12/07/18 02:24; Admin Dose 1 TAB; Start 12/06/18 at 13:00 Apixaban (Eliquis) 2.5 mg BID PO Last administered on 12/09/18 09:40; Admin Dose 2.5 MG; Start 12/06/18 at 21:00 Bicalutamide (Casodex) 50 mg DAILY PO Last administered on 12/09/18 09:37; Admin Dose 50 MG; Start 12/07/18 at 09:00 Cyanocobalamin (Vitamin B12) 50 mcg DAILY PO Last administered on 12/09/18 09:26; Admin Dose 50 MCG; Start 12/07/18 at 09:00 Dorzolamide HCl (Trusopt) 1 drop TID BOTH EYES Last administered on 12/09/18 09:28; Admin Dose 1 DROP; Start 12/06/18 at 14:30 Methimazole (Tapazole) 10 mg TID PO Last administered on 12/09/18 09:27; Admin Dose 10 MG; Start 12/06/18 at 14:30 Albuterol/ Ipratropium (Duoneb) 3 ml Q6HWA RESP THERAPY HHN Last administered on 12/09/18 08:50; Admin Dose 3 ML; Start 12/06/18 at 20:00 Albuterol/ Ipratropium (Duoneb) 3 ml Q2H RESP THERAPY PRN HHN SHORTNESS OF BREATH; Start 12/06/18 at 16:00 Arformoterol Tartrate (Brovana (Neb)) 2 ml BID NEB Last administered on 12/09/18 08:51; Admin Dose 2 ML; Start 12/06/18 at 21:00 Latanoprost (Xalatan) 1 drop HS BOTH EYES Last administered on 12/08/18 21:41; Admin Dose 1 DROP; Start 12/06/18 at 21:00 Patient Own Medication 1 ea AM INH Last administered on 12/09/18 09:25; Admin Dose 1 EA; Start 12/07/18 at 12:00 Polyethylene Glycol (Miralax) 17 gm BID PO Last administered on 12/08/18 21:48; Admin Dose 17 GM; Start 12/07/18 at 21:00 Bisacodyl (Dulcolax) 10 mg DAILY PRN PO CONSTIPATION; Start 12/07/18 at 12:30 Ampicillin Sodium/ Sulbactam Sodium 50 ml @ 100 mls/hr Q8 IVPB Last administered on 12/09/18 05:44; Admin Dose 100 MLS/HR; Start 12/07/18 at 15:00 Diltiazem HCl (Cardizem Cd) 120 mg DAILY PO Last administered on 12/09/18 09:27; Admin Dose 120 MG; Start 12/07/18 at 16:00 Flecainide Acetate (Tambocor) 100 mg Q12 PO Last administered on 12/09/18 09:28; Admin Dose 100 MG; Start 12/07/18 at 21:00 Prednisone (Prednisone) 10 mg DAILY PO Last administered on 12/09/18 09:27; Admin Dose 10 MG; Start 12/07/18 at 15:00 Ketorolac Tromethamine (Toradol) 30 mg Q6H PRN IV PAIN LEVEL 1-3; Start 12/07/18 at 15:00; Stop 12/10/18 at 14:59 Mupirocin (Bactroban) 1 applic BID TOP Last administered on 12/09/18 09:29; Admin Dose 1 APPLIC; Start 12/08/18 at 14:30 Assessment/Plan Hospital Course (Demo Recall) IMP: 1. Infected RLL Bullae--in a patient with advanced centrilobular and bullous emphysema 2. Emphysema/COPD 3. Pulm HTN RECS: 1. Continue BD's 2. O2 to keep SpO2 88-92% 3. De-escalate Abx--to unasyn for now 4. Would continue augmentin x 6 weeks as outpatient. 5. Long discussion with patient's today. Patient can be discharged recommend 6 weeks of antibiotics. Follow-up with me in the office. ANITA WOMACK MD, [facility] Dec 09, 2018 12:38
[2018-12-09] MEDS ORDERED: AMOX1TAB10 PO (13:47)
--- NOTE | 2018-12-09 14:11 | DS ---
Date/Time of Note Date/Time of Note DATE: 12/09/18 TIME: 14:06 Discharge Summary Admission/Discharge Info Admit Date/Time Dec 06, 2018 at 10:00 Discharge Date/Time December 09, 2018 Discharge Diagnosis 78-year-old male with comorbidities including chronic respiratory failure dependent on home O2, COPD, hypothyroidism, paroxysmal atrial fibrillation, essential hypertension, pulmonary hypertension, and metastatic prostate cancer who is presenting to the emergency room as instructed by his broadcast maintenance technician with positive chest imaging showing infected right lower lobe bulla, who will be admitted to inpatient setting for further treatment and evaluation. 1. Infected right lower lobe bulla -Status post IV antibiotics -DC with Augmentin x6 weeks per pulmonology recommendations -Pulmonology following. -ID consultation appreciated 2. Chronic respiratory failure secondary to underlying COPD. -Continue supplemental oxygen. -Continue KEON and LABA. -Follow with pulmonology 3. Hypertension. -Continue antihypertensives. 4. Pulmonary hypertension. -Continue the patient on supplemental oxygen. 5. Paroxysmal atrial fibrillation. -Remains in sinus rhythm. -Continue Cardizem -Continue apixaban for stroke prophylaxis. 6. History of metastatic prostate cancer. -Continue bicalutamide. 7. First great toe infection-improving -Infection is mild, status post IV antibiotics and have added Bactroban cream Patient Condition: Good Hospital Course Patient is a 78-year-old male with comorbidities including chronic respiratory failure dependent on home O2, COPD, hypothyroidism, paroxysmal atrial fibrillation, essential hypertension, pulmonary hypertension, and metastatic prostate cancer who presented as instructed by his broadcast maintenance technician with positive chest imaging showing infected right lower lobe bulla. Patient did have leukocytosis on arrival, patient was seen by pulmonology and ID and was placed on IV antibiotics with resolution of leukocytosis. CT of the chest was done which showed very large presumed infected bullae in the right lower lobe as well as severe extensive bullous emphysema throughout the lungs that are stable. P atient also had extensive diffuse bronchiectasis with wall thickening and chronic bronchitis. Patient was deemed stable for DC with oral antibiotics with Augmentin x6 weeks per pulmonology recommendations. On the day of discharge patient vitals, labs and physical exam are stable. Home Meds Active Scripts Amoxicillin/Potassium Clav (Amox-Clav 875-125 mg Tablet) 875-125 mg Tab, 1 TAB PO BID for 42 Days, #84 TAB Prov:AXEL WHARTON 12/09/18 Prednisone* (Prednisone*) 10 Mg Tab, 10 MG PO DAILY, #30 TAB Prov:NGOC SILVESTRE V. [employer]END WORKER 10/16/17 Reported Medications Bimatoprost* (Lumigan*) 0.01%-2.5 Ml Opht Drops, 1 DROP BOTH EYES HS, EA 12/06/18 Dorzolamide Hcl* (Dorzolamide Hcl*) 10 Ml Drops, 1 DROP BOTH EYES TID, #1 EA 12/06/18 Rosuvastatin Calcium (Rosuvastatin Calcium) 10 Mg Tablet, 1 TAB ORAL DAILY 12/06/18 Cyanocobalamin* (Vitamin B-12*) 50 Mcg Tablet, 50 MCG PO DAILY, TAB 12/06/18 Methimazole* (Methimazole*) 10 Mg Tablet, 10 MG PO TID, TAB 12/06/18 Diltiazem Hcl* (Cartia XT*) 120 Mg Cap.sr.24h, 1 CAP ORAL DAILY 12/06/18 Apixaban* (Eliquis*) 2.5 Mg Tablet, 2.5 MG PO BID, TAB 12/06/18 Fluticasone/Umeclidin/Vilanter (Trelegy Ellipta 100-62.5-25) 1 Each Blst.w.dev, 1 EACH IH DAILY 12/06/18 Bicalutamide* (Bicalutamide*) 50 Mg Tablet, 50 MG PO DAILY, TAB 04/01/17 Discontinued Reported Medications Salmeterol Xinaf/Fluticasone* (Advair*) 250-50 Diskus Inhaler, 1 INH INHALATION BID, #1 INHALER 04/16/17 Sennosides* (Senna Lax*) 8.6 Mg Tablet, 1 TAB PO QHS, TAB 10/10/16 Docusate Sodium (Col-Rite) 100 Mg Capsule, 100 MG PO DAILY, CAP 10/10/16 Diltiazem Hcl* (Diltiazem XT) 240 Mg Capsule.er, 240 MG PO DAILY, #30 CAP 10/10/16 Bimatoprost* (Lumigan*) 2.5 Ml Drops, 1 DROP BOTH EYES HS 12/19/13 Dorzolamide/Timolol* (Dorzolamide/Timolol*) 10 Ml Drops, 1 DROP BOTH EYES BID, EA 12/19/13 Tiotropium [place]* (Spiriva*) 18 Mcg Cap.w.dev, 1 INH IH DAILY, EA 12/19/13 Discontinued Scripts Ipratropium-Albuterol (Ipratropium-Albuterol) 0.5-3 Mg/3 Ml Ampul.neb, 3 ML INHALATION QID for 30 Days, #30 VIAL Provide patient with 30 day supply of medication with nebulizer#1 Prov:NGOC SILVESTRE [employer]. [employer] WORK[employer] 10/15/17 Fluconazole* (Diflucan*) 200 Mg Tablet, 200 MG PO DAILY for 3 Days, #3 TAB Prov:SILVESTREJADENA Zander [employer]END WORKER 10/14/17 Prednisone* (Prednisone*) 10 Mg Tab, 10 MG PO DAILY, #30 TAB Prov:NGOC SILVESTRE [employer]. [employer] WORK[employer] 10/14/17 Montelukast Sodium* (Singulair*) 10 Mg Tablet, 10 MG PO QHS, #30 TAB Prov:NGOC SILVESTRE [employer]. [employer] WORK[employer] 10/03/17 Albuterol Sulfate* (Proair HFA*) 8.5 Gm Hfa.aer.ad, 2 PUFF INH Q4 for SHORTNESS OF BREATH, #1 INHALER Prov:BERYL PEARL NP 04/25/17 Methimazole* (Methimazole*) 10 Mg Tablet, 20 MG PO DAILY, #60 TAB Take this 2 tablets(10X2 = 20 mg) daily before breakfast. Prov:BERYL PEARL NP 04/25/17 Apixaban* (Eliquis*) 5 Mg Tablet, 5 MG PO BID, #60 TAB Prov:BERYL PEARL NP 04/25/17 Follow-up Plan FOLLOW UP WITH YOUR PCP AND [employer] IN 1-2 WEEKS Primary Care Provider Not On Staff Doctor Time spent on discharge: > 30 minutes AXEL WHARTON Dec 09, 2018 14:11
--- NOTE | 2018-12-09 14:40 | CONS ---
Assessment/Plan Assessment/Plan Hospital Course (Demo Recall) Patient is alert no SOB Microbiology: Sputum culture growing gram-negative rods preliminary Chest x-ray on admission revealed infected bulla right lower lobe Antimicrobials: Unasyn Physical examination: Well-nourished well-developed elderly [place] man who is alert in no distress. Head atraumatic normocephalic sclera nonicteric vehicle mucosa pink neck is supple chest rise symmetrical breath sounds diminished bases heart S1-S2 abdomen soft bowel sounds present extremities without cyanosis Assessment: 1. Infected right lower lobe bulla 2. Advanced COPD and emphysema. Plan: Stable, anticipate discharge on oral Augmentin for 4 to 6 weeks, follow sputum culture, follow with Dr. Castellano outpatient Consultation Date/Type/Reason Admit Date/Time Dec 06, 2018 at 10:00 Initial Consult Date 12/06/18 Type of Consult id Date/Time of Note DATE: 12/09/18 TIME: 14:39 Exam/Review of Systems Exam Vitals Vital Signs Date Temp Pulse Resp B/P (MAP) Pulse Ox O2 O2 Flow FiO2 Time Delivery Rate 12/09/18 103 22 94 Nasal 2.0 14:09 Cannula 12/09/18 97.5 129/75 07:45 (93) Intake and Output 12/08/18 12/08/18 12/09/18 1515:00 23:00 07:00 IntakeIntake Total 940 ml 580 ml 270 ml OutputOutput Total 700 ml 400 ml 650 ml BalanceBalance 240 ml 180 ml -380 ml Results Result Diagram: 12/09/18 0513 12/09/18 0513 Results 24hrs Laboratory Tests Test 12/09/18 05:13 White Blood Count 10.3 Red Blood Count 3.55 L Hemoglobin 10.1 L Hematocrit 33.2 L Mean Corpuscular Volume 93.5 Mean Corpuscular Hemoglobin 28.5 L Mean Corpuscular Hemoglobin Concent 30.4 L Red Cell Distribution Width 13.0 Platelet Count 336 Mean Platelet Volume 9.2 Immature Granulocytes % 0.400 Neutrophils % 75.6 Lymphocytes % 14.5 L Monocytes % 7.5 Eosinophils % 1.6 Basophils % 0.4 Nucleated Red Blood Cells % 0.0 Immature Granulocytes # 0.040 H Neutrophils # 7.8 H Lymphocytes # 1.5 Monocytes # 0.8 Eosinophils # 0.2 Basophils # 0.0 Nucleated Red Blood Cells # 0.0 Sodium Level 144 Potassium Level 3.9 Chloride Level 103 Carbon Dioxide Level 34 H Anion Gap 7 Blood Urea Nitrogen 13 Creatinine 1.03 Est Glomerular Filtrat Rate mL/min Glucose Level 89 Calcium Level 8.7 Medications Medication Current Medications IV Flush (NS 3 ml) 3 ml PER PROTOCOL IV ; Start 12/06/18 at 13:00 Ondansetron HCl (Zofran Inj) 4 mg Q6H PRN IV NAUSEA/VOMITING Last administered on 12/07/18 21:51; Admin Dose 4 MG; Start 12/06/18 at 13:00 Acetaminophen (Tylenol Tab) 650 mg Q6H PRN PO .PAIN 1-3 OR TEMP Last administ ered on 12/09/18 09:41; Admin Dose 650 MG; Start 12/06/18 at 13:00 Acetaminophen/ Hydrocodone Bitart ([place] (5/325)) 1 tab Q6H PRN PO .PAIN 4-6 Last administered on 12/07/18 02:24; Admin Dose 1 TAB; Start 12/06/18 at 13:00 Apixaban (Eliquis) 2.5 mg BID PO Last administered on 12/09/18 09:40; Admin D ose 2.5 MG; Start 12/06/18 at 21:00 Bicalutamide (Casodex) 50 mg DAILY PO Last administered on 12/09/18 09:37; Admin Dose 50 MG; Start 12/07/18 at 09:00 Cyanocobalamin (Vitamin B12) 50 mcg DAILY PO Last administered on 12/09/18 09:26; Admin Dose 50 MCG; Start 12/07/18 at 09:00 Dorzolamide HCl (Trusopt) 1 drop TID BOTH EYES Last administered on 12/09/18 09:28; Admin Dose 1 DROP; Start 12/06/18 at 14:30 Methimazole (Tapazole) 10 mg TID PO Last administered on 12/09/18 13:26; Admin Dose 10 MG; Start 12/06/18 at 14:30 Albuterol/ Ipratropium (Duoneb) 3 ml Q6HWA RESP THERAPY HHN Last administered on 12/09/18 14:09; Admin Dose 3 ML; Start 12/06/18 at 20:00 Albuterol/ Ipratropium (Duoneb) 3 ml Q2H RESP THERAPY PRN HHN SHORTNESS OF BREATH; Start 12/06/18 at 16:00 Arformoterol Tartrate (Brovana (Neb)) 2 ml BID NEB Last administered on 12/09/18 08:51; Admin Dose 2 ML; Start 12/06/18 at 21:00 Latanoprost (Xalatan) 1 drop HS BOTH EYES Last administered on 12/08/18 21:41; Admin Dose 1 DROP; Start 12/06/18 at 21:00 Patient Own Medication 1 ea AM INH Last administered on 12/09/18 09:25; Admin Dose 1 EA; Start 12/07/18 at 12:00 Polyethylene Glycol (Miralax) 17 gm BID PO Last administered on 12/08/18 21:48; Admin Dose 17 GM; Start 12/07/18 at 21:00 Bisacodyl (Dulcolax) 10 mg DAILY PRN PO CONSTIPATION; Start 12/07/18 at 12:30 Ampicillin Sodium/ Sulbactam Sodium 50 ml @ 100 mls/hr Q8 IVPB Last a dministered on 12/09/18 13:32; Admin Dose 100 MLS/HR; Start 12/07/18 at 15:00 Diltiazem HCl (Cardizem Cd) 120 mg DAILY PO Last administered on 12/09/18 09:27; Admin Dose 120 MG; Start 12/07/18 at 16:00 Flecainide Acetate (Tambocor) 100 mg Q12 PO Last administered on 12/09/18 09:28; Admin Dose 100 MG; Start 12/07/18 at 21:00 Prednisone (Prednisone) 10 mg DAILY PO Last administered on 12/09/18 09:27; Admin Dose 10 MG; Start 12/07/18 at 15:00 Ketorolac Tromethamine (Toradol) 30 mg Q6H PRN IV PAIN LEVEL 1-3; Start 12/07/18 at 15:00; Stop 12/10/18 at 14:59 Mupirocin (Bactroban) 1 applic BID TOP Last administered on 12/09/18 09:29; Admin Dose 1 APPLIC; Start 12/08/18 at 14:30 SHELLEY MAR NP Dec 09, 2018 14:40
[2018-12-09 14:41] VITALS: BP 142/69; PULSE 96; RESP 16
== END 2018-12-09 19:15 | disposition home or self-care (01) | DRG 191 ==
LOC: E/R 09:35 → 2NE 10:00
PROVIDERS: ADMIT Internal Medicine; ATTEND Internal Medicine
DX: J43.2 Centrilobular emphysema (principal); J96.10 Chronic respiratory failure, unspecified whether with hypoxia or hypercapnia; Z99.81 Dependence on supplemental oxygen; E03.9 Hypothyroidism, unspecified; I48.0 Paroxysmal atrial fibrillation; I10 Essential (primary) hypertension; I27.20 Pulmonary hypertension, unspecified; C61 Malignant neoplasm of prostate; L08.9 Local infection of the skin and subcutaneous tissue, unspecified; J42 Unspecified chronic bronchitis
CPT/HCPCS: 36415; 71045; 71250; 80048; 80053; 80061; 81001; 83036; 83605; 83735; 84100; 84145; 84439; 84443; 84484; 85025; 85610; 85730; 87070; 87081; 87086; 89220; 93005; 94640; 94664; J0295; J0692; J2405; J3370; J7050; J7512